=== PATIENT | male | born 1945 | race Caucasian/White ===

== ENCOUNTER 2017-07-18 18:59 | Emergency (ER) | payer OTHER, BC ==
[~2017-07-18] VITALS: Ht 175.3 cm; Wt 94.6 kg
[~2017-07-18 18:59] MED LIST: ALPR1TAB3; ALT10; AMB10; AMLO2.5T; ASPEC81; BUPR-79; BUPRTAB51; CLOP1TAB15; EZET10TA63; FLM4; FRS/40; LEXAPRO; METO100T44; METO50TA7; NTRGSL/4; PANT40TA; SEROQUEL; [UNRECOGNIZED DRUG - OTHER]
[2017-07-18 19:22] VITALS: O2SAT 96
[2017-07-18] MEDS ORDERED: METHYLPREDNISOLONE 125 MG VIAL IV STA (19:22)
[2017-07-18] MEDS ORDERED: ONDANSETRON INJ 2 MG/ML 2 ML VIAL IV STA (19:22)
[2017-07-18] MEDS ORDERED: DiphenhydrAMINE HCL 50 MG/ML VIAL IV STA (19:22)
[2017-07-18 19:25] VITALS: TEMP 36.6; Ht 175.3 cm; Wt 94.6 kg
[2017-07-18] MEDS ORDERED: OPTIRAY 320 IV PRN (19:45)
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
[2017-07-18] MEDS ORDERED: CLOP1TAB15 PO (19:58)
[2017-07-18] MEDS ORDERED: BUPR200T2 PO (19:58)
[2017-07-18] MEDS ORDERED: CRS/10 PO (19:58)
[2017-07-18] MEDS ORDERED: CARV3.122 PO (19:58)
[2017-07-18] MEDS ORDERED: CLON1TAB3 PO (19:58)
[2017-07-18] MEDS ORDERED: RISP1TAB68 PO (19:58)
[2017-07-18] MEDS ORDERED: DOCU-94 PO (19:58)
[2017-07-18] MEDS ORDERED: DIVA500T5 PO (19:58)
[2017-07-18] MEDS ORDERED: LEVO25TA5 PO (19:58)
[2017-07-18] MEDS ORDERED: ASPI81TA28 PO (19:58)
[2017-07-18] MEDS ORDERED: ALT/25 PO (19:58)
[2017-07-18 20:07] LABS: BASO % 0.3 %; BASO ABS # 0.03 K/uL (0-0.2); EOS % 2.8 %; EOS ABS # 0.27 K/uL (0-0.5); HEMOGLOBIN 14.6 g/dL (14.0-18.0); IG# 0.05 K/uL (0.00-0.02); LYMPH % 19.4 %; LYMPH ABS # 1.87 K/uL (1.2-3.4); MEAN CELL VOLUME 87.5 fL (80-100); MEAN CORPUSCULAR HGB CONC 33.2 g/dl (32-36); MEAN PLATELET VOLUME 10.4 fL (7.4-10.4); MONO % 7.3 %; NEUT % 69.7 %; NEUT ABS # 6.71 K/uL (1.4-6.5); PLATELET COUNT 160 K/uL (130-400); RED CELL DISTRIBUTION WIDTH CV 13.5 % (11.5-14.5); RED CELL DISTRIBUTION WIDTH SD 43.2 fL (36.4-46.3); WHITE BLOOD COUNT 9.63 K/uL (4.8-10.8)
[2017-07-18 20:17] LABS: INR 1.1 (0.9-1.1); PTT PATIENT 23.8 SECONDS (21.0-31.0)
[2017-07-18 20:26] LABS: ALBUMIN 3.7 gm/dl (3.4-5.0); CALCIUM 8.8 mg/dl (8.5-10.1); CREATININE 1.3 mg/dl (0.60-1.40); POTASSIUM 4.4 mmol/L (3.5-5.1)
[2017-07-18 20:29] LABS: TOTAL PROTEIN 7.1 gm/dl (6.4-8.2)
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
[2017-07-18] MEDS ORDERED: HYDROCODONE/ACETAMOPHEN 5/325MG TAB PO STA ×2 (21:50→22:01)
[2017-07-18] MEDS ORDERED: ACETAMINOPHEN 325 MG TAB ONE (21:53)
[2017-07-18] MEDS ORDERED: ACETAMINOPHEN 325 MG TAB PO STA (22:01)
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
[2017-07-18 22:43] VITALS: BP 146/114; PULSE 61; O2SAT 94
== END 2017-07-18 22:44 | disposition home or self-care (01) ==
LOC: EDBD 18:59 → C.EDA 19:00
DX: R07.89 Other chest pain (principal); S20.212A Contusion of left front wall of thorax, initial encounter; V48.5XXA Car driver injured in noncollision transport accident in traffic accident, initial encounter; Y92.488 Other paved roadways as the place of occurrence of the external cause; F31.9 Bipolar disorder, unspecified; E03.9 Hypothyroidism, unspecified; I25.10 Atherosclerotic heart disease of native coronary artery without angina pectoris; Z95.1 Presence of aortocoronary bypass graft; Z79.82 Long term (current) use of aspirin; Z79.02 Long term (current) use of antithrombotics/antiplatelets; Z79.899 Other long term (current) drug therapy

== ENCOUNTER 2020-07-10 05:05 | Observation (INO) ==
[2020-07-10] MEDS ORDERED: oxyCODONE HCL IR 5 MG TAB (IMMEDIATE RELEASE) PO STA (05:15)
--- NOTE | 2020-07-10 05:17 | Emergency Department Note ---
Impression & Plan Left-sided chest pain, Left rib fracture ED Provider Note Name: ANTONIETTA Duff CASE Age: 75 Sex: M Arrives Via: Ambulance Informant: Patient ED Provider: Billy Hinojosa MD Chief Complaint: Fall Impression: Left-Sided Chest Pain Left Rib Fracture Medical Decision Makin yr old male with history Bipolar, CAD, Hypothyroid, BPD with CABG 20+ yrs ago and multiple MIs/stents since then arrives for left rib pain sp fall 3 days ago. Admits headache and head injury thus ct head/neck obtained and unremarkable. CT chest obtained at this time as well which reveals what appears to be small non displaced rib fracture, though [facility] reports no acute findings. Patient improving pain with Oxy IR. While in ED awaiting CT results patient reported sudden onset left chest pressure radiating to left jaw. States identical pain to previous MIs. Denies nausea, palpitations, lightheaded, shob. States different pain than left rib pain which is improving post Oxy IR. EKG obtained and unremarkable. CT noted unremarkable. Labs obtained. With cardiac hisory and stating similar to previous ME will need to come in for cardiac rule out. Prior Medical Record and Triage/Nursing Notes reviewed by Me Additional history obtained from chart Differentials:Cardiac ischemia, aortic dissection, pulmonary embolism, pneumothorax, pneumonia, pericarditis, myocarditis, esophageal rupture, GERD, cholecystitis, pancreatitis, musculoskeletal, as well as other pathologies. Vital Signs: reviewed and remarkable for HTN Interventions: oxy IR, ASA 324mg PO, slntg Labs:Reviewed and remarkable for no significant abnormalities Imaging:[facility] Radiologist interpretation reviewed by me: CT head/neck wo con: no acute findings. CT Chest wo con: per stat rad negative EKG:Per My Interpretation: Indication Chest Pain: NSR 77 bpm, qtc 468. No Ectopy. No Ischemia. There is a RBBB with left axis deviation similar to previous. Compared to EKG 07/18/17, no significant changes. Cardiac/Tele Monitoring: Cardiac Monitoring: An Order was placed for continuous cardiac monitoring. The monitor shows a rate of 75 with a normal sinus rhythm. Consults:Maricel ACEVES accepts to eval for Dr Evans Plan: Disposition:Hospitalization. Condition: Good History of Present Illness:75 yr old male arrives for evaluation of left rib pain. Patient tripped taking out garbage on Friday and fell on his left side hitting left head and left ribs on the ground. No LOC, syncope nor other injuries besides scrapping his knuckles. He notes he has had headache since a long with worsening left rib pain. Worse with deep breath and movement. Denies difficulty breathing, cough, fevers, vision changes, weakness, abdominal pain, urinary symptoms, blood in stool/urine, nor other symptoms. Denies falling regularly. Is on ASA and Plavix for cardiac stents. Denies etoh use nor other inciting event. ROS: See above HPI for pertinent positives & negatives. A total of 10 systems reviewed and were otherwise negative. Past Medical History:Bipolar, CAD, Hypothyroid, BPD Past Surgical History:CABG, multiple cardiac stents Family History:non contributory Social History:lives alone, previous smoker Home Medications:See Below Allergies:CT Dye Vitals:Blood Pressure: 179/70, Pulse 75, RR 18, T 36.3C, O2 96% on RA Physical Exam: GENERAL: Patient is uncomfortable appearing and in mild distress. EYES: No scleral icterus, unremarkable pupils. ENT: Mucous membranes moist, no nasal congestion. NECK: No masses appreciated, nomeningismus, trachea is midline. RESPIRATORY: No dyspnea. Clear to auscultation and equal bilaterally. No wheeze, no rhonchi. CARDIOVASCULAR: Regular rate and rhythm.No murmurs, rubs, gallops appreciated. CHEST: Bruising of the mid lateral ribs with TTP no crepitus GASTROINTESTINAL: Abdomen soft, non-tender, no peritonitis.Bowel sounds positive.No masses appreciated. BACK: No midline tenderness, no CVA tenderness EXTREMITIES: Normal motion all extremities, no cyanosis, no edema. NEUROLOGIC: Alert and oriented, no acute motor or sensory deficits, no focal weakness, cranial nerves grossly intact. SKIN: No rash, no jaundice, no diaphoresis. PSYCH: Appropriate GCS: 15 ED Course: Times/Reassessment: Stable, did develop chest pain during stay. Billy Hinojosa MD Past Med/Surg History Medical History Bipolar disorder BPD (bronchopulmonary dysplasia) CAD (coronary artery disease) Coronary artery bypass graft 1992: [place] to LAD, saphenous vein graft to 1st diagonal, saphenous vein graft to om 1, saphenous vein graft to the right coronary artery Diabetes mellitus type 2 in obese Hypertension Hypothyroid Surgical History Hx of inguinal herniorrhaphy Status post aorto-coronary artery bypass graft Family History Other Family history non-contributory Social History Smoking Status: Never smoker Hx Alcohol Use: No Hx Substance Use: No Preferred Language: Citizen Of [place] Communication Ability: Effective Dictionary Editor Required: No Beliefs That Will Affect Care: None Current Living Situation: Alone Current Living Situation Comment: 1 pet dog Feels Safe at Home: Yes Safety Concerns: Feels Safe At This Time Assistive Devices: Glasses Allergies Allergies Allergy/AdvReac Type Severity Reaction Status Date / Time Iodinated Contrast Media Allergy Rash Verified 07/10/20 06:16 Home Meds Home Medications Medication Instructions Recorded Confirmed aspirin [Aspirin Low Dose] 81 mg PO DAILY 07/10/20 07/10/20 bupropion HCl 200 mg PO BID 07/10/20 07/10/20 carvedilol 6.25 mg PO BID 07/10/20 07/10/20 clonazepam 1 mg PO HS 07/10/20 07/10/20 clopidogrel [Plavix] 75 mg PO DAILY 07/10/20 07/10/20 divalproex 750 mg PO 07/10/20 07/10/20 insulin glargine [Lantus U-100 5 unit SUBCUT 07/10/20 07/10/20 Insulin] levothyroxine 25 mcg PO QAM 07/10/20 07/10/20 metformin 500 mg PO BID 07/10/20 07/10/20 olanzapine 5 mg PO 07/10/20 07/10/20 ramipril 2.5 mg PO BID 07/10/20 07/10/20 risperidone [Risperdal] 1 mg PO HS 07/10/20 07/10/20 rosuvastatin 10 mg PO 07/10/20 07/10/20 Results & Data (ED) Vital Signs Vital Signs - 24 hr 07/10/20 05:11 07/10/20 06:10 07/10/20 06:15 Temperature 36.3 C L Temperature Source Oral Pulse Rate 75 72 Pulse Rate [Apical] 64 Pulse Rate from SpO2 Sensor 72 Respiratory Rate 18 22 20 Respiratory Effort / Characteristics Respiratory Depth Blood Pressure 179/70 H 145/79 H Blood Pressure [Right Arm] 158/85 H Blood Pressure Mean 106 101 Blood Pressure Mean [Right Arm] 109 Blood Pressure Position [Right Arm] Pulse Oximetry 96 97 96 Oxygen Delivery Method Room Air Room Air Room Air Sepsis Recent Fever Within 48 Hours No Sepsis New/Unexplained Change in Mental Status N/A Sepsis Action Taken by Nursing No Action Required 07/10/20 06:20 07/10/20 06:25 07/10/20 06:30 Temperature Temperature Source Pulse Rate 67 61 61 Pulse Rate [Apical] Pulse Rate from SpO2 Sensor 67 61 60 Respiratory Rate 18 19 21 Respiratory Effort / Characteristics Respiratory Depth Blood Pressure 153/70 H 138/66 137/61 Blood Pressure [Right Arm] Blood Pressure Mean 97 90 86 Blood Pressure Mean [Right Arm] Blood Pressure Position [Right Arm] Pulse Oximetry 94 95 94 Oxygen Delivery Method Room Air Room Air Room Air Sepsis Recent Fever Within 48 Hours Sepsis New/Unexplained Change in Mental Status Sepsis Action Taken by Nursing 07/10/20 08:14 Temperature Temperature Source Pulse Rate Pulse Rate [Apical] 62 Pulse Rate from SpO2 Sensor Respiratory Rate 18 Respiratory Effort / Characteristics Non-Labored Spontaneous Respiratory Depth Normal Blood Pressure Blood Pressure [Right Arm] 174/73 H Blood Pressure Mean Blood Pressure Mean [Right Arm] 106 Blood Pressure Position [Right Arm] Lying Pulse Oximetry 95 Oxygen Delivery Method Room Air Sepsis Recent Fever Within 48 Hours Sepsis New/Unexplained Change in Mental Status Sepsis Action Taken by Nursing Laboratory Data Result diagrams: 07/10/20 06:15 07/10/20 06:15 Lab Results 07/10/20 07/10/20 07/10/20 Range/Units 06:15 06:15 06:20 WBC 9.53 (4.8-10.8) K/uL RBC 4.72 (4.7-6.1) M/uL Hgb 14.3 (14.0-18.0) g/dL Hct 41.4 L (42-52) % MCV 87.7 (80-100) fL MCH 30.3 (25-34) pg MCHC 34.5 (32-36) g/dL RDW Std Deviation 44.0 (36.4-46.3) fL RDW Coeff of De 13.6 (11.5-14.5) % Plt Count 182 (130-400) K/uL MPV 10.3 (7.4-10.4) fL Immature Gran % (Auto) 0.6 % Neut % (Auto) 56.9 % Lymph % (Auto) 25.2 % [place] % (Auto) 12.6 % Eos % (Auto) 4.4 % Baso % (Auto) 0.3 % Neut # (Auto) 5.42 (1.4-6.5) K/uL Lymph # (Auto) 2.40 (1.2-3.4) K/uL [place] # (Auto) 1.20 H (0.11-0.59) K/uL Eos # (Auto) 0.42 (0-0.5) K/uL Baso # (Auto) 0.03 (0-0.2) K/uL Immature Gran # (Auto) 0.06 H (0.00-0.02) K/uL Sodium 133 L (136-145) mmol/L Potassium 4.9 (3.5-5.1) mmol/L Chloride 103 (98-107) mmol/L Carbon Dioxide 25 (21-32) mmol/L Anion Gap 5.0 (3-11) BUN 13 (7-18) mg/dl Creatinine 1.44 H (0.6-1.4) mg/dl Est Cr Clr Drug Dosing 51.5 ml/min Est GFR ( Amer) 55.4 Est GFR (Non-Af Amer) 47.8 BUN/Creatinine Ratio 8.9 L (10-20) Glucose 128 H (70-99) mg/dl Calcium 8.7 (8.5-10.1) mg/dl Magnesium 2.0 (1.8-2.4) mg/dl Total Bilirubin 0.6 (0.2-1) mg/dl Direct Bilirubin 0.1 (0-0.2) mg/dl AST 16 (15-37) U/L ALT 37 (12-78) U/L Alkaline Phosphatase 63 (45-117) U/L Troponin I < 0.015 (0-0.045) ng/ml Total Protein 6.9 (6.4-8.2) gm/dl Albumin 3.5 (3.4-5.0) gm/dl Lipase 84 (73-393) U/L COVID-19 Eval Order Covid19 IDNow atMFLC SARS-CoV-2, RNA, NAAT (NEGATIVE) 07/10/20 Range/Units 06:20 WBC (4.8-10.8) K/uL RBC (4.7-6.1) M/uL Hgb (14.0-18.0) g/dL Hct (42-52) % MCV (80-100) fL MCH (25-34) pg MCHC (32-36) g/dL RDW Std Deviation (36.4-46.3) fL RDW Coeff of De (11.5-14.5) % Plt Count (130-400) K/uL MPV (7.4-10.4) fL Immature Gran % (Auto) % Neut % (Auto) % Lymph % (Auto) % [place] % (Auto) % Eos % (Auto) % Baso % (Auto) % Neut # (Auto) (1.4-6.5) K/uL Lymph # (Auto) (1.2-3.4) K/uL [place] # (Auto) (0.11-0.59) K/uL Eos # (Auto) (0-0.5) K/uL Baso # (Auto) (0-0.2) K/uL Immature Gran # (Auto) (0.00-0.02) K/uL Sodium (136-145) mmol/L Potassium (3.5-5.1) mmol/L Chloride (98-107) mmol/L Carbon Dioxide (21-32) mmol/L Anion Gap (3-11) BUN (7-18) mg/dl Creatinine (0.6-1.4) mg/dl Est Cr Clr Drug Dosing ml/min Est GFR ( Amer) Est GFR (Non-Af Amer) BUN/Creatinine Ratio (10-20) Glucose (70-99) mg/dl Calcium (8.5-10.1) mg/dl Magnesium (1.8-2.4) mg/dl Total Bilirubin (0.2-1) mg/dl Direct Bilirubin (0-0.2) mg/dl AST (15-37) U/L ALT (12-78) U/L Alkaline Phosphatase (45-117) U/L Troponin I (0-0.045) ng/ml Total Protein (6.4-8.2) gm/dl Albumin (3.4-5.0) gm/dl Lipase (73-393) U/L COVID-19 Eval Order SARS-CoV-2, RNA, NAAT NEGATIVE (NEGATIVE) Administered Medications Acetaminophen (Acetaminophen 325 Mg Tab) 650 mg PO Q4H PRN PRN Reason: Pain or Fever Stop: 08/09/20 09:41 Last Admin: 07/10/20 23:56 Dose: 650 mg Documented by: [id number] Admin: 07/10/20 17:02 Dose: 650 mg Documented by: [id number] Admin: 07/10/20 13:41 Dose: 650 mg Documented by: [id number] Aspirin (Aspirin 81 Mg Ectab) 81 mg PO DAILY [facility] Stop: 08/09/20 09:41 Last Admin: 07/10/20 10:51 Dose: Not Given Documented by: [id number] Bupropion HCl (Bupropion Sr 100 Mg Tabcr) 200 mg PO [id number] [facility] Stop: 08/09/20 09:41 Last Admin: 07/10/20 17:04 Dose: 200 mg Documented by: [id number] Admin: 07/10/20 10:50 Dose: 200 mg Documented by: [id number] Carvedilol (Carvedilol 6.25 Mg Tab) 6.25 mg PO BID [facility] Stop: 08/09/20 09:41 Last Admin: 07/10/20 20:05 Dose: 6.25 mg Documented by: [id number] Admin: 07/10/20 10:50 Dose: 6.25 mg Documented by: [id number] Clonazepam (Clonazepam 1 Mg Tab) 1 mg PO HS [facility] Stop: 08/09/20 20:59 Last Admin: 07/10/20 20:05 Dose: 1 mg Documented by: [id number] Clopidogrel Bisulfate (Clopidogrel Bisulfate 75 Mg Tab) 75 mg PO DAILY [facility] Stop: 08/09/20 09:41 Last Admin: 07/10/20 10:50 Dose: 75 mg Documented by: [id number] Divalproex Sodium (Divalproex Delay Release 250 Mg Tabec) 750 mg PO [facility] Stop: 08/09/20 20:59 Last Admin: 07/10/20 20:06 Dose: 750 mg Documented by: [id number] Enalapril Maleate (Enalapril Maleate 10 Mg Tab) 10 mg PO BID [facility] Stop: 08/09/20 09:41 Last Admin: 07/10/20 20:06 Dose: 10 mg Documented by: [id number] Admin: 07/10/20 11:03 Dose: 10 mg Documented by: [id number] Heparin Sodium (Porcine) (Heparin Sod 5,000 Unit/0.5 Ml Vial) 5,000 units SQ Q8 [facility] Stop: 08/09/20 13:59 Last Admin: 07/10/20 20:07 Dose: 5,000 units Documented by: [id number] Admin: 07/10/20 13:42 Dose: 5,000 units Documented by: [id number] Insulin Aspart (Insulin Aspart 100 Units/Ml 3 Ml Pen) 0 units SC ACHS [facility] Stop: 08/09/20 11:29 Last Admin: 07/10/20 20:12 Dose: Not Given Documented by: [id number] Cosigned by: [id number] Admin: 07/10/20 17:11 Dose: Not Given Documented by: [id number] Cosigned by: [id number] Admin: 07/10/20 12:41 Dose: 1 units Documented by: [id number] Cosigned by: [id number] Insulin Glargine (Insulin Glargine Solostar 100 Units/Ml 3 Ml Pen) 5 units SC HS [facility] Stop: 08/09/20 20:59 Last Admin: 07/10/20 20:12 Dose: 5 units Documented by: [id number] Cosigned by: [id number] Levothyroxine Sodium (Levothyroxine Sodium 25 Mcg Tablet) 25 mcg PO DAILYBB [facility] Stop: 08/09/20 09:41 Last Admin: 07/10/20 11:03 Dose: 25 mcg Documented by: [id number] Olanzapine (Olanzapine 5 Mg Tablet) 5 mg PO HS [facility] Stop: 08/09/20 20:59 Last Admin: 07/10/20 20:06 Dose: 5 mg Documented by: [id number] Risperidone (Risperidone 1 Mg Tablet) 1 mg PO HS [facility] Stop: 08/09/20 20:59 Last Admin: 07/10/20 20:06 Dose: 1 mg Documented by: [id number] Rosuvastatin Calcium (Rosuvastatin Calcium 10 Mg Tab) 10 mg PO HS [facility] Stop: 08/09/20 20:59 Last Admin: 07/10/20 20:05 Dose: 10 mg Documented by: [id number] Discontinued Medications Aspirin (Aspirin 81 Mg Chew) 324 mg PO NOW STA Stop: 07/10/20 06:00 Last Admin: 07/10/20 06:11 Dose: 324 mg Documented by: [id number] Lidocaine (Lidocaine 5% 1 Patch) 1 patch TD NOW STA Stop: 07/10/20 06:55 Last Admin: 07/10/20 06:58 Dose: 1 patch Documented by: [id number] Metformin HCl (Metformin Hcl 500 Mg Tab) 500 mg PO BIDM [facility] Stop: 08/09/20 09:41 Last Admin: 07/10/20 17:11 Dose: Not Given Documented by: [id number] Admin: 07/10/20 11:03 Dose: 500 mg Documented by: [id number] Miscellaneous (Remove Lidoderm Patch) 1 ea N/A DAILY@2100 [facility] Stop: 07/10/20 21:01 Last Admin: 07/10/20 20:06 Dose: 1 ea Documented by: [id number] Nitroglycerin (Nitroglycerin Sl 0.4 Mg/Tab Tab) 0.4 mg SL NOW STA Stop: 07/10/20 06:00 Last Admin: 07/10/20 06:11 Dose: 0.4 mg Documented by: [id number] Oxycodone HCl (Oxycodone Hcl Ir 5 Mg Tab (Immediate Release)) 5 mg PO NOW STA Stop: 07/10/20 05:16 Last Admin: 07/10/20 05:17 Dose: 5 mg Documented by: [id number] Discharge Plan Visit Data Chief Complaint: Rib Injury/Pain Stated Complaint: LEFT SIDED PAIN POST FALL ED Provider: Billy Hinojosa Discharge Problem: Left-sided chest pain, Left rib fracture Patient Disposition: Admitted As Inpatient Discharge Instructions Interventions: ED Discharge Assessment Last Done: 07/10/20 09:30 Discharge Problem: Left rib fracture Qualifiers: Encounter type: initial encounter Rib fracture type: single rib Fracture type: closed Qualified Code(s): S22.32XA - Fracture of one rib, left side, initial en counter for closed fracture
[2020-07-10] MEDS ORDERED: NITROGLYCERIN SL 0.4 MG/TAB TAB SL STA (05:59)
[2020-07-10] MEDS ORDERED: ASPIRIN 81 MG CHEW PO STA (05:59)
[2020-07-10 06:22] LABS: Basophils # (auto) 0.03 K/uL (0-0.2); Basophils % (auto) 0.3 %; Eosinophils # (auto) 0.42 K/uL (0-0.5); Eosinophils % (auto) 4.4 %; Hematocrit (blood only) 41.4 % (42-52); Hemoglobin 14.3 g/dL (14.0-18.0); Immature Granulocytes # (auto) 0.06 K/uL (0.00-0.02); Immature Granulocytes % (auto) 0.6 %; Lymphocytes % (auto) 25.2 %; Mean Corpuscular Hemoglobin 30.3 pg (25-34); Mean Corpuscular Hgb Conc 34.5 g/dL (32-36); Mean Corpuscular Volume 87.7 fL (80-100); Mean Platelet Volume 10.3 fL (7.4-10.4); Monocytes % (auto) 12.6 %; Neutrophils # (auto) 5.42 K/uL (1.4-6.5); Neutrophils % (auto) 56.9 %; Platelet Count 182 K/uL (130-400); RDW Coefficient of Variation 13.6 % (11.5-14.5); Red Blood Count 4.72 M/uL (4.7-6.1); White Blood Count 9.53 K/uL (4.8-10.8)
[2020-07-10 06:39] LABS: Alanine Aminotransferase 37 U/L (12-78); Albumin Level 3.5 gm/dl (3.4-5.0); Aspartate Aminotransferase 16 U/L (15-37); BUN Creatinine Ratio 8.9 (10-20); Blood Urea Nitrogen 13 mg/dl (7-18); Calcium 8.7 mg/dl (8.5-10.1); Carbon Dioxide 25 mmol/L (21-32); Chloride 103 mmol/L (98-107); Creatinine Clr Calc Pharmacy 51.5 ml/min; Est GFR (African American) 55.4; Est GFR (Non-African American) 47.8; Glucose 128 mg/dl (70-99); Lipase 84 U/L (73-393); Potassium 4.9 mmol/L (3.5-5.1); Sodium 133 mmol/L (136-145)
[2020-07-10 06:44] LABS: Alkaline Phosphatase 63 U/L (45-117); Bilirubin Direct 0.1 mg/dl (0-0.2); Bilirubin,Total 0.6 mg/dl (0.2-1); Total Protein 6.9 gm/dl (6.4-8.2); Troponin I < 0.015 ng/ml (0-0.045)
--- NOTE | 2020-07-10 06:51 | CT Scan Report ---
CT head/brain wo con CLINICAL HISTORY: Head pain status post trauma COMPARISON STUDY: July 2017 TECHNIQUE: Axial CT of the brain is performed from the vertex to the skull base. IV contrast was not administered for this examination. A dose lowering technique was utilized adhering to the principles of ALARA. CT DOSE: 2115.73 mGy.cm FINDINGS: No intra or extra-axial mass lesions are visualized. There is no CT evidence of acute cortical infarc tion. There is no evidence of midline shift. There is no acute hemorrhage. No calvarial fractures ar e visualized. There are patchy minor matter hypodensities likely on a small vessel basis. There is a right temporal lacunar infarct versus dilated perivascular space. This remains unchanged. There is no evidence of pathologic ventricular dilatation. There is no evidence of acute sinusitis IMPRESSION: No acute intracranial findings ACT 112: Negative or not required by law. Electronically signed by: Jhony Duarte M.D. 07/10/2020 6:50 AM
--- NOTE | 2020-07-10 06:52 | CT Scan Report ---
CT OF THE CERVICAL SPINE CLINICAL HISTORY: Neck pain status post trauma COMPARISON STUDY: July 2017 CT DOSE: TECHNIQUE: CT scan of the cervical spine was performed from the skull base to the thoracic inlet. Laine ges are reviewed in the axial, sagittal, and coronal planes. IV contrast was not administered for thi s examination. A dose lowering technique was utilized adhering to the principles of ALARA. FINDINGS: The prevertebral soft tissues are normal. No fractures or subluxations are visualized. There are multilevel degenerative changes IMPRESSION: No evidence of acute fracture or traumatic subluxation. ACT 112: Negative or not required by law. Electronically signed by: Jhony Duarte M.D. 07/10/2020 6:51 AM
[2020-07-10] MEDS ORDERED: LIDOCAINE 5% 1 PATCH TD STA (06:54)
--- NOTE | 2020-07-10 08:01 | CT Scan Report ---
CT chest diagnostic wo con CLINICAL HISTORY: 75 years-old Male with left chest pain s/p fall. Acute left-sided chest pain statu s post fall TECHNIQUE: Multiaxial CT images of the chest were performed without contrast. A dose lowering techni que was utilized adhering to the principles of ALARA. COMPARISON: Chest CT 07/18/2017 FINDINGS: Heterogeneous thyroid. Left subclavian pacer. Mild cardiomegaly with extensive lower [place] artery calcifications. Prior median sternotomy with CABG. No pericardial effusion or thoracic aor tic aneurysm. There is no adenopathy. Calcified hilar lymph nodes are noted in addition to calcified pulmonary granulomata. No pneumothorax or pleural effusion. Emphysema with subpleural bibasilar promi nent reticulation compatible with fibrosis. Mild bibasilar traction bronchiectasis. 4 mm noncalcified pulmonary nodule of the right lung apex, image 51 series 8 is stable to slightly decreased in size f rom comparison. No suspicious pulmonary nodules are identified. 4 mm subpleural noncalcified solid no dule of the basal left lower lobe on image 281 series 8 is also stable. Central airways are patent. Tiny hiatal hernia. Nonspecific bilateral perinephric stranding. Mild gynecomastia. Degenerative elizalde ges of the shoulders and spine. No acute fracture identified. IMPRESSION: 1. No acute posttraumatic abnormality of the chest, notably there is no acute fracture or pneumothora x. 2. Emphysema with bibasilar predominant pulmonary fibrotic changes and mild traction bronchiectasis. 3. Prior granulomatous disease. 4. Prior median sternotomy with CABG. 5. Additional findings as above. ACT 112: Negative or not required by law. Electronically signed by: Jaime Montemayor M.D. 07/10/2020 8:00 AM
--- NOTE | 2020-07-10 08:56 | History & Physical Report ---
Date of Service July 10, 2020 Assessment & Plan (1) Status post fall: Impression: This is a 75-year-old male that had a fall off of his porch taking out garbage 3 days ago. He has had increasing left rib pain since that time. CT scan of the chest was completed and there is no evidence of acute injury and no evidence of fracture to any ribs. Patient does appear to have some traction bronchiectasis. Otherwise, CT chest is clear. Mechanical fall with loss of balance. No loss of consciousness, syncope, near syncope. No skeletal injury We will treat with Lidoderm patch and follow expectantly No ecchymosis to the thorax, flank, or back No abdominal pain with deep palpation. (2) CAD (coronary artery disease): History of CABG 20 years ago Patient reports 17 stents since that time Patient with chest pain this morning which resolved with nitroglycerin sublingually in the ED EKG is negative for ST changes Troponin is negative Repeat troponin at noon time EKG with chest pain Continue beta-fantasma, antiplatelet therapy including aspirin and clopidogrel, and ramipril. Continue with rosuvastatin Monitor on telemetry (3) Hypertension: Patient has not had any of his morning meds Continue carvedilol and ramipril Monitor on telemetry (4) Diabetes mellitus type 2 in obese: Check a hemoglobin A1c with next set of labs Continue with Lantus 5 units subcutaneously daily Continue Metformin 500 mg p.o. twice daily Will initiate NovoLog sliding scale insulin while inpatient Heart healthy, diabetes mellitus type 2 carb count diet (5) Hypothyroid: Continue levothyroxine at 25 mcg daily (6) Bipolar disorder: Continue bupropion 200 mg p.o. twice daily Continue olanzapine Continue risperidone (7) DVT prophylaxis: Heparin 5000 units subcutaneously every 8 hours Ambulate as tolerated Continue on monitor on the floor Please refer to Dr. Russell Evans's addendum for further recommendations and corrections. Admission and Anticipated Discharge Date Admission Date: 07/10/2020 Anticipated date of discharge: 07/11/20 History of Present Illness Primary Care Provider: Juan Diego Castillo Attending: Dr. Russell Evans This is a 75-year-old male with a past medical history of CAD, CABG 20 years ago, 17 stents in the past 20 years, hypothyroidism, bipolar disorder, bronchopulmonary dysplasia, recent fall. The patient presents this morning to the emergency department with chest pain on the left side secondary to rib injury. He states that on Friday of last week he fell down 3 steps on the [place]. He fell on his left side. He has some contusions on his left hand but no bruising to the head, hip, thorax. Initially he had some left hip pain but was able to ambulate. Over the last 2 to 3 days t he pain to his left ribs have worsened especially with deep breathing. The patient states that he lost his balance when he fell. He was on his porch taking out garbage when he fell. He denies loss of consciousness, chest pain, shortness of breath, dizziness, syncope, presyncope at the time of his fall. He has no headache or visual disturbance. Pain is better controlled with Lidoderm patch on the left side. He was being prepared for discharge from the emergency department when he achieved crushing chest pain that radiated into his jaw reminiscent of prior incidents requiring stent or CABG. He had no shortness of breath or hypoxia or tachycardia with this episode this morning. He received sublingual nitroglycerin. Pain is completely resolved. Patient currently has no acute symptoms other than the rib pain on the left side. Patient denies any recent illness. He has had no positive contact with Covid patients. He denies any history of Covid illness. Covid testing this morning was negative. The patient lives in his current home for the past 6 years. He lives alone. He has a pet dog. He has no other pets. Allergies Allergy/AdvReac Type Severity Reaction Status Date / Time Iodinated Contrast Media Allergy Rash Verified 07/10/20 06:16 Home Medications Medication Instructions Recorded Confirmed Type aspirin [Aspirin Low Dose] 81 mg PO DAILY 07/10/20 07/10/20 History bupropion HCl 200 mg PO BID 07/10/20 07/10/20 History carvedilol 6.25 mg PO BID 07/10/20 07/10/20 History clonazepam 1 mg PO HS 07/10/20 07/10/20 History clopidogrel [Plavix] 75 mg PO DAILY 07/10/20 07/10/20 History divalproex 750 mg PO HS 07/10/20 07/10/20 History insulin glargine [Lantus U-100 5 unit SUBCUT HS 07/10/20 07/10/20 History Insulin] levothyroxine 25 mcg PO QAM 07/10/20 07/10/20 History metformin 500 mg PO BID 07/10/20 07/10/20 History olanzapine 5 mg PO HS 07/10/20 07/10/20 History ramipril 2.5 mg PO BID 07/10/20 07/10/20 History risperidone [Risperdal] 1 mg PO HS 07/10/20 07/10/20 History rosuvastatin 10 mg PO HS 07/10/20 07/10/20 History Past Med/Surg History Medical History Bipolar disorder BPD (bronchopulmonary dysplasia) CAD (coronary artery disease) Diabetes mellitus type 2 in obese Hypertension Hypothyroid Surgical History Hx of inguinal herniorrhaphy Status post aorto-coronary artery bypass graft Family History Other Family history non-contributory Social History Smoking Status: Never smoker Hx Alcohol Use: No Hx Substance Use: No Preferred Language: Sinhala Communication Ability: Effective Onsite Health Coach Required: No Beliefs That Will Affect Care: None Current Living Situation: Alone Current Living Situation Comment: 1 pet dog Feels Safe at Home: Yes Safety Concerns: Feels Safe At This Time Assistive Devices: Cane Review of Systems Review of Systems: All systems reviewed & are unremarkable except as noted in HPI & below Physical Exam Physical Exam: GENERAL : No acute distress EYES: No icterus, gaze conjugate. Pupils equal round and reactive to light NOSE: No evidence of epistaxis. No evidence of septal breech. Mask in place MOUTH: No lesions or candidiasis. Mucosa moist. Mask in place. Full gaffney and mustache NECK: Supple. No carotid bruits LUNGS: CTA B/L, no wheezes, rales or rhonchi HEART: Regular, rate controlled ABDOMEN: Soft, NT, ND, BS Present. Protuberant. Tympanic to percussion EXTREMITIES: No LE edema, pedal pulses intact and equal bilaterally. Bilateral lower extremity venous stasis NEURO: A&OX3. Results & Data Results & Data ([facility]) Vital Signs (Past 12 Hours) Vital Signs Temp Pulse Pulse Resp BP BP Pulse Ox 07/10/20 08:14 62 18 174/73 H 95 07/10/20 06:30 61 21 137/61 94 07/10/20 06:25 61 19 138/66 95 07/10/20 06:20 67 18 153/70 H 94 07/10/20 06:15 72 20 145/79 H 96 07/10/20 06:10 64 22 158/85 H 97 07/10/20 05:11 36.3 C L 75 18 179/70 H 96 Laboratory Results 07/10/20 06:15 07/10/20 06:15 07/10/20 06:15 Troponin I < 0.015 Laboratory Tests 07/10/20 06:20 SARS-CoV-2, RNA, NAAT NEGATIVE Diagnostic Findings CT chest diagnostic wo con CLINICAL HISTORY: 75 years-old Male with left chest pain s/p fall. Acute left- sided chest pain status post fall TECHNIQUE: Multiaxial CT images of the chest were performed without contrast. A dose lowering technique was utilized adhering to the principles of ALARA. COMPARISON: Chest CT 07/18/2017 FINDINGS: Heterogeneous thyroid. Left subclavian pacer. Mild cardiomegaly with extensive [place] coronary artery calcifications. Prior median sternotomy with CABG. No pericardial effusion or thoracic aortic aneurysm. There is no adenopathy. Calcified hilar lymph nodes are noted in addition to calcified pulmonary granulomata. No pneumothorax or pleural effusion. Emphysema with subpleural bibasilar prominent reticulation compatible with fibrosis. Mild bibasilar traction bronchiectasis. 4 mm noncalcified pulmonary nodule of the right lung apex, image 51 series 8 is stable to slightly decreased in size from comparison. No suspicious pulmonary nodules are identified. 4 mm subpleural noncalcified solid nodule of the basal left lower lobe on image 281 series 8 is also stable. Central airways are patent. Tiny hiatal hernia. Nonspecific bilateral perinephric stranding. Mild gynecomastia. Degenerative changes of the shoulders and spine. No acute fracture identified. IMPRESSION: 1. No acute posttraumatic abnormality of the chest, notably there is no acute fracture or pneumothorax. 2. Emphysema with bibasilar predominant pulmonary fibrotic changes and mild traction bronchiectasis. 3. Prior granulomatous disease. 4. Prior median sternotomy with CABG. 5. Additional findings as above. ACT 112: Negative or not required by law. Electronically signed by: Jaime Montemayor M.D. 07/10/2020 8:00 AM Code Status & VTE Plan Code Status Full resuscitation. Level I VTE Prophylaxis Plan VTE Prophylaxis will be ordered: Yes Supervising Physician Co-Signing Physician Notes I supervised Dexter Connelly PA-C on this admission. I interviewed and examined the patient independently of him. The plan is as written in his note except for any following changes/exceptions: 75yo M w/ hx of significant CAD. No recent cardiac testing (years, per patient). Episode of crushing chest pressure this morning while in the ED for MSK-related pain. Two troponins negative. Given high risk, discussed with cardiology who will see him. Likely plan for stress test tomorrow. PG Care Time/CCT Total # of Minutes Spent Total Time Spent with Patient: Total time spent is greater than 50% in coordination of care (as documented) at patient's floor/unit and/or counseling patient: 65 minutes Coding Level of Care Code 35275 OBS Care - Level 3 Diagnoses Status post fall Z91.81 CAD (coronary artery disease) I25.718 Associated angina: with stable angina Coronary Disease-Associated Artery/Lesion type: bypass graft, autologous vein Hypertension I10 Hypertension type: essential hypertension Diabetes mellitus type 2 in obese E11.69; E66.9 Hypothyroid E03.9 Hypothyroidism type: acquired Bipolar disorder F31.70 Active/Remission status: in remission of unspecified degree DVT prophylaxis Z29.9 (1) CAD (coronary artery disease) Associated angina: with stable angina Coronary Disease-Associated Artery/Lesion type: bypass graft, autologous vein Qualified Code(s): I25.718 - Atherosclerosis of autologous vein coronary artery bypass graft(s) with other forms of angina pectoris (2) Bipolar disorder Active/Remission status: in remission of unspecified degree Qualified Code(s): F31.70 - Bipolar disorder, currently in remission, most recent episode unspecified (3) Hypothyroid Hypothyroidism type: acquired Qualified Code(s): E03.9 - Hypothyroidism, unspecified (4) Hypertension Hypertension type: essential hypertension Qualified Code(s): I10 - Essential (primary) hypertension
[2020-07-10] MEDS ORDERED: NITROGLYCERIN SL 0.4 MG/TAB TAB SL PRN (09:42)
[2020-07-10] MEDS ORDERED: POLYETHYLENE (MIRALAX) 17 GM PACK PO PRN (09:42)
[2020-07-10] MEDS ORDERED: MAGNESIUM HYDROXIDE SUSP 30 ML UDC PO PRN (09:42)
[2020-07-10] MEDS ORDERED: GLUCOSE 40% GEL 15 GM TUBE PO PRN (09:42)
[2020-07-10] MEDS ORDERED: DEXTROSE 50% 50 ML SYRINGE IV PRN (09:42)
[2020-07-10] MEDS ORDERED: GLUCOSE 10 TABS/TUBE PO PRN (09:42)
[2020-07-10] MEDS ORDERED: ALUMINUM/MAGNESIUM SUSP 30 ML UDC PO PRN (09:42)
[2020-07-10] MEDS ORDERED: CARBOHYDRATES FOR HYPOGLYCEMIA PO PRN (09:42)
[2020-07-10] MEDS ORDERED: GLUCAGON FOR INJ 1 MG VIAL SQ PRN (09:42)
[2020-07-10] MEDS: carvediloL 6.25 MG TAB PO SCH ×2 (10:50→20:05)
[2020-07-10] MEDS: buPROPion SR 100 MG TABCR PO SCH ×2 (10:50→17:04)
[2020-07-10] MEDS: CLOPIDOGREL BISULFATE 75 MG TAB PO SCH (10:50)
[2020-07-10] MEDS: ASPIRIN 81 MG ECTAB PO SCH (10:51)
[2020-07-10] MEDS: ENALAPRIL MALEATE 10 MG TAB PO SCH ×2 (11:03→20:06)
[2020-07-10] MEDS: LEVOTHYROXINE SODIUM 25 MCG TABLET PO SCH (11:03)
[2020-07-10] MEDS: metFORMIN HCL 500 MG TAB PO SCH ×2 (11:03→17:11)
--- NOTE | 2020-07-10 11:29 | Electrocardiogram Report ---
Test Reason : Blood Pressure : / mmHG Vent. Rate : 070 BPM Atrial Rate : 070 BPM P-R Int : 192 ms QRS Dur : 142 ms QT Int : 434 ms P-R-T Axes : 075 -44 085 degrees QTc Int : 468 ms Normal sinus rhythm Left axis deviation Right bundle branch block possible Inferior infarct (cited on or before 11-DEC-2005) Abnormal ECG When compared with ECG of 18-JUL-2017 19:12, Premature atrial complexes are no longer Present Confirmed by Dagoberto Siddiqui ([id number]) on 07/10/2020 11:28:33 AM Referred By: REFERRED SELF Confirmed By:Thong Siddiqui
[2020-07-10 12:12] LABS: Estimated Average Glucose 137 mg/dl; Hemoglobin A1C 6.4 % (4.5-5.6)
[2020-07-10 12:31] LABS: Creatine Kinase 165 U/L (39-308); Creatine Kinase MB 4.8 ng/ml (0.5-3.6); Troponin I < 0.015 ng/ml (0-0.045)
[2020-07-10] MEDS: INSULIN ASPART 100 UNITS/ML 3 ML PEN SC SCH ×3 (12:41→20:12)
[2020-07-10] MEDS: ACETAMINOPHEN 325 MG TAB PO PRN ×3 (13:41→23:56)
[2020-07-10] MEDS: HEPARIN SOD 5,000 UNIT/0.5 ML VIAL SQ SCH ×2 (13:42→20:07)
--- NOTE | 2020-07-10 17:50 | Cardiology Consultation ---
Date of Consultation July 10, 2020 Assessment & Plan (1) Chest pain: the patient presented for symptoms of chest pain, however the symptoms were fairly pleuritic in nature and localized to an area upon which she fell a few days ago. He still has some mild tenderness at that site but there was no evidence of fracture or worse trauma. His other symptom of chest discomfort appear to involve a "burning sensation in the precordium and jaw which she feels is consistent with angina. Despite the episode lasting nearly 30 minutes by report to was no objective evidence of ischemia on serum study. The EKG did not demonstrate any evidence of ischemia. He has an extensive history of demi scularization including surgical, percutaneous and even direct epicardial with laser revascularization reported in his record. we have some records of his prior interventions. He states that his last intervention was approximately 2 years ago and I do not have those records. He feels that all of his bypass grafts are currently nonfunctional. Given his history of severe coronary disease and concerning symptoms would seem reasonable to perform an evaluation. I think perfusion imaging would be reasonable in the absence of objective evidence of ischemia. (2) CAD (coronary artery disease): extensive and recurrent. He appears to have a history of inferior infarct.Unclear if his current symptoms are related to an acute coronary syndrome. I think this is unlikely. We will perform a perfusion study as noted above. He should continue aggressive secondary prevention with his current medical regimen that consists of aspirin, Plavix and rosuvastatin. (3) Cardiac defibrillator in place: This initially implanted with a pacemaker after an episode of syncope. Later underwent implantation of a defibrillator. He has had a lead revision for recall bleed. He states that his current generator has an estimated 4 months of longevity. Does report having had therapy in the past. No recent therapies. History of Present Illness Reason for Consultation: Chest pain Requesting Physician: Nathan Attending Physician: Russell Evans MD History of Present Illness the patient is a 75-year-old gentleman with an long history of coronary disease having initially undergone coronary bypass grafting in 1992. He has had multiple subsequent angiograms and percutaneous interventions since that time. He is currently followed at [facility]. He presented to our emergency room for symptoms of left-sided chest discomfort. This discomfort began after he sustained a mechanical fall approximately 3 days ago. The symptoms became worse and he decided to seek an evaluation. He also had some reports of headaches and perhaps a minor head injury. The fall appear to be mechanical although the patient does not recall all of the details surrounding the event. He does not believe he lost consciousness. He was not aware of any palpitations. While being evaluated in the emergency room the patient reported an episode of "burning" in the precordial area with radiation into the throat and jaw. He felt that this symptom was similar to those he has experienced in the past with myocardial infarctions and coronary events. He was given nitroglycerin in the emergency room with resolution of his symptoms. His symptoms resolved fairly gradually he believes the episode lasted approximately 30 minutes. It did not appear to be associated with shortness of breath or palpitation. In general he is a very sedentary individual. He is able to perform routine housework and errands such as shopping and brief walking. He does not exercise regularly. He denies symptoms associated with activity. Allergies Allergy/AdvReac Type Severity Reaction Status Date / Time Iodinated Contrast Media Allergy Rash Verified 07/10/20 06:16 Home Medications Medication Instructions Recorded Confirmed Type aspirin [Aspirin Low Dose] 81 mg PO DAILY 07/10/20 07/10/20 History bupropion HCl 200 mg PO BID 07/10/20 07/10/20 History carvedilol 6.25 mg PO BID 07/10/20 07/10/20 History clonazepam 1 mg PO HS 07/10/20 07/10/20 History clopidogrel [Plavix] 75 mg PO DAILY 07/10/20 07/10/20 History divalproex 750 mg PO HS 07/10/20 07/10/20 History insulin glargine [Lantus U-100 5 unit SUBCUT HS 07/10/20 07/10/20 History Insulin] levothyroxine 25 mcg PO QAM 07/10/20 07/10/20 History metformin 500 mg PO BID 07/10/20 07/10/20 History olanzapine 5 mg PO HS 07/10/20 07/10/20 History ramipril 2.5 mg PO BID 07/10/20 07/10/20 History risperidone [Risperdal] 1 mg PO HS 07/10/20 07/10/20 History rosuvastatin 10 mg PO HS 07/10/20 07/10/20 History Patient History Medical History Bipolar disorder BPD (bronchopulmonary dysplasia) CAD (coronary artery disease) Coronary artery bypass graft 1993: [place] to LAD, saphenous vein graft to 1st diagonal, saphenous vein graft to om 1, saphenous vein graft to the right coronary artery Diabetes mellitus type 2 in obese Hypertension Hypothyroid Surgical History Hx of inguinal herniorrhaphy Status post aorto-coronary artery bypass graft Family History Other Family history non-contributory Social History Smoking Status: Never smoker Hx Alcohol Use: No Hx Substance Use: No Preferred Language: Armenian Communication Ability: Effective Occupational Therapy Aides Teacher Required: No Beliefs That Will Affect Care: None Current Living Situation: Alone Current Living Situation Comment: 1 pet dog Feels Safe at Home: Yes Safety Concerns: Feels Safe At This Time Assistive Devices: Glasses Review of Systems Review of Systems: per HPI. No recent constitutional symptoms such as fevers or chills. No lower extremity edema. Physical Exam Physical Exam: The patient is alert and oriented. Mood and affect appeared normal. He answered all questions appropriately. HEENT: Pupils are equal and reactive to light and accommodation. Extraocular movements are intact. The sclerae are anicteric. Neuro: Cranial nerves intact ( Wearing a mask) Neck: Patient's neck is supple. He has palpable carotid pulses bilaterally without bruits on auscultation. There is no evidence of jugular venous distention. The thyroid is not enlarged. Lungs: Clear to auscultation bilaterally. He has good air movement without use of accessory muscles. No rales wheezes or rhonchi. Cardiac: Heart demonstrates a regular rate and rhythm. Normal S1 and S2. No murmurs on examination. chest: Well-healed device implant site in left upper pectoral area Pulses: The patient has palpable radial pulses bilaterally that are equal in intensity Extremities: There was no evidence of hypoperfusion. There is no cyanosis or clubbing. There is no edema. Skin: I did not appreciate any rashes on examination today. Results & Data ([facility]) Vital Signs (Past 12 Hours) Vital Signs Temp Pulse Pulse Resp BP BP Pulse Ox 07/10/20 16:00 64 07/10/20 15:14 36.4 C L 63 18 152/78 H 96 07/10/20 12:03 36.5 C 61 18 154/72 H 97 07/10/20 09:43 36.6 C 65 16 185/68 H 92 07/10/20 08:14 62 18 174/73 H 95 07/10/20 06:30 61 21 137/61 94 07/10/20 06:25 61 19 138/66 95 07/10/20 06:20 67 18 153/70 H 94 07/10/20 06:15 72 20 145/79 H 96 07/10/20 06:10 64 22 158/85 H 97 Laboratory Results Abnormal Lab Results 07/10/20 07/10/20 07/10/20 06:15 06:15 06:20 WBC 9.53 RBC 4.72 Hgb 14.3 Hct 41.4 L MCV 87.7 MCH 30.3 MCHC 34.5 RDW Std Deviation 44.0 RDW Coeff of De 13.6 Plt Count 182 MPV 10.3 Immature Gran % (Auto) 0.6 Neut % (Auto) 56.9 Lymph % (Auto) 25.2 [place] % (Auto) 12.6 Eos % (Auto) 4.4 Baso % (Auto) 0.3 Neut # (Auto) 5.42 Lymph # (Auto) 2.40 [place]ds # (Auto) 1.20 H Eos # (Auto) 0.42 Baso # (Auto) 0.03 Immature Gran # (Auto) 0.06 H Sodium 133 L Potassium 4.9 Chloride 103 Carbon Dioxide 25 Anion Gap 5.0 BUN 13 Creatinine 1.44 H Est Cr Clr Drug Dosing 51.5 Est GFR ( Amer) 55.4 Est GFR (Non-Af Amer) 47.8 BUN/Creatinine Ratio 8.9 L Glucose 128 H POC Glucose Estimat Average Glucose Hemoglobin A1c Calcium 8.7 Magnesium 2.0 Total Bilirubin 0.6 Direct Bilirubin 0.1 AST 16 ALT 37 Alkaline Phosphatase 63 Total Creatine Kinase CK-MB (CK-2) CK/CKMB % Calc Troponin I < 0.015 Total Protein 6.9 Albumin 3.5 Lipase 84 COVID-19 [facility] SARS-CoV-2, RNA, NAAT 07/10/20 07/10/20 07/10/20 06:20 09:47 11:26 WBC RBC Hgb Hct MCV MCH MCHC RDW Std Deviation RDW Coeff of De Plt Count MPV Immature Gran % (Auto) Neut % (Auto) Lymph % (Auto) [place] % (Auto) Eos % (Auto) Baso % (Auto) Neut # (Auto) Lymph # (Auto) [place] # (Auto) Eos # (Auto) Baso # (Auto) Immature Gran # (Auto) Sodium Potassium Chloride Carbon Dioxide Anion Gap BUN Creatinine Est Cr Clr Drug Dosing Est GFR ( Amer) Est GFR (Non-Af Amer) BUN/Creatinine Ratio Glucose POC Glucose 125 H 178 H Estimat Average Glucose Hemoglobin A1c Calcium Magnesium Total Bilirubin Direct Bilirubin AST ALT Alkaline Phosphatase Total Creatine Kinase CK-MB (CK-2) CK/CKMB % Calc Troponin I Total Protein Albumin Lipase COVID-19 Eval Order SARS-CoV-2, RNA, NAAT NEGATIVE 07/10/20 07/10/20 07/10/20 11:51 11:51 16:04 WBC RBC Hgb Hct MCV MCH MCHC RDW Std Deviation RDW Coeff of De Plt Count MPV Immature Gran % (Auto) Neut % (Auto) Lymph % (Auto) [place]munds % (Auto) Eos % (Auto) Baso % (Auto) Neut # (Auto) Lymph # (Auto) [place] # (Auto) Eos # (Auto) Baso # (Auto) Immature Gran # (Auto) Sodium Potassium Chloride Carbon Dioxide Anion Gap BUN Creatinine Est Cr Clr Drug Dosing Est GFR ( Amer) Est GFR (Non-Af Amer) BUN/Creatinine Ratio Glucose POC Glucose 82 Estimat Average Glucose 137 Hemoglobin A1c 6.4 H Calcium Magnesium Total Bilirubin Direct Bilirubin AST ALT Alkaline Phosphatase Total Creatine Kinase 165 CK-MB (CK-2) 4.8 H CK/CKMB % Calc 2.9 Troponin I < 0.015 Total Protein Albumin Lipase COVID-19 Eval Order SARS-CoV-2, RNA, NAAT Diagnostic Findings chest CT performed in the emergency room did not reveal any rib fractures. he did appear to have emphysema and granulomatous disease. 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 PG Care Time/CCT Total # of Minutes Spent Total Time Spent with Patient: Total time spent is greater than 50% in coordination of care (as documented) at patient's floor/unit and/or counseling patient: Coding Level of Care Code 16016 Inpt Consult Level 4 Diagnoses Chest pain R07.9 CAD (coronary artery disease) I25.718 Coronary Disease-Associated Artery/Lesion type: bypass graft, autologous vein Associated angina: with stable angina Cardiac defibrillator in place Z95.810 (1) CAD (coronary artery disease) Coronary Disease-Associated Artery/Lesion type: bypass graft, autologous vein Associated angina: with stable angina Qualified Code(s): I25.718 - Atherosclerosis of autologous vein coronary artery bypass graft(s) with other forms of angina pectoris
[2020-07-10] MEDS ORDERED: clonazePAM 1 MG TAB PO SCH (21:00)
[2020-07-10] MEDS ORDERED: DIVALPROEX DELAY RELEASE 250 MG TABEC PO SCH (21:00)
[2020-07-10] MEDS ORDERED: risperiDONE 1 MG TABLET PO SCH (21:00)
[2020-07-10] MEDS ORDERED: OLANZapine 5 MG TABLET PO SCH (21:00)
[2020-07-10] MEDS ORDERED: INSULIN GLARGINE SOLOSTAR 100 UNITS/ML 3 ML PEN SC SCH (21:00)
[2020-07-10] MEDS ORDERED: ROSUVASTATIN CALCIUM 10 MG TAB PO SCH (21:00)
[2020-07-11 06:11] LABS: Basophils # (auto) 0.03 K/uL (0-0.2); Basophils % (auto) 0.4 %; Eosinophils # (auto) 0.42 K/uL (0-0.5); Eosinophils % (auto) 5.7 %; Hematocrit (blood only) 39.7 % (42-52); Hemoglobin 13.3 g/dL (14.0-18.0); Immature Granulocytes # (auto) 0.04 K/uL (0.00-0.02); Immature Granulocytes % (auto) 0.5 %; Lymphocytes # (auto) 2.69 K/uL (1.2-3.4); Lymphocytes % (auto) 36.7 %; Mean Corpuscular Hemoglobin 29.3 pg (25-34); Mean Corpuscular Hgb Conc 33.5 g/dL (32-36); Mean Corpuscular Volume 87.4 fL (80-100); Monocytes # (auto) 0.91 K/uL (0.11-0.59); Monocytes % (auto) 12.4 %; Neutrophils # (auto) 3.23 K/uL (1.4-6.5); Neutrophils % (auto) 44.3 %; Platelet Count 173 K/uL (130-400); RDW Coefficient of Variation 13.8 % (11.5-14.5); Red Blood Count 4.54 M/uL (4.7-6.1); White Blood Count 7.32 K/uL (4.8-10.8)
[2020-07-11 06:37] LABS: BUN Creatinine Ratio 10.4 (10-20); Calcium 8.7 mg/dl (8.5-10.1); Creatinine Clr Calc Pharmacy 54.3 ml/min; Est GFR (African American) 58.9; Est GFR (Non-African American) 50.8; Potassium 4.5 mmol/L (3.5-5.1)
[2020-07-11] MEDS: LEVOTHYROXINE SODIUM 25 MCG TABLET PO SCH (06:49)
[2020-07-11] MEDS: HEPARIN SOD 5,000 UNIT/0.5 ML VIAL SQ SCH ×2 (06:49→15:16)
[2020-07-11] MEDS ORDERED: REGADENOSON 0.4 MG/5 ML SYR IV ONE (07:49)
[2020-07-11] MEDS: INSULIN ASPART 100 UNITS/ML 3 ML PEN SC SCH ×3 (08:00→16:51)
--- NOTE | 2020-07-11 09:46 | Cardiology Progress Note ---
Date of Service July 11, 2020 Assessment & Plan (1) Chest pain: No recurrent symptoms burning. This with the symptoms that concern him for angina. He continues to have some element of discomfort at the site of his fall in the left chest. Biomarkers did not elevate at all. We will wait for the results of his perfusion study to determine if any additional evaluation is warranted. (2) CAD (coronary artery disease): extensive and recurrent. 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 Unclear if his current symptoms are related to an acute coronary syndrome. I think this is unlikely. We will perform a perfusion study as noted above. He should continue aggressive secondary prevention with his current medical regimen that consists of aspirin, Plavix and rosuvastatin. (3) Cardiac defibrillator in place: Admission and Anticipated Discharge Date Admission Date: July 10, 2020 Subjective This morning the patient claimed he feeling well. He had a restless night. This was primarily due to being in the hospital and having some left-sided chest discomfort. No recurrent symptoms of indigestion or burning symptoms in the precordium or throat. Review of Systems Review of Systems: Per HPI Physical Exam Physical Exam: The patient is alert and oriented. Mood and affect appeared normal. He answered all questions appropriately. HEENT: Pupils are equal and reactive to light and accommodation. Extraocular movements are intact. The sclerae are anicteric. Neuro: Cranial nerves intact ( Wearing a mask) Lungs: Clear to auscultation bilaterally. He has good air movement without use of accessory muscles. No rales wheezes or rhonchi. Cardiac: Heart demonstrates a regular rate and rhythm. Normal S1 and S2. No murmurs on examination. chest: Well-healed device implant site in left upper pectoral area Pulses: The patient has palpable radial pulses bilaterally that are equal in intensity Extremities: There was no evidence of hypoperfusion. There is no cyanosis or clubbing. There is no edema. Skin: I did not appreciate any rashes on examination today. Results & Data ([facility]) Vital Signs (Past 12 Hours) Vital Signs Temp Pulse Pulse Resp BP Pulse Ox 07/11/20 03:51 36.2 C L 60 14 132/70 92 07/11/20 00:00 62 07/10/20 23:54 36.6 C 61 16 133/73 93 Laboratory Results Abnormal Lab Results 07/10/20 07/10/20 07/10/20 09:47 11:26 11:51 WBC RBC Hgb Hct MCV MCH MCHC RDW Std Deviation RDW Coeff of De Plt Count MPV Immature Gran % (Auto) Neut % (Auto) Lymph % (Auto) [place] % (Auto) Eos % (Auto) Baso % (Auto) Neut # (Auto) Lymph # (Auto) [place] # (Auto) Eos # (Auto) Baso # (Auto) Immature Gran # (Auto) Sodium Potassium Chloride Carbon Dioxide Anion Gap BUN Creatinine Est Cr Clr Drug Dosing Est GFR ( Amer) Est GFR (Non-Af Amer) BUN/Creatinine Ratio Glucose POC Glucose 125 H 178 H Estimat Average Glucose 137 Hemoglobin A1c 6.4 H Calcium Total Creatine Kinase CK-MB (CK-2) CK/CKMB % Calc Troponin I 07/10/20 07/10/20 07/10/20 11:51 16:04 20:00 WBC RBC Hgb Hct MCV MCH MCHC RDW Std Deviation RDW Coeff of De Plt Count MPV Immature Gran % (Auto) Neut % (Auto) Lymph % (Auto) [place] % (Auto) Eos % (Auto) Baso % (Auto) Neut # (Auto) Lymph # (Auto) [place] # (Auto) Eos # (Auto) Baso # (Auto) Immature Gran # (Auto) Sodium Potassium Chloride Carbon Dioxide Anion Gap BUN Creatinine Est Cr Clr Drug Dosing Est GFR ( Amer) Est GFR (Non-Af Amer) BUN/Creatinine Ratio Glucose POC Glucose 82 113 H Estimat Average Glucose Hemoglobin A1c Calcium Total Creatine Kinase 165 CK-MB (CK-2) 4.8 H CK/CKMB % Calc 2.9 Troponin I < 0.015 07/11/20 07/11/20 05:38 05:38 WBC 7.32 RBC 4.54 L Hgb 13.3 L Hct 39.7 L MCV 87.4 MCH 29.3 MCHC 33.5 RDW Std Deviation 44.0 RDW Coeff of De 13.8 Plt Count 173 MPV 11.0 H Immature Gran % (Auto) 0.5 Neut % (Auto) 44.3 Lymph % (Auto) 36.7 [place] % (Auto) 12.4 Eos % (Auto) 5.7 Baso % (Auto) 0.4 Neut # (Auto) 3.23 Lymph # (Auto) 2.69 [place] # (Auto) 0.91 H Eos # (Auto) 0.42 Baso # (Auto) 0.03 Immature Gran # (Auto) 0.04 H Sodium 133 L Potassium 4.5 Chloride 102 Carbon Dioxide 25 Anion Gap 6.0 BUN 14 Creatinine 1.37 Est Cr Clr Drug Dosing 54.3 Est GFR ( Amer) 58.9 Est GFR (Non-Af Amer) 50.8 BUN/Creatinine Ratio 10.4 Glucose 102 H POC Glucose Estimat Average Glucose Hemoglobin A1c Calcium 8.7 Total Creatine Kinase CK-MB (CK-2) CK/CKMB % Calc Troponin I PG Care Time/CCT Total # of Minutes Spent Total Time Spent with Patient: Total time spent is greater than 50% in coordination of care (as documented) at patient's floor/unit and/or counseling patient: Coding Level of Care Code 75565 Subseq Obs Care Lvl 2 Diagnoses Chest pain R07.9 CAD (coronary artery disease) I25.718 Coronary Disease-Associated Artery/Lesion type: bypass graft, autologous vein Associated angina: with stable angina Cardiac defibrillator in place Z95.810 (1) CAD (coronary artery disease) Coronary Disease-Associated Artery/Lesion type: bypass graft, autologous vein Associated angina: with stable angina Qualified Code(s): I25.718 - Atherosclerosis of autologous vein coronary artery bypass graft(s) with other forms of angina pectoris
[2020-07-11] MEDS: carvediloL 6.25 MG TAB PO SCH (10:22)
[2020-07-11] MEDS: ENALAPRIL MALEATE 10 MG TAB PO SCH (10:22)
[2020-07-11] MEDS: buPROPion SR 100 MG TABCR PO SCH ×2 (10:22→16:43)
[2020-07-11] MEDS: ASPIRIN 81 MG ECTAB PO SCH (10:22)
[2020-07-11] MEDS: ACETAMINOPHEN 325 MG TAB PO PRN (10:30)
--- NOTE | 2020-07-11 11:25 | Electrocardiogram Report ---
Test Reason : Blood Pressure : / mmHG Vent. Rate : 062 BPM Atrial Rate : 062 BPM P-R Int : 236 ms QRS Dur : 144 ms QT Int : 456 ms P-R-T Axes : 024 -37 088 degrees QTc Int : 462 ms Atrial-paced rhythm with prolonged AV conduction Left axis deviation Right bundle branch block Inferior infarct (cited on or before 11-DEC-2005) Abnormal ECG When compared with ECG of 10-JUL-2020 05:57, Electronic atrial pacemaker has replaced Sinus rhythm Confirmed by Dagoberto Siddiqui ([id number]) on 07/11/2020 11:25:20 AM Referred By: REFERRED SELF Confirmed By:Thong Siddiqui
[2020-07-11] MEDS: CLOPIDOGREL BISULFATE 75 MG TAB PO SCH (11:53)
--- NOTE | 2020-07-11 16:55 | Myocardial Perfusion Study ---
Date of Service July 11, 2020 Myocardial Perfusion Study k Myocardial Perfusion Study Report [place] Act 112: Negative One day nuclear medicine technetium 99m Cardiolite myocardial perfusion scan Clinical history: This stress test is being performed because of a chest pain syndrome and known coronary artery disease Comparison: None Technique: For the stress portion of the study, 32.8 mCi of technetium 99m Cardiolite IV was injected at 9:23 a.m. on July 11, 2020. Thirty minutes following the injection, imaging of the heart was performed in multiple projections. For the rest portion of the study, 10.4 mCi of technetium 99m Cardiolite was injected IV at 7:35 a.m. on July 11, 2020. One hour following the injection, imaging of the heart was performed in the same projections. Stress portion: The patient was given 0.4 mg of intravenous Lexiscan while being monitored continuously. The patient did not experience chest discomfort. Baseline EKG notes normal sinus rhythm atrial pacing with a complete right bundle branch block. There were no significant ST segment changes seen during the protocol. There were no dysrhythmias. Findings: The short axis, vertical long axis, and horizontal long axis images were reviewed in detail. There was a fixed defect involving the proximal inferior wall at both stress and rest suggesting a prior myocardial infarction. There is no evidence of stress induced myocardial ischemia. The left ventricle d emonstrates mildly reduced systolic function with an inferior wall motion abnormality. The left ventricular ejection fraction is 46 %. Conclusions: 1. 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 2. No stress-induced myocardial ischemia. 3. No exercise-induced chest pain. 4. No EKG changes. 5. Mildly reduced left ventricular systolic function with an inferior wall [place] on abnormality. Left ventricular ejection fraction is 46 %.
--- NOTE | 2020-07-11 16:56 | Myocardial Perfusion Study ---
Date of Service July 11, 2020 Myocardial Perfusion Study Blk Myocardial Perfusion Study Report PA Act 112: Negative One day nuclear medicine technetium 99m Cardiolite myocardial perfusion scan Clinical history: This stress test is being performed because of a chest pain syndrome and known coronary artery disease Comparison: None Technique: For the stress portion of the study, 32.8 mCi of technetium 99m Cardiolite IV was injected at 9:23 a.m. on July 11, 2020. Thirty minutes following the injection, imaging of the heart was performed in multiple projections. For the rest portion of the study, 10.4 mCi of technetium 99m Cardiolite was injected IV at 7:35 a.m. on July 11, 2020. One hour following the injection, imaging of the heart was performed in the same projections. Stress portion: The patient was given 0.4 mg of intravenous Lexiscan while being monitored continuously. The patient did not experience chest discomfort. Baseline EKG notes normal sinus rhythm atrial pacing with a complete right bundle branch block. There were no significant ST segment changes seen during the protocol. There were no dysrhythmias. Findings: The short axis, vertical long axis, and horizontal long axis images were reviewed in detail. There was a fixed defect involving the proximal inferior wall at both stress and rest suggesting a prior myocardial infarction. There is no evidence of stress induced myocardial ischemia. The left ventricle de monstrates mildly reduced systolic function with an inferior wall motion abnormality. The left ventricular ejection fraction is 46 %. Conclusions: 1. 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 2. No stress-induced myocardial ischemia. 3. No exercise-induced chest pain. 4. No EKG changes. 5. Mildly reduced left ventricular systolic function with an inferior wall motion abnormality. Left ventricular ejection fraction is 46 %. [facility] Myocardial perfusion code Procedure Code Procedure 1: Myocardial Perfusion Codes: 85012 Cardiovascular Stress Test, multiple Procedure 2: Myocardial Perfusion Codes: 65865 Cardiovascular Stress Test, supervision only Procedure 3: Myocardial Perfusion Codes: 44500 Cardiovascular Stress Test, interpretation and report
--- NOTE | 2020-07-11 16:59 | Discharge Summary ---
Date of Service July 11, 2020 Admission HPI Per Admitting Provider Attending: Dr. Russell vEans This is a 75-year-old male with a past medical history of CAD, CABG 20 years ago, 17 stents in the past 20 years, hypothyroidism, bipolar disorder, bronchopulmonary dysplasia, recent fall. The patient presents this morning to the emergency department with chest pain on the left side secondary to rib injury. He states that on Friday of last week he [place] 3 [place]. He fell on his left side. He has some contusions on his left hand but no bruising to the head, hip, thorax. Initially he had some left hip pain but was able to ambulate. Over the last 2 to 3 days the pain to his left ribs have worsened especially with deep breathing. The patient states that he lost his balance when he fell. He was on his porch taking out garbage when he fell. He denies loss of consciousness, chest pain, shortness of breath, dizziness, syncope, presyncope at the time of his fall. He has no headache or visual disturbance. Pain is better controlled with Lidoderm patch on the left side. He was being prepared for discharge from the emergency department when he achieved crushing chest pain that radiated into his jaw reminiscent of prior incidents requiring stent or CABG. He had no shortness of breath or hypoxia or tachycardia with this episode this morning. He received sublingual nitroglycerin. Pain is completely resolved. Patient currently has no acute symptoms other than the rib pain on the left side. Patient denies any recent illness. He has had no positive contact with Covid patients. He denies any history of Covid illness. Covid testing this morning was negative. The patient lives in his current home for the past 6 years. He lives alone. He has a pet dog. He has no other pets. Principal Diagnosis Non-cardiac chest pain Discharge Exam Constitutional WD/WN, vitals as above Eyes EOM intact bilaterally; no conjunctival abnormality ENMT external ear and nose normal, oropharynx normal Neck trachea midline, no thyromegaly normal visual inspection Respiratory normal respiratory effort, lungs clear to auscultation no respiratory distress Cardiovascular RRR, no murmur, no edema Gastrointestinal (Abdomen) Inspection/Auscultation: abdomen normal to inspection; abdomen not distended Musculoskeletal no cyanosis or clubbing, extremities motor strength 5/5 Skin no rashes, warm and dry Neurologic moves all extremities and awake Psychiatric Orientation: alert, oriented to person and cooperative Discharge Data Allergies Allergy/AdvReac Type Severity Reaction Status Date / Time Iodinated Contrast Media Allergy Rash Verified 07/10/20 06:16 Consultations 07/10/20 07:35 ED Decision to Admit Stat 07/10/20 09:42 Consult Case Management - Discharge Planning Routine 07/10/20 13:23 Consult Cardiology Routine Ordered Studies 07/10/20 05:14 CT cervical spine wo con Urgent CT chest diagnostic wo con Urgent CT head/brain wo con Urgent Hospital Course (1) Chest pain: Episode of chest pain in the ED. Given his cardiac history, the patient preferred a stress test. - Perfusion study was negative, and patient was discharged to follow up with his regular box attacher in [place]. Total Time Total Time Spent Total Time Spent (In Minutes): 35 Discharge Plan Discharge Items Patient Disposition: Home - Self-Care Reason For Visit: CHEST PAIN Discharge Diagnosis: Chest pain Activity: Resume your previous activity Non-emergency contact: Primary Care Provider Call non-emergency contact if: your symptoms worsen Follow-up/Referrals: Juan Diego Castillo [Primary Care Provider] - Diet: Carb Consistent or DM2 and Heart Healthy Addtl Attending Provider Instructions: You were admitted with chest pain. Given your significant heart history, we felt it was best to get a stress test. The stress test looked good, and we are discharging you today. Please follow up with your box attacher at [place] to make sure you are doing well and to talk about any further chest pain. Pending Studies at Discharge: No Stand-Alone Forms: [facility], Smoking Cessation Medications and DC Order Prescriptions: Continued metformin 500 mg tablet 500 mg PO BID RF: 0 carvedilol 6.25 mg tablet 6.25 mg PO BID RF: 0 divalproex 250 mg tablet,delayed release (DR/EC) 750 mg PO HS RF: 0 olanzapine 5 mg tablet 5 mg PO HS RF: 0 clonazepam 1 mg tablet 1 mg PO HS RF: 0 aspirin [Aspirin Low Dose] 81 mg Tablet,Delayed Release (Dr/Ec) 81 mg PO DAILY RF: 0 ramipril 2.5 mg capsule 2.5 mg PO BID RF: 0 bupropion HCl 200 mg tablet sustained-release 12 hr 200 mg PO BID RF: 0 rosuvastatin 10 mg tablet 10 mg PO HS RF: 0 clopidogrel [Plavix] 75 mg Tablet 75 mg PO DAILY RF: 0 levothyroxine 25 mcg tablet 25 mcg PO QAM RF: 0 risperidone [Risperdal] 1 mg Tablet 1 mg PO HS RF: 0 Lantus U-100 Insulin 100 unit/mL Solution 5 unit SUBCUT HS RF: 0 Discharge Orders: Discharge Order (Routine); Ordered 07/11/20 Ordered By: Russell Wheatley/Other Patient Handouts: Managing Type 2 Diabetes, Managing Diabetes: The A1C Test Admission Data Admit Date/Time: 07/10/20 08:34 Attending Provider: Russell Evans Admit Provider: Russell Evans Primary Care Provider: Juan Diego Castillo Other Providers: Russell Evans ; Diogenes Siddiqui Other Interventions: Discharge Summary Assessment (RN) Last Done: 07/11/20 15:57 Coding Level of Care Code 01395 OBS Care - Discharge Diagnoses Chest pain R07.9
== END 2020-07-11 18:27 | disposition home or self-care (01) ==
LOC: 2S 05:05 → ED 05:05 → 2S 09:30

== ENCOUNTER 2021-03-08 00:51 | Inpatient (IN) ==
[2021-03-08 02:36] LABS: Basophils # (auto) 0.02 K/uL (0-0.2); Basophils % (auto) 0.2 %; Eosinophils # (auto) 0.41 K/uL (0-0.5); Eosinophils % (auto) 3.7 %; Hematocrit (blood only) 42.7 % (42-52); Hemoglobin 14.4 g/dL (14.0-18.0); Immature Granulocytes # (auto) 0.08 K/uL (0.00-0.02); Immature Granulocytes % (auto) 0.7 %; Lymphocytes # (auto) 1.89 K/uL (1.2-3.4); Lymphocytes % (auto) 17.3 %; Mean Corpuscular Hemoglobin 29.3 pg (25-34); Mean Corpuscular Hgb Conc 33.7 g/dL (32-36); Monocytes # (auto) 1.28 K/uL (0.11-0.59); Monocytes % (auto) 11.7 %; Neutrophils # (auto) 7.27 K/uL (1.4-6.5); Neutrophils % (auto) 66.4 %; Platelet Count 192 K/uL (130-400); RDW Coefficient of Variation 14.2 % (11.5-14.5); RDW Standard Deviation 44.6 fL (36.4-46.3); Red Blood Count 4.91 M/uL (4.7-6.1); White Blood Count 10.95 K/uL (4.8-10.8)
[2021-03-08 02:47] LABS: Alanine Aminotransferase 29 U/L (12-78); Albumin Level 3.8 gm/dl (3.4-5.0); Aspartate Aminotransferase 22 U/L (15-37); BUN Creatinine Ratio 7.6 (10-20); Blood Urea Nitrogen 11 mg/dl (7-18); Calcium 9.4 mg/dl (8.5-10.1); Carbon Dioxide 25 mmol/L (21-32); Chloride 99 mmol/L (98-107); Creatinine Clr Calc Pharmacy 53.2 ml/min; Est GFR (Non-African American) 47.4 ml/min; Glucose 93 mg/dl (70-99); Potassium 4.8 mmol/L (3.5-5.1); Sodium 131 mmol/L (136-145)
[2021-03-08 02:51] LABS: Alkaline Phosphatase 89 U/L (45-117); Bilirubin,Total 0.7 mg/dl (0.2-1); Globulin 3.9 gm/dl (2.5-4.0); Total Protein 7.7 gm/dl (6.4-8.2); Troponin I < 0.015 ng/ml (0-0.045)
[2021-03-08 03:26] LABS: Appearance Urine Clear (Clear); Bacteria Urine Automated Negative (Negative); Bilirubin Urine Negative (Negative); Blood Urine Negative (Negative); Color Urine Yellow; Glucose Urine UA Negative (Negative); Ketones Urine Trace (Negative); Leukocyte Esterase Urine Negative (Negative); Nitrite Urine Negative (Negative); Protein Urine Trace (Negative); RBC Urine Automated 0-4 /hpf (0-4); Urobilinogen Urine Negative (Negative)
--- NOTE | 2021-03-08 06:14 | History & Physical Report ---
Date of Service March 08, 2021 Assessment & Plan (1) Status post fall: Plan: Multiple falls. Had mild head trauma. No LOC -Neuro checks -Orthostatic VS -PT/OT (2) CAD (coronary artery disease): Plan: No CP -Continue ASA, Plaix, Carvedilol (3) Hypertension: Plan: BP well controlled -Continue Carvedilol -Hold Lasix as patient appears dry (4) Hypothyroid: Plan: Chronic -Continue Synthroid (5) Bipolar disorder: Plan: Chronic -Continue Bupropion -Continue Divalproex (6) Diabetes mellitus type 2 in obese: Plan: Well controllede - A1C=6.4 in June 2020 -Continue Lantus 5u qHS -ISS Plan: F/E/N - NSS at 125mL/hr x 2, mild hyponatremia, CC diet as tolerated Ppx - No chemoppx - continue ASA and Plavix Code - Full Dispo - Admit to medical History of Present Illness Chief Complaint: Falls Primary Care Provider: NO PCP Alejandro Case is a 75yo male with history of CAD, Bipolar disorder, DM, HTN and Hypothyroidism presenting from home with frequent falls. States he has fallen at home over 4 times in the last two weeks. He tends to fall backwards. No LOC. Is not tripping on things. He denies chest pain, palpitations, SOB, dizziness, confusion preceding or following the falls. Fell this afternoon while in the living room and was unable to get up. Used his Life Alert - EMS responded and brought him to [facility]. No additional complaints Allergies Allergy/AdvReac Type Severity Reaction Status Date / Time Iodinated Contrast Media Allergy Rash Verified 01/08/21 23:21 Home Medications Medication Instructions Recorded Confirmed Type aspirin 81 mg tablet,delayed 81 mg PO DAILY 07/10/20 03/08/21 History release (Aspirin Low Dose) bupropion HCl 200 mg tablet,12 hr 200 mg PO BID 07/10/20 03/08/21 History sustained-release clonazepam 1 mg tablet 1 mg PO HS 07/10/20 03/08/21 History clopidogrel 75 mg tablet (Plavix) 75 mg PO DAILY 07/10/20 03/08/21 History divalproex 250 mg tablet,delayed 750 mg PO HS 07/10/20 03/08/21 History release insulin glargine 100 unit/mL 5 unit SUBCUT HS 07/10/20 03/08/21 History subcutaneous solution (Lantus U-100 Insulin) levothyroxine 25 mcg tablet 25 mcg PO QAM 07/10/20 03/08/21 History metformin 500 mg tablet 500 mg PO BID 07/10/20 03/08/21 History olanzapine 5 mg tablet 5 mg PO HS 07/10/20 01/08/21 History ramipril 2.5 mg capsule 2.5 mg PO BID 07/10/20 01/08/21 History rosuvastatin 10 mg tablet 10 mg PO HS 07/10/20 01/08/21 History carvedilol 3.125 mg tablet (Coreg) 3.125 mg PO BID 01/08/21 03/08/21 History furosemide 40 mg tablet 40 mg PO DAILY 01/08/21 03/08/21 History mirtazapine 15 mg tablet 7.5 mg PO HS 01/08/21 03/08/21 History nitroglycerin 0.4 mg sublingual 0.4 mg SUBLINGUAL UD PRN 01/08/21 01/08/21 History tablet (Nitrostat) tamsulosin 0.4 mg capsule (Flomax) 0.4 mg PO DAILY 01/08/21 01/08/21 History Past Med/Surg History Medical History Bipolar disorder BPD (bronchopulmonary dysplasia) CAD (coronary artery disease) Coronary artery bypass graft 1992: [place] to LAD, saphenous vein graft to 1st diagonal, saphenous vein graft to om 1, saphenous vein graft to the right coronary artery Diabetes mellitus type 2 in obese Hypertension Hypothyroid Surgical History Hx of inguinal herniorrhaphy Status post aorto-coronary artery bypass graft Family History Other Family history non-contributory Social History Smoking Status: Former smoker Tobacco Type: Cigarettes Hx Alcohol Use: No Hx Substance Use: No Preferred Language: [place] Communication Ability: Effective Director Of Health Education Required: No Beliefs That Will Affect Care: None Current Living Situation: Alone Current Living Situation Comment: 1 pet dog Feels Safe at Home: Hesitant to Answer Assistive Devices: Glasses Review of Systems Review of Systems: All systems reviewed & are unremarkable except as noted in HPI & below Physical Exam Physical Exam: General: patient resting comfortably, NAD, non-toxic in appearance, AA&O x 4 Skin: warm, dry, intact, redness on RLE with several scabbed lesions HEENT: NC/AT, PERRL, EOMI, anicteric sclera, conjunctiva without injection, external ear normal to inspection and nontender, nares patent, dry mucus membranes, dentition intact, no oropharyngeal lesions, neck supple, trachea midline, no LAD, no thyromegaly, no JVD Heart: +S1/S2, regular, no m/r/g Lungs: equal air entry bilaterally, no rales/rhonchi/wheezes Abd: +BS, soft, NT/ND, no masses/organomegaly/ascites Ext: warm, 2+ pulses in UE/LE bilaterally, no clubbing/cyanosis or edema Neuro: nonfocal, patient AA&O x 4, speech intact, no facial droop, moving all extremities on command with equal strength 5/5 Results & Data Results & Data ([facility]) Vital Signs (Past 12 Hours) Vital Signs Temp Pulse Resp BP Pulse Ox 03/08/21 05:30 61 16 130/55 L 91 03/08/21 05:00 65 17 157/65 H 94 03/08/21 04:30 61 18 158/65 H 92 03/08/21 04:00 64 16 152/70 H 94 03/08/21 03:30 65 20 169/76 H 96 03/08/21 03:00 65 20 155/71 H 95 03/08/21 02:42 70 19 167/78 H 03/08/21 02:38 62 22 93 03/08/21 02:30 63 17 154/70 H 95 03/08/21 02:00 61 18 136/64 93 03/08/21 01:31 69 16 165/92 H 95 03/08/21 01:03 37.6 C H 68 20 191/92 H 96 03/08/21 00:56 67 20 191/92 H 96 Laboratory Results Laboratory Results WBC 10.95 K/uL (4.8-10.8) H 03/08/21 01:15 RBC 4.91 M/uL (4.7-6.1) 03/08/21 01:15 Hgb 14.4 g/dL (14.0-18.0) 03/08/21 01:15 Hct 42.7 % (42-52) 03/08/21 01:15 MCV 87.0 fL (80-100) 03/08/21 01:15 MCH 29.3 pg (25-34) 03/08/21 01:15 MCHC 33.7 g/dL (32-36) 03/08/21 01:15 RDW Std Deviation 44.6 fL (36.4-46.3) 03/08/21 01:15 RDW Coeff of De 14.2 % (11.5-14.5) 03/08/21 01:15 Plt Count 192 K/uL (130-400) 03/08/21 01:15 MPV 10.0 fL (7.4-10.4) 03/08/21 01:15 Immature Gran % (Auto) 0.7 % 03/08/21 01:15 Neut % (Auto) 66.4 % 03/08/21 01:15 Lymph % (Auto) 17.3 % 03/08/21 01:15 [place] % (Auto) 11.7 % 03/08/21 01:15 Eos % (Auto) 3.7 % 03/08/21 01:15 Baso % (Auto) 0.2 % 03/08/21 01:15 Neut # (Auto) 7.27 K/uL (1.4-6.5) H 03/08/21 01:15 Lymph # (Auto) 1.89 K/uL (1.2-3.4) 03/08/21 01:15 [place] # (Auto) 1.28 K/uL (0.11-0.59) H 03/08/21 01:15 Eos # (Auto) 0.41 K/uL (0-0.5) 03/08/21 01:15 Baso # (Auto) 0.02 K/uL (0-0.2) 03/08/21 01:15 Immature Gran # (Auto) 0.08 K/uL (0.00-0.02) H 03/08/21 01:15 Sodium 131 mmol/L (136-145) L 03/08/21 01:15 Potassium 4.8 mmol/L (3.5-5.1) 03/08/21 01:15 Chloride 99 mmol/L (98-107) 03/08/21 01:15 Carbon Dioxide 25 mmol/L (21-32) 03/08/21 01:15 Anion Gap 7.0 (3-11) 03/08/21 01:15 BUN 11 mg/dl (7-18) 03/08/21 01:15 Creatinine 1.45 mg/dl (0.6-1.4) H 03/08/21 01:15 Est Cr Clr Drug Dosing 53.2 ml/min 03/08/21 01:15 Est GFR ( Amer) 55.0 ml/min 03/08/21 01:15 Est GFR (Non-Af Amer) 47.4 ml/min 03/08/21 01:15 BUN/Creatinine Ratio 7.6 (10-20) L 03/08/21 01:15 Glucose 93 mg/dl (70-99) 03/08/21 01:15 Calcium 9.4 mg/dl (8.5-10.1) 03/08/21 01:15 Magnesium 2.0 mg/dl (1.8-2.4) 03/08/21 01:15 Total Bilirubin 0.7 mg/dl (0.2-1) 03/08/21 01:15 AST 22 U/L (15-37) 03/08/21 01:15 ALT 29 U/L (12-78) 03/08/21 01:15 Alkaline Phosphatase 89 U/L (45-117) 03/08/21 01:15 Troponin I < 0.015 ng/ml (0-0.045) 03/08/21 01:15 Total Protein 7.7 gm/dl (6.4-8.2) 03/08/21 01:15 Albumin 3.8 gm/dl (3.4-5.0) 03/08/21 01:15 Globulin 3.9 gm/dl (2.5-4.0) 03/08/21 01:15 Albumin/Globulin Ratio 1.0 (0.9-2) 03/08/21 01:15 Urine Color Yellow 03/08/21 Unknown Urine Appearance Clear (Clear) 03/08/21 Unknown Urine pH 6.0 (4.5-7.5) 03/08/21 Unknown Ur Specific [place] 1.010 (1.000-1.030) 03/08/21 Unknown Urine Protein Trace (Negative) H 03/08/21 Unknown Urine Glucose (UA) Negative (Negative) 03/08/21 Unknown Urine Ketones Trace (Negative) H 03/08/21 Unknown Urine Blood Negative (Negative) 03/08/21 Unknown Urine Nitrite Negative (Negative) 03/08/21 Unknown Urine Bilirubin Negative (Negative) 03/08/21 Unknown Urine Urobilinogen Negative (Negative) 03/08/21 Unknown Ur Leukocyte Esterase Negative (Negative) 03/08/21 Unknown Urine WBC (Auto) 1-5 /hpf (0-5) 03/08/21 Unknown Urine RBC (Auto) 0-4 /hpf (0-4) 03/08/21 Unknown U Hyaline Cast (Auto) 1-5 /lpf (0-5) 03/08/21 Unknown U Epithel Cells (Auto) 10-20 /lpf (0-5) H 03/08/21 Unknown Urine Bacteria (Auto) Negative (Negative) 03/08/21 Unknown COVID-19 Eval Order Covid19 at [facility] 03/08/21 02:39 SARS-CoV-2 (PCR) NEGATIVE (Negative) 03/08/21 02:39 PG Care Time/CCT Total # of Minutes Spent Total Time Spent with Patient: Total time spent is greater than 50% in coordination of care (as documented) at patient's floor/unit and/or counseling patient: Coding Level of Care Code INT OBSERVATION CARE 50M LVL 2 Diagnoses CAD (coronary artery disease) I25.718 Coronary Disease-Associated Artery/Lesion type: bypass graft, autologous vein Associated angina: with stable angina Hypertension I10 Hypertension type: essential hypertension Hypothyroid E03.9 Hypothyroidism type: acquired Bipolar disorder F31.70 Active/Remission status: in remission of unspecified degree Status post fall Z91.81 Diabetes mellitus type 2 in obese E11.69; E66.9 (1) CAD (coronary artery disease) Coronary Disease-Associated Artery/Lesion type: bypass graft, autologous vein Associated angina: with stable angina Qualified Code(s): I25.718 - Atherosclerosis of autologous vein coronary artery bypass graft(s) with other forms of angina pectoris (2) Hypertension Hypertension type: essential hypertension Qualified Code(s): I10 - Essential (primary) hypertension (3) Hypothyroid Hypothyroidism type: acquired Qualified Code(s): E03.9 - Hypothyroidism, unspecified (4) Bipolar disorder Active/Remission status: in remission of unspecified degree Qualified Code(s): F31.70 - Bipolar disorder, currently in remission, most recent episode unspecified
--- NOTE | 2021-03-08 08:40 | CT Scan Report ---
CT head/brain wo con Clinical Indication: MN ^FAll, headstrike. Technique: Contiguous axial CT images of the head were acquired from the base of the skull to the neo briana without intravenous contrast administration. Images were viewed in brain, subdural and bone windo ws. Automated dose lowering techniques and/or adjustment according to patient size were utilized for this exam. Comparison: Comparison is made to CT head 01/08/2021 Findings: Areas of decreased attenuation are present in the periventricular and subcortical white matter bilate rally consistent with small vessel ischemic disease. Generalized cerebral atrophy with commensurate e nlargement of the ventricles, sulci, and cisterns is also present. There is no acute intracranial hem orrhage or evidence of acute territorial infarction. No shift of the midline structures, mass effect, or extra-axial abnormalities are shown. Atherosclerotic calcifications are present in the intracran ial segments of the internal carotid arteries. Imaged portions of the paranasal sinuses and mastoid air cells are clear. The orbits appear normal. There are no acute fractures of the calvaria or scalp swelling. Impression: No acute intracranial hemorrhage, evidence of acute territorial infarction, or other acute intracrani al disease process. ACT 112: Negative or not required by law. Electronically signed by: Chilo Anderson M.D. 03/08/2021 8:39 AM
[2021-03-08] MEDS ORDERED: NITROGLYCERIN SL 0.4 MG/TAB TAB SL PRN (10:03)
--- NOTE | 2021-03-08 10:35 | XRay Report ---
XR chest 1V portable CLINICAL HISTORY: weakness COMPARISON STUDY: Chest CT July 10, 2020. Chest radiograph January 08, 2021. FINDINGS: A left subclavian pacer/AICD, median sternotomy wires and mediastinal surgical clips are no ingrid. Cardiomegaly is unchanged. There is no evidence for pulmonary edema. Small calcified pulmonary n odules are unchanged. This is benign. There is no pneumothorax or pleural effusion. The appearance of the chest is unchanged. IMPRESSION: No acute cardiopulmonary findings. No change in appearance of the chest. ACT 112: Negative or not required by law. Electronically signed by: Ryan Mcgrath M.D. 03/08/2021 10:34 AM
--- NOTE | 2021-03-08 10:45 | Communication Note ---
Date of Service: March 08, 2021 Attending: Dr. Castro Called to the ED as patient was experiencing chest pain. Troponin < 0.015 Hemodynamically stable with a BP of 149/50 Heart rate unchanged 62 BPM to 64 BPM Patient given 0.4 of SL nitro with complete resolution of pain Repeat EKG unchanged Lexascan in 07/2020 with no evidence of ischemia Patient follows with log scaler in [place] Plan: Tylenol for general body aches from fall Repeat Troponin Ok to transfer to medical telemetry. Going to room 280
[2021-03-08] MEDS ORDERED: GLUCAGON FOR INJ 1 MG VIAL SQ PRN (11:19)
[2021-03-08] MEDS ORDERED: SODIUM CHLORIDE 0.9% 1000ML 1,000 ML IV SCH (11:19)
[2021-03-08] MEDS ORDERED: DEXTROSE 50% 50 ML SYRINGE IV PRN (11:19)
[2021-03-08] MEDS ORDERED: CARBOHYDRATES FOR HYPOGLYCEMIA PO PRN (11:19)
[2021-03-08] MEDS ORDERED: GLUCOSE 10 TABS/TUBE PO PRN (11:19)
[2021-03-08] MEDS ORDERED: GLUCOSE 40% GEL 15 GM TUBE PO PRN (11:19)
--- NOTE | 2021-03-08 13:00 | Electrocardiogram Report ---
Test Reason : Blood Pressure : / mmHG Vent. 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
[2021-03-08] MEDS: buPROPion SR 100 MG TABCR PO SCH ×2 (13:21→20:52)
[2021-03-08] MEDS: ASPIRIN 81 MG ECTAB PO SCH (13:21)
[2021-03-08] MEDS: carvediloL 3.125 MG TAB PO SCH ×2 (13:22→20:52)
[2021-03-08] MEDS: CLOPIDOGREL BISULFATE 75 MG TAB PO SCH (13:22)
[2021-03-08] MEDS: LEVOTHYROXINE SODIUM 25 MCG TABLET PO SCH (13:22)
[2021-03-08] MEDS: INSULIN ASPART 100 UNITS/ML 3 ML PEN SC SCH ×3 (13:23→20:53)
--- NOTE | 2021-03-08 17:57 | Electrocardiogram Report ---
Test Reason : Blood Pressure : / mmHG Vent. 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
[2021-03-08] MEDS: clonazePAM 1 MG TAB PO SCH (20:52)
[2021-03-08] MEDS: MIRTAZAPINE TAB 15 MG TAB PO SCH (20:52)
[2021-03-08] MEDS: DIVALPROEX DELAY RELEASE 250 MG TABEC PO SCH (20:52)
[2021-03-08] MEDS: INSULIN GLARGINE SOLOSTAR 100 UNITS/ML 3 ML PEN SC SCH (20:53)
--- NOTE | 2021-03-08 23:23 | Emergency Department Note ---
History of Present Illness General Chief complaint: Fall Stated complaint: FALL Time Seen by Provider: 03/08/21 02:03 Source: patient and RN notes reviewed Mode of arrival: ambulatory Limitations: no limitations History of Present Illness Provider complaint: Fall This patient is a 75-year-old male who presents emergency department after a ground-level fall after he was unable to get himself up. Lives at home by h imself and since he has been experiencing falls recently bought a life alert button. Today the patient fell, despite using his cane, and was unable to get himself up off of the floor. He denies loss of consciousness or significant pain at this time. He states he simply needed help up off of the ground. He denies any chest pain, shortness of breath, abdominal pain, vomiting or diarrhea. Home Medications Medication Instructions Recorded Confirmed Type aspirin 81 mg tablet,delayed 81 mg PO DAILY 07/10/20 03/08/21 History release (Aspirin Low Dose) bupropion HCl 200 mg tablet,12 hr 200 mg PO BID 07/10/20 03/08/21 History sustained-release clonazepam 1 mg tablet 1 mg PO HS 07/10/20 03/08/21 History clopidogrel 75 mg tablet (Plavix) 75 mg PO DAILY 07/10/20 03/08/21 History divalproex 250 mg tablet,delayed 750 mg PO HS 07/10/20 03/08/21 History release insulin glargine 100 unit/mL 5 unit SUBCUT HS 07/10/20 03/08/21 History subcutaneous solution (Lantus U-100 Insulin) levothyroxine 25 mcg tablet 25 mcg PO QAM 07/10/20 03/08/21 History metformin 500 mg tablet 500 mg PO BID 07/10/20 03/08/21 History olanzapine 5 mg tablet 5 mg PO HS 07/10/20 01/08/21 History ramipril 2.5 mg capsule 2.5 mg PO BID 07/10/20 01/08/21 History rosuvastatin 10 mg tablet 10 mg PO HS 07/10/20 01/08/21 History furosemide 40 mg tablet 40 mg PO DAILY PRN 01/08/21 03/08/21 History mirtazapine 15 mg tablet 7.5 mg PO HS 01/08/21 03/08/21 History nitroglycerin 0.4 mg sublingual 0.4 mg SUBLINGUAL UD PRN 01/08/21 01/08/21 History tablet (Nitrostat) tamsulosin 0.4 mg capsule (Flomax) 0.4 mg PO DAILY 01/08/21 01/08/21 History carvedilol 6.25 mg tablet 6.25 mg PO BID 03/09/21 03/09/21 History Allergies Allergy/AdvReac Type Severity Reaction Status Date / Time Iodinated Contrast Media Allergy Rash Verified 03/08/21 06:45 Past Med/Surg History Medical History Bipolar disorder BPD (bronchopulmonary dysplasia) CAD (coronary artery disease) Coronary artery bypass graft 1992: [place] to LAD, saphenous vein graft to 1st diagonal, saphenous vein graft to om 1, saphenous vein graft to the right coronary artery Diabetes mellitus type 2 in obese Hypertension Hypothyroid Surgical History Hx of inguinal herniorrhaphy Status post aorto-coronary artery bypass graft Family History Other Family history non-contributory Social History Smoking Status: Former smoker Tobacco Type: Cigarettes Second Hand Exposure: No; Do You Dip or Chew Tobacco: No; Tobacco Cessation Education Requested by Patient: No Hx Alcohol Use: No Hx Substance Use: No Preferred Language: Lao Communication Ability: Effective Personal Injury Specialist Required: No Beliefs That Will Affect Care: None Current Living Situation: Alone Current Living Situation Comment: 1 pet dog Other Information That Helps Us Care for You: No Feels Safe at Home: Yes Safety Concerns: Feels Safe At This Time Assistive Devices: Walker Review of Systems See HPI for pertinent positives & negatives. and A total of 10 systems reviewed and were otherwise negative Physical Exam Vital Signs Vital Signs - 24 hr 03/08/21 00:56 03/08/21 01:03 03/08/21 01:31 Temperature 37.6 C H Temperature Source Oral Pulse Rate - Lying Pulse Rate - Sitting Pulse Rate - Standing Pulse Rate 67 68 69 Pulse Rate [Carotid] Pulse Rate from SpO2 Sensor Pulse Rhythm Regular Pulse Rhythm [Carotid] Respiratory Rate 20 20 16 Respiratory Effort / Characteristics Non-Labored Respiratory Depth Normal Blood Pressure - Lying Blood Pressure - Sitting Blood Pressure- Standing Blood Pressure 191/92 H 191/92 H 165/92 H Blood Pressure [Left Arm] Blood Pressure Mean 125 125 116 Blood Pressure Mean [Left Arm] Blood Pressure Position Sitting Blood Pressure Position [Left Arm] Pulse Oximetry 96 96 95 Oxygen Delivery Method Room Air Sepsis Recent Fever Within 48 Hours No Sepsis New/Unexplained Change in Mental Status No Sepsis Action Taken by Nursing No Action Required 03/08/21 02:00 03/08/21 02:30 03/08/21 02:38 Temperature Temperature Source Pulse Rate - Lying Pulse Rate - Sitting Pulse Rate - Standing Pulse Rate 61 63 62 Pulse Rate [Carotid] Pulse Rate from SpO2 Sensor Pulse Rhythm Regular Pulse Rhythm [Carotid] Respiratory Rate 18 17 22 Respiratory Effort / Characteristics Respiratory Depth Blood Pressure - Lying Blood Pressure - Sitting Blood Pressure- Standing Blood Pressure 136/64 154/70 H Blood Pressure [Left Arm] Blood Pressure Mean 88 98 Blood Pressure Mean [Left Arm] Blood Pressure Position Blood Pressure Position [Left Arm] Pulse Oximetry 93 95 93 Oxygen Delivery Method Room Air Sepsis Recent Fever Within 48 Hours Sepsis New/Unexplained Change in Mental Status Sepsis Action Taken by Nursing 03/08/21 02:42 03/08/21 02:52 03/08/21 03:00 Temperature Temperature Source Pulse Rate - Lying 66 Pulse Rate - Sitting 72 Pulse Rate - Standing 75 Pulse Rate 70 65 Pulse Rate [Carotid] Pulse Rate from SpO2 Sensor Pulse Rhythm Pulse Rhythm [Carotid] Respiratory Rate 19 20 Respiratory Effort / Characteristics Respiratory Depth Blood Pressure - Lying 167/78 H Blood Pressure - Sitting 159/91 H Blood Pressure- Standing 183/72 H Blood Pressure 167/78 H 155/71 H Blood Pressure [Left Arm] Blood Pressure Mean 107 99 Blood Pressure Mean [Left Arm] Blood Pressure Position Blood Pressure Position [Left Arm] Pulse Oximetry 95 Oxygen Delivery Method Sepsis Recent Fever Within 48 Hours Sepsis New/Unexplained Change in Mental Status Sepsis Action Taken by Nursing 03/08/21 03:30 03/08/21 04:00 03/08/21 04:30 Temperature Temperature Source Pulse Rate - Lying Pulse Rate - Sitting Pulse Rate - Standing Pulse Rate 65 64 61 Pulse Rate [Carotid] Pulse Rate from SpO2 Sensor Pulse Rhythm Pulse Rhythm [Carotid] Respiratory Rate 20 16 18 Respiratory Effort / Characteristics Respiratory Depth Blood Pressure - Lying Blood Pressure - Sitting Blood Pressure- Standing Blood Pressure 169/76 H 152/70 H 158/65 H Blood Pressure [Left Arm] Blood Pressure Mean 107 97 96 Blood Pressure Mean [Left Arm] Blood Pressure Position Blood Pressure Position [Left Arm] Pulse Oximetry 96 94 92 Oxygen Delivery Method Sepsis Recent Fever Within 48 Hours Sepsis New/Unexplained Change in Mental Status Sepsis Action Taken by Nursing 03/08/21 05:00 03/08/21 05:30 03/08/21 06:15 Temperature Temperature Source Pulse Rate - Lying Pulse Rate - Sitting Pulse Rate - Standing Pulse Rate 65 61 Pulse Rate [Carotid] 66 Pulse Rate from SpO2 Sensor Pulse Rhythm Pulse Rhythm [Carotid] Regular Respiratory Rate 17 16 19 Respiratory Effort / Characteristics Non-Labored Respiratory Depth Normal Blood Pressure - Lying Blood Pressure - Sitting Blood Pressure- Standing Blood Pressure 157/65 H 130/55 L Blood Pressure [Left Arm] 182/62 H Blood Pressure Mean 95 80 Blood Pressure Mean [Left Arm] 102 Blood Pressure Position Blood Pressure Position [Left Arm] Lying Pulse Oximetry 94 91 96 Oxygen Delivery Method Room Air Room Air Sepsis Recent Fever Within 48 Hours Sepsis New/Unexplained Change in Mental Status Sepsis Action Taken by Nursing 03/08/21 07:00 03/08/21 07:30 03/08/21 08:00 Temperature Temperature Source Pulse Rate - Lying Pulse Rate - Sitting Pulse Rate - Standing Pulse Rate 64 62 62 Pulse Rate [Carotid] Pulse Rate from SpO2 Sensor 64 63 62 Pulse Rhythm Pulse Rhythm [Carotid] Respiratory Rate 18 14 19 Respiratory Effort / Characteristics Respiratory Depth Blood Pressure - Lying Blood Pressure - Sitting Blood Pressure- Standing Blood Pressure 160/62 H 175/69 H 164/74 H Blood Pressure [Left Arm] Blood Pressure Mean 94 104 104 Blood Pressure Mean [Left Arm] Blood Pressure Position Blood Pressure Position [Left Arm] Pulse Oximetry 92 95 95 Oxygen Delivery Method Sepsis Recent Fever Within 48 Hours Sepsis New/Unexplained Change in Mental Status Sepsis Action Taken by Nursing 03/08/21 09:00 03/08/21 09:30 03/08/21 10:00 Temperature Temperature Source Pulse Rate - Lying Pulse Rate - Sitting Pulse Rate - Standing Pulse Rate 62 64 66 Pulse Rate [Carotid] Pulse Rate from SpO2 Sensor Pulse Rhythm Pulse Rhythm [Carotid] Respiratory Rate 20 17 16 Respiratory Effort / Characteristics Respiratory Depth Blood Pressure - Lying Blood Pressure - Sitting Blood Pressure- Standing Blood Pressure 140/72 149/59 H 154/70 H Blood Pressure [Left Arm] Blood Pressure Mean 94 89 98 Blood Pressure Mean [Left Arm] Blood Pressure Position Blood Pressure Position [Left Arm] Pulse Oximetry 95 98 98 Oxygen Delivery Method Sepsis Recent Fever Within 48 Hours Sepsis New/Unexplained Change in Mental Status Sepsis Action Taken by Nursing 03/08/21 10:30 Temperature Temperature Source Pulse Rate - Lying Pulse Rate - Sitting Pulse Rate - Standing Pulse Rate 70 Pulse Rate [Carotid] Pulse Rate from SpO2 Sensor Pulse Rhythm Pulse Rhythm [Carotid] Respiratory Rate 20 Respiratory Effort / Characteristics Respiratory Depth Blood Pressure - Lying Blood Pressure - Sitting Blood Pressure- Standing Blood Pressure 138/58 L Blood Pressure [Left Arm] Blood Pressure Mean 84 Blood Pressure Mean [Left Arm] Blood Pressure Position Blood Pressure Position [Left Arm] Pulse Oximetry 97 Oxygen Delivery Method Sepsis Recent Fever Within 48 Hours Sepsis New/Unexplained Change in Mental Status Sepsis Action Taken by Nursing Vital signs reviewed. General: Chronically ill-appearing 75-year-old male, in no significant distress. HEENT: No scleral icterus, PERRLA, neck supple. Atraumatic. Cardiovascular: Regular rate and rhythm, no extra sounds. Pulmonary: Clear to auscultation bilaterally, normal work of breathing. Abdomen: Soft, nontender, nondistended, positive bowel sounds. Musculoskeletal: Atraumatic, no peripheral edema. Neurologic: Patient awake alert and oriented x 3 Skin: Warm, dry, no rash Course Administered Medications Acetaminophen (Acetaminophen 325 Mg Tab) 650 mg PO Q4H PRN PRN Reason: pain/fever Stop: 04/07/21 10:38 Last Admin: 03/11/21 23:45 Dose: 650 mg Documented by: [id number] Admin: 03/10/21 08:48 Dose: 650 mg Documented by: [id number] Aspirin (Aspirin 81 Mg Ectab) 81 mg PO DAILY LINDA Stop: 04/07/21 11:18 Last Admin: 03/16/21 08:51 Dose: 81 mg Documented by: [id number] Admin: 03/15/21 09:08 Dose: 81 mg Documented by: [id number] Admin: 03/14/21 08:45 Dose: 81 mg Documented by: [id number] Admin: 03/13/21 09:00 Dose: 81 mg Documented by: [id number] Admin: 03/12/21 08:45 Dose: 81 mg Documented by: [id number] Admin: 03/11/21 09:04 Dose: 81 mg Documented by: [id number] Admin: 03/10/21 09:38 Dose: 81 mg Documented by: [id number] Admin: 03/09/21 08:29 Dose: 81 mg Documented by: [id number] Admin: 03/08/21 13:21 Dose: 81 mg Documented by: [id number] Bupropion HCl (Bupropion Sr 100 Mg Tabcr) 200 mg PO BID LINDA Stop: 04/07/21 11:18 Last Admin: 03/16/21 08:51 Dose: 200 mg Documented by: [id number] Admin: 03/15/21 21:30 Dose: 200 mg Documented by: [id number] Admin: 03/15/21 09:07 Dose: 200 mg Documented by: [id number] Admin: 03/14/21 20:22 Dose: 200 mg Documented by: [id number] Admin: 03/14/21 08:44 Dose: 200 mg Documented by: [id number] Admin: 03/13/21 20:16 Dose: 200 mg Documented by: [id number] Admin: 03/13/21 09:00 Dose: 200 mg Documented by: [id number] Admin: 03/12/21 20:23 Dose: 200 mg Documented by: [id number] Admin: 03/12/21 08:45 Dose: 200 mg Documented by: [id number] Admin: 03/11/21 21:24 Dose: 200 mg Documented by: [id number] Admin: 03/11/21 09:03 Dose: 200 mg Documented by: [id number] Admin: 03/10/21 20:33 Dose: 200 mg Documented by: [id number] Admin: 03/10/21 09:38 Dose: 200 mg Documented by: [id number] Admin: 03/09/21 20:53 Dose: 200 mg Documented by: [id number] Admin: 03/09/21 08:29 Dose: 200 mg Documented by: [id number] Admin: 03/08/21 20:52 Dose: 200 mg Documented by: [id number] Admin: 03/08/21 13:21 Dose: 200 mg Documented by: [id number] Carvedilol (Carvedilol 6.25 Mg Tab) 6.25 mg PO BID LINDA Stop: 04/08/21 20:59 Last Admin: 03/16/21 08:51 Dose: 6.25 mg Documented by: [id number] Admin: 03/15/21 21:30 Dose: 6.25 mg Documented by: [id number] Admin: 03/15/21 09:08 Dose: 6.25 mg Documented by: [id number] Admin: 03/14/21 20:22 Dose: 6.25 mg Documented by: [id number] Admin: 03/14/21 08:44 Dose: 6.25 mg Documented by: [id number] Admin: 03/13/21 20:16 Dose: 6.25 mg Documented by: [id number] Admin: 03/13/21 09:01 Dose: 6.25 mg Documented by: [id number] Admin: 03/12/21 20:23 Dose: 6.25 mg Documented by: [id number] Admin: 03/12/21 08:46 Dose: 6.25 mg Documented by: [id number] Admin: 03/11/21 21:19 Dose: 6.25 mg Documented by: [id number] Admin: 03/11/21 09:04 Dose: 6.25 mg Documented by: [id number] Admin: 03/10/21 20:32 Dose: 6.25 mg Documented by: [id number] Admin: 03/10/21 09:39 Dose: 6.25 mg Documented by: [id number] Admin: 03/09/21 20:54 Dose: 6.25 mg Documented by: [id number] Clonazepam (Clonazepam 0.5 Mg Tab) 0.5 mg PO HS LINDA Stop: 04/12/21 20:59 Last Admin: 03/15/21 21:38 Dose: 0.5 mg Documented by: [id number] Admin: 03/14/21 20:19 Dose: 0.5 mg Documented by: [id number] Admin: 03/13/21 20:19 Dose: 0.5 mg Documented by: [id number] Clopidogrel Bisulfate (Clopidogrel Bisulfate 75 Mg Tab) 75 mg PO DAILY LINDA Stop: 04/07/21 11:18 Last Admin: 03/16/21 08:51 Dose: 75 mg Documented by: [id number] Admin: 03/15/21 09:07 Dose: 75 mg Documented by: [id number] Admin: 03/14/21 08:44 Dose: 75 mg Documented by: [id number] Admin: 03/13/21 09:01 Dose: 75 mg Documented by: [id number] Admin: 03/12/21 08:46 Dose: 75 mg Documented by: [id number] Admin: 03/11/21 09:04 Dose: 75 mg Documented by: [id number] Admin: 03/10/21 09:39 Dose: 75 mg Documented by: [id number] Admin: 03/09/21 08:30 Dose: 75 mg Documented by: [id number] Admin: 03/08/21 13:22 Dose: 75 mg Documented by: [id number] Cyanocobalamin (Cyanocobalamin (Vitamin B-12) 100 Mcg Tablet) 100 mcg PO QAM [facility], [facility]1983 Stop: 04/12/21 12:59 Last Admin: 03/16/21 08:51 Dose: 100 mcg Documented by: [id number] Admin: 03/15/21 09:08 Dose: 100 mcg Documented by: [id number] Admin: 03/14/21 08:44 Dose: 100 mcg Documented by: [id number] Admin: 03/13/21 13:28 Dose: 100 mcg Documented by: [id number] Divalproex Sodium (Divalproex Delay Release 250 Mg Tabec) 750 mg PO HS [facility], 1928–1983 Stop: 04/07/21 20:59 Last Admin: 03/15/21 21:29 Dose: 750 mg Documented by: [id number] Admin: 03/14/21 20:21 Dose: 750 mg Documented by: [id number] Admin: 03/13/21 20:16 Dose: 750 mg Documented by: [id number] Admin: 03/12/21 20:22 Dose: 750 mg Documented by: [id number] Admin: 03/11/21 21:19 Dose: 750 mg Documented by: [id number] Admin: 03/10/21 20:32 Dose: 750 mg Documented by: [id number] Admin: 03/09/21 20:53 Dose: 750 mg Documented by: [id number] Admin: 03/08/21 20:52 Dose: 750 mg Documented by: [id number] Enalapril Maleate (Enalapril Maleate 10 Mg Tab) 10 mg PO BID LINDA Stop: 04/08/21 20:59 Last Admin: 03/16/21 08:51 Dose: 10 mg Documented by: [id number] Admin: 03/15/21 21:31 Dose: 10 mg Documented by: [id number] Admin: 03/15/21 09:08 Dose: 10 mg Documented by: [id number] Admin: 03/14/21 20:21 Dose: 10 mg Documented by: [id number] Admin: 03/14/21 08:44 Dose: 10 mg Documented by: [id number] Admin: 03/13/21 20:15 Dose: 10 mg Documented by: [id number] Admin: 03/13/21 09:01 Dose: 10 mg Documented by: [id number] Admin: 03/12/21 20:22 Dose: 10 mg Documented by: [id number] Admin: 03/12/21 08:47 Dose: 10 mg Documented by: [id number] Admin: 03/11/21 21:19 Dose: 10 mg Documented by: [id number] Admin: 03/11/21 09:03 Dose: 10 mg Documented by: [id number] Admin: 03/10/21 20:32 Dose: 10 mg Documented by: [id number] Admin: 03/10/21 09:39 Dose: 10 mg Documented by: [id number] Admin: 03/09/21 20:53 Dose: 10 mg Documented by: [id number] Levothyroxine Sodium (Levothyroxine Sodium 25 Mcg Tablet) 25 mcg PO DAILYBB LINDA Stop: 04/07/21 11:39 Last Admin: 03/16/21 06:41 Dose: 25 mcg Documented by: [id number] Admin: 03/15/21 05:57 Dose: 25 mcg Documented by: [id number] Admin: 03/14/21 05:53 Dose: 25 mcg Documented by: [id number] Admin: 03/13/21 05:39 Dose: 25 mcg Documented by: [id number] Admin: 03/12/21 06:28 Dose: 25 mcg Documented by: [id number] Admin: 03/11/21 05:29 Dose: 25 mcg Documented by: [id number] Admin: 03/10/21 05:40 Dose: 25 mcg Documented by: [id number] Admin: 03/09/21 06:27 Dose: 25 mcg Documented by: [id number] Admin: 03/08/21 13:22 Dose: 25 mcg Documented by: [id number] Metformin HCl (Metformin Hcl 500 Mg Tab) 500 mg PO BIDM LINDA Stop: 04/15/21 07:59 Last Admin: 03/16/21 18:11 Dose: 500 mg Documented by: [id number] Admin: 03/16/21 08:51 Dose: 500 mg Documented by: [id number] Mirtazapine (Mirtazapine Tab 15 Mg Tab) 7.5 mg PO HS LINDA Stop: 04/07/21 20:59 Last Admin: 03/15/21 21:30 Dose: 7.5 mg Documented by: [id number] Admin: 03/14/21 20:20 Dose: 7.5 mg Documented by: [id number] Admin: 03/13/21 20:14 Dose: 7.5 mg Documented by: [id number] Admin: 03/12/21 20:22 Dose: 7.5 mg Documented by: [id number] Admin: 03/11/21 21:18 Dose: 7.5 mg Documented by: [id number] Admin: 03/10/21 20:31 Dose: 7.5 mg Documented by: [id number] Admin: 03/09/21 20:53 Dose: 7.5 mg Documented by: [id number] Admin: 03/08/21 20:52 Dose: 7.5 mg Documented by: [id number] Miscellaneous (Carbohydrates For Hypoglycemia ) 15 - 30 gm PO UD PRN PRN Reason: Hypoglycemia Protocol Stop: 04/07/21 11:18 Last Admin: 03/15/21 17:15 Dose: 15 gm Documented by: [id number] Nitroglycerin (Nitroglycerin Sl 0.4 Mg/Tab Tab) 0.4 mg SL UD PRN PRN Reason: Chest Pain Stop: 04/07/21 10:02 Last Admin: 03/08/21 10:20 Dose: 0.4 mg Documented by: [id number] Olanzapine (Olanzapine 5 Mg Tablet) 5 mg PO HS LINDA Stop: 04/08/21 20:59 Last Admin: 03/15/21 21:29 Dose: 5 mg Documented by: [id number] Admin: 03/14/21 20:22 Dose: 5 mg Documented by: [id number] Admin: 03/13/21 20:15 Dose: 5 mg Documented by: [id number] Admin: 03/12/21 20:22 Dose: 5 mg Documented by: [id number] Admin: 03/11/21 21:18 Dose: 5 mg Documented by: [id number] Admin: 03/10/21 20:31 Dose: 5 mg Documented by: [id number] Admin: 03/09/21 20:53 Dose: 5 mg Documented by: [id number] Rosuvastatin Calcium (Rosuvastatin Calcium 10 Mg Tab) 10 mg PO HS LINDA Stop: 04/08/21 20:59 Last Admin: 03/15/21 21:29 Dose: 10 mg Documented by: [id number] Admin: 03/14/21 20:20 Dose: 10 mg Documented by: [id number] Admin: 03/13/21 20:16 Dose: 10 mg Documented by: [id number] Admin: 03/12/21 20:21 Dose: 10 mg Documented by: [id number] Admin: 03/11/21 21:18 Dose: 10 mg Documented by: [id number] Admin: 03/10/21 20:31 Dose: 10 mg Documented by: [id number] Admin: 03/09/21 20:53 Dose: 10 mg Documented by: [id number] Discontinued Medications Carbamide Peroxide (Carbamide Peroxide 6.5% 15 Ml Btl) 5 drops OTL BID LINDA Stop: 03/14/21 11:59 Last Admin: 03/14/21 08:46 Dose: 5 drops Documented by: [id number] Admin: 03/13/21 20:16 Dose: 5 drops Documented by: [id number] Admin: 03/13/21 09:01 Dose: 5 drops Documented by: [id number] Admin: 03/12/21 20:23 Dose: 5 drops Documented by: [id number] Admin: 03/12/21 08:46 Dose: 5 drops Documented by: [id number] Admin: 03/11/21 21:22 Dose: 5 drops Documented by: [id number] Admin: 03/11/21 09:04 Dose: 5 drops Documented by: [id number] Admin: 03/10/21 20:33 Dose: 5 drops Documented by: [id number] Admin: 03/10/21 14:35 Dose: 5 drops Documented by: [id number] Carvedilol (Carvedilol 3.125 Mg Tab) 3.125 mg PO BID LINDA Stop: 04/07/21 11:18 Last Admin: 03/09/21 08:30 Dose: 3.125 mg Documented by: [id number] Admin: 03/08/21 20:52 Dose: 3.125 mg Documented by: [id number] Admin: 03/08/21 13:22 Dose: 3.125 mg Documented by: [id number] Clonazepam (Clonazepam 1 Mg Tab) 1 mg PO HS LINDA Stop: 04/07/21 20:59 Last Admin: 03/12/21 20:23 Dose: 1 mg Documented by: [id number] Admin: 03/11/21 21:22 Dose: 1 mg Documented by: [id number] Admin: 03/10/21 20:31 Dose: 1 mg Documented by: [id number] Admin: 03/09/21 20:53 Dose: 1 mg Documented by: [id number] Admin: 03/08/21 20:52 Dose: 1 mg Documented by: [id number] Hydralazine HCl (Hydralazine Hcl 20 Mg/Ml Vial) 5 mg IV NOW ONE Stop: 03/09/21 22:45 Last Admin: 03/09/21 23:03 Dose: 5 mg Documented by: [id number] Sodium Chloride (Nss 1000ml) 1,000 mls @ 125 mls/hr IV .Q8H [facility], 1928–1983 Stop: 03/08/21 19:18 Last Infusion: 03/08/21 21:22 Dose: 0 mls/hr Documented by: [id number] Admin: 03/08/21 11:59 Dose: 125 mls/hr Documented by: [id number] Insulin Aspart (Insulin Aspart 100 Units/Ml 3 Ml Pen) 0 units SC ACHS [facility], 1928–1983 Stop: 04/07/21 11:29 Last Admin: 03/15/21 18:14 Dose: Not Given Documented by: [id number] Admin: 03/15/21 13:06 Dose: 2 units Documented by: [id number] Cosigned by: [id number] Admin: 03/15/21 09:11 Dose: 3 units Documented by: [id number] Cosigned by: [id number] Admin: 03/14/21 20:53 Dose: Not Given Documented by: [id number] Cosigned by: [id number] Admin: 03/14/21 18:13 Dose: Not Given Documented by: [id number] Admin: 03/14/21 12:56 Dose: 1 units Documented by: [id number] Cosigned by: [id number] Admin: 03/14/21 08:44 Dose: 2 units Documented by: [id number] Cosigned by: [id number] Admin: 03/13/21 20:39 Dose: Not Given Documented by: [id number] Admin: 03/13/21 17:47 Dose: 1 units Documented by: [id number] Cosigned by: [id number] Admin: 03/13/21 12:43 Dose: 2 units Documented by: [id number] Cosigned by: [id number] Admin: 03/13/21 09:05 Dose: 4 units Documented by: [id number] Cosigned by: [id number] Admin: 03/12/21 20:44 Dose: 1 units Documented by: [id number] Cosigned by: [id number] Admin: 03/12/21 17:42 Dose: 2 units Documented by: [id number] Cosigned by: [id number] Admin: 03/12/21 12:51 Dose: 3 units Documented by: [id number] Cosigned by: [id number] Admin: 03/12/21 08:50 Dose: 3 units Documented by: [id number] Cosigned by: [id number] Admin: 03/11/21 21:26 Dose: 1 units Documented by: [id number] Cosigned by: [id number] Admin: 03/11/21 18:06 Dose: 2 units Documented by: [id number] Cosigned by: [id number] Admin: 03/11/21 13:03 Dose: 4 units Documented by: [id number] Cosigned by: [id number] Admin: 03/11/21 09:08 Dose: 4 units Documented by: [id number] Cosigned by: [id number] Admin: 03/10/21 21:02 Dose: Not Given Documented by: [id number] Admin: 03/10/21 18:14 Dose: 2 units Documented by: [id number] Cosigned by: [id number] Admin: 03/10/21 13:43 Dose: 2 units Documented by: [id number] Cosigned by: [id number] Admin: 03/10/21 09:43 Dose: 2 units Documented by: [id number] Cosigned by: [id number] Admin: 03/09/21 20:54 Dose: Not Given Documented by: [id number] Cosigned by: [id number] Admin: 03/09/21 17:18 Dose: Not Given Documented by: [id number] Admin: 03/09/21 12:29 Dose: 1 units Documented by: [id number] Cosigned by: [id number] Admin: 03/09/21 08:30 Dose: 1 units Documented by: [id number] Cosigned by: [id number] Admin: 03/08/21 20:53 Dose: Not Given Documented by: [id number] Cosigned by: [id number] Admin: 03/08/21 17:01 Dose: Not Given Documented by: [id number] Admin: 03/08/21 13:23 Dose: 1 units Documented by: [id number] Cosigned by: [id number] Insulin Glargine (Insulin Glargine Solostar 100 Units/Ml 3 Ml Pen) 5 units SC HS LINDA Stop: 04/07/21 20:59 Last Admin: 03/14/21 20:54 Dose: 5 units Documented by: [id number] Cosigned by: [id number] Admin: 03/13/21 20:47 Dose: 5 units Documented by: [id number] Cosigned by: [id number] Admin: 03/12/21 20:44 Dose: 5 units Documented by: [id number] Cosigned by: [id number] Admin: 03/11/21 21:24 Dose: 5 units Documented by: [id number] Cosigned by: [id number] Admin: 03/10/21 21:01 Dose: 5 units Documented by: [id number] Cosigned by: [id number] Admin: 03/09/21 20:53 Dose: 5 units Documented by: [id number] Cosigned by: [id number] Admin: 03/08/21 20:53 Dose: 5 units Documented by: [id number] Cosigned by: [id number] Medical Decision Making Differential Diagnosis Infection, dehydration, metabolic abnormality, hypo/hyperglycemia, electrolyte disturbance, anemia, hypoxia, cardiac sources, intracerebral event, toxicologic, neurologic, as well as other pathologies. Medical Records Attestation: I reviewed the patient's medical records. Home Medications Current Medication List: was personally reviewed by me Laboratory Data Attestation: I reviewed the patient's lab results. Result diagrams: 03/10/21 05:19 03/10/21 05:19 Lab Results 03/08/21 03/08/21 03/08/21 Range/Units 01:15 01:15 02:39 WBC 10.95 H (4.8-10.8) K/uL RBC 4.91 (4.7-6.1) M/uL Hgb 14.4 (14.0-18.0) g/dL Hct 42.7 (42-52) % MCV 87.0 (80-100) fL MCH 29.3 (25-34) pg MCHC 33.7 (32-36) g/dL RDW Std Deviation 44.6 (36.4-46.3) fL RDW Coeff of De 14.2 (11.5-14.5) % Plt Count 192 (130-400) K/uL MPV 10.0 (7.4-10.4) fL Immature Gran % (Auto) 0.7 % Neut % (Auto) 66.4 % Lymph % (Auto) 17.3 % Taliaferro % (Auto) 11.7 % Eos % (Auto) 3.7 % Baso % (Auto) 0.2 % Neut # (Auto) 7.27 H (1.4-6.5) K/uL Lymph # (Auto) 1.89 (1.2-3.4) K/uL Tal[place]ferro # (Auto) 1.28 H (0.11-0.59) K/uL Eos # (Auto) 0.41 (0-0.5) K/uL Baso # (Auto) 0.02 (0-0.2) K/uL Immature Gran # (Auto) 0.08 H (0.00-0.02) K/uL Sodium 131 L (136-145) mmol/L Potassium 4.8 (3.5-5.1) mmol/L Chloride 99 (98-107) mmol/L Carbon Dioxide 25 (21-32) mmol/L Anion Gap 7.0 (3-11) BUN 11 (7-18) mg/dl Creatinine 1.45 H (0.6-1.4) mg/dl Est Cr Clr Drug Dosing 53.2 ml/min Est GFR ( Amer) 55.0 ml/min Est GFR (Non-Af Amer) 47.4 ml/min BUN/Creatinine Ratio 7.6 L (10-20) Glucose 93 (70-99) mg/dl POC Glucose (70-99) mg/dl Calcium 9.4 (8.5-10.1) mg/dl Magnesium 2.0 (1.8-2.4) mg/dl Total Bilirubin 0.7 (0.2-1) mg/dl AST 22 (15-37) U/L ALT 29 (12-78) U/L Alkaline Phosphatase 89 (45-117) U/L Troponin I < 0.015 (0-0.045) ng/ml Total Protein 7.7 (6.4-8.2) gm/dl Albumin 3.8 (3.4-5.0) gm/dl Globulin 3.9 (2.5-4.0) gm/dl Albumin/Globulin Ratio 1.0 (0.9-2) TSH (0.300-4.500) uIu/ml Urine Color Urine Appearance (Clear) Urine pH (4.5-7.5) Ur Specific [place] (1.000-1.030) Urine Protein (Negative) Urine Glucose (UA) (Negative) Urine Ketones (Negative) Urine Blood (Negative) Urine Nitrite (Negative) Urine Bilirubin (Negative) Urine Urobilinogen (Negative) Ur Leukocyte Esterase (Negative) Urine WBC (Auto) (0-5) /hpf Urine RBC (Auto) (0-4) /hpf U Hyaline Cast (Auto) (0-5) /lpf U Epithel Cells (Auto) (0-5) /lpf Urine Bacteria (Auto) (Negative) COVID-19 Eval Order Covid19 at [facility] SARS-CoV-2 (PCR) (Negative) 03/08/21 03/08/21 03/08/21 Range/Units 02:39 11:03 11:40 WBC (4.8-10.8) K/uL RBC (4.7-6.1) M/uL Hgb (14.0-18.0) g/dL Hct (42-52) % MCV (80-100) fL MCH (25-34) pg MCHC (32-36) g/dL RDW Std Deviation (36.4-46.3) fL RDW Coeff of De (11.5-14.5) % Plt Count (130-400) K/uL MPV (7.4-10.4) fL Immature Gran % (Auto) % Neut % (Auto) % Lymph % (Auto) % [place] % (Auto) % Eos % (Auto) % Baso % (Auto) % Neut # (Auto) (1.4-6.5) K/uL Lymph # (Auto) (1.2-3.4) K/uL [place] # (Auto) (0.11-0.59) K/uL Eos # (Auto) (0-0.5) K/uL Baso # (Auto) (0-0.2) K/uL Immature Gran # (Auto) (0.00-0.02) K/uL Sodium (136-145) mmol/L Potassium (3.5-5.1) mmol/L Chloride (98-107) mmol/L Carbon Dioxide (21-32) mmol/L Anion Gap (3-11) BUN (7-18) mg/dl Creatinine (0.6-1.4) mg/dl Est Cr Clr Drug Dosing ml/min Est GFR ( Amer) ml/min Est GFR (Non-Af Amer) ml/min BUN/Creatinine Ratio (10-20) Glucose (70-99) mg/dl POC Glucose 98 (70-99) mg/dl Calcium (8.5-10.1) mg/dl Magnesium (1.8-2.4) mg/dl Total Bilirubin (0.2-1) mg/dl AST (15-37) U/L ALT (12-78) U/L Alkaline Phosphatase (45-117) U/L Troponin I < 0.015 (0-0.045) ng/ml Total Protein (6.4-8.2) gm/dl Albumin (3.4-5.0) gm/dl Globulin (2.5-4.0) gm/dl Albumin/Globulin Ratio (0.9-2) TSH (0.300-4.500) uIu/ml Urine Color Urine Appearance (Clear) Urine pH (4.5-7.5) Ur Specific [place] (1.000-1.030) Urine Protein (Negative) Urine Glucose (UA) (Negative) Urine Ketones (Negative) Urine Blood (Negative) Urine Nitrite (Negative) Urine Bilirubin (Negative) Urine Urobilinogen (Negative) Ur Leukocyte Esterase (Negative) Urine WBC (Auto) (0-5) /hpf Urine RBC (Auto) (0-4) /hpf U Hyaline Cast (Auto) (0-5) /lpf U Epithel Cells (Auto) (0-5) /lpf Urine Bacteria (Auto) (Negative) COVID-19 Eval Order SARS-CoV-2 (PCR) NEGATIVE (Negative) 03/08/21 03/08/21 03/08/21 Range/Units 16:52 20:06 Unknown WBC (4.8-10.8) K/uL RBC (4.7-6.1) M/uL Hgb (14.0-18.0) g/dL Hct (42-52) % MCV (80-100) fL MCH (25-34) pg MCHC (32-36) g/dL RDW Std Deviation (36.4-46.3) fL RDW Coeff of De (11.5-14.5) % Plt Count (130-400) K/uL MPV (7.4-10.4) fL Immature Gran % (Auto) % Neut % (Auto) % Lymph % (Auto) % [place] % (Auto) % Eos % (Auto) % Baso % (Auto) % Neut # (Auto) (1.4-6.5) K/uL Lymph # (Auto) (1.2-3.4) K/uL [place] # (Auto) (0.11-0.59) K/uL Eos # (Auto) (0-0.5) K/uL Baso # (Auto) (0-0.2) K/uL Immature Gran # (Auto) (0.00-0.02) K/uL Sodium (136-145) mmol/L Potassium (3.5-5.1) mmol/L Chloride (98-107) mmol/L Carbon Dioxide (21-32) mmol/L Anion Gap (3-11) BUN (7-18) mg/dl Creatinine (0.6-1.4) mg/dl Est Cr Clr Drug Dosing ml/min Est GFR ( Amer) ml/min Est GFR (Non-Af Amer) ml/min BUN/Creatinine Ratio (10-20) Glucose (70-99) mg/dl POC Glucose 88 84 (70-99) mg/dl Calcium (8.5-10.1) mg/dl Magnesium (1.8-2.4) mg/dl Total Bilirubin (0.2-1) mg/dl AST (15-37) U/L ALT (12-78) U/L Alkaline Phosphatase (45-117) U/L Troponin I (0-0.045) ng/ml Total Protein (6.4-8.2) gm/dl Albumin (3.4-5.0) gm/dl Globulin (2.5-4.0) gm/dl Albumin/Globulin Ratio (0.9-2) TSH (0.300-4.500) uIu/ml Urine Color Yellow Urine Appearance Clear (Clear) Urine pH 6.0 (4.5-7.5) Ur Specific [place] 1.010 (1.000-1.030) Urine Protein Trace H (Negative) Urine Glucose (UA) Negative (Negative) Urine Ketones Trace H (Negative) Urine Blood Negative (Negative) Urine Nitrite Negative (Negative) Urine Bilirubin Negative (Negative) Urine Urobilinogen Negative (Negative) Ur Leukocyte Esterase Negative (Negative) Urine WBC (Auto) 1-5 (0-5) /hpf Urine RBC (Auto) 0-4 (0-4) /hpf U Hyaline Cast (Auto) 1-5 (0-5) /lpf U Epithel Cells (Auto) 10-20 H (0-5) /lpf Urine Bacteria (Auto) Negative (Negative) COVID-19 Eval Order SARS-CoV-2 (PCR) (Negative) 03/09/21 03/09/21 03/09/21 Range/Units 07:43 11:35 16:30 WBC (4.8-10.8) K/uL RBC (4.7-6.1) M/uL Hgb (14.0-18.0) g/dL Hct (42-52) % MCV (80-100) fL MCH (25-34) pg MCHC (32-36) g/dL RDW Std Deviation (36.4-46.3) fL RDW Coeff of De (11.5-14.5) % Plt Count (130-400) K/uL MPV (7.4-10.4) fL Immature Gran % (Auto) % Neut % (Auto) % Lymph % (Auto) % [place] % (Auto) % Eos % (Auto) % Baso % (Auto) % Neut # (Auto) (1.4-6.5) K/uL Lymph # (Auto) (1.2-3.4) K/uL [place] # (Auto) (0.11-0.59) K/uL Eos # (Auto) (0-0.5) K/uL Baso # (Auto) (0-0.2) K/uL Immature Gran # (Auto) (0.00-0.02) K/uL Sodium (136-145) mmol/L Potassium (3.5-5.1) mmol/L Chloride (98-107) mmol/L Carbon Dioxide (21-32) mmol/L Anion Gap (3-11) BUN (7-18) mg/dl Creatinine (0.6-1.4) mg/dl Est Cr Clr Drug Dosing ml/min Est GFR ( Amer) ml/min Est GFR (Non-Af Amer) ml/min BUN/Creatinine Ratio (10-20) Glucose (70-99) mg/dl POC Glucose 91 164 H 105 H (70-99) mg/dl Calcium (8.5-10.1) mg/dl Magnesium (1.8-2.4) mg/dl Total Bilirubin (0.2-1) mg/dl AST (15-37) U/L ALT (12-78) U/L Alkaline Phosphatase (45-117) U/L Troponin I (0-0.045) ng/ml Total Protein (6.4-8.2) gm/dl Albumin (3.4-5.0) gm/dl Globulin (2.5-4.0) gm/dl Albumin/Globulin Ratio (0.9-2) TSH (0.300-4.500) uIu/ml Urine Color Urine Appearance (Clear) Urine pH (4.5-7.5) Ur Specific [place] (1.000-1.030) Urine Protein (Negative) Urine Glucose (UA) (Negative) Urine Ketones (Negative) Urine Blood (Negative) Urine Nitrite (Negative) Urine Bilirubin (Negative) Urine Urobilinogen (Negative) Ur Leukocyte Esterase (Negative) Urine WBC (Auto) (0-5) /hpf Urine RBC (Auto) (0-4) /hpf U Hyaline Cast (Auto) (0-5) /lpf U Epithel Cells (Auto) (0-5) /lpf Urine Bacteria (Auto) (Negative) COVID-19 Eval Order SARS-CoV-2 (PCR) (Negative) 03/09/21 03/10/21 03/10/21 Range/Units 20:51 05:19 05:19 WBC 8.17 (4.8-10.8) K/uL RBC 4.81 (4.7-6.1) M/uL Hgb 14.0 (14.0-18.0) g/dL Hct 42.5 (42-52) % MCV 88.4 (80-100) fL MCH 29.1 (25-34) pg MCHC 32.9 (32-36) g/dL RDW Std Deviation 45.9 (36.4-46.3) fL RDW Coeff of De 14.3 (11.5-14.5) % Plt Count 176 (130-400) K/uL MPV 9.7 (7.4-10.4) fL Immature Gran % (Auto) 0.5 % Neut % (Auto) 55.3 % Lymph % (Auto) 26.9 % [place] % (Auto) 11.6 % Eos % (Auto) 5.3 % Baso % (Auto) 0.4 % Neut # (Auto) 4.52 (1.4-6.5) K/uL Lymph # (Auto) 2.20 (1.2-3.4) K/uL [place] # (Auto) 0.95 H (0.11-0.59) K/uL Eos # (Auto) 0.43 (0-0.5) K/uL Baso # (Auto) 0.03 (0-0.2) K/uL Immature Gran # (Auto) 0.04 H (0.00-0.02) K/uL Sodium 135 L (136-145) mmol/L Potassium 4.2 (3.5-5.1) mmol/L Chloride 103 (98-107) mmol/L Carbon Dioxide 24 (21-32) mmol/L Anion Gap 8.0 (3-11) BUN 15 (7-18) mg/dl Creatinine 1.17 (0.6-1.4) mg/dl Est Cr Clr Drug Dosing 65.9 ml/min Est GFR ( Amer) 71.3 ml/min Est GFR (Non-Af Amer) 61.5 ml/min BUN/Creatinine Ratio 12.8 (10-20) Glucose 101 H (70-99) mg/dl POC Glucose 114 H (70-99) mg/dl Calcium 9.2 (8.5-10.1) mg/dl Magnesium (1.8-2.4) mg/dl Total Bilirubin (0.2-1) mg/dl AST (15-37) U/L ALT (12-78) U/L Alkaline Phosphatase (45-117) U/L Troponin I (0-0.045) ng/ml Total Protein (6.4-8.2) gm/dl Albumin (3.4-5.0) gm/dl Globulin (2.5-4.0) gm/dl Albumin/Globulin Ratio (0.9-2) TSH 3.540 (0.300-4.500) uIu/ml Urine Color Urine Appearance (Clear) Urine pH (4.5-7.5) Ur Specific [place] (1.000-1.030) Urine Protein (Negative) Urine Glucose (UA) (Negative) Urine Ketones (Negative) Urine Blood (Negative) Urine Nitrite (Negative) Urine Bilirubin (Negative) Urine Urobilinogen (Negative) Ur Leukocyte Esterase (Negative) Urine WBC (Auto) (0-5) /hpf Urine RBC (Auto) (0-4) /hpf U Hyaline Cast (Auto) (0-5) /lpf U Epithel Cells (Auto) (0-5) /lpf Urine Bacteria (Auto) (Negative) COVID-19 Eval Order SARS-CoV-2 (PCR) (Negative) 03/10/21 Range/Units 08:01 WBC (4.8-10.8) K/uL RBC (4.7-6.1) M/uL Hgb (14.0-18.0) g/dL Hct (42-52) % MCV (80-100) fL MCH (25-34) pg MCHC (32-36) g/dL RDW Std Deviation (36.4-46.3) fL RDW Coeff of De (11.5-14.5) % Plt Count (130-400) K/uL MPV (7.4-10.4) fL Immature Gran % (Auto) % Neut % (Auto) % Lymph % (Auto) % [place] % (Auto) % Eos % (Auto) % Baso % (Auto) % Neut # (Auto) (1.4-6.5) K/uL Lymph # (Auto) (1.2-3.4) K/uL [place] # (Auto) (0.11-0.59) K/uL Eos # (Auto) (0-0.5) K/uL Baso # (Auto) (0-0.2) K/uL Immature Gran # (Auto) (0.00-0.02) K/uL Sodium (136-145) mmol/L Potassium (3.5-5.1) mmol/L Chloride (98-107) mmol/L Carbon Dioxide (21-32) mmol/L Anion Gap (3-11) BUN (7-18) mg/dl Creatinine (0.6-1.4) mg/dl Est Cr Clr Drug Dosing ml/min Est GFR ( Amer) ml/min Est GFR (Non-Af Amer) ml/min BUN/Creatinine Ratio (10-20) Glucose (70-99) mg/dl POC Glucose 102 H (70-99) mg/dl Calcium (8.5-10.1) mg/dl Magnesium (1.8-2.4) mg/dl Total Bilirubin (0.2-1) mg/dl AST (15-37) U/L ALT (12-78) U/L Alkaline Phosphatase (45-117) U/L Troponin I (0-0.045) ng/ml Total Protein (6.4-8.2) gm/dl Albumin (3.4-5.0) gm/dl Globulin (2.5-4.0) gm/dl Albumin/Globulin Ratio (0.9-2) TSH (0.300-4.500) uIu/ml Urine Color Urine Appearance (Clear) Urine pH (4.5-7.5) Ur Specific [place] (1.000-1.030) Urine Protein (Negative) Urine Glucose (UA) (Negative) Urine Ketones (Negative) Urine Blood (Negative) Urine Nitrite (Negative) Urine Bilirubin (Negative) Urine Urobilinogen (Negative) Ur Leukocyte Esterase (Negative) Urine WBC (Auto) (0-5) /hpf Urine RBC (Auto) (0-4) /hpf U Hyaline Cast (Auto) (0-5) /lpf U Epithel Cells (Auto) (0-5) /lpf Urine Bacteria (Auto) (Negative) COVID-19 Eval Order SARS-CoV-2 (PCR) (Negative) Imaging Data Radiologist's Impression: Head CT 03/08/21 01:14 CT head/brain wo con Clinical Indication: MN ^FAll, headstrike. Technique: Contiguous axial CT images of the head were acquired from the base of the skull to the vertex without intravenous contrast administration. Images were viewed in brain, subdural and bone windows. Automated dose lowering techniques and/or adjustment according to patient size were utilized for this exam. Comparison: Comparison is made to CT head 01/08/2021 Findings: Areas of decreased attenuation are present in the periventricular and subcortical white matter bilaterally consistent with small vessel ischemic disease. Generalized cerebral atrophy with commensurate enlargement of the ventricles, sulci, and cisterns is also present. There is no acute intracranial hemorrhage or evidence of acute territorial infarction. No shift of the midline structures, mass effect, or extra-axial abnormalities are shown. Atherosclerotic calcifications are present in the intracranial segments of the internal carotid arteries. Imaged portions of the paranasal sinuses and mastoid air cells are clear. The orbits appear normal. There are no acute fractures of the calvaria or scalp swelling. Impression: No acute intracranial hemorrhage, evidence of acute territorial infarction, or other acute intracranial disease process. ACT 112: Negative or not required by law. Electronically signed by: Chilo Anderson M.D. 03/08/2021 8:39 AM Chest X-Ray 03/08/21 02:21 XR chest 1V portable CLINICAL HISTORY: weakness COMPARISON STUDY: Chest CT July 10, 2020. Chest radiograph January 08, 2021. FINDINGS: A left subclavian pacer/AICD, median sternotomy wires and mediastinal surgical clips are noted. Cardiomegaly is unchanged. There is no evidence for pulmonary edema. Small calcified pulmonary nodules are unchanged. This is benign. There is no pneumothorax or pleural effusion. The appearance of the chest is unchanged. IMPRESSION: No acute cardiopulmonary findings. No change in appearance of the chest. ACT 112: Negative or not required by law. Electronically signed by: Ryan Mcgrath M.D. 03/08/2021 10:34 AM ECG Data Attestation: I personally reviewed and interpreted this ECG as follows: Indication: + weakness Rate (beats per minute): 68 Rhythm: + normal sinus ECG Intervals/blocks: + Right Bundle branch block ECG [place]: + Left axis deviation ECG ST segments: + repolarization abnormalities (Anterior lateral) ECG Findings: + Q waves (Inferior); no PACs or no PVCs Blood Pressure Blood Pressure Findings: Elevated blood pressure Blood Pressure Disposition: further management by hospitalist CONSTANCE Pantoja This patient was evaluated and appeared to be in no significant distress. IV access was obtained and laboratory work was drawn. An order for cardiac monitoring was placed and the patient is noted to be in a normal sinus rhythm at 68 bpm. EKG reveals no evidence of acute ischemic change or patient is noted to have a right bundle branch block. Patient's laboratory work reveals a mild hyponatremia at 131 with a creatinine of 1.45. UA is negative for infection. Covid swab was negative. CT imaging of the head was performed and is negative for acute intracranial abnormality. Given that the patient is living at home alone, deconditioned and falling frequently, now unable to get up off he will require evaluation by PT/OT and likely rehabilitation stay. Case management was consulted and stated patient will require hospitalization for these consultations. Patient was made aware of the plan and agreed. Impression & Plan Falls frequently, CHI (closed head injury), Gait instability Discharge Plan Visit Data Chief Complaint: Fall Stated Complaint: FALL ED Provider: Clau Christopher Discharge Problem: Falls frequently, CHI (closed head injury), Gait instability Patient Disposition: Admitted As Inpatient Discharge Instructions Interventions: ED Discharge Assessment Last Done: 03/08/21 10:55 Discharge Problem: CHI (closed head injury) Qualifiers: Encounter type: initial encounter Qualified Code(s): S09.90XA - Unspecified injury of head, initial encounter
[2021-03-09] MEDS: LEVOTHYROXINE SODIUM 25 MCG TABLET PO SCH (06:27)
[2021-03-09] MEDS: ASPIRIN 81 MG ECTAB PO SCH (08:29)
[2021-03-09] MEDS: buPROPion SR 100 MG TABCR PO SCH ×2 (08:29→20:53)
[2021-03-09] MEDS: carvediloL 3.125 MG TAB PO SCH (08:30)
[2021-03-09] MEDS: INSULIN ASPART 100 UNITS/ML 3 ML PEN SC SCH ×4 (08:30→20:54)
[2021-03-09] MEDS: CLOPIDOGREL BISULFATE 75 MG TAB PO SCH (08:30)
--- NOTE | 2021-03-09 18:46 | Hospitalist Progress Note ---
Date of Service March 09, 2021 Assessment & Plan (1) Status post fall: Plan: Presents with multiple falls. Had mild head trauma. No LOC Only has some mild upper back pain but no other injuries He reports that he is deconditioned and tripped, but did not pass out. He denies history of neuropathy Orthostatic vital signs are negative Hemoglobin is normal, WBC only minimally elevated likely due to stress response, with mild acute kidney injury with creatinine 1.4 on admission which is now improved with IV fluids He does have hyponatremia upon arrival at 131-perhaps he was mildly dehydrated Also on multiple [employer] depressants including NSAID pain, mirtazapine, and clonazepam which could be can tribute into the falls in the elderly-consider decreasing doses or minimizing these medications-defer to outpatient psychiatry No acute ischemia-troponin negative x2 -PT/OT consultations requested, recommending SNF placement and patient is agreeable (2) Hyponatremia: Plan: As above, repeat BMP in the morning Received IV fluids Hold home Lasix for now (3) CAD (coronary artery disease): Plan: Had some of his typical angina on the morning of 03/08-resolved nitroglycerin Has an extensive cardiac history with numerous stents placed, first LA age 41 -Continue ASA, Plavix -Increase carvedilol to 6.25 mg p.o. twice daily which is his actual home dose Restart home rosuvastatin which was left off the list Restart home Avapro which was left off the list new (4) STEPHAN (acute kidney injury): Plan: As above, creatinine 1.4 on arrival Received IV fluids Follow BMP in the morning Holding home Lasix (5) Hypertension: Plan: BP significantly elevated today, secondary to not receiving his usual home antihypertensives -Increase carvedilol to 6.25 mg p.o. twice daily -Start ramipril 2.5 mg p.o. twice daily -Hold Lasix as above (6) Hypothyroid: Plan: TSH elevated 8.2 in 12/2020 -Continue Synthroid -Repeat TSH in the morning and consider increasing dose of levothyroxine if remains significantly elevated as this may be contributing to his multiple falls and weakness (7) Bipolar disorder: Plan: Chronic -Continue Bupropion, clonazepam, mirtazapine, and restart home olanzapine -Continue Divalproex -Consider decreasing doses of medications as above as may be contributing to multiple falls (8) Diabetes mellitus type 2 in obese: Plan: Well controlled - A1C=6.4 in June 2020 -Continue Lantus 5u qHS -ISS (9) Cardiac defibrillator in place: Plan: Noted Plan: DVT Ppx - No chemoppx - continue ASA and Plavix Code - Full Dispo -continued stay on medical, awaiting rehab placement-referrals made today but there is no bed availability for him until likely Friday next week Attempted to call his son, Jama, at [phone] and left a message Admission and Anticipated Discharge Date Admission Date: March 08, 2021 Subjective Patient feeling well today. He reports a little bit of pain in his upper back from where he fell, but no headache and no other injuries. No chest pain today, no shortness of breath. He is eating and drinking, moving his bowels, urinating. He has no complaints. He is awaiting rehab placement for history of numerous falls and generalized weakness. I did review the patient's home medications with him-he is not exactly sure about all the medications he takes but when I say the names, he does recall them. He was missing multiple medications on his home medication reconciliation. Review of Systems Review of Systems: All systems reviewed & are unremarkable except as noted in HPI & below Physical Exam Constitutional: WD/WN, vitals as above Neck: trachea midline, no thyromegaly Respiratory: normal respiratory effort, lungs clear to auscultation Cardiovascular: RRR, no murmur, no edema Chest (Breasts): Chest: normal inspection of chest Gastrointestinal (Abdomen): normal bowel sounds, soft, nontender, no hepatosplenomegaly Musculoskeletal: Extremities: extremities normal to inspection; no cyanosis and no clubbing Skin: no rashes, warm and dry Neurologic: moves all extremities and awake; no focal motor deficits Psychiatric: A+Ox3, euthymic affect Lymphatic: no lymphedema Results & Data Results & Data ([facility]) Vital Signs (Past 12 Hours) Vital Signs Temp Pulse Resp BP Pulse Ox 03/09/21 15:44 36.3 C L 60 18 188/68 H 97 03/09/21 07:58 36.4 C L 62 18 110/61 93 Laboratory Results 03/09/21 03/09/21 03/09/21 Range/Units 20:51 16:30 11:35 POC Glucose 114 H 105 H 164 H (70-99) mg/dl 03/09/21 Range/Units 07:43 POC Glucose 91 (70-99) mg/dl PG Care Time/CCT Total # of Minutes Spent Total Time Spent with Patient: Total time spent is greater than 50% in coordination of care (as documented) at patient's floor/unit and/or counseling patient: Coding Level of Care Code 26700 Subseq Hosp Care Lvl 2 Diagnoses Status post fall Z91.81 CAD (coronary artery disease) I25.718 Associated angina: with stable angina Coronary Disease-Associated Artery/Lesion type: bypass graft, autologous vein Hypertension I10 Hypertension type: essential hypertension Hypothyroid E03.9 Hypothyroidism type: acquired Bipolar disorder F31.70 Active/Remission status: in remission of unspecified degree Diabetes mellitus type 2 in obese E11.69; E66.9 STEPHAN (acute kidney injury) N17.9 Hyponatremia E87.[address] Z95.810 (1) CAD (coronary artery disease) Associated angina: with stable angina Coronary Disease-Associated Artery/Lesion type: bypass graft, autologous vein Qualified Code(s): I25.718 - Atherosclerosis of autologous vein coronary artery bypass graft(s) with other forms of angina pectoris (2) Bipolar disorder Active/Remission status: in remission of unspecified degree Qualified Code(s): F31.70 - Bipolar disorder, currently in remission, most recent episode unspecified (3) Hypothyroid Hypothyroidism type: acquired Qualified Code(s): E03.9 - Hypothyroidism, unspecified (4) Hypertension Hypertension type: essential hypertension Qualified Code(s): I10 - Essential (primary) hypertension
[2021-03-09] MEDS: MIRTAZAPINE TAB 15 MG TAB PO SCH (20:53)
[2021-03-09] MEDS: INSULIN GLARGINE SOLOSTAR 100 UNITS/ML 3 ML PEN SC SCH (20:53)
[2021-03-09] MEDS: DIVALPROEX DELAY RELEASE 250 MG TABEC PO SCH (20:53)
[2021-03-09] MEDS: ROSUVASTATIN CALCIUM 10 MG TAB PO SCH (20:53)
[2021-03-09] MEDS: clonazePAM 1 MG TAB PO SCH (20:53)
[2021-03-09] MEDS: ENALAPRIL MALEATE 10 MG TAB PO SCH (20:53)
[2021-03-09] MEDS: OLANZapine 5 MG TABLET PO SCH (20:53)
[2021-03-09] MEDS: carvediloL 6.25 MG TAB PO SCH (20:54)
[2021-03-09] MEDS ORDERED: hydrALAZINE HCL 20 MG/ML VIAL IV ONE (22:44)
[2021-03-10] MEDS: LEVOTHYROXINE SODIUM 25 MCG TABLET PO SCH (05:40)
[2021-03-10 06:32] LABS: Basophils # (auto) 0.03 K/uL (0-0.2); Basophils % (auto) 0.4 %; Eosinophils # (auto) 0.43 K/uL (0-0.5); Eosinophils % (auto) 5.3 %; Hematocrit (blood only) 42.5 % (42-52); Immature Granulocytes # (auto) 0.04 K/uL (0.00-0.02); Immature Granulocytes % (auto) 0.5 %; Lymphocytes % (auto) 26.9 %; Mean Corpuscular Hemoglobin 29.1 pg (25-34); Mean Corpuscular Hgb Conc 32.9 g/dL (32-36); Mean Corpuscular Volume 88.4 fL (80-100); Mean Platelet Volume 9.7 fL (7.4-10.4); Monocytes # (auto) 0.95 K/uL (0.11-0.59); Monocytes % (auto) 11.6 %; Neutrophils # (auto) 4.52 K/uL (1.4-6.5); Neutrophils % (auto) 55.3 %; Platelet Count 176 K/uL (130-400); RDW Coefficient of Variation 14.3 % (11.5-14.5); RDW Standard Deviation 45.9 fL (36.4-46.3); Red Blood Count 4.81 M/uL (4.7-6.1); White Blood Count 8.17 K/uL (4.8-10.8)
[2021-03-10 07:01] LABS: BUN Creatinine Ratio 12.8 (10-20); Calcium 9.2 mg/dl (8.5-10.1); Creatinine Clr Calc Pharmacy 65.9 ml/min; Est GFR (African American) 71.3 ml/min; Est GFR (Non-African American) 61.5 ml/min; Potassium 4.2 mmol/L (3.5-5.1)
[2021-03-10 07:12] LABS: Thyroid Stimulating Hormone 3.54 uIu/ml (0.300-4.500)
[2021-03-10] MEDS: ACETAMINOPHEN 325 MG TAB PO PRN (08:48)
[2021-03-10] MEDS ORDERED: FUROSEMIDE 40 MG TAB PO SCH (09:00)
[2021-03-10] MEDS: buPROPion SR 100 MG TABCR PO SCH ×2 (09:38→20:33)
[2021-03-10] MEDS: ASPIRIN 81 MG ECTAB PO SCH (09:38)
[2021-03-10] MEDS: CLOPIDOGREL BISULFATE 75 MG TAB PO SCH (09:39)
[2021-03-10] MEDS: ENALAPRIL MALEATE 10 MG TAB PO SCH ×2 (09:39→20:32)
[2021-03-10] MEDS: carvediloL 6.25 MG TAB PO SCH ×2 (09:39→20:32)
[2021-03-10] MEDS: INSULIN ASPART 100 UNITS/ML 3 ML PEN SC SCH ×4 (09:43→21:02)
--- NOTE | 2021-03-10 11:53 | Hospitalist Progress Note ---
Date of Service March 10, 2021 Assessment & Plan (1) Status post fall: Plan: Presents with multiple falls. Had mild head trauma. No LOC Only has some mild upper back pain but no other injuries He reports that he is deconditioned and tripped, but did not pass out. He denies history of neuropathy. No associated vertigo or lightheadedness with falls Orthostatic vital signs are negative on arrival and he was hypertensive Hemoglobin is normal, WBC only minimally elevated likely due to stress response, with mild acute kidney injury with creatinine 1.4 on admission which is now improved with IV fluids He does have hyponatremia upon arrival at 131-perhaps he was mildly dehydrated Also on multiple [employer] VARN[employer] depressants including NSAID pain, mirtazapine, and clonazepam which could be can tribute into the falls in the elderly-consider decreasing doses or minimizing these medications-defer to outpatient psychiatry Left ear with cerumen impaction but do not suspect labyrinthitis or vertigo No acute ischemia-troponin negative x2 -PT/OT consultations requested, recommending SNF placement and patient is agreeable (2) Hyponatremia: Plan: As above, now improved 135 after IV fluids Continue Lasix as needed lower extremity edema-none needed now (3) CAD (coronary artery disease): Plan: Had some of his typical angina on the morning of 03/08-resolved nitroglycerin Has an extensive cardiac history with numerous stents placed, first [facility] age 41 -Continue ASA, Plavix, carvedilol, statin, CRESENCIO inhibitor (4) STEPHAN (acute kidney injury): Plan: As above, creatinine 1.4 on arrival and now improved to normal after receiving IV fluid hydration Okay to give home Lasix as needed (5) Hypertension: Plan: BP significantly elevated in the first 2 days of admission, secondary to not receiving his usual home antihypertensives as the home medicine Acacian reconciliation was not completed correctly Blood pressures are now improved but remain somewhat elevated -Continue carvedilol 6.25 mg p.o. twice daily -Continue enalapril 10 mg mg p.o. twice daily which is the formulary equivalent for his ramipril -Consider increasing doses if blood pressures remain elevated (6) Hypothyroid: Plan: TSH elevated 8.2 in 12/2020, now normal on repeat check here at 3.5 -Continue Synthroid (7) Bipolar disorder: Plan: Chronic -Continue Bupropion, clonazepam, mirtazapine, and restart home olanzapine -Continue Divalproex -Consider decreasing doses of medications as above as may be contributing to multiple falls (8) Diabetes mellitus type 2 in obese: Plan: Well controlled - A1C=6.4 in June 2020 -Continue Lantus 5u qHS -ISS (9) Cardiac defibrillator in place: Plan: Noted (10) Impacted cerumen of left ear: Plan: Causing hearing loss Start Debrox eardrops 5 drops twice daily to the left ear Will attempt to disimpact with curette tomorrow Plan: DVT Ppx - No chemoppx - continue ASA and Plavix Code - Full Dispo -continued stay on medical, awaiting rehab placement-referrals made but there is no bed availability for him until likely Friday next week We will again attempt to call his son, Jama, at [phone] Admission and Anticipated Discharge Date Admission Date: March 10, 2021 Subjective Patient denies chest pain or shortness of breath, no abdominal pain or nausea. He is eating and drinking. He does report that a couple of weeks ago he noticed some blood coming out of his left ear. He has chronic tinnitus which is unchanged. Since 2 weeks ago he has not been able to hear from his left ear. He was digging around in his left ear this morning and also noticed a little bit of blood on his finger. He denies any dizziness now or any of the times that he had falls. Review of Systems Review of Systems: All systems reviewed & are unremarkable except as noted in HPI & below Physical Exam Constitutional: WD/WN, vitals as above Eyes: + anicteric sclerae ENMT: Ears: + hearing impairment, + EAC abnormality (Left EAC with severe cerumen impaction, right EAC clear) and + unable to visualize TM (On the left); no external ear abnormality and no TM abnormality (On right) Neck: trachea midline, no thyromegaly Respiratory: normal respiratory effort, lungs clear to auscultation Cardiovascular: RRR, no murmur, no edema Chest (Breasts): Chest: normal inspection of chest Gastrointestinal (Abdomen): normal bowel sounds, soft, nontender, no hepatosplenomegaly Musculoskeletal: Extremities: extremities normal to inspection; no cyanosis and no clubbing Skin: no rashes, warm and dry Neurologic: moves all extremities and awake; no focal motor deficits Psychiatric: A+Ox3, euthymic affect Lymphatic: no lymphedema Results & Data Results & Data ([facility]) Vital Signs (Past 12 Hours) Vital Signs Temp Pulse Resp BP Pulse Ox 03/10/21 06:34 36.3 C L 63 18 162/68 H 94 Laboratory Results 03/10/21 03/10/21 03/10/21 Range/Units 11:54 08:01 05:19 WBC (4.8-10.8) K/uL RBC (4.7-6.1) M/uL Hgb (14.0-18.0) g/dL Hct (42-52) % MCV (80-100) fL MCH (25-34) pg MCHC (32-36) g/dL RDW Std Deviation (36.4-46.3) fL RDW Coeff of De (11.5-14.5) % Plt Count (130-400) K/uL MPV (7.4-10.4) fL Immature Gran % (Auto) % Neut % (Auto) % Lymph % (Auto) % Kimble % (Auto) % Eos % (Auto) % Baso % (Auto) % Neut # (Auto) (1.4-6.5) K/uL Lymph # (Auto) (1.2-3.4) K/uL Kimble # (Auto) (0.11-0.59) K/uL Eos # (Auto) (0-0.5) K/uL Baso # (Auto) (0-0.2) K/uL Immature Gran # (Auto) (0.00-0.02) K/uL Sodium 135 L (136-145) mmol/L Potassium 4.2 (3.5-5.1) mmol/L Chloride 103 (98-107) mmol/L Carbon Dioxide 24 (21-32) mmol/L Anion Gap 8.0 (3-11) BUN 15 (7-18) mg/dl Creatinine 1.17 (0.6-1.4) mg/dl Est Cr Clr Drug Dosing 65.9 ml/min Est GFR ( Amer) 71.3 ml/min Est GFR (Non-Af Amer) 61.5 ml/min BUN/Creatinine Ratio 12.8 (10-20) Glucose 101 H (70-99) mg/dl POC Glucose Pending 102 H (70-99) mg/dl Calcium 9.2 (8.5-10.1) mg/dl TSH 3.540 (0.300-4.500) uIu/ml 03/10/21 03/09/21 03/09/21 Range/Units 05:19 20:51 16:30 WBC 8.17 (4.8-10.8) K/uL RBC 4.81 (4.7-6.1) M/uL Hgb 14.0 (14.0-18.0) g/dL Hct 42.5 (42-52) % MCV 88.4 (80-100) fL MCH 29.1 (25-34) pg MCHC 32.9 (32-36) g/dL RDW Std Deviation 45.9 (36.4-46.3) fL RDW Coeff of De 14.3 (11.5-14.5) % Plt Count 176 (130-400) K/uL MPV 9.7 (7.4-10.4) fL Immature Gran % (Auto) 0.5 % Neut % (Auto) 55.3 % Lymph % (Auto) 26.9 % Kimble % (Auto) 11.6 % Eos % (Auto) 5.3 % Baso % (Auto) 0.4 % Neut # (Auto) 4.52 (1.4-6.5) K/uL Lymph # (Auto) 2.20 (1.2-3.4) K/uL Kimble # (Auto) 0.95 H (0.11-0.59) K/uL Eos # (Auto) 0.43 (0-0.5) K/uL Baso # (Auto) 0.03 (0-0.2) K/uL Immature Gran # (Auto) 0.04 H (0.00-0.02) K/uL Sodium (136-145) mmol/L Potassium (3.5-5.1) mmol/L Chloride (98-107) mmol/L Carbon Dioxide (21-32) mmol/L Anion Gap (3-11) BUN (7-18) mg/dl Creatinine (0.6-1.4) mg/dl Est Cr Clr Drug Dosing ml/min Est GFR ( Amer) ml/min Est GFR (Non-Af Amer) ml/min BUN/Creatinine Ratio (10-20) Glucose (70-99) mg/dl POC Glucose 114 H 105 H (70-99) mg/dl Calcium (8.5-10.1) mg/dl TSH (0.300-4.500) uIu/ml PG Care Time/CCT Total # of Minutes Spent Total Time Spent with Patient: Total time spent is greater than 50% in coordination of care (as documented) at patient's floor/unit and/or counseling patient: Coding Level of Care Code 56360 Subseq Hosp Care Lvl 2 Diagnoses Status post fall Z91.81 Hyponatremia E87.1 CAD (coronary artery disease) I25.718 Associated angina: with stable angina Coronary Disease-Associated Artery/Lesion type: bypass graft, autologous vein STEPHAN (acute kidney injury) N17.9 Hypertension I10 Hypertension type: essential hypertension Hypothyroid E03.9 Hypothyroidism type: acquired Bipolar disorder F31.70 Active/Remission status: in remission of unspecified degree Diabetes mellitus type 2 in obese E11.69; E66.[address] Z95.810 Impacted cerumen of left ear H61.22 (1) CAD (coronary artery disease) Associated angina: with stable angina Coronary Disease-Associated Artery/Lesion type: bypass graft, autologous vein Qualified Code(s): I25.718 - Atherosclerosis of autologous vein coronary artery bypass graft(s) with other forms of angina pectoris (2) Bipolar disorder Active/Remission status: in remission of unspecified degree Qualified Code(s): F31.70 - Bipolar disorder, currently in remission, most recent episode unspecified (3) Hypothyroid Hypothyroidism type: acquired Qualified Code(s): E03.9 - Hypothyroidism, unspecified (4) Hypertension Hypertension type: essential hypertension Qualified Code(s): I10 - Essential (primary) hypertension
[2021-03-10] MEDS: CARBAMIDE PEROXIDE 6.5% 15 ML BTL OTL SCH ×2 (14:35→20:33)
[2021-03-10] MEDS: ROSUVASTATIN CALCIUM 10 MG TAB PO SCH (20:31)
[2021-03-10] MEDS: clonazePAM 1 MG TAB PO SCH (20:31)
[2021-03-10] MEDS: MIRTAZAPINE TAB 15 MG TAB PO SCH (20:31)
[2021-03-10] MEDS: OLANZapine 5 MG TABLET PO SCH (20:31)
[2021-03-10] MEDS: DIVALPROEX DELAY RELEASE 250 MG TABEC PO SCH (20:32)
[2021-03-10] MEDS: INSULIN GLARGINE SOLOSTAR 100 UNITS/ML 3 ML PEN SC SCH (21:01)
[2021-03-11] MEDS: LEVOTHYROXINE SODIUM 25 MCG TABLET PO SCH (05:29)
[2021-03-11] MEDS: ENALAPRIL MALEATE 10 MG TAB PO SCH ×2 (09:03→21:19)
[2021-03-11] MEDS: buPROPion SR 100 MG TABCR PO SCH ×2 (09:03→21:24)
[2021-03-11] MEDS: carvediloL 6.25 MG TAB PO SCH ×2 (09:04→21:19)
[2021-03-11] MEDS: CLOPIDOGREL BISULFATE 75 MG TAB PO SCH (09:04)
[2021-03-11] MEDS: ASPIRIN 81 MG ECTAB PO SCH (09:04)
[2021-03-11] MEDS: CARBAMIDE PEROXIDE 6.5% 15 ML BTL OTL SCH ×2 (09:04→21:22)
[2021-03-11] MEDS: INSULIN ASPART 100 UNITS/ML 3 ML PEN SC SCH ×4 (09:08→21:26)
--- NOTE | 2021-03-11 20:21 | Hospitalist Progress Note ---
Date of Service March 11, 2021 Assessment & Plan (1) Status post fall: Plan: Presents with multiple falls. Had mild head trauma. No LOC Only has some mild upper back pain but no other injuries He reports that he is deconditioned and tripped, but did not pass out. He denies history of neuropathy. No associated vertigo or lightheadedness with falls Orthostatic vital signs are negative on arrival and he was hypertensive Hemoglobin is normal, WBC only minimally elevated likely due to stress response, with mild acute kidney injury with creatinine 1.4 on admission which is now improved with IV fluids He does have hyponatremia upon arrival at 131-perhaps he was mildly dehydrated Also on multiple [employer] depressants including NSAID pain, mirtazapine, and clonazepam which could be can tribute into the falls in the elderly-consider decreasing doses or minimizing these medications-defer to outpatient psychiatry Left ear with cerumen impaction but do not suspect labyrinthitis or vertigo No acute ischemia-troponin negative x2 -PT/OT consultations requested, recommending SNF placement and patient is agreeable (2) Hyponatremia: Plan: As above, now improved 135 after IV fluids Continue Lasix as needed lower extremity edema-none needed now (3) CAD (coronary artery disease): Plan: Had some of his typical angina on the morning of 03/08-resolved nitroglycerin Has an extensive cardiac history with numerous stents placed, first [place] age 41 -Continue ASA, Plavix, carvedilol, statin, CRESENCIO inhibitor (4) STEPHAN (acute kidney injury): Plan: As above, creatinine 1.4 on arrival and now improved to normal after receiving IV fluid hydration Okay to give home Lasix as needed (5) Hypertension: Plan: BP significantly elevated in the first 2 days of admission, secondary to not receiving his usual home antihypertensives as the home medicine reconciliation was not completed correctly Blood pressures are now much improved after restarting home BP meds -Continue carvedilol 6.25 mg p.o. twice daily -Continue enalapril 10 mg mg p.o. twice daily which is the formulary equivalent for his ramipril -Consider increasing doses if blood pressures remain elevated (6) Hypothyroid: Plan: TSH elevated 8.2 in 12/2020, now normal on repeat check here at 3.5 -Continue Synthroid (7) Bipolar disorder: Plan: Chronic -Continue Bupropion, clonazepam, mirtazapine, and restart home olanzapine -Continue Divalproex -Consider decreasing doses of medications as above as may be contributing to multiple falls (8) Diabetes mellitus type 2 in obese: Plan: Well controlled - A1C=6.4 in June 2020 -Continue Lantus 5u qHS -ISS (9) Cardiac defibrillator in place: Plan: Noted (10) Impacted cerumen of left ear: Plan: Causing hearing loss Start Debrox eardrops 5 drops twice daily to the left ear performed cerumen removal with curette on 03/12 with some relief some cerumen remains-continue Debrox and can try further curette removal Friday if needed Plan: DVT Ppx - No chemoppx - continue ASA and Plavix Code - Full Dispo -continued stay on medical, awaiting rehab placement-referrals made but there is no bed availability for him until likely Friday next week Updated his son, Jama, at [phone] on 03/10 Admission and Anticipated Discharge Date Admission Date: March 10, 2021 Subjective Pt feels very well. No CP or SOB, no nausea. Still with hearing loss in left ear that improved after I performed cerumen removal. Feels unsteady on feet and required assistance getting to the bathroom Review of Systems Review of Systems: All systems reviewed & are unremarkable except as noted in HPI & below Physical Exam Constitutional: WD/WN, vitals as above Eyes: + anicteric sclerae ENMT: Ears: + hearing impairment, + EAC abnormality (Left EAC with severe cerumen impaction, right EAC clear) and + unable to visualize TM (On the left); no external ear abnormality and no TM abnormality (On right) After cerumen removal with curette, was able to partially visualize left TM. Somewhat erythematous, no bleeding seen Neck: trachea midline, no thyromegaly Respiratory: normal respiratory effort, lungs clear to auscultation Cardiovascular: RRR, no murmur, no edema Chest (Breasts): Chest: normal inspection of chest Gastrointestinal (Abdomen): normal bowel sounds, soft, nontender, no hepatosplenomegaly Musculoskeletal: Extremities: extremities normal to inspection; no cyanosis and no clubbing Skin: no rashes, warm and dry Neurologic: moves all extremities and awake; no focal motor deficits Psychiatric: A+Ox3, euthymic affect Lymphatic: no lymphedema Results & Data Results & Data ([facility]) Vital Signs (Past 12 Hours) Vital Signs Temp Pulse Resp BP Pulse Ox 03/11/21 15:17 36.4 C L 62 16 151/75 H 92 PG Care Time/CCT Total # of Minutes Spent Total Time Spent with Patient: Total time spent is greater than 50% in coordination of care (as documented) at patient's floor/unit and/or counseling patient: Coding Level of Care Code 63993 Subseq Hosp Care Lvl 2 Diagnoses Status post fall Z91.81 Hyponatremia E87.1 CAD (coronary artery disease) I25.718 Associated angina: with stable angina Coronary Disease-Associated Artery/Lesion type: bypass graft, autologous vein STEPHAN (acute kidney injury) N17.9 Hypertension I10 Hypertension type: essential hypertension Hypothyroid E03.9 Hypothyroidism type: acquired Bipolar disorder F31.70 Active/Remission status: in remission of unspecified degree Diabetes mellitus type 2 in obese E11.69; E66.[address] Z95.810 Impacted cerumen of left ear H61.22 (1) CAD (coronary artery disease) Associated angina: with stable angina Coronary Disease-Associated Artery/Lesion type: bypass graft, autologous vein Qualified Code(s): I25.718 - Atherosclerosis of autologous vein coronary artery bypass graft(s) with other forms of angina pectoris (2) Bipolar disorder Active/Remission status: in remission of unspecified degree Qualified Code(s): F31.70 - Bipolar disorder, currently in remission, most recent episode unspecified (3) Hypothyroid Hypothyroidism type: acquired Qualified Code(s): E03.9 - Hypothyroidism, unspecified (4) Hypertension Hypertension type: essential hypertension Qualified Code(s): I10 - Essential (primary) hypertension
[2021-03-11] MEDS: ROSUVASTATIN CALCIUM 10 MG TAB PO SCH (21:18)
[2021-03-11] MEDS: MIRTAZAPINE TAB 15 MG TAB PO SCH (21:18)
[2021-03-11] MEDS: OLANZapine 5 MG TABLET PO SCH (21:18)
[2021-03-11] MEDS: DIVALPROEX DELAY RELEASE 250 MG TABEC PO SCH (21:19)
[2021-03-11] MEDS: clonazePAM 1 MG TAB PO SCH (21:22)
[2021-03-11] MEDS: INSULIN GLARGINE SOLOSTAR 100 UNITS/ML 3 ML PEN SC SCH (21:24)
[2021-03-11] MEDS: ACETAMINOPHEN 325 MG TAB PO PRN (23:45)
[2021-03-12] MEDS: LEVOTHYROXINE SODIUM 25 MCG TABLET PO SCH (06:28)
[2021-03-12] MEDS: ASPIRIN 81 MG ECTAB PO SCH (08:45)
[2021-03-12] MEDS: buPROPion SR 100 MG TABCR PO SCH ×2 (08:45→20:23)
[2021-03-12] MEDS: carvediloL 6.25 MG TAB PO SCH ×2 (08:46→20:23)
[2021-03-12] MEDS: CARBAMIDE PEROXIDE 6.5% 15 ML BTL OTL SCH ×2 (08:46→20:23)
[2021-03-12] MEDS: CLOPIDOGREL BISULFATE 75 MG TAB PO SCH (08:46)
[2021-03-12] MEDS: ENALAPRIL MALEATE 10 MG TAB PO SCH ×2 (08:47→20:22)
[2021-03-12] MEDS: INSULIN ASPART 100 UNITS/ML 3 ML PEN SC SCH ×4 (08:50→20:44)
--- NOTE | 2021-03-12 14:33 | Hospitalist Progress Note ---
Date of Service March 12, 2021 Assessment & Plan (1) Status post fall: Plan: Presents with multiple falls. Had mild head trauma. No LOC Only has some mild upper back pain but no other injuries He reports that he is deconditioned and tripped, but did not pass out. He denies history of neuropathy and limited exam not suggestive of such. No associated vertigo or lightheadedness with falls Orthostatic vital signs are negative on arrival and he was hypertensive Hemoglobin is normal, WBC only minimally elevated likely due to stress response, with mild acute kidney injury with creatinine 1.4 on admission which is now improved with IV fluids. 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 A1C 6.4%. Lantus continued during this hosptialization-- no hypoglycemia Left ear with cerumen impaction but do not suspect labyrinthitis or vertigo No acute ischemia-troponin negative x2 Head Ct negative TSH WNL at 3.5 B12 added -PT/OT consultations requested, recommending SNF placement and patient is agreeable (2) Hyponatremia: Plan: As above, now improved 135 after IV fluids Continue Lasix as needed lower extremity edema-none needed now (3) CAD (coronary artery disease): Plan: Had some of his typical angina on the morning of 03/08-resolved nitroglycerin Has an extensive cardiac history with numerous stents placed, first [place] age 41 -Continue ASA, Plavix, carvedilol, statin, CRESENCIO inhibitor - troponin negative x2 (4) STEHPAN (acute kidney injury): Plan: As above, creatinine 1.4 on arrival and now improved to normal after receiving IV fluid hydration Okay to give home Lasix as needed (5) Hypertension: Plan: BP significantly elevated in the first 2 days of admission, secondary to not receiving his usual home antihypertensives as the home medicine reconciliation was not completed correctly Blood pressures are now much improved after restarting home BP meds -Continue carvedilol 6.25 mg p.o. twice daily -Continue enalapril 10 mg mg p.o. twice daily which is the formulary equivalent for his ramipril -Consider increasing doses if blood pressures remain elevated (6) Hypothyroid: Plan: TSH elevated 8.2 in 12/2020, now normal on repeat check here at 3.5 -Continue Synthroid (7) Bipolar disorder: Plan: Chronic -Continue Bupropion, clonazepam, mirtazapine, and restart home olanzapine -Continue Divalproex -Consider decreasing doses of medications as perhaps polypharmacy as may be contributing to multiple falls (8) Diabetes mellitus type 2 in obese: Plan: Well controlled - A1C=6.4 in June 2020 -Continue Lantus 5u qHS -ISS (9) Cardiac defibrillator in place: Plan: Noted (10) Impacted cerumen of left ear: Plan: Causing hearing loss Start Debrox eardrops 5 drops twice daily to the left ear performed cerumen removal with curette on 03/12 with some relief some cerumen remains-continue Debrox and can try further curette removal Friday if needed Plan: DVT Ppx - No chemoppx - continue ASA and Plavix Code - Full Dispo -continued stay on medical, awaiting rehab placement-referrals made/case mgmt on board attempted to call his son, Jama, at [phone]-- no answer Admission and Anticipated Discharge Date Admission Date: March 10, 2021 Subjective Patient seen on daily rounds today. hospitalized 03/08 with ambulatory dysfunction/frequent falls. Reports has been declining with falls for months but increased falls over the past 2 weeks. Lives alone. Does not use an ambulatory device ALCOCER upon admission--> no obvious cause for fall. Did have mild dehydration upf ront (Na++ 131 and cr. 1.41 initially and now normal with gentle IV hydration). PT/OT on board- recommending placement. Case mgmt on board. Review of Systems Review of Systems: All systems reviewed and are unremarkable except as noted in HPI and below Denies fevers, chills, headache, nasal congestion, sore throat, cough, chest pain, shortness of breath, palpitations, orthopnea, PND, abdominal pain, nausea, vomiting, diarrhea, constipation, dysuria, hematuria, frequency, back pain, joint pain or swelling, easy bruising or blooding, skin lesions or rashes. Physical Exam Physical Exam: General: Resting comfortably in his bedside chair. NAD. HEENT: Head is AT/NC buccal mucosa is moist and pink Neck: No JVD. Negative hepatojugular reflex Cardiac: RRR without M/G/R Lungs: CTA without W/R/R Abdomen: Normoactive X4. Soft and nontender in all quadrants. Extremities: No peripheral clubbing cyanosis or edema. Sensation to sharp/dull intact to the bilateral extremities. Proprioception intact. Neuro: A&O X4 cranial nerves II through XII are grossly intact no focal neuro deficits Skin: No obvious skin lesions or rashes Psych: Appropriate affect pleasant and cooperative Results & Data Results & Data ([facility]) Vital Signs (Past 12 Hours) Vital Signs Temp Pulse Resp BP Pulse Ox 03/12/21 07:17 36.3 C L 63 18 111/67 94 Laboratory Results 03/10/21 05:19 03/10/21 05:19 PG Care Time/CCT Total # of Minutes Spent Total Time Spent with Patient: Total time spent is greater than 50% in coordination of care (as documented) at patient's floor/unit and/or counseling patient: Coding [place] [address] Subseq Hosp Care Lvl 1 Patient Type Established History Problem Focused Exam Problem Focused Medical Decision Making Straight Forward Diagnoses Status post fall Z91.81 Hyponatremia E87.1 CAD (coronary artery disease) I25.718 Coronary Disease-Associated Artery/Lesion type: bypass graft, autologous vein Associated angina: with stable angina STEPHAN (acute kidney injury) N17.9 Hypertension I10 Hypertension type: essential hypertension Hypothyroid E03.9 Hypothyroidism type: acquired Bipolar disorder F31.70 Active/Remission status: in remission of unspecified degree Diabetes mellitus type 2 in obese E11.69; E66.[address] Z95.810 Impacted cerumen of left ear H61.22 (1) CAD (coronary artery disease) Coronary Disease-Associated Artery/Lesion type: bypass graft, autologous vein Associated angina: with stable angina Qualified Code(s): I25.718 - Atherosclerosis of autologous vein coronary artery bypass graft(s) with other forms of angina pectoris (2) Hypertension Hypertension type: essential hypertension Qualified Code(s): I10 - Essential (primary) hypertension (3) Hypothyroid Hypothyroidism type: acquired Qualified Code(s): E03.9 - Hypothyroidism, unspecified (4) Bipolar disorder Active/Remission status: in remission of unspecified degree Qualified Code(s): F31.70 - Bipolar disorder, currently in remission, most recent episode unspecified
[2021-03-12] MEDS: ROSUVASTATIN CALCIUM 10 MG TAB PO SCH (20:21)
[2021-03-12] MEDS: MIRTAZAPINE TAB 15 MG TAB PO SCH (20:22)
[2021-03-12] MEDS: OLANZapine 5 MG TABLET PO SCH (20:22)
[2021-03-12] MEDS: DIVALPROEX DELAY RELEASE 250 MG TABEC PO SCH (20:22)
[2021-03-12] MEDS: clonazePAM 1 MG TAB PO SCH (20:23)
[2021-03-12] MEDS: INSULIN GLARGINE SOLOSTAR 100 UNITS/ML 3 ML PEN SC SCH (20:44)
[2021-03-13] MEDS: LEVOTHYROXINE SODIUM 25 MCG TABLET PO SCH (05:39)
[2021-03-13] MEDS: ASPIRIN 81 MG ECTAB PO SCH (09:00)
[2021-03-13] MEDS: buPROPion SR 100 MG TABCR PO SCH ×2 (09:00→20:16)
[2021-03-13] MEDS: ENALAPRIL MALEATE 10 MG TAB PO SCH ×2 (09:01→20:15)
[2021-03-13] MEDS: CARBAMIDE PEROXIDE 6.5% 15 ML BTL OTL SCH ×2 (09:01→20:16)
[2021-03-13] MEDS: CLOPIDOGREL BISULFATE 75 MG TAB PO SCH (09:01)
[2021-03-13] MEDS: carvediloL 6.25 MG TAB PO SCH ×2 (09:01→20:16)
[2021-03-13] MEDS: INSULIN ASPART 100 UNITS/ML 3 ML PEN SC SCH ×4 (09:05→20:39)
[2021-03-13] MEDS: CYANOCOBALAMIN (VITAMIN B-12) 100 MCG TABLET PO SCH (13:28)
--- NOTE | 2021-03-13 15:07 | Hospitalist Progress Note ---
Date of Service March 13, 2021 Assessment & Plan (1) Status post fall: Plan: Presents with multiple falls. Had mild head trauma. No LOC had only some mild upper back pain but no other injuries-- no pain at present He reports that he is deconditioned and tripped, but did not pass out. He denies history of neuropathy and limited exam not suggestive of such. No associated vertigo or lightheadedness with falls. No CP, firing of ICD, LOC, palpitations Orthostatic vital signs negative on arrival and he was not hypotensive (was actually hypertensive) Hemoglobin is normal, WBC only minimally elevated likely due to stress response, with mild acute kidney injury with creatinine 1.4 on admission which is now improved with IV fluids. 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 A1C 6.4%. Lantus cont inued during this hospitalization-- no hypoglycemia exam is NOT consistent with neuropathy. fine motor/proprioception and sensation intact. Left ear with cerumen impaction but do not suspect labyrinthitis or vertigo No acute ischemia-troponin negative x2 Head Ct negative TSH WNL at 3.5 B12 added and low level of normal-- likely not contributing to his falls. Will start oral supplementation overall, no obvious metabolic source of falls. Likely generalized deconditioning/decline with very mild superimposed dehydration and perhaps polypharmacy -PT/OT consultations requested, recommending SNF placement and patient is agreeable was finally able to touch base with the son who reports that all of the falls do see to happen in the evening (after when he would have taken his Klonopin and zyprexa). In addition, upon further questioning patient does have a very small dog and multiple providers in the home. Perhaps these are posing fall risks. Plan is for inpatient rehab once a bed becomes available but lengthy discussion with patient's son regarding what can be done at home to decrease fall risks (patient should use a cane/ambulatory device, should take the Klonopin/Zyprexa directly before bed to limit ambulation and even consider de-escalation of these medicationsto be discussed with psychiatry, may need to get rid of his dog unfortunately as this can pose a fall risk, pull up any throw rugs and arrange furniture so that it is not in the direct line of traffic) -Although patient did not pass out, denies chest pain and denies his defibrillator going off, the son is requesting that we have this interrogated as he cannot recall the last time this was done. I will happily oblige. Patient was on a lunchroom monitor upfront and no obvious arrhythmia seen during this dilip e. (2) Hyponatremia: Plan: As above, now improved 135 after IV fluids Lasix on med rec to be given as needed for lower extremity edema-none needed now. may not need this and may be causing more harm than good. 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 twice daily -Continue enalapril 10 mg mg p.o. twice daily which is the formulary equivalent for his ramipril -BP currently stable/controlled (6) Hypothyroid: Plan: TSH elevated 8.2 in 12/2020, now normal on repeat check here at 3.5 -Continue Synthroid (7) Bipolar disorder: Plan: Chronic -Continue Bupropion, clonazepam, mirtazapine, and restart home olanzapine -Continue Divalproex -Consider decreasing doses of medications as perhaps polypharmacy as may be contributing to multiple falls (8) Diabetes mellitus type 2 in obese: Plan: Well controlled - A1C=6.4 in June 2020 -Continue Lantus 5u qHS -ISS (9) Cardiac defibrillator in place: Plan: Noted Plan: Patient currently medically and hemodynamically stable for discharge. Awaiting placement. Case management on board. Need to find a bed and obtain authorization Was able to touch base with sonJama. Had a very lengthy discussion with him and answered all questions/concerns. Admission and Anticipated Discharge Date Admission Date: March 10, 2021 Subjective Patient seen on daily rounds today. Vocalizes no c/c Denies fevers, chills, chest pain, shortness of breath, abdominal pain, nausea, vomiting, GI/ symptomatology. Moving his bowel and bladder without difficulty. Still awaiting bed availability/placement B12 level drawn yesterday for completion sake given his ambulatory dysfunction with frequent falls. Was low level of normal at 411. Likely not contributing to his falls. Review of Systems Review of Systems: All systems reviewed and are unremarkable except as noted in HPI and below Denies fevers, chills, headache, nasal congestion, sore throat, cough, chest pain, shortness of breath, palpitations, orthopnea, PND, abdominal pain, nausea, vomiting, diarrhea, constipation, dysuria, hematuria, frequency, back pain, joint pain or swelling, easy bruising or blooding, skin lesions or rashes. Physical Exam Physical Exam: General: Resting comfortably in hospital bed. NAD. HEENT: Head is AT/NC buccal mucosa is moist and pink Neck: No JVD. Negative hepatojugular reflex Cardiac: RRR without M/G/R Lungs: CTA without W/R/R Abdomen: Normoactive X4. Soft and nontender in all quadrants. Extremities: No peripheral clubbing cyanosis or edema. Neuro: A&O X4 cranial nerves II through XII are grossly intact no focal neuro deficits Skin: No obvious skin lesions or rashes Psych: Appropriate affect pleasant and cooperative Results & Data Results & Data ([facility]) Vital Signs (Past 12 Hours) Vital Signs Temp Pulse Resp BP Pulse Ox 03/13/21 14:41 36.7 C 60 16 126/73 93 03/13/21 08:07 36.8 C 63 17 115/61 93 Laboratory Results 03/10/21 05:19 03/10/21 05:19 PG Care Time/CCT Total # of Minutes Spent Total Time Spent with Patient: Total time spent is greater than 50% in coordination of care (as documented) at patient's floor/unit and/or counseling patient: [place] [address] Subseq Hosp Care Lvl 2 Patient Type Established History Expanded Problem Focused Exam Expanded Problem Focused Medical Decision Making Low Complexity Diagnoses Status post fall Z91.81 Hyponatremia E87.1 CAD (coronary artery disease) I25.718 Associated angina: with stable angina Coronary Disease-Associated Artery/Lesion type: bypass graft, autologous vein STEPHAN (acute kidney injury) N17.9 Hypertension I10 Hypertension type: essential hypertension Hypothyroid E03.9 Hypothyroidism type: acquired Bipolar disorder F31.70 Active/Remission status: in remission of unspecified degree Diabetes mellitus type 2 in obese E11.69; E66.[address] Z95.810 (1) CAD (coronary artery disease) Associated angina: with stable angina Coronary Disease-Associated Artery/Lesion type: bypass graft, autologous vein Qualified Code(s): I25.718 - Atherosclerosis of autologous vein coronary artery bypass graft(s) with other forms of angina pectoris (2) Bipolar disorder Active/Remission status: in remission of unspecified degree Qualified Code(s): F31.70 - Bipolar disorder, currently in remission, most recent episode unspecified (3) Hypothyroid Hypothyroidism type: acquired Qualified Code(s): E03.9 - Hypothyroidism, unspecified (4) Hypertension Hypertension type: essential hypertension Qualified Code(s): I10 - Essential (primary) hypertension
[2021-03-13] MEDS: MIRTAZAPINE TAB 15 MG TAB PO SCH (20:14)
[2021-03-13] MEDS: OLANZapine 5 MG TABLET PO SCH (20:15)
[2021-03-13] MEDS: ROSUVASTATIN CALCIUM 10 MG TAB PO SCH (20:16)
[2021-03-13] MEDS: DIVALPROEX DELAY RELEASE 250 MG TABEC PO SCH (20:16)
[2021-03-13] MEDS: clonazePAM 0.5 MG TAB PO SCH (20:19)
[2021-03-13] MEDS: INSULIN GLARGINE SOLOSTAR 100 UNITS/ML 3 ML PEN SC SCH (20:47)
[2021-03-14] MEDS: LEVOTHYROXINE SODIUM 25 MCG TABLET PO SCH (05:53)
[2021-03-14] MEDS: CLOPIDOGREL BISULFATE 75 MG TAB PO SCH (08:44)
[2021-03-14] MEDS: carvediloL 6.25 MG TAB PO SCH ×2 (08:44→20:22)
[2021-03-14] MEDS: ENALAPRIL MALEATE 10 MG TAB PO SCH ×2 (08:44→20:21)
[2021-03-14] MEDS: CYANOCOBALAMIN (VITAMIN B-12) 100 MCG TABLET PO SCH (08:44)
[2021-03-14] MEDS: INSULIN ASPART 100 UNITS/ML 3 ML PEN SC SCH ×4 (08:44→20:53)
[2021-03-14] MEDS: buPROPion SR 100 MG TABCR PO SCH ×2 (08:44→20:22)
[2021-03-14] MEDS: ASPIRIN 81 MG ECTAB PO SCH (08:45)
[2021-03-14] MEDS: CARBAMIDE PEROXIDE 6.5% 15 ML BTL OTL SCH (08:46)
--- NOTE | 2021-03-14 17:48 | Hospitalist Progress Note ---
Date of Service March 14, 2021 Assessment & Plan (1) Status post fall: Plan: Presents with multiple falls. Had mild head trauma. No LOC had only some mild upper back pain but no other injuries-- no pain at present He reports that he is deconditioned and tripped, but did not pass out. He denies history of neuropathy and limited exam not suggestive of such. No associated vertigo or lightheadedness with falls. No CP, firing of ICD, LOC, palpitations Orthostatic vital signs negative on arrival and he was not hypotensive (was actually hypertensive) Hemoglobin is normal, WBC only minimally elevated likely due to stress response, with mild acute kidney injury with creatinine 1.4 on admission which is now improved with IV fluids. 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 A1C 6.4%. Lantus continued during this hospitalization-- no hypoglycemia exam is NOT consistent with neuropathy. fine motor/proprioception and sensation intact. Left ear with cerumen impaction but do not suspect labyrinthitis or vertigo No acute ischemia-troponin negative x2 Head Ct negative TSH WNL at 3.5 B12 added and low level of normal-- likely not contributing to his falls. Will start oral supplementation overall, no obvious metabolic source of falls. Likely generalized deconditioning/decline with very mild superimposed dehydration and perhaps polypharmacy -PT/OT consultations requested, recommending SNF placement and patient is agreeable was finally able to touch base with the son who reports that all of the falls do see to happen in the evening (after when he would have taken his Klonopin and zyprexa). In addition, upon further questioning patient does have a very small dog and multiple providers in the home. Perhaps these are posing fall risks. Plan is for inpatient rehab once a bed becomes available but lengthy discussion with patient's son regarding what can be done at home to decrease fall risks (patient should use a cane/ambulatory device, should take the Klonopin/Zyprexa directly before bed to limit ambulation and even consider de-escalation of these medicationsto be discussed with psychiatry, may need to get rid of his dog unfortunately as this can pose a fall risk, pull up any throw rugs and arrange furniture so that it is not in the direct line of traffic) -Although patient did not pass out, denies chest pain and denies his defibrillator going off. Defibrillator/PPM interrogated. Results not yet available to review but tach did verify that his education and training coordinator has been "offline" X months (2) Hyponatremia: Plan: As above, now improved 135 after IV fluids Lasix on med rec to be given as needed for lower extremity edema-none needed now. may not need this and may be causing more harm than good. (3) CAD (coronary artery disease): Plan: Had some of his typical angina on the morning of 03/08-resolved nitroglycerin Has an extensive cardiac history with numerous stents placed, first PR age 41 -Continue ASA, Plavix, carvedilol, statin, CRESENCIO inhibitor - troponin negative x2 (4) STEPHAN (acute kidney injury): Plan: As above, creatinine 1.4 on arrival and now improved to normal after receiving IV fluid hydration (5) Hypertension: Plan: BP significantly elevated in the first 2 days of admission, secondary to not receiving his usual home antihypertensives as the home medicine reconciliation was not completed correctly Blood pressures are now much improved after restarting home BP meds -Continue carvedilol 6.25 mg p.o. twice daily -Continue enalapril 10 mg mg p.o. twice daily which is the formulary equivalent for his ramipril -BP currently stable/controlled (6) Hypothyroid: Plan: TSH elevated 8.2 in 12/2020, now normal on repeat check here at 3.5 -Continue Synthroid (7) Bipolar disorder: Plan: Chronic -Continue Bupropion, clonazepam, mirtazapine, and restart home olanzapine -Continue Divalproex -Consider decreasing doses of medications as perhaps polypharmacy as may be contributing to multiple falls (8) Diabetes mellitus type 2 in obese: Plan: Well controlled - A1C=6.4 in June 2020 -Continue Lantus 5u qHS -ISS (9) Cardiac defibrillator in place: Plan: Noted Plan: Patient currently medically and hemodynamically stable for discharge. Awaiting placement. Case management on board. Need to find a bed and obtain authorization Admission and Anticipated Discharge Date Admission Date: March 10, 2021 Subjective Patient seen on daily rounds today. Vocalizes no complaints or concerns. Off and on the phone throughout our entire exam. Awaiting placement still. Review of Systems Review of Systems: All systems reviewed and are unremarkable except as noted in HPI and below Denies fevers, chills, headache, nasal congestion, sore throat, cough, chest pain, shortness of breath, palpitations, orthopnea, PND, abdominal pain, nausea, vomiting, diarrhea, constipation, dysuria, hematuria, frequency, back pain, joint pain or swelling, easy bruising or blooding, skin lesions or rashes. ICD/PPM interrogated this morning at the request of the son. Results not yet available; however, tech was able to determine that patient's home education and training coordinator has been "offline" for months. Physical Exam Physical Exam: General: Resting comfortably in his hospital bed. NAD. HEENT: Head is AT/NC buccal mucosa is moist and pink Neck: No JVD. Negative hepatojugular reflex Cardiac: RRR without M/G/R Lungs: CTA without W/R/R Abdomen: Normoactive X4. Soft and nontender in all quadrants. Extremities: No peripheral clubbing cyanosis or edema Neuro: A&O X4 cranial nerves II through XII are grossly intact no focal neuro deficits Skin: No obvious skin lesions or rashes Psych: Appropriate affect pleasant and cooperative Results & Data Results & Data ([facility]) Vital Signs (Past 12 Hours) Vital Signs Temp Pulse Resp BP BP Pulse Ox 03/14/21 15:14 36.6 C 61 16 125/76 93 03/14/21 07:48 36.4 C L 60 16 130/71 92 Laboratory Results No lab data PG Care Time/CCT Total # of Minutes Spent Total Time Spent with Patient: Total time spent is greater than 50% in coordination of care (as documented) at patient's floor/unit and/or counseling patient: Coding [place] [address] Subseq Hosp Care Lvl 1 Patient Type Established History Problem Focused Exam Problem Focused Medical Decision Making Straight Forward Diagnoses Status post fall Z91.81 Hyponatremia E87.1 CAD (coronary artery disease) I25.718 Coronary Disease-Associated Artery/Lesion type: bypass graft, autologous vein Associated angina: with stable angina STEPHAN (acute kidney injury) N17.9 Hypertension I10 Hypertension type: essential hypertension Hypothyroid E03.9 Hypothyroidism type: acquired Bipolar disorder F31.70 Active/Remission status: in remission of unspecified degree Diabetes mellitus type 2 in obese E11.69; E66.[address] Z95.810 (1) CAD (coronary artery disease) Coronary Disease-Associated Artery/Lesion type: bypass graft, autologous vein Associated angina: with stable angina Qualified Code(s): I25.718 - Atherosclerosis of autologous vein coronary artery bypass graft(s) with other forms of angina pectoris (2) Hypertension Hypertension type: essential hypertension Qualified Code(s): I10 - Essential (primary) hypertension (3) Hypothyroid Hypothyroidism type: acquired Qualified Code(s): E03.9 - Hypothyroidism, unspecified (4) Bipolar disorder Active/Remission status: in remission of unspecified degree Qualified Code(s): F31.70 - Bipolar disorder, currently in remission, most recent episode unspecified
[2021-03-14] MEDS: clonazePAM 0.5 MG TAB PO SCH (20:19)
[2021-03-14] MEDS: MIRTAZAPINE TAB 15 MG TAB PO SCH (20:20)
[2021-03-14] MEDS: ROSUVASTATIN CALCIUM 10 MG TAB PO SCH (20:20)
[2021-03-14] MEDS: DIVALPROEX DELAY RELEASE 250 MG TABEC PO SCH (20:21)
[2021-03-14] MEDS: OLANZapine 5 MG TABLET PO SCH (20:22)
[2021-03-14] MEDS: INSULIN GLARGINE SOLOSTAR 100 UNITS/ML 3 ML PEN SC SCH (20:54)
[2021-03-15] MEDS: LEVOTHYROXINE SODIUM 25 MCG TABLET PO SCH (05:57)
[2021-03-15] MEDS: buPROPion SR 100 MG TABCR PO SCH ×2 (09:07→21:30)
[2021-03-15] MEDS: CLOPIDOGREL BISULFATE 75 MG TAB PO SCH (09:07)
[2021-03-15] MEDS: ASPIRIN 81 MG ECTAB PO SCH (09:08)
[2021-03-15] MEDS: ENALAPRIL MALEATE 10 MG TAB PO SCH ×2 (09:08→21:31)
[2021-03-15] MEDS: carvediloL 6.25 MG TAB PO SCH ×2 (09:08→21:30)
[2021-03-15] MEDS: CYANOCOBALAMIN (VITAMIN B-12) 100 MCG TABLET PO SCH (09:08)
[2021-03-15] MEDS: INSULIN ASPART 100 UNITS/ML 3 ML PEN SC SCH ×3 (09:11→18:14)
--- NOTE | 2021-03-15 14:49 | Hospitalist Progress Note ---
Date of Service March 15, 2021 Assessment & Plan (1) Status post fall: Plan: Presents with multiple falls. Had mild head trauma. No LOC had only some mild upper back pain but no other injuries-- no pain at present He reports that he is deconditioned and tripped, but did not pass out. He denies history of neuropathy and limited exam not suggestive of such. No associated vertigo or lightheadedness with falls. No CP, firing of ICD, LOC, palpitations Orthostatic vital signs negative on arrival and he was not hypotensive (was actually hypertensive) Hemoglobin is normal, WBC only minimally elevated likely due to stress response, with mild acute kidney injury with creatinine 1.4 on admission which is now improved with IV fluids. 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 A1C 6.4%. Lantus continued during this hospitalization-- no hypoglycemia exam is NOT consistent with neuropathy. fine motor/proprioception and sensation intact. Left ear with cerumen impaction but do not suspect labyrinthitis or vertigo No acute ischemia-troponin negative x2 Head Ct negative TSH WNL at 3.5 B12 added and low level of normal-- likely not contributing to his falls. Will start oral supplementation overall, no obvious metabolic source of falls. Likely generalized deconditioning/decline with very mild superimposed dehydration and perhaps polypharmacy -PT/OT consultations requested, recommending SNF placement and patient is agreeable was finally able to touch base with the son who reports that all of the falls do see to happen in the evening (after when he would have taken his Klonopin and zyprexa). In addition, upon further questioning patient does have a very small dog and multiple providers in the home. Perhaps these are posing fall risks. Plan is for inpatient rehab once a bed becomes available but lengthy discussion with patient's son regarding what can be done at home to decrease fall risks (patient should use a cane/ambulatory device, should take the Klonopin/Zyprexa directly before bed to limit ambulation and even consider de-escalation of these medicationsto be discussed with psychiatry, may need to get rid of his dog unfortunately as this can pose a fall risk, pull up any throw rugs and arrange furniture so that it is not in the direct line of traffic) -Although patient did not pass out, denies chest pain and denies his defibrillator going off. Defibrillator/PPM interrogated. Results not yet available to review but tach did verify that his state auditor has been "offline" X months and "all looked well per nurse/per tech". (2) Hyponatremia: Plan: As above, now improved 135 after IV fluids Lasix on med rec to be given as needed for lower extremity edema-none needed now. may not need this and may be causing more harm than good. (3) CAD (coronary artery disease): Plan: Had some of his typical angina on the morning of 03/08-resolved nitroglycerin Has an extensive cardiac history with numerous stents placed, first [place] age 41 -Continue ASA, Plavix, carvedilol, statin, CRESENCIO inhibitor - troponin negative x2 (4) STEPHAN (acute kidney injury): Plan: As above, creatinine 1.4 on arrival and now improved to normal after receiving IV fluid hydration (5) Hypertension: Plan: BP significantly elevated in the first 2 days of admission, secondary to not receiving his usual home antihypertensives as the home medicine reconciliation was not completed correctly Blood pressures are now much improved after restarting home BP meds -Continue carvedilol 6.25 mg p.o. twice daily -Continue enalapril 10 mg mg p.o. twice daily which is the formulary equivalent for his ramipril -BP currently stable/controlled (6) Hypothyroid: Plan: TSH elevated 8.2 in 12/2020, now normal on repeat check here at 3.5 -Continue Synthroid (7) Bipolar disorder: Plan: Chronic -Continue Bupropion, clonazepam, mirtazapine, and restart home olanzapine -Continue Divalproex -Consider decreasing doses of medications as perhaps polypharmacy as may be contributing to multiple falls (8) Diabetes mellitus type 2 in obese: Plan: Well controlled - A1C=6.4 in June 2020 -Continue Lantus 5u qHS -ISS (9) Cardiac defibrillator in place: Plan: Noted Plan: Patient currently medically and hemodynamically stable for discharge. Awaiting placement. Case management on board. Need to find a bed (which is extremely difficult and CM working diligently-- lack of beds at the time) and obtain authorization plan D/w Dr. Evans Admission and Anticipated Discharge Date Admission Date: March 10, 2021 Subjective Patient seen on daily rounds today. Vocalizes no complaints or concerns. Denies fevers, chills, chest pain, shortness of breath, abdominal pain, nausea, vomiting, GI/ symptomatology. Remains in house awaiting placement. Review of Systems Review of Systems: All systems reviewed and are unremarkable except as noted in HPI and below Denies fevers, chills, headache, nasal congestion, sore throat, cough, chest pain, shortness of breath, palpitations, orthopnea, PND, abdominal pain, nausea, vomiting, diarrhea, constipation, dysuria, hematuria, frequency, back pain, joint pain or swelling, easy bruising or blooding, skin lesions or rashes. Physical Exam Physical Exam: General: Resting comfortably in his hospital bed. NAD. HEENT: Head is AT/NC buccal mucosa is moist and pink Neck: No JVD. Negative hepatojugular reflex Cardiac: RRR without M/G/R Lungs: CTA without W/R/R Abdomen: Normoactive X4. Soft and nontender in all quadrants. Extremities: No peripheral clubbing cyanosis or edema Neuro: A&O X4 cranial nerves II through XII are grossly intact no focal neuro deficits Skin: No obvious skin lesions or rashes Psych: Appropriate affect pleasant and cooperative Results & Data Results & Data ([facility]) Vital Signs (Past 12 Hours) Vital Signs Temp Pulse Resp BP BP Pulse Ox 03/15/21 07:09 36.7 C 63 16 116/37 L 100/60 95 Laboratory Results No lab data PG Care Time/CCT Total # of Minutes Spent Total Time Spent with Patient: Total time spent is greater than 50% in coordination of care (as documented) at patient's floor/unit and/or counseling patient: C[place] [address] Subseq Hosp Care Lvl 1 Patient Type Established History Problem Focused Exam Problem Focused Medical Decision Making Straight Forward Diagnoses Status post fall Z91.81 Hyponatremia E87.1 CAD (coronary artery disease) I25.718 Coronary Disease-Associated Artery/Lesion type: bypass graft, autologous vein Associated angina: with stable angina STEPHAN (acute kidney injury) N17.9 Hypertension I10 Hypertension type: essential hypertension Hypothyroid E03.9 Hypothyroidism type: acquired Bipolar disorder F31.70 Active/Remission status: in remission of unspecified degree Diabetes mellitus type 2 in obese E11.69; E66.[address] Z95.810 (1) CAD (coronary artery disease) Coronary Disease-Associated Artery/Lesion type: bypass graft, autologous vein Associated angina: with stable angina Qualified Code(s): I25.718 - Atherosclerosis of autologous vein coronary artery bypass graft(s) with other forms of angina pectoris (2) Hypertension Hypertension type: essential hypertension Qualified Code(s): I10 - Essential (primary) hypertension (3) Hypothyroid Hypothyroidism type: acquired Qualified Code(s): E03.9 - Hypothyroidism, unspecified (4) Bipolar disorder Active/Remission status: in remission of unspecified degree Qualified Code(s): F31.70 - Bipolar disorder, currently in remission, most recent episode unspecified
[2021-03-15] MEDS: DIVALPROEX DELAY RELEASE 250 MG TABEC PO SCH (21:29)
[2021-03-15] MEDS: ROSUVASTATIN CALCIUM 10 MG TAB PO SCH (21:29)
[2021-03-15] MEDS: OLANZapine 5 MG TABLET PO SCH (21:29)
[2021-03-15] MEDS: MIRTAZAPINE TAB 15 MG TAB PO SCH (21:30)
[2021-03-15] MEDS: clonazePAM 0.5 MG TAB PO SCH (21:38)
[2021-03-16] MEDS: LEVOTHYROXINE SODIUM 25 MCG TABLET PO SCH (06:41)
[2021-03-16] MEDS: carvediloL 6.25 MG TAB PO SCH (08:51)
[2021-03-16] MEDS: ENALAPRIL MALEATE 10 MG TAB PO SCH ×2 (08:51→22:34)
[2021-03-16] MEDS: metFORMIN HCL 500 MG TAB PO SCH ×2 (08:51→18:11)
[2021-03-16] MEDS: buPROPion SR 100 MG TABCR PO SCH ×2 (08:51→22:32)
[2021-03-16] MEDS: CLOPIDOGREL BISULFATE 75 MG TAB PO SCH (08:51)
[2021-03-16] MEDS: CYANOCOBALAMIN (VITAMIN B-12) 100 MCG TABLET PO SCH (08:51)
[2021-03-16] MEDS: ASPIRIN 81 MG ECTAB PO SCH (08:51)
--- NOTE | 2021-03-16 14:42 | Hospitalist Progress Note ---
Date of Service March 16, 2021 Assessment & Plan (1) Status post fall: Plan: Presented with multiple falls. Had mild head trauma. No LOC had only some mild upper back pain but no other injuries-- no pain at present He reports that he is deconditioned and tripped, but did not pass out. He denies history of neuropathy and limited exam not suggestive of such. No associated vertigo or lightheadedness with falls. No CP, firing of ICD, LOC, palpitations Orthostatic vital signs negative on arrival and he was not hypotensive (was actually hypertensive) Hemoglobin is normal, WBC only minimally elevated likely due to stress response, with mild acute kidney injury with creatinine 1.4 on admission which is now improved with IV fluids. 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 A1C 6.4%. Lantus continued during this hospitalization-- no hypoglycemia exam is NOT consistent with neuropathy. fine motor/proprioception and sensation intact. Left ear with cerumen impaction but do not suspect labyrinthitis or vertigo No acute ischemia-troponin negative x2 Head Ct negative TSH WNL at 3.5 B12 added and low level of normal-- likely not contributing to his falls. Will start oral supplementation overall, no obvious metabolic source of falls. Likely generalized deconditioning/decline with very mild superimposed dehydration and perhaps polypharmacy -PT/OT consultations requested, recommending SNF placement and patient is agreeable was finally able to touch base with the son who reports that all of the falls do see to happen in the evening (after when he would have taken his Klonopin and zyprexa). In addition, upon further questioning patient does have a very small dog and multiple providers in the home. Perhaps these are posing fall risks. Plan is for inpatient rehab once a bed becomes available but lengthy discussion with patient's son regarding what can be done at home to decrease fall risks (patient should use a cane/ambulatory device, should take the Klonopin/Zyprexa directly before bed to limit ambulation and even consider de-escalation of these medicationsto be discussed with psychiatry, may need to get rid of his dog unfortunately as this can pose a fall risk, pull up any throw rugs and arrange furniture so that it is not in the direct line of traffic) -Although patient did not pass out, denies chest pain and denies his defibrillator going off. Defibrillator/PPM interrogated. 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 --Patient has been ready for discharge for over a week now. No available beds at any local nursing facilities. Case management on board. I did ask therapy if patient was stable for discharge to home with home PT/OT. Step training was attempted but patient unsteady. He does have steps at home. We will continue inpatient PT/OT while awaiting a bed for placement for short-term rehab. (2) Hyponatremia: Plan: As above, now improved 135 after IV fluids Lasix on med rec to be given as needed for lower extremity edema-none needed now. may not need this and may be causing more harm than good. (3) CAD (coronary artery disease): Plan: Had some of his typical angina on the morning of 03/08-resolved nitroglycerin Has an extensive cardiac history with numerous stents placed, first [place] age 41 -Continue ASA, Plavix, carvedilol, statin, CRESENCIO inhibitor - troponin negative x2 (4) STEPHAN (acute kidney injury): Plan: As above, creatinine 1.4 on arrival and now improved to normal after receiving IV fluid hydration (5) Hypertension: Plan: BP significantly elevated in the first 2 days of admission, secondary to not receiving his usual home antihypertensives as the home medicine reconciliation was not completed correctly Blood pressures are now much improved after restarting home BP meds -Continue carvedilol 6.25 mg p.o. twice daily -Continue enalapril 10 mg mg p.o. twice daily which is the formulary equivalent for his ramipril -BP currently stable/controlled (6) Hypothyroid: Plan: TSH elevated 8.2 in 12/2020, now normal on repeat check here at 3.5 -Continue Synthroid (7) Bipolar disorder: Plan: Chronic -Continue Bupropion, clonazepam, mirtazapine, and restart home olanzapine -Continue Divalproex -Consider decreasing doses of medications as perhaps polypharmacy as may be contributing to multiple falls (8) Diabetes mellitus type 2 in obese: Plan: -Patient was receiving basal insulin and sliding scale and his Metformin was held -Had some mild hypoglycemia that was corrected with snacking. -Insulin subsequently stopped and he was placed back on his Metformin (9) Cardiac defibrillator in place: Plan: Noted Plan: Patient currently medically and hemodynamically stable for discharge. Awaiting placement. Case management on board. Need to find a bed (which is extremely difficult and CM working diligently-- lack of beds at the time) and obtain authorization Denied at [facility] Referrals out to [place], [place], and [place] plan D/w Dr. Evans Admission and Anticipated Discharge Date Admission Date: March 10, 2021 Subjective Patient seen on daily rounds today. Getting frustrated that he is "just waiting in this hospital awaiting placement". Making slow but steady improvement with PT/OT. Therapy attempted steps today as patient does have steps at his home. He became unsteady and therapy actually had to catch him preventing a ground- level fall. Otherwise, he denies fevers, chills, chest pain, shortness of breath, abdominal pain, nausea or vomiting. Had been on sliding scale coverage. Ended up with a low blood sugar last night of 67 that he was slightly symptomatic for. Was snacked and his blood sugars subsequently came up to 80. Has been on sliding scale coverage which was stopped and he was placed back on his Metformin. Review of Systems Review of Systems: All systems reviewed and are unremarkable except as noted in HPI and below Denies fevers, chills, headache, nasal congestion, sore throat, cough, chest pa in, shortness of breath, palpitations, orthopnea, PND, abdominal pain, nausea, vomiting, diarrhea, constipation, dysuria, hematuria, frequency, back pain, joint pain or swelling, easy bruising or blooding, skin lesions or rashes. Physical Exam Physical Exam: General: Resting comfortably in his hospital bed. NAD. HEENT: Head is AT/NC buccal mucosa is moist and pink Neck: No JVD. Negative hepatojugular reflex Cardiac: RRR without M/G/R Lungs: CTA without W/R/R Abdomen: Normoactive X4. Soft and nontender in all quadrants. Extremities: No peripheral clubbing cyanosis or edema Neuro: A&O X4 cranial nerves II through XII are grossly intact no focal neuro deficits Skin: No obvious skin lesions or rashes Psych: Appropriate affect pleasant and cooperative Results & Data Results & Data ([facility]) Vital Signs (Past 12 Hours) Vital Signs Temp Pulse Resp BP Pulse Ox 03/16/21 07:15 36.5 C 61 18 133/81 97 Laboratory Results no lab data today PG Care Time/CCT Total # of Minutes Spent Total Time Spent with Patient: Total time spent is greater than 50% in coordination of care (as documented) at patient's floor/unit and/or counseling patient: Coding [place] [address] Subseq Hosp Care Lvl 2 Patient Type Established History Expanded Problem Focused Exam Expanded Problem Focused Medical Decision Making Moderate Complexity Diagnoses Status post fall Z91.81 Hyponatremia E87.1 CAD (coronary artery disease) I25.718 Associated angina: with stable angina Coronary Disease-Associated Artery/Lesion type: bypass graft, autologous vein STEPHAN (acute kidney injury) N17.9 Hypertension I10 Hypertension type: essential hypertension Hypothyroid E03.9 Hypothyroidism type: acquired Bipolar disorder F31.70 Active/Remission status: in remission of unspecified degree Diabetes mellitus type 2 in obese E11.69; E66.[address] Z95.810 (1) CAD (coronary artery disease) Associated angina: with stable angina Coronary Disease-Associated Artery/Lesion type: bypass graft, autologous vein Qualified Code(s): I25.718 - Atherosclerosis of autologous vein coronary artery bypass graft(s) with other forms of angina pectoris (2) Bipolar disorder Active/Remission status: in remission of unspecified degree Qualified Code(s): F31.70 - Bipolar disorder, currently in remission, most recent episode unspecified (3) Hypothyroid Hypothyroidism type: acquired Qualified Code(s): E03.9 - Hypothyroidism, unspecified (4) Hypertension Hypertension type: essential hypertension Qualified Code(s): I10 - Essential (primary) hypertension
[2021-03-16] MEDS: DIVALPROEX DELAY RELEASE 250 MG TABEC PO SCH (22:31)
[2021-03-16] MEDS: ROSUVASTATIN CALCIUM 10 MG TAB PO SCH (22:32)
[2021-03-16] MEDS: MIRTAZAPINE TAB 15 MG TAB PO SCH (22:33)
[2021-03-16] MEDS: OLANZapine 5 MG TABLET PO SCH (22:33)
[2021-03-17] MEDS: carvediloL 6.25 MG TAB PO SCH ×3 (00:08→20:48)
[2021-03-17] MEDS: clonazePAM 0.5 MG TAB PO SCH ×2 (00:09→20:52)
[2021-03-17] MEDS: LEVOTHYROXINE SODIUM 25 MCG TABLET PO SCH (05:39)
[2021-03-17 09:12] LABS: Hematocrit (blood only) 42.9 % (42-52); Hemoglobin 14.5 g/dL (14.0-18.0); Mean Corpuscular Hemoglobin 29.4 pg (25-34); Mean Corpuscular Hgb Conc 33.8 g/dL (32-36); Mean Corpuscular Volume 86.8 fL (80-100); Mean Platelet Volume 9.8 fL (7.4-10.4); Platelet Count 191 K/uL (130-400); RDW Coefficient of Variation 14.1 % (11.5-14.5); RDW Standard Deviation 44.4 fL (36.4-46.3); Red Blood Count 4.94 M/uL (4.7-6.1); White Blood Count 7.41 K/uL (4.8-10.8)
[2021-03-17] MEDS: metFORMIN HCL 500 MG TAB PO SCH ×2 (09:21→17:10)
[2021-03-17] MEDS: buPROPion SR 100 MG TABCR PO SCH ×2 (09:21→20:47)
[2021-03-17] MEDS: ASPIRIN 81 MG ECTAB PO SCH (09:21)
[2021-03-17] MEDS: CLOPIDOGREL BISULFATE 75 MG TAB PO SCH (09:22)
[2021-03-17] MEDS: CYANOCOBALAMIN (VITAMIN B-12) 100 MCG TABLET PO SCH (09:22)
[2021-03-17] MEDS: ENALAPRIL MALEATE 10 MG TAB PO SCH ×2 (09:22→20:45)
[2021-03-17 09:37] LABS: BUN Creatinine Ratio 17.7 (10-20); Creatinine Clr Calc Pharmacy 48.4 ml/min; Est GFR (African American) 59.4 ml/min; Est GFR (Non-African American) 51.3 ml/min; Potassium 5.1 mmol/L (3.5-5.1)
--- NOTE | 2021-03-17 16:48 | Hospitalist Progress Note ---
Date of Service March 17, 2021 Assessment & Plan (1) Status post fall: Plan: Presented with multiple falls. Had mild head trauma. No LOC had only some mild upper back pain but no other injuries-- no pain at present He reports that he is deconditioned and tripped, but did not pass out. He denies history of neuropathy and limited exam not suggestive of such. No a ssociated vertigo or lightheadedness with falls. No CP, firing of ICD, LOC, palpitations Orthostatic vital signs negative on arrival and he was not hypotensive (was actually hypertensive) Hemoglobin is normal, WBC only minimally elevated likely due to stress response, with mild acute kidney injury with creatinine 1.4 on admission which is now improved with IV fluids. 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 A1C 6.4%. Lantus contin ued during this hospitalization-- no hypoglycemia exam is NOT consistent with neuropathy. fine motor/proprioception and sensation intact. Left ear with cerumen impaction but do not suspect labyrinthitis or vertigo No acute ischemia-troponin negative x2 Head Ct negative TSH WNL at 3.5 B12 added and low level of normal-- likely not contributing to his falls. Will start oral supplementation overall, no obvious metabolic source of falls. Likely generalized deconditioning/decline with very mild superimposed dehydration and perhaps polypharmacy -PT/OT consultations requested, recommending SNF placement and patient is agreeable was finally able to touch base with the son who reports that all of the falls do see to happen in the evening (after when he would have taken his Klonopin and z yprexa). In addition, upon further questioning patient does have a very small dog and multiple providers in the home. Perhaps these are posing fall risks. Plan is for inpatient rehab once a bed becomes available but lengthy discussion with patient's son regarding what can be done at home to decrease fall risks (patient should use a cane/ambulatory device, should take the Klonopin/Zyprexa directly before bed to limit ambulation and even consider de-escalation of these medicationsto be discussed with psychiatry, may need to get rid of his dog unfortunately as this can pose a fall risk, pull up any throw rugs and arrange furniture so that it is not in the direct line of traffic) -Although patient did not pass out, denies chest pain and denies his defibrillator going off. Defibrillator/PPM interrogated. Results not yet available to review but tach did verify that his sleep lab technician has been "offline" X months and "all looked well per nurse/per tech". --Patient has been ready for discharge for over a week now. No available beds at any local nursing facilities. Denied at [facility] case management on board. I did ask therapy if patient was stable for discharge to home with home PT/OT. Step training was attempted but patient unsteady. He does have steps at home. We will continue inpatient PT/OT while awaiting a bed for placement for short-term rehab. Quite possible that patient will continue to improve with therapy and be able to be discharged home prior to a bed being obtained. We will continue to follow. (2) Hyponatremia: Plan: -Appears chronic with review of old records. Was 129 when initially presented. Lasix has been stopped (which he took "as needed edema") -I suspect the chronic hyponatremia is due to his psychiatric medications on board (specifically his Wellbutrin). -This is chronic and does not appear to be symptomatic (3) CAD (coronary artery disease): Plan: Had some of his typical angina on the morning of 03/08-resolved nitroglycerin Has an extensive cardiac history with numerous stents placed, first [place] age 41 -Continue ASA, Plavix, carvedilol, statin, CRESENCIO inhibitor - troponin negative x2 (4) STEPHAN (acute kidney injury): Plan: As above, creatinine 1.4 on arrival and now improved to normal after receiving IV fluid hydration (5) Hypertension: Plan: BP significantly elevated in the first 2 days of admission, secondary to not receiving his usual home antihypertensives as the home medicine reconciliation was not completed correctly Blood pressures are now much improved after restarting home BP meds -Continue carvedilol 6.25 mg p.o. twice daily -Continue enalapril 10 mg mg p.o. twice daily which is the formulary equivalent for his ramipril -BP currently stable/controlled (6) Hypothyroid: Plan: TSH elevated 8.2 in 12/2020, now normal on repeat check here at 3.5 -Continue Synthroid (7) Bipolar disorder: Plan: Chronic--> follows psych -Continue Bupropion, clonazepam, mirtazapine, and restart home olanzapine -Continue Divalproex -Consider decreasing doses of medications as perhaps polypharmacy as may be contributing to multiple falls (8) Diabetes mellitus type 2 in obese: Plan: -Patient was receiving basal insulin and sliding scale and his Metformin was held -Had some mild hypoglycemia that was corrected with snacking. -Insulin subsequently stopped and he was placed back on his Metformin -no further episodes of hypoglycemia (9) Cardiac defibrillator in place: Plan: Noted. -Interrogation done and "normal per tech". As outlined above, tach did say that his sleep lab technician is offline. I did discuss this with son who was going to check this over the weekend when he came home to visit Plan: Patient currently medically and hemodynamically stable for discharge. Awaiting placement. Case management on board. Need to find a bed (which is extremely difficult and CM working diligently-- lack of beds at the time) and obtain authorization Denied at [facility] Referrals out to [place], [place], and [place] plan D/w Dr. Evans Admission and Anticipated Discharge Date Admission Date: March 10, 2021 Subjective Patient seen on daily rounds today. Continues to get extremely frustrated that he is "just waiting here waiting to go to rehab" but understands that there are no available beds at this time. He continues to slowly improve with therapy but is not meeting therapy goals for discharge to home. Ambulating well on flat surfaces but not able to perform step training independently. Was very unsteady. Follow-up lab data done today. Mild hyponatremia noted at 131 but baseline. Likely related to his medications. Lasix continues to be on hold but he does take several psych meds. Review of Systems Review of Systems: All systems reviewed and are unremarkable except as noted in HPI and below Denies fevers, chills, headache, nasal congestion, sore throat, cough, chest pain, shortness of breath, palpitations, orthopnea, PND, abdominal pain, nausea, vomiting, diarrhea, constipation, dysuria, hematuria, frequency, back pain, joint pain or swelling, easy bruising or bleeding, skin lesions or rashes. Physical Exam Physical Exam: General: Resting comfortably in his bedside chair. NAD. HEENT: Head is AT/NC buccal mucosa is moist and pink Neck: No JVD. Negative hepatojugular reflex Cardiac: RRR without M/G/R Lungs: CTA without W/R/R Abdomen: Normoactive X4. Soft and nontender in all quadrants. Extremities: No peripheral clubbing cyanosis or edema Neuro: A&O X4 cranial nerves II through XII are grossly intact no focal neuro deficits Skin: No obvious skin lesions or rashes Psych: Appropriate affect pleasant and cooperative Results & Data Results & Data ([facility]) Vital Signs (Past 12 Hours) Vital Signs Temp Pulse Resp BP Pulse Ox 03/17/21 15:25 36.5 C 60 18 121/64 95 03/17/21 07:17 36.9 C 65 16 120/71 97 Laboratory Results 03/17/21 08:46 03/17/21 08:46 PG Care Time/CCT Total # of Minutes Spent Total Time Spent with Patient: Total time spent is greater than 50% in coordination of care (as documented) at patient's floor/unit and/or counseling patient: [place] [address] Subseq Hosp Care Lvl 2 Patient Type Established History Expanded Problem Focused Exam Expanded Problem Focused Medical Decision Making Low Complexity Diagnoses Status post fall Z91.81 Hyponatremia E87.1 CAD (coronary artery disease) I25.718 Coronary Disease-Associated Artery/Lesion type: bypass graft, autologous vein Associated angina: with stable angina STEPHAN (acute kidney injury) N17.9 Hypertension I10 Hypertension type: essential hypertension Hypothyroid E03.9 Hypothyroidism type: acquired Bipolar disorder F31.70 Active/Remission status: in remission of unspecified degree Diabetes mellitus type 2 in obese E11.69; E66.[address] Z95.810 (1) CAD (coronary artery disease) Coronary Disease-Associated Artery/Lesion type: bypass graft, autologous vein Associated angina: with stable angina Qualified Code(s): I25.718 - Atherosclerosis of autologous vein coronary artery bypass graft(s) with other forms of angina pectoris (2) Hypertension Hypertension type: essential hypertension Qualified Code(s): I10 - Essential (primary) hypertension (3) Hypothyroid Hypothyroidism type: acquired Qualified Code(s): E03.9 - Hypothyroidism, unspecified (4) Bipolar disorder Active/Remission status: in remission of unspecified degree Qualified Code(s): F31.70 - Bipolar disorder, currently in remission, most recent episode unspecified
[2021-03-17] MEDS: DIVALPROEX DELAY RELEASE 250 MG TABEC PO SCH (20:44)
[2021-03-17] MEDS: OLANZapine 5 MG TABLET PO SCH (20:45)
[2021-03-17] MEDS: ROSUVASTATIN CALCIUM 10 MG TAB PO SCH (20:45)
[2021-03-17] MEDS: MIRTAZAPINE TAB 15 MG TAB PO SCH (20:46)
[2021-03-18] MEDS: LEVOTHYROXINE SODIUM 25 MCG TABLET PO SCH (05:31)
[2021-03-18] MEDS: ASPIRIN 81 MG ECTAB PO SCH (09:12)
[2021-03-18] MEDS: metFORMIN HCL 500 MG TAB PO SCH ×2 (09:12→16:41)
[2021-03-18] MEDS: buPROPion SR 100 MG TABCR PO SCH ×2 (09:13→20:30)
[2021-03-18] MEDS: carvediloL 6.25 MG TAB PO SCH ×2 (09:13→20:29)
[2021-03-18] MEDS: CLOPIDOGREL BISULFATE 75 MG TAB PO SCH (09:13)
[2021-03-18] MEDS: ENALAPRIL MALEATE 10 MG TAB PO SCH ×2 (09:14→20:28)
[2021-03-18] MEDS: CYANOCOBALAMIN (VITAMIN B-12) 100 MCG TABLET PO SCH (09:14)
--- NOTE | 2021-03-18 16:54 | Hospitalist Progress Note ---
Date of Service March 18, 2021 Assessment & Plan (1) Status post fall: Plan: Presented with multiple falls. Had mild head trauma. No LOC had only some mild upper back pain but no other injuries-- no pain at present He reports that he is deconditioned and tripped, but did not pass out. He denies history of neuropathy and limited exam not suggestive of such. No associated vertigo or lightheadedness with falls. No CP, firing of ICD, LOC, palpitations Orthostatic vital signs negative on arrival and he was not hypotensive (was actually hypertensive) Hemoglobin is normal, WBC only minimally elevated likely due to stress response, with mild acute kidney injury with creatinine 1.4 on admission which is now improved with IV fluids. 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 A1C 6.4%. Lantus continued during this hospitalization-- no hypoglycemia exam is NOT consistent with neuropathy. fine motor/proprioception and sensation intact. Left ear with cerumen impaction but do not suspect labyrinthitis or vertigo No acute ischemia-troponin negative x2 Head Ct negative TSH WNL at 3.5 B12 added and low level of normal-- likely not contributing to his falls. Will start oral supplementation overall, no obvious metabolic source of falls. Likely generalized deconditioning/decline with very mild superimposed dehydration and perhaps polypharmacy -PT/OT consultations requested, recommending SNF placement and patient is agreeable was finally able to touch base with the son who reports that all of the falls do see to happen in the evening (after when he would have taken his Klonopin and zyprexa). In addition, upon further questioning patient does have a very small dog and multiple providers in the home. Perhaps these are posing fall risks. Plan is for inpatient rehab once a bed becomes available but lengthy discussion with patient's son regarding what can be done at home to decrease fall risks (patient should use a cane/ambulatory device, should take the Klonopin/Zyprexa directly before bed to limit ambulation and even consider de-escalation of these medicationsto be discussed with psychiatry, may need to get rid of his dog unfortunately as this can pose a fall risk, pull up any throw rugs and arrange furniture so that it is not in the direct line of traffic) -Although patient did not pass out, denies chest pain and denies his defibrillator going off. Defibrillator/PPM interrogated. 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 --Patient has been ready for discharge for over a week now. No available beds at any local nursing facilities. Denied at case management on board. I did ask therapy if patient was stable for discharge to home with home PT/OT. Step training was attempted but patient unsteady. He does have steps at home. We will continue inpatient PT/OT while awaiting a bed for placement for short-term rehab. his son (Jama) was updated: [phone] (2) Hyponatremia: Plan: -Appears chronic with review of old records. Was 129 when initially presented. Lasix has been stopped (which he took "as needed edema") -I suspect the chronic hyponatremia is due to his psychiatric medications on board (specifically his Wellbutrin). -This is chronic and does not appear to be symptomatic (3) CAD (coronary artery disease): Plan: Had some of his typical angina on the morning of 03/08-resolved nitroglycerin Has an extensive cardiac history with numerous stents placed, first [place] age 41 -Continue ASA, Plavix, carvedilol, statin, CRESENCIO inhibitor - troponin negative x2 (4) STEPHAN (acute kidney injury): Plan: As above, creatinine 1.4 on arrival and now improved to normal after receiving IV fluid hydration (5) Hypertension: Plan: BP significantly elevated in the first 2 days of admission, secondary to not receiving his usual home antihypertensives as the home medicine reconciliation was not completed correctly Blood pressures are now much improved after restarting home BP meds -Continue carvedilol 6.25 mg p.o. twice daily -Continue enalapril 10 mg mg p.o. twice daily which is the formulary equivalent for his ramipril -BP currently stable/controlled (6) Hypothyroid: Plan: TSH elevated 8.2 in 12/2020, now normal on repeat check here at 3.5 -Continue Synthroid (7) Bipolar disorder: Plan: Chronic--> follows psych -Continue Bupropion, clonazepam, mirtazapine, and restart home olanzapine -Continue Divalproex -Consider decreasing doses of medications as perhaps polypharmacy as may be contributing to multiple falls (8) Diabetes mellitus type 2 in obese: Plan: -Patient was receiving basal insulin and sliding scale and his Metformin was held -Had some mild hypoglycemia on evening of 03/16 that was corrected with s nacking. -Insulin subsequently stopped and he was placed back on his Metformin -no further episodes of hypoglycemia (9) Cardiac defibrillator in place: Plan: Noted. -Interrogation done and "normal per tech". As outlined above, tach did say that his drywall sprayer is offline. I did discuss this with son who was going to check this over the weekend when he came home to visit Plan: Patient currently medically and hemodynamically stable for discharge. Awaiting placement. Case management on board. Need to find a bed (which is extremely difficult and CM working diligently-- lack of beds at the time) and obtain authorization Denied at Referrals out to [place], [place], and [place] [facility] D/w Dr. Evans Admission and Anticipated Discharge Date Admission Date: March 10, 2021 Subjective Patient seen on daily rounds today. Remains frustrated that still unable to find a nursing facility for placement. From a therapy standpoint, no real change. Able to ambulate with a wheeled walker independently (with visualization from staff) but unsteady with steps. Does have steps at home. Review of Systems Review of Systems: All systems reviewed and are unremarkable except as noted in HPI and below Denies fevers, chills, headache, nasal congestion, sore throat, cough, chest pain, shortness of breath, palpitations, orthopnea, PND, abdominal pain, nausea, vomiting, diarrhea, constipation, dysuria, hematuria, frequency, back pain, joint pain or swelling, easy bruising or bleeding, skin lesions or rashes. Physical Exam Physical Exam: General: Resting comfortably in his bedside chair. NAD. HEENT: Head is AT/NC buccal mucosa is moist and pink Neck: No JVD. Negative hepatojugular reflex Cardiac: RRR without M/G/R Lungs: CTA without W/R/R Abdomen: Normoactive X4. Soft and nontender in all quadrants. Extremities: No peripheral clubbing cyanosis or edema Neuro: A&O X4 cranial nerves II through XII are grossly intact no focal neuro deficits Skin: No obvious skin lesions or rashes Psych: Appropriate affect pleasant and cooperative Results & Data Results & Data ([facility]) Vital Signs (Past 12 Hours) Vital Signs Temp Pulse Resp BP BP Pulse Ox 03/18/21 15:10 36.8 C 58 L 17 112/66 98 03/18/21 07:20 36.5 C 60 17 118/66 91 PG Care Time/CCT Total # of Minutes Spent Total Time Spent with Patient: Total time spent is greater than 50% in coordination of care (as documented) at patient's floor/unit and/or counseling patient: Coding [place] [address] Subseq Hosp Care Lvl 1 Patient Type Established History Problem Focused Exam Problem Focused Medical Decision Making Straight Forward Diagnoses Status post fall Z91.81 Hyponatremia E87.1 CAD (coronary artery disease) I25.718 Coronary Disease-Associated Artery/Lesion type: bypass graft, autologous vein Associated angina: with stable angina STEPHAN (acute kidney injury) N17.9 Hypertension I10 Hypertension type: essential hypertension Hypothyroid E03.9 Hypothyroidism type: acquired Bipolar disorder F31.70 Active/Remission status: in remission of unspecified degree Diabetes mellitus type 2 in obese E11.69; E66.[address] Z95.810 (1) CAD (coronary artery disease) Coronary Disease-Associated Artery/Lesion type: bypass graft, autologous vein Associated angina: with stable angina Qualified Code(s): I25.718 - Atherosclerosis of autologous vein coronary artery bypass graft(s) with other forms of angina pectoris (2) Hypertension Hypertension type: essential hypertension Qualified Code(s): I10 - Essential (primary) hypertension (3) Hypothyroid Hypothyroidism type: acquired Qualified Code(s): E03.9 - Hypothyroidism, unspecified (4) Bipolar disorder Active/Remission status: in remission of unspecified degree Qualified Code(s): F31.70 - Bipolar disorder, currently in remission, most recent episode unspecified
[2021-03-18] MEDS: clonazePAM 0.5 MG TAB PO SCH (20:26)
[2021-03-18] MEDS: OLANZapine 5 MG TABLET PO SCH (20:27)
[2021-03-18] MEDS: ROSUVASTATIN CALCIUM 10 MG TAB PO SCH (20:27)
[2021-03-18] MEDS: DIVALPROEX DELAY RELEASE 250 MG TABEC PO SCH (20:29)
[2021-03-18] MEDS: MIRTAZAPINE TAB 15 MG TAB PO SCH (20:30)
[2021-03-19] MEDS: LEVOTHYROXINE SODIUM 25 MCG TABLET PO SCH (05:57)
[2021-03-19] MEDS: ASPIRIN 81 MG ECTAB PO SCH (08:52)
[2021-03-19] MEDS: CYANOCOBALAMIN (VITAMIN B-12) 100 MCG TABLET PO SCH (08:52)
[2021-03-19] MEDS: carvediloL 6.25 MG TAB PO SCH ×2 (08:52→20:46)
[2021-03-19] MEDS: CLOPIDOGREL BISULFATE 75 MG TAB PO SCH (08:52)
[2021-03-19] MEDS: ENALAPRIL MALEATE 10 MG TAB PO SCH (08:52)
[2021-03-19] MEDS: buPROPion SR 100 MG TABCR PO SCH ×2 (08:53→20:42)
[2021-03-19] MEDS: metFORMIN HCL 500 MG TAB PO SCH ×2 (08:53→18:35)
--- NOTE | 2021-03-19 09:54 | Hospitalist Progress Note ---
Date of Service March 19, 2021 Assessment & Plan (1) Status post fall: Plan: Presented with multiple falls. Had mild head trauma. No LOC had only some mild upper back pain but no other injuries-- no pain at present He reports that he is deconditioned and tripped, but did not pass out. He denies history of neuropathy and limited exam not suggestive of such. No associated vertigo or lightheadedness with falls. No CP, firing of ICD, LOC, palpitations Orthostatic vital signs negative on arrival and he was not hypotensive (was actually hypertensive) Hemoglobin is normal, WBC only minimally elevated likely due to stress response, with mild acute kidney injury with creatinine 1.4 on admission which is now improved with IV fluids. Lasix (which he takes prn) has been held He did have hyponatremia upon arrival at 131-perhaps he was mildly dehydrated Also on multiple [employer]AN[employer]ER depressants including mirtazapine, and clonazepam and zypreza which could be can tribute into the falls in the elderly-consider decreasing doses or minimizing these medications-defer to outpatient psychiatry patient takes metformin and lantus for glycemic control. A1C 6.4%. Lantus continued during this hospitalization-- no hypoglycemia exam is NOT consistent with neuropathy. fine motor/proprioception and sensation intact. Left ear with cerumen impaction but do not suspect labyrinthitis or vertigo No acute ischemia-troponin negative x2 Head Ct negative TSH WNL at 3.5 B12 added and low level of normal -- ? contributing to falls in either case started and would continue B12 supplementation overall, no obvious metabolic source of falls. Likely generalized deconditioning/decline with very mild superimposed dehydration and perhaps polypharmacy Na low 127 this AM despite increased appetite and prior IVF. Does not appear overloaded on exam and BNP wnl. Will check serum/urine osm, random urine sodium. ?SIADH type picture Will also check AM cortisol PT/OT consultations requested, recommending SNF placement and patient is agreeable Prior provider was finally able to touch base with the son who reports that all of the falls do see to happen in the evening (after when he would have taken his Klonopin and zyprexa). In addition, upon further questioning patient does have a very small dog and multiple providers in the home. Perhaps these are posing fall risks. Plan is for inpatient rehab once a bed becomes available but lengthy discussion with patient's son regarding what can be done at home to decrease fall risks (patient should use a cane/ambulatory device, should take the Klonopin/Zyprexa directly before bed to limit ambulation and even consider de-escalation of these medicationsto be discussed with psychiatry, may need to get rid of his dog unfortunately as this can pose a fall risk, pull up any throw rugs and arrange furniture so that it is not in the direct line of traffic) -Although patient did not pass out, denies chest pain and denies his defibrillator going off. Defibrillator/PPM interrogated. 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 --Patient has been ready for discharge for over a week now. No available beds at any local nursing facilities. Denied at [facility] case management on board. I did ask therapy if patient was stable for discharge to home with home PT/OT. Step training was attempted but patient unsteady. He does have steps at home. We will continue inpatient PT/OT while awaiting a bed for placement for short-term rehab. his son (Jama) was updated: [phone] (2) Hyponatremia: Plan: -Appears chronic with review of old records. Was 129 when initially presented. Lasix has been stopped (which he took "as needed edema") -I suspect the chronic hyponatremia is due to his psychiatric medications on board (specifically his Wellbutrin). -This is chronic and does not appear to be symptomatic Low again 127 with improvement of appetite. Gentle IVF for 1L today Lasix was previously stoppped but discussed maybe 20mg dose and decreasing his vasotec equivalent to 5mg BID and will continue to monitor BPs BMP in AM (3) CAD (coronary artery disease): Plan: Had some of his typical angina on the morning of 03/08-resolved nitroglycerin Has an extensive cardiac history with numerous stents placed, first [place] age 41 -Continue ASA, Plavix, carvedilol, statin, CRESENCIO inhibitor - troponin negative x2 (4) STEPHAN (acute kidney injury): Plan: As above, creatinine 1.4 on arrival and now improved to normal after receiving IV fluid hydration Cr again 1.47 however appears baseline ~1.3 IVF as above Also with hyperkalemia K 5.8 and given dose Kayexalate x1 BMP in AM (5) Hypertension: Plan: BP significantly elevated in the first 2 days of admission, secondary to not receiving his usual home antihypertensives as the home medicine reconciliation was not completed correctly Blood pressures are now much improved after restarting home BP meds -Continue carvedilol 6.25 mg p.o. twice daily -Continue enalapril 10 mg mg p.o. twice daily which is the formulary equivalent for his ramipril (decreased to 5mg BID and would adjust ramipril accordingly if effect) Bp controlled (6) Hypothyroid: Plan: TSH elevated 8.2 in 12/2020, now normal on repeat check here at 3.5 -Continue Synthroid (7) Bipolar disorder: Plan: Chronic--> follows psych -Continue Bupropion, clonazepam, mirtazapine, and restart home olanzapine -Continue Divalproex -Consider decreasing doses of medications as perhaps polypharmacy as may be contributing to multiple falls (8) Diabetes mellitus type 2 in obese: Plan: -Patient was receiving basal insulin and sliding scale and his Metformin was held -Had some mild hypoglycemia on evening of 03/16 that was corrected with snacking. -Insulin subsequently stopped and he was placed back on his Metformin -no further episodes of hypoglycemia (9) Cardiac defibrillator in place: Plan: Noted. -Interrogation done and "normal per tech". 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 I did discuss this with son who was going to check this over the weekend when he came home to visit Plan: Patient currently medically and hemodynamically stable for discharge. Awaiting placement. Case management on board. Need to find a bed (which is extremely difficult and CM working diligently-- lack of beds at the time) and obtain autho rization Denied at [facility] Referrals out to [facility], [facility], and [facility] Admission and Anticipated Discharge Date Admission Date: March 10, 2021 Supervising Physician Co-Signing Physician Notes Attending Attestation - Chart reviewed in detail, care plan d/w NORBERTO Santiago. I agree w/ the griffin components of her documentation. Jean Shen MD Subjective Patient evaluated this afternoon. Up in chair eating lunch. No complaints. Eating/drinking no issue. Voiding and moving bowels without a problem. Continues to be frustrated with rehab/bed availability but rightfully so. Referrals pending but likely wouldn't be until later in the week. No fever, chills, chest pain, shortness of breath, abdominal pain, nausea or vomiting at this time. Questions/concerns addressed. Review of Systems Review of Systems: All systems reviewed & are unremarkable except as noted in HPI & below Physical Exam Physical Exam: General: Resting comfortably in his bedside chair. NAD. HEENT: Head is AT/NC buccal mucosa is moist and pink Neck: No JVD. Negative hepatojugular reflex chest: Pacer to L chest Cardiac: RRR without M/G/R, no edema, pulses palpable bilaterally Lungs: CTA without W/R/R Abdomen: Normoactive X4. Soft and nontender in all quadrants. Extremities: No peripheral clubbing cyanosis or edema Neuro: A&O X4 cranial nerves II through XII are grossly intact no focal neuro deficits Skin: No obvious skin lesions or rashes Psych: Appropriate affect pleasant and cooperative Results & Data Results & [facility] Vital Signs (Past 12 Hours) Vital Signs Temp Pulse Resp BP Pulse Ox 03/19/21 08:00 36.4 C L 61 18 127/72 92 03/18/21 22:45 36.3 C L 61 18 137/72 92 Laboratory Results 03/19/21 03/19/21 03/19/21 Range/Units 12:53 10:02 10:02 Sodium 127 L (136-145) mmol/L Potassium 5.8 H (3.5-5.1) mmol/L Chloride 97 L (98-107) mmol/L Carbon Dioxide 22 (21-32) mmol/L Anion Gap 9.0 (3-11) BUN 25 H (7-18) mg/dl Creatinine 1.47 H (0.6-1.4) mg/dl Est Cr Clr Drug Dosing 44.8 ml/min Est GFR ( Amer) 54.1 ml/min Est GFR (Non-Af Amer) 46.7 ml/min BUN/Creatinine Ratio 17.1 (10-20) Glucose 143 H (70-99) mg/dl Osmolality 278 L (280-300) mOsm/kg Calcium 9.6 (8.5-10.1) mg/dl NT-Pro-B Natriuret Pep 128 (0-900) pg/ml PG Care Time/CCT Total # of Minutes Spent Total Time Spent with Patient: Total time spent is greater than 50% in coordination of care (as documented) at patient's floor/unit and/or counseling patient: Coding Level of Care Code 71992 Subseq Hosp Care Lvl 2 Diagnoses Status post fall Z91.81 Hyponatremia E87.1 CAD (coronary artery disease) I25.718 Associated angina: with stable angina Coronary Disease-Associated Artery/Lesion type: bypass graft, autologous vein STEPHAN (acute kidney injury) N17.9 Hypertension I10 Hypertension type: essential hypertension Hypothyroid E03.9 Hypothyroidism type: acquired Bipolar disorder F31.70 Active/Remission status: in remission of unspecified degree Diabetes mellitus type 2 in obese E11.69; E66.[address] Z95.810 (1) CAD (coronary artery disease) Associated angina: with stable angina Coronary Disease-Associated Artery/Lesion type: bypass graft, autologous vein Qualified Code(s): I25.718 - Atherosclerosis of autologous vein coronary artery bypass graft(s) with other forms of angina pectoris (2) Bipolar disorder Active/Remission status: in remission of unspecified degree Qualified Code(s): F31.70 - Bipolar disorder, currently in remission, most recent episode unspecified (3) Hypothyroid Hypothyroidism type: acquired Qualified Code(s): E03.9 - Hypothyroidism, unspecified (4) Hypertension Hypertension type: essential hypertension Qualified Code(s): I10 - Essential (primary) hypertension
[2021-03-19 10:46] LABS: BUN Creatinine Ratio 17.1 (10-20); Calcium 9.6 mg/dl (8.5-10.1); Creatinine Clr Calc Pharmacy 44.8 ml/min; Est GFR (African American) 54.1 ml/min; Est GFR (Non-African American) 46.7 ml/min; Potassium 5.8 mmol/L (3.5-5.1)
[2021-03-19] MEDS ORDERED: SODIUM POLYSTYRENE SULFONATE 15G/60ML SUSP PO STA (11:47)
[2021-03-19] MEDS: SODIUM CHLORIDE 0.9% 1000ML 1,000 ML IV SCH (12:14)
[2021-03-19] MEDS: ENALAPRIL MALEATE 5 MG TAB PO SCH (20:42)
[2021-03-19] MEDS: ROSUVASTATIN CALCIUM 10 MG TAB PO SCH (20:42)
[2021-03-19] MEDS: OLANZapine 5 MG TABLET PO SCH (20:45)
[2021-03-19] MEDS: DIVALPROEX DELAY RELEASE 250 MG TABEC PO SCH (20:46)
[2021-03-19] MEDS: MIRTAZAPINE TAB 15 MG TAB PO SCH (20:46)
[2021-03-19] MEDS: clonazePAM 0.5 MG TAB PO SCH (20:52)
[2021-03-20] MEDS: SODIUM CHLORIDE 0.9% 1000ML 1,000 ML IV SCH (01:53)
[2021-03-20] MEDS: LEVOTHYROXINE SODIUM 25 MCG TABLET PO SCH (06:37)
[2021-03-20 08:02] LABS: BUN Creatinine Ratio 18.7 (10-20); Calcium 8.8 mg/dl (8.5-10.1); Creatinine Clr Calc Pharmacy 52.6 ml/min; Est GFR (African American) 65.8 ml/min; Est GFR (Non-African American) 56.8 ml/min; Potassium 5.2 mmol/L (3.5-5.1)
--- NOTE | 2021-03-20 08:21 | Hospitalist Progress Note ---
Date of Service March 20, 2021 Assessment & Plan (1) Status post fall: Plan: Presented with multiple falls. Had mild head trauma. No LOC had only some mild upper back pain but no other injuries-- no pain at present He reports that he is deconditioned and tripped, but did not pass out. He denies history of neuropathy and limited exam not suggestive of such. No associated vertigo or lightheadedness with falls. No CP, firing of ICD, LOC, palpitations Orthostatic vital signs negative on arrival and he was not hypotensive (was actually hypertensive) Hemoglobin is normal, WBC only minimally elevated likely due to stress response, with mild acute kidney injury with creatinine 1.4 on admission which is now improved with IV fluids. Lasix (which he takes prn) has been held He did have hyponatremia upon arrival at 131-perhaps he was mildly dehydrated Also on multiple [employer]IST depressants including mirtazapine, and clonazepam and zypreza which could be can tribute into the falls in the elderly-consider decreasing doses or minimizing these medications-defer to outpatient psychiatry patient takes metformin and lantus for glycemic control. A1C 6.4%. Lantus continued during this hospitalization-- no hypoglycemia exam is NOT consistent with neuropathy. fine motor/proprioception and sensation intact. Left ear with cerumen impaction but do not suspect labyrinthitis or vertigo --> further cerumen impaction and utilize debroke and will attempt removal tomorrow No acute ischemia-troponin negative x2 Head Ct negative TSH WNL at 3.5 B12 added and low level of normal -> possible contributing to fall/cognition. overall, no obvious metabolic source of falls. Likely generalized deconditioning/decline with very mild superimposed dehydration and perhaps polypharmacy (decreased klonazepam to 0.5mg HS and could consider taper to d/c) Na 134 after 1L IVF and improved appetite Serum/urine osm were low. Na wnl. AM cortisol normal PT/OT consultations requested, recommending SNF placement and patient is agreeable Prior provider was finally able to touch base with the son who reports that all of the falls do see to happen in the evening (after when he would have taken his Klonopin and zyprexa). In addition, upon further questioning patient does have a very small dog and multiple providers in the home. Perhaps these are posing fall risks. Plan is for inpatient rehab once a bed becomes available but lengthy discussion with patient's son regarding what can be done at home to decrease fall risks (patient should use a cane/ambulatory device, should take the Klonopin/Zyprexa directly before bed to limit ambulation and even consider de-escalation of these medicationsto be discussed with psychiatry, may need to get rid of his dog unfortunately as this can pose a fall risk, pull up any throw rugs and arrange furniture so that it is not in the direct line of traffic) -Although patient did not pass out, denies chest pain and denies his defibrillator going off. Defibrillator/PPM interrogated. Results not yet available to review but tach did verify that his electrical intern has been "offline" X months and "all looked well per nurse/per tech". --Patient has been ready for discharge for over a week now. No available beds at any local nursing facilities. Denied at [facility] case management on board. I did ask therapy if patient was stable for discharge to home with home PT/OT. Step training was attempted but patient unsteady. He does have steps at home. We will continue inpatient PT/OT while awaiting a bed for placement for short-term rehab. his son (Jama) was updated: [phone] --> was able to do 10 steps today and possible d/c with home therapy. 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 Will need continued discussion in AM (2) Hyponatremia: Plan: -Appears chronic with review of old records. Was 129 when initially presented. Lasix has been stopped (which he took "as needed edema") -I suspect the chronic hyponatremia is due to his psychiatric medications on board (specifically his Wellbutrin). -This is chronic and does not appear to be symptomatic Low again 127 with improvement of appetite --> given 1L IVF 03/19-03/20 with Na 134 today Lasix was previously stopped but discussed maybe 20mg dose and decreasing his vasotec equivalent to 5mg BID and will continue to monitor BPs --> continued to hold lasix and decreased vasotec 5mg BID BMP in AM (3) CAD (coronary artery disease): Plan: Had some of his typical angina on the morning of 03/08-resolved nitroglycerin Has an extensive cardiac history with numerous stents placed, first [place] age 41 -Continue ASA, Plavix, carvedilol, statin, CRESENCIO inhibitor - troponin negative x2 (4) STEPHAN (acute kidney injury): Plan: As above, creatinine 1.4 on arrival and now improved to normal after receiving IV fluid hydration Cr again 1.47 03/19 however appears baseline ~1.3 IVF as above with Cr 1.25 today Decreased vasotec as above, no lasix as above Also additional dose kayexalate for K 5.2 from 5.8 yesterday. --> AM cortisol wnl Appetite improved BMP in AM (5) Hypertension: Plan: BP significantly elevated in the first 2 days of admission, secondary to not receiving his usual home antihypertensives as the home medicine reconciliation w as not completed correctly Blood pressures are now much improved after restarting home BP meds -Continue carvedilol 6.25 mg p.o. twice daily -Continue enalapril 10 mg mg p.o. twice daily which is the formulary equivalent for his ramipril (decreased to 5mg BID and would adjust ramipril accordingly if effective) --> BP currently well controlled at 125/77 Continue to monitor (6) Hypothyroid: Plan: TSH elevated 8.2 in 12/2020, now normal on repeat check here at 3.5 -Continue Synthroid (7) Bipolar disorder: Plan: Chronic--> follows psych -Continue Bupropion, clonazepam, mirtazapine, and restart home olanzapine -Continue Divalproex -Consider decreasing doses of medications as perhaps polypharmacy as may be contributing to multiple falls --> Also with adjustments in when he should be taking these to limit falls and take prior to bedtime when he is sleeping --> klonazepam decreased to 0.5mg HS and would continue decreased dose (8) Diabetes mellitus type 2 in obese: Plan: -Patient was receiving basal insulin and sliding scale and his Metformin was held -Had some mild hypoglycemia on evening of 03/16 that was corrected with snacking. -Insulin subsequently stopped and he was placed back on his Metformin -no further episodes of hypoglycemia (9) Cardiac defibrillator in place: Plan: Noted. Interrogation done and "normal per tech". As outlined above, tach did say that his electrical intern is offline--> new modem in place and now back online Plan: Patient currently medically and hemodynamically stable for discharge. Awaiting placement. Case management on board. Need to find a bed (which is extremely difficult and CM working diligently-- lack of beds at the time) and obtain authorization --> has been doing better with therapy and possible candidate for home with home therapy Denied at [facility] Referrals out to [facility], [facility], and [facility] Admission and Anticipated Discharge Date Admission Date: March 10, 2021 Supervising Physician Co-Signing Physician Notes Attending Attestation - Chart reviewed in detail, care plan d/w NORBERTO Santiago. I agree w/ the griffin components of her documentation. Progressing with therapy but unsteady per documentation. Hyponatremia stable. Dispo - uncertain; no beds at local facilities, and denied for admission to [facility]. Jean Shen MD Subjective Patient evaluated this morning. Doing well. Getting stronger every day and able to do 10 steps today. 3 steps to get into his home. Increased steadiness. Awaiting rehab placement currently. Discussed low valproic acid in past couple months and will repeat. If continues to be low rec stopping this medication and maintaining on other psych medications to prevent adverse effects. Ok to update brother this afternoon. Difficulty with R ear clogged and hearing. Had drops and cleaned out the other day by PA but stated not much help. Exam with large amount of cerumen and will order some debrox for today and attempt removal tomorrow to see if improvement. No fever, chills, chest pain, shortness o fbreath, abd pain, n/v/d. May actually be able to go home with home health as he is progressing so well. Review of Systems Review of Systems: All systems reviewed & are unremarkable except as noted in HPI & below Physical Exam Physical Exam: General: Resting comfortably in his bedside chair. NAD. HEENT: Head is AT/NC buccal mucosa is moist and pink Neck: No JVD. Negative hepatojugular reflex chest: Pacer to L chest Cardiac: RRR without M/G/R, no edema, pulses palpable bilaterally Lungs: CTA without W/R/R Abdomen: Normoactive X4. Soft and nontender in all quadrants. Extremities: No peripheral clubbing cyanosis or edema Neuro: A&O X4 cranial nerves II through XII are grossly intact no focal neuro deficits Skin: No obvious skin lesions or rashes Psych: Appropriate affect pleasant and cooperative Results & Data Results & Data ([facility]) Vital Signs (Past 12 Hours) Vital Signs Temp Pulse Resp BP Pulse Ox 03/20/21 08:16 36.4 C L 59 L 18 131/70 97 03/19/21 22:40 36.5 C 60 18 134/73 96 Laboratory Results 03/20/21 03/20/21 03/20/21 Range/Units Unknown Unknown 07:01 Sodium (136-145) mmol/L Potassium (3.5-5.1) mmol/L Chloride (98-107) mmol/L Carbon Dioxide (21-32) mmol/L Anion Gap (3-11) BUN (7-18) mg/dl Creatinine (0.6-1.4) mg/dl Est Cr Clr Drug Dosing ml/min Est GFR ( Amer) ml/min Est GFR (Non-Af Amer) ml/min BUN/Creatinine Ratio (10-20) Glucose (70-99) mg/dl POC Glucose (70-99) mg/dl Osmolality (280-300) mOsm/kg Calcium (8.5-10.1) mg/dl NT-Pro-B Natriuret Pep (0-900) pg/ml Cortisol AM Sample Pending Urine Osmolality 221 L (500-800) mOsm/kg Ur Random Sodium 43 mmol/L 03/20/21 03/19/21 03/19/21 Range/Units 07:01 20:33 12:53 Sodium 134 L D (136-145) mmol/L Potassium 5.2 H (3.5-5.1) mmol/L Chloride 104 (98-107) mmol/L Carbon Dioxide 24 (21-32) mmol/L Anion Gap 7.0 (3-11) BUN 23 H (7-18) mg/dl Creatinine 1.25 (0.6-1.4) mg/dl Est Cr Clr Drug Dosing 52.6 ml/min Est GFR ( Amer) 65.8 ml/min Est GFR (Non-Af Amer) 56.8 ml/min BUN/Creatinine Ratio 18.7 (10-20) Glucose 95 (70-99) mg/dl POC Glucose 117 H (70-99) mg/dl Osmolality 278 L (280-300) mOsm/kg Calcium 8.8 (8.5-10.1) mg/dl NT-Pro-B Natriuret Pep (0-900) pg/ml Cortisol AM Sample Urine Osmolality (500-800) mOsm/kg Ur Random Sodium mmol/L 03/19/21 03/19/21 Range/Units 10:02 10:02 Sodium 127 L (136-145) mmol/L Potassium 5.8 H (3.5-5.1) mmol/L Chloride 97 L (98-107) mmol/L Carbon Dioxide 22 (21-32) mmol/L Anion Gap 9.0 (3-11) BUN 25 H (7-18) mg/dl Creatinine 1.47 H (0.6-1.4) mg/dl Est Cr Clr Drug Dosing 44.8 ml/min Est GFR ( Amer) 54.1 ml/min Est GFR (Non-Af Amer) 46.7 ml/min BUN/Creatinine Ratio 17.1 (10-20) Glucose 143 H (70-99) mg/dl POC Glucose (70-99) mg/dl Osmolality (280-300) mOsm/kg Calcium 9.6 (8.5-10.1) mg/dl NT-Pro-B Natriuret Pep 128 (0-900) pg/ml Cortisol AM Sample Urine Osmolality (500-800) mOsm/kg Ur Random Sodium mmol/L PG Care Time/CCT Total # of Minutes Spent Total Time Spent with Patient: Total time spent is greater than 50% in coordination of care (as documented) at patient's floor/unit and/or counseling patient: Coding Level of Care Code 41147 Subseq Hosp Care Lvl 2 Diagnoses Status post fall Z91.81 Hyponatremia E87.1 CAD (coronary artery disease) I25.718 Associated angina: with stable angina Coronary Disease-Associated Artery/Lesion type: bypass graft, autologous vein STEPHAN (acute kidney injury) N17.9 Hypertension I10 Hypertension type: essential hypertension Hypothyroid E03.9 Hypothyroidism type: acquired Bipolar disorder F31.70 Active/Remission status: in remission of unspecified degree Diabetes mellitus type 2 in obese E11.69; E66.[address] Z95.810 (1) CAD (coronary artery disease) Associated angina: with stable angina Coronary Disease-Associated Artery/Lesion type: bypass graft, autologous vein Qualified Code(s): I25.718 - Atherosclerosis of autologous vein coronary artery bypass graft(s) with other forms of angina pectoris (2) Bipolar disorder Active/Remission status: in remission of unspecified degree Qualified Code(s): F31.70 - Bipolar disorder, currently in remission, most recent episode unspecified (3) Hypothyroid Hypothyroidism type: acquired Qualified Code(s): E03.9 - Hypothyroidism, unspecified (4) Hypertension Hypertension type: essential hypertension Qualified Code(s): I10 - Essential (primary) hypertension
[2021-03-20] MEDS ORDERED: SODIUM POLYSTYRENE SULFONATE 15G/60ML SUSP PO STA (08:22)
[2021-03-20] MEDS: buPROPion SR 100 MG TABCR PO SCH ×2 (08:48→21:40)
[2021-03-20] MEDS: metFORMIN HCL 500 MG TAB PO SCH ×2 (08:48→16:54)
[2021-03-20] MEDS: ENALAPRIL MALEATE 5 MG TAB PO SCH ×2 (08:49→21:40)
[2021-03-20] MEDS: CLOPIDOGREL BISULFATE 75 MG TAB PO SCH (08:49)
[2021-03-20] MEDS: ASPIRIN 81 MG ECTAB PO SCH (08:49)
[2021-03-20] MEDS: CYANOCOBALAMIN (VITAMIN B-12) 100 MCG TABLET PO SCH (08:49)
[2021-03-20] MEDS: carvediloL 6.25 MG TAB PO SCH ×2 (08:51→21:39)
[2021-03-20] MEDS: CARBAMIDE PEROXIDE 6.5% 15 ML BTL OT SCH ×2 (13:58→21:35)
[2021-03-20] MEDS: clonazePAM 0.5 MG TAB PO SCH (21:35)
[2021-03-20] MEDS: DIVALPROEX DELAY RELEASE 250 MG TABEC PO SCH (21:36)
[2021-03-20] MEDS: ROSUVASTATIN CALCIUM 10 MG TAB PO SCH (21:36)
[2021-03-20] MEDS: OLANZapine 5 MG TABLET PO SCH (21:37)
[2021-03-20] MEDS: MIRTAZAPINE TAB 15 MG TAB PO SCH (21:37)
[2021-03-21] MEDS: LEVOTHYROXINE SODIUM 25 MCG TABLET PO SCH (05:58)
[2021-03-21 07:50] LABS: BUN Creatinine Ratio 14.5 (10-20); Calcium 8.9 mg/dl (8.5-10.1); Creatinine Clr Calc Pharmacy 53.9 ml/min; Est GFR (African American) 67.7 ml/min; Est GFR (Non-African American) 58.5 ml/min; Potassium 4.9 mmol/L (3.5-5.1)
[2021-03-21] MEDS: metFORMIN HCL 500 MG TAB PO SCH ×2 (08:27→17:35)
[2021-03-21] MEDS: buPROPion SR 100 MG TABCR PO SCH (08:27)
[2021-03-21] MEDS: ASPIRIN 81 MG ECTAB PO SCH (08:27)
[2021-03-21] MEDS: ENALAPRIL MALEATE 5 MG TAB PO SCH (08:28)
[2021-03-21] MEDS: CLOPIDOGREL BISULFATE 75 MG TAB PO SCH (08:28)
[2021-03-21] MEDS: carvediloL 6.25 MG TAB PO SCH (08:28)
[2021-03-21] MEDS: CYANOCOBALAMIN (VITAMIN B-12) 100 MCG TABLET PO SCH (08:29)
[2021-03-21] MEDS: CARBAMIDE PEROXIDE 6.5% 15 ML BTL OT SCH (08:29)
[2021-03-21] MEDS ORDERED: CYANOCOBALAMIN 500 MCG TABLET (VITAMIN B-12) PO SCH (09:00)
--- NOTE | 2021-03-21 09:21 | Hospitalist Progress Note ---
Date of Service March 21, 2021 Assessment & Plan Admission and Anticipated Discharge Date Admission Date: March 10, 2021 Results & Data Results & Data ([facility]) Vital Signs (Past 12 Hours) Vital Signs Temp Pulse Pulse Resp BP BP Pulse Ox 03/21/21 08:01 36.4 C L 60 17 117/74 98 03/20/21 23:25 36.4 C L 63 16 167/70 H 93 03/20/21 21:46 60 145/60 H Laboratory Results 03/21/21 03/20/21 03/20/21 Range/Units 06:47 11:56 10:52 Sodium 133 L (136-145) mmol/L Potassium 4.9 (3.5-5.1) mmol/L Chloride 101 (98-107) mmol/L Carbon Dioxide 25 (21-32) mmol/L Anion Gap 7.0 (3-11) BUN 18 (7-18) mg/dl Creatinine 1.22 (0.6-1.4) mg/dl Est Cr Clr Drug Dosing 53.9 ml/min Est GFR ( Amer) 67.7 ml/min Est GFR (Non-Af Amer) 58.5 ml/min BUN/Creatinine Ratio 14.5 (10-20) Glucose 93 (70-99) mg/dl POC Glucose 87 (70-99) mg/dl Calcium 8.9 (8.5-10.1) mg/dl Cortisol AM Sample (4.3-22.4) mcg/dl Valproic Acid 65 (50-100) mcg/ml 03/20/21 Range/Units 07:01 Sodium (136-145) mmol/L Potassium (3.5-5.1) mmol/L Chloride (98-107) mmol/L Carbon Dioxide (21-32) mmol/L Anion Gap (3-11) BUN (7-18) mg/dl Creatinine (0.6-1.4) mg/dl Est Cr Clr Drug Dosing ml/min Est GFR ( Amer) ml/min Est GFR (Non-Af Amer) ml/min BUN/Creatinine Ratio (10-20) Glucose (70-99) mg/dl POC Glucose (70-99) mg/dl Calcium (8.5-10.1) mg/dl Cortisol AM Sample 13.88 (4.3-22.4) mcg/dl Valproic Acid (50-100) mcg/ml PG Care Time/CCT Total # of Minutes Spent Total Time Spent with Patient: Total time spent is greater than 50% in coordination of care (as documented) at patient's floor/unit and/or counseling patient: Coding
--- NOTE | 2021-03-21 11:29 | Discharge Summary ---
Date of Service March 21, 2021 Admission HPI Per Admitting Provider Alejandro Arredondo is a 75yo male with history of CAD, Bipolar disorder, DM, HTN and Hypothyroidism presenting from home with frequent falls. States he has fallen at home over 4 times in the last two weeks. He tends to fall backwards. No LOC. Is not tripping on things. He denies chest pain, palpitations, SOB, dizziness, confusion preceding or following the falls. Fell this afternoon while in the living room and was unable to get up. Used his Life Alert - EMS responded and brought him to [facility]. No additional complaints Admission Exam Per Admitting Provider General: patient resting comfortably, NAD, non-toxic in appearance, AA&O x 4 Skin: warm, dry, intact, redness on RLE with several scabbed lesions HEENT: NC/AT, PERRL, EOMI, anicteric sclera, conjunctiva without injection, external ear normal to inspection and nontender, nares patent, dry mucus membranes, dentition intact, no oropharyngeal lesions, neck supple, trachea midline, no LAD, no thyromegaly, no JVD Heart: +S1/S2, regular, no m/r/g Lungs: equal air entry bilaterally, no rales/rhonchi/wheezes Abd: +BS, soft, NT/ND, no masses/organomegaly/ascites Ext: warm, 2+ pulses in UE/LE bilaterally, no clubbing/cyanosis or edema Neuro: nonfocal, patient AA&O x 4, speech intact, no facial droop, moving all extremities on command with equal strength 5/5 Principal Diagnosis Falls, B12 deficiency, Hyponatremia, Cerumen Impaction Discharge Exam General: Resting comfortably in his bedside chair. NAD. HEENT: Head is atraumatic, normocephalic, mmm --> L ear with significant cerumen impaction. previously used brox and earwax removal--> successful removal with earloop and irrigation. TM intact without purulent material noted Neck: No JVD. Negative hepatojugular reflex chest: Pacer to L chest Cardiac: RRR without M/G/R, no edema, pulses palpable bilaterally Lungs: CTA without W/R/R Abdomen: Normoactive X4. Soft and nontender in all quadrants. Extremities: No peripheral clubbing cyanosis or edema Neuro: A&O X4 cranial nerves II through XII are grossly intact no focal neuro deficits Skin: No obvious skin lesions or rashes Psych: Appropriate affect pleasant and cooperative Discharge Data Allergies Allergy/AdvReac Type Severity Reaction Status Date / Time Iodinated Contrast Media Allergy Rash Verified 03/08/21 06:[address] 03/08/21 01:14 CT head/brain wo con Clinical Indication: MN ^FAll, headstrike. Technique: Contiguous axial CT images of the head were acquired from the base of the skull to the vertex without intravenous contrast administration. Images were viewed in brain, subdural and bone windows. Automated dose lowering techniques and/or adjustment according to patient size were utilized for this exam. Comparison: Comparison is made to CT head 01/08/2021 Findings: Areas of decreased attenuation are present in the periventricular and subcortical white matter bilaterally consistent with small vessel ischemic disease. Generalized cerebral atrophy with commensurate enlargement of the ventricles, sulci, and cisterns is also present. There is no acute intracranial hemorrhage or evidence of acute territorial infarction. No shift of the midline structures, mass effect, or extra-axial abnormalities are shown. Atherosclerotic calcifications are present in the intracranial segments of the internal carotid arteries. Imaged portions of the paranasal sinuses and mastoid air cells are clear. The orbits appear normal. There are no acute fractures of the calvaria or scalp swelling. Impression: No acute intracranial hemorrhage, evidence of acute territorial infarction, or other acute intracranial disease process. ACT 112: Negative or not required by law. Electronically signed by: Chilo Anderson M.D. 03/08/2021 8:39 AM Chest X-Ray 03/08/21 02:21 XR chest 1V portable CLINICAL HISTORY: weakness COMPARISON STUDY: Chest CT July 10, 2020. Chest radiograph January 08, 2021. FINDINGS: A left subclavian pacer/AICD, median sternotomy wires and mediastinal surgical clips are noted. Cardiomegaly is unchanged. There is no evidence for pulmonary edema. Small calcified pulmonary nodules are unchanged. This is benign. There is no pneumothorax or pleural effusion. The appearance of the chest is unchanged. IMPRESSION: No acute cardiopulmonary findings. No change in appearance of the chest. ACT 112: Negative or not required by law. Electronically signed by: Ryan Mcgrath M.D. 03/08/2021 10:34 AM Hospital Course (1) Status post fall: Presented with multiple falls. Had mild head trauma. No LOC had only some mild upper back pain but no other injuries-- no pain at present He reports that he is deconditioned and tripped, but did not pass out. He denies history of neuropathy and limited exam not suggestive of such. No associated vertigo or lightheadedness with falls. No CP, firing of ICD, LOC, palpitations Orthostatic vital signs negative on arrival and he was not hypotensive (was actually hypertensive) Hemoglobin is normal, WBC only minimally elevated likely due to stress response, with mild acute kidney injury with creatinine 1.4 on admission which is now improved with IV fluids. Lasix (which he takes prn) has been held He did have hyponatremia upon arrival at 131-perhaps he was mildly dehydrated Also on multiple PIERCER depressants including mirtazapine, and clonazepam and zypreza which could be can tribute into the falls in the elderly-consider decreasing doses or minimizing these medications-defer to outpatient psychiatry (see below for recs of when to take) patient takes metformin and lantus for glycemic control. A1C 6.4%. Lantus continued during this hospitalization-- no hypoglycemia exam NOT consistent with neuropathy. fine motor/proprioception and sensation intact. Left ear with cerumen impaction but do not suspect labyrinthitis or vertigo --> further cerumen impaction and utilize debrox and successful removal with improvement of hearing with earhook/irrigation and rec continue to use debrox and can have PCP continue irrigation prn if recurrance No acute ischemia-troponin negative x2 Head Ct negative TSH WNL at 3.5 B12 added and low level of normal -> possible contributing to fall/cognition and started and continued on supplementation at discharge overall, no other obvious metabolic source of falls --> Likely generalized deconditioning/decline with very mild superimposed dehydration and perhaps polypharmacy --> decreased klonazepam to 0.5mg HS and could consider taper to d/c after following up with PCP if this medication no longer needed Na low normal but stable. Could be from reset stat given prior diuretic use (since discontinued lasix during admission and not continued at discharge). Serum/urine osm were low. Na wnl. AM cortisol normal PT/OT consultations requested, recommending SNF placement and patient is agreeable --> had made enough improvements and able to do 10 steps (3 steps at home) and arrangements made for home health therapy at discharge Prior provider was finally able to touch base with the son who reports that all of the falls do see to happen in the evening (after when he would have taken his Klonopin and zyprexa). In addition, upon further questioning patient does have a very small dog which could be causing issues at home. Discussion with patient's son regarding what can be done at home to decrease fall risks (patient should use a cane/ambulatory device, should take the Klonopin/Zyprexa directly before bed to limit ambulation and even consider de- escalation of these medicationsto be discussed with psychiatry, may need to get rid of his dog unfortunately as this can pose a fall risk, pull up any throw rugs and arrange furniture so that it is not in the direct line of traffic) -Although patient did not pass out, denies chest pain and denies his defibrillator going off. Defibrillator/PPM interrogated. Results not yet available to review but tach did verify that his nuclear physics teacher has been "offline" X months and "all looked well per nurse/per tech". --> Reset router at home as he had gotten a new modem. Reconnected and online. No issues noted his son (Jama) was updated: [phone] but does have concerns about safety and they are attempting to get him into intermediate placement but having issues with patient not wanting to leave his house --> patient aox4 and doing well with therapy and arranged for home with services as he did 10 steps prior to discharge with therapy and reviewed with PT aide for recs d/c home services If continued issues/repeat falls in future would encourage terminal operator placement but patient doing well and stable for d/c (2) Hyponatremia: -Appears chronic with review of old records. Was 129 when initially presented. Lasix has been stopped (which he took "as needed edema") -suspect the chronic hyponatremia is due to his psychiatric medications on board (specifically his Wellbutrin). -chronic and does not appear to be symptomatic TSH wnl Lasix discontinued. Osm low, Serum low, perhaps from diuretic use which has since been discontinued Also decreased CRESENCIO and switched to vasotec 5mg BID (half prior dose) and BPs remained stable Remained 132-133 and stable (3) CAD (coronary artery disease): Had some of his typical angina on the morning of 03/08-resolved n jeannie Has an extensive cardiac history with numerous stents placed, first LA age 41 -Continued ASA, Plavix, carvedilol, statin, . CRESENCIO inhibitor decreased as above - troponin negative x2 (4) STEPHAN (acute kidney injury): As above, creatinine 1.4 on arrival and now improved to normal after receiving IV fluid hydration. Then with hyperkalemia (resolved with hayexelate and ?if reset osm from prior lasix use) Suspect given meals on wheels/dietary choices at home possible dehydration worsened by lasix use Lasix discontinued during admission as well as reduction in CRESENCIO-I to half dose and changed to vascotec at d/c and BPs remained well controlled with these adjustments Cr remained stable 1.2 on repeat (5) Hypertension: BP significantly elevated in the first 2 days of admission, secondary to not receiving his usual home antihypertensives as the home medicine reconciliation was not completed correctly Blood pressures are now much improved after restarting home BP meds -Continued carvedilol 6.25 mg p.o. twice daily -Continue enalapril 10 mg mg p.o. twice daily which is the formulary equivalent for his ramipril --> decreased to 5mg BID and was switched to enalapril 5mg BID at discharge as above BP well controlled. Gait steady Outpt F/u with PCP for continued monitoring (6) Hypothyroid: TSH elevated 8.2 in 12/2020, now normal on repeat check here at 3.5 Continued Synthroid 25mcg daily (7) Bipolar disorder: Chronic--> follows psych -Continued Bupropion, clonazepam, mirtazapine, olanzapine --> recommendations to take antipsychotic agents at night to prevent daytime hypotension/dizziness/re duce risk of falls -Continued Divalproex (depakote level therapeutic on repeat as had previously been subtherapeutic upon review of chart) --> klonazepam decreased to 0.5mg HS and continued decreased dose at discharge (8) Diabetes mellitus type 2 in obese: -Patient was receiving basal insulin and sliding scale and his Metformin was held -Had some mild hypoglycemia on evening of 03/16 that was corrected with snacking. -Insulin subsequently stopped and he was placed back on his Metformin with no further episodes of hypoglycemia reported (9) Cardiac defibrillator in place: Noted. Interrogation done and "normal per tech". As outlined above, tach did say that his nuclear physics teacher is offline--> new modem in place and now back online I certify that this patient is under my care and that I, or a physicians billing assistant working with me, had a face to-face encounter that meets the home health [id number] encounter requirements with this patient. The encounter with the patient was in whole, or in part, for the following medical condition, which is the primary reason for home health care (list medical condition): Falls/weakness/debility I certify that, based on my findings, the following services are medically necessary home health services: My clinical findings support the need for the above services because: OT Assess ADL Status and Restore Function w ADLs PT Assessment for Endurance / Balance / Strength PT Eval for Safety and Mobility PT Eval for Safety, Gait Training, Assistive Devices PT Gait and Balance Training, Strengthening and Safety Safety Skilled Nsg Assessment Further, I certify that my clinical findings support that this patient is homebound (i.e. absences from home require considerable and taxing effort and are for medical reasons or nondenominational services or infrequently or of short duration when for other reasons) because: Supportive Aid - Walker Certification for Home Health Services: Based on the above findings, I certify that this patient is confined to the home and needs intermittent snf care, physical therapy and/or speech therapy or continues to need occupational therapy. The patient is under my care, and I have initiated the establishment of the plan of care. This patient will be followed by a physician who will periodically review the plan of care. Discharge home with home therapy/services as he did have improvement with PT and demonstrate ability to perform steps to get in/out of house. Highly recommended he continue use with walker for stability to prevent fall/injury until improved in strength. Total Time Total Time Spent Total Time Spent (In Minutes): 70 Discharge Plan Discharge Items Patient Disposition: Home - Home Health Services Reason For Visit: FALL Discharge Diagnosis: Fall, Hyponatremia, B12 deficiency Goals: You have been hospitalized for an acute medical problem. During your stay at [facility], we have made an effort to correct the problem that brought you to the hospital while keeping you as comfortable as possible. Medications were used to bring your condition under control and your discharge instructions will include directions for any medications you should take after leaving the hospital. Please make sure you see your Primary Care Provider as part of your follow up plan. Activity: As commented below Activity Comment: advance as tolerated WITH WALKER AND THERAPY Non-emergency contact: Primary Care Provider Call non-emergency contact if: you have any medication questions Follow-up/Referrals: Marisol Love PA-C [Outside Practitioners] - 04/02/21 1:45 pm Diet: Carb Consistent or DM2 and Heart Healthy Addtl Attending Provider Instructions: You have been hospitalized for frequent falls. Imaging did not show any fractures. Your thyroid was normal. Sodium was low and has improved but stable. Infectious work-up has been negative. Urine and chest imaging were without evidence for infection. This balance issue could be from low B12 and you have been started on supplementation daily which will also help with balance and memory. You should continue to use a WALKER when ambulating/walking for stability to help prevent further falls/issues. It is important to TAKE YOUR TIME with STEPS AND AMBULATION to prevent balance issues/falls. Your klonazepam has been decreased to 0.5mg by mouth at night but could consider weaning yourself off of this after discussion with primary care in follow up. Regarding psychiatric medications, you should be taking your Klonazepam and Zyprexa (olanzepine) BEFORE BEDTIME to prevent symptoms during the day. It was also thought that diuretics and blood pressure medications were too high and you have had your furosemide (lasix) discontinued and your ramipril was changed to enalapril during inpatient stay and decreased to 5mg by mouth twice daily to prevent low blood pressures that could be contributing. A prescription for the new enalapril has been sent at discharge. You have been evaluated by therapy and while initially they recommended rehab, you were able to make progress and meet step requirements in order to be discharged home with home health/therapy at discharge. You should also continue the debrox drops to your left ear twice daily to help drain excess ear wax. Please follow up with your PCP in the next 1-2 weeks to monitor your progress. Please return to the ER with any repeat falls, lightheadedness, dizziness, fever, chills, chest pain, shortness of breath or for any other symptoms that are concerning for you. It has been a pleasure being a part of the medical team providing for you while you have been in the hospital. Take care! Pending Studies at Discharge: No Stand-Alone Forms: My [facility], Smoking Cessation Medications and DC Order Prescriptions: New enalapril maleate 5 mg Tablet 5 mg PO BID Qty: 60 RF: 0 clonazepam 0.5 mg Tablet 0.5 mg PO HS Qty: 30 RF: 0 cyanocobalamin (vitamin B-12) 500 mcg Tablet 1,000 mcg PO QAM Qty: 30 RF: 0 Continued metformin 500 mg tablet 500 mg PO BID RF: 0 divalproex 250 mg tablet,delayed release (DR/EC) 750 mg PO HS RF: 0 olanzapine 5 mg tablet 5 mg PO HS RF: 0 aspirin [Aspirin Low Dose] 81 mg Tablet,Delayed Release (Dr/Ec) 81 mg PO DAILY RF: 0 bupropion HCl 200 mg tablet sustained-release 12 hr 200 mg PO BID RF: 0 rosuvastatin 10 mg tablet 10 mg PO HS RF: 0 clopidogrel [Plavix] 75 mg Tablet 75 mg PO DAILY RF: 0 levothyroxine 25 mcg tablet 25 mcg PO QAM RF: 0 Lantus U-100 Insulin 100 unit/mL Solution 5 unit SUBCUT HS RF: 0 carvedilol 6.25 mg tablet 6.25 mg PO BID RF: 0 tamsulosin [Flomax] 0.4 mg capsule 0.4 mg PO DAILY RF: 0 nitroglycerin [Nitrostat] 0.4 mg tablet, sublingual 0.4 mg sublingual UD PRN (Reason: Chest Pain) RF: 0 mirtazapine 15 mg tablet 7.5 mg PO HS RF: 0 Discontinued clonazepam 1 mg tablet 1 mg PO HS RF: 0 ramipril 2.5 mg capsule 2.5 mg PO BID RF: 0 furosemide 40 mg tablet 40 mg PO DAILY PRN (Reason: leg swelling) RF: 0 Discharge Orders: Discharge Order (Routine); Ordered 03/21/21 Ordered By: Shirley Santiago Admission Data Admit Date/Time: 03/10/21 08:22 Attending Provider: Jean Shen Admit Provider: Yris Kee Primary Care Provider: Dominic Conteh Other Providers: [facility] ; [facility] Other Interventions: Discharge Summary Assessment (RN) Last Done: 03/21/21 14:44 Coding Level of Care Code D/C DAY MANAGEMENT >30 MINS Diagnoses Status post fall Z91.81 Hyponatremia E87.1 CAD (coronary artery disease) I25.718 Associated angina: with stable angina Coronary Disease-Associated Artery/Lesion type: bypass graft, autologous vein STEPHAN (acute kidney injury) N17.9 Hypertension I10 Hypertension type: essential hypertension Hypothyroid E03.9 Hypothyroidism type: acquired Bipolar disorder F31.70 Active/Remission status: in remission of unspecified degree Diabetes mellitus type 2 in obese E11.69; E66.[address] Z95.810
== END 2021-03-21 18:13 | disposition home health service (06) | DRG 683 ==
LOC: ED 00:51 → 2N 00:51 → SUATTDRO 11:16 → 2N 03-09 17:31 → 3E 03-09 22:28 → SUATTDRO 03-10 08:22

== ENCOUNTER 2024-04-05 17:56 | Inpatient (IN) ==
[2024-04-05 18:47] LABS: Basophils # (auto) 0.07 K/uL (0.00-0.20); Basophils % (auto) 0.8 %; Eosinophils # (auto) 0.39 K/uL (0.00-0.50); Eosinophils % (auto) 4.3 %; Hematocrit (blood only) 43.4 % (42.0-52.0); Hemoglobin 14.8 g/dl (14.0-18.0); Immature Granulocytes # (auto) 0.06 K/uL (0.01-0.20); Immature Granulocytes % (auto) 0.7 %; Lymphocytes # (auto) 1.84 K/uL (1.20-3.40); Lymphocytes % (auto) 20.3 %; Mean Corpuscular Hemoglobin 28.8 pg (25.0-34.0); Mean Corpuscular Hgb Conc 34.1 g/dL (32.0-36.0); Mean Corpuscular Volume 84.4 fL (80.0-100.0); Mean Platelet Volume 10.1 fL (9.4-12.4); Monocytes # (auto) 0.81 K/uL (0.11-0.59); Neutrophils # (auto) 5.88 K/uL (1.40-6.50); Neutrophils % (auto) 64.9 %; Platelet Count 252 K/uL (130-400); RDW Coefficient of Variation 13.1 % (11.5-14.5); RDW Standard Deviation 40.2 fL (36.4-46.3); Red Blood Count 5.14 M/uL (4.70-6.10); White Blood Count 9.05 K/ul (4.8-10.8)
[2024-04-05 19:09] LABS: Alanine Aminotransferase 20 U/L (7-52); Albumin Globulin Ratio 1.3 (0.9-2); Albumin Level 4.3 gm/dl (3.4-5.0); Alkaline Phosphatase 98 U/L (34-104); Anion Gap 11 (3-11); Aspartate Aminotransferase 20 U/L (13-39); Bilirubin,Total 0.7 mg/dl (0.2-1.0); Blood Urea Nitrogen 20 mg/dl (6-23); Calcium 9.1 mg/dl (8.6-10.3); Carbon Dioxide 25 mmol/L (21-32); Chloride 93 mmol/L (98-107); Globulin 3.2 gm/dl (2.5-4.0); Glucose 640 mg/dl (70-99(Fasting)); Potassium 4.3 mmol/L (3.5-5.1); Sodium 129 mmol/L (136-145); Total Protein 7.5 gm/dl (6.0-8.3)
--- NOTE | 2024-04-05 19:26 | Emergency Department Note ---
Impression & Plan Chest pain, Hyperglycemia, Elevated troponin, Pseudohyponatremia, Acute foot pain ED Provider Note NAME: ANTONIETTA Duff CASE AGE: 79 SEX: M : 1945 ARRIVES VIA: Ambulance INFORMANT: Patient, ED PROVIDER(S): Gasper Joe MD CHIEF COMPLAINT: Foot pain MEDICAL DECISION MAKING: Patient presents due to concern for foot pain. He did have some associated chest pain with a known history of CAD. EKG and troponin were obtained and given the patient's hypertension the patient was ordered Nitropaste. Upon reassessment the patient did have improvement in his chest pain. Patient with a blood sugar in the 600s. Blood work shows a normal white count mild anemia with normal hemoglobin. Platelet count is unremarkable. The patient's kidney function is unremarkable. Initial troponin 21.9.The patient was ordered IV fluids as well as 10 of IV insulin. I did speak the on-call hospitalist service and the patient was admitted by Dr. Castano. Discussion w/ other healthcare providers: Dr. Castano inpatient medicine service Prior /Outside records reviewed: None Differential diagnosis: Fracture, sprain, strain, neuropathy, arterial insufficiency among others were considered Diagnostics, as interpreted by me: ECG: Sinus with PVCs noted, rate of 71 wide QRS right bundle branch block pattern, occasional paced beats. Cardiac monitoring: An order was placed for continuous cardiac monitoring. The monitor shows a rate of 72 with regular rhythm. Patient was placed on pulse oximetry Medical decision rules: None Imaging studies: None HPI: Patient presents due to concern for ongoing foot pain that has been ongoing for the last 2 to 3 weeks. Patient denies any claudication. Patient denies any chest pain or shortness of breath. Patient denies any trauma. Patient states that he has seen his PCP in the past and thought that may have he have some poor circulation issues. The patient denies any change with ambulation. Patient does have diabetes. Patient does not know whether or not he has neuropathy. Pain is occasionally burning and tingly. Patient denies any head or neck pain. No cough or fevers. PAST MEDICAL HISTORY: See Below PAST SURGICAL HISTORY: See Below SOCIAL HISTORY: See Below HOME MEDICATIONS: See Below ALLERGIES: See Below VITALS: See Below PHYSICAL EXAMINATION: GENERAL: NAD, non-toxic. EYE EXAM: Normal conjunctiva. PERRL, no anisocoria and EOM's grossly intact w/o pain. OROPHARYNX: Moist mucus membranes, grossly normal dentition. NECK: Trachea midline, no stridor. Supple, no nuchal rigidity, no adenopathy, non-tender. No signs of meningismus. FROM of the neck with good chin to chest and neck extension. LUNGS: Clear to auscultation. Normal chest wall mechanics. HEART: NSR, no MRG. ABDOMEN: Abdomen soft, non-tender, no masses, no rebound or guarding. BACK: No CVA TTP. SKIN: No rashes and no bruising. UPPER EXTREMITIES: Upper extremities are grossly normal. LOWER EXTREMITIES: Good pedal pulse in the left lower extremity, bilateral lower extremities somewhat cooler to the touch but no obvious temperature difference. No obvious deformity no significant erythema or calor. NEURO EXAM: A&O x3, cranial nerves II-XII grossly intact, normal speech, moves all 4 extremities. Past Med/Surg History Problem List (Updated 04/07/24 @ 11:59 by Gasper Joe MD) Acute foot pain (Acute) Pseudohyponatremia (Acute) Elevated troponin (Acute) Elevated troponin Ventricular tachycardia Ischemic cardiomyopathy Syncope and collapse S/P coronary artery stent placement S/P CABG (coronary artery bypass graft) Left leg pain Hyperglycemia (Acute) Gait instability (Acute) CHI (closed head injury) (Acute) Impacted cerumen of left ear Hyponatremia STEPHAN (acute kidney injury) Left-sided chest pain (Acute) Left rib fracture (Acute) Chest pain (Acute) Cardiac defibrillator in place [employer] Diabetes mellitus type 2 in obese DVT prophylaxis Status post fall Hypertension CAD (coronary artery disease) (Chronic) Coronary artery bypass graft 1992: [place] to LAD, saphenous vein graft to 1st diagonal, saphenous vein graft to om 1, saphenous vein graft to the right coronary artery BPD (bronchopulmonary dysplasia) (Chronic) Hypothyroid (Chronic) Bipolar disorder (Chronic) Medical History Falls frequently Surgical History Hx of inguinal herniorrhaphy Status post aorto-coronary artery bypass graft Family History Other Family history non-contributory Social History Smoking Status: Never smoker Tobacco Type: Cigarettes Second Hand Exposure: No; Do You Dip or Chew Tobacco: No; Hx Alcohol Use: No Hx Substance Use: No Preferred Language: Greenlandic Communication Ability: Effective Reconciling Clerk Required: No Beliefs That Will Affect Care: None Current Living Situation: Alone Current Living Situation Comment: 1 pet dog Feels Safe at Home: Yes Safety Concerns: Feels Safe At This Time Assistive Devices: Walker Allergies Allergies Allergy/AdvReac Type Severity Reaction Status Date / Time Iodinated Contrast Media Allergy Rash Verified 03/08/21 06:45 Home Meds Home Medications Medication Instructions Recorded Confirmed aspirin 81 mg tablet,delayed 81 mg PO DAILY 07/10/20 04/05/24 release (Dexter Low Dose Aspirin) bupropion HCl 200 mg tablet,12 hr 200 mg PO BID 07/10/20 04/05/24 sustained-release clopidogrel 75 mg tablet (Plavix) 75 mg PO DAILY 07/10/20 04/05/24 divalproex 250 mg tablet,delayed 250 mg PO TID 07/10/20 04/05/24 release metformin 500 mg tablet 500 mg PO BID 07/10/20 04/05/24 rosuvastatin 10 mg tablet 10 mg PO HS 07/10/20 04/05/24 nitroglycerin 0.4 mg sublingual 0.4 mg sublingual UD PRN Chest Pain 01/08/21 04/05/24 tablet (Nitrostat) apixaban 5 mg tablet (Eliquis) 5 mg PO BID 04/05/24 04/05/24 carvedilol 25 mg tablet 25 mg PO BID 04/05/24 04/05/24 furosemide 40 mg tablet 40 mg PO DAILY PRN SWELLING 04/05/24 04/05/24 multivitamin 1 tab PO DAILY 04/05/24 04/05/24 Previous Rx's Medication Instructions Recorded cyanocobalamin (vitamin B-12) 500 1,000 mcg (2 x 500 mcg) PO QAM #30 03/21/21 mcg tablet tabs blood sugar diagnostic (OneTouch #100 ea 04/06/24 Verio test strips) blood-glucose meter #1 ea 04/06/24 lancets 33 gauge #100 ea 04/06/24 Results & Data (ED) Vital Signs Vital Signs - 24 hr 04/05/24 18:03 Temperature 36.2 C L Temperature Source Temporal Artery Scan Pulse Rate 63 Respiratory Rate 19 Blood Pressure 156/72 H Blood Pressure Mean 100 Pulse Oximetry 96 Oxygen Delivery Method Room Air Sepsis Recent Fever Within 48 Hours No Sepsis New/Unexplained Change in Mental Status N/A Sepsis Action Taken by Nursing No Action Required Home Medications Current Medication List: was personally reviewed by me Laboratory Data Attestation: I reviewed the patient's lab results. 04/07/24 05:36 04/07/24 05:36 Lab Results 04/05/24 Range/Units 18:20 WBC 9.05 (4.8-10.8) K/ul RBC 5.14 (4.70-6.10) M/uL Hgb 14.8 (14.0-18.0) g/dl Hct 43.4 (42.0-52.0) % MCV 84.4 (80.0-100.0) fL MCH 28.8 (25.0-34.0) pg MCHC 34.1 (32.0-36.0) g/dL RDW Std Deviation 40.2 (36.4-46.3) fL RDW Coeff of De 13.1 (11.5-14.5) % Plt Count 252 (130-400) K/uL MPV 10.1 (9.4-12.4) fL Immature Gran % (Auto) 0.7 % Neut % (Auto) 64.9 % Lymph % (Auto) 20.3 % Kidder % (Auto) 9.0 % Eos % (Auto) 4.3 % Baso % (Auto) 0.8 % Neut # (Auto) 5.88 (1.40-6.50) K/uL Lymph # (Auto) 1.84 (1.20-3.40) K/uL Kidder # (Auto) 0.81 H (0.11-0.59) K/uL Eos # (Auto) 0.39 (0.00-0.50) K/uL Baso # (Auto) 0.07 (0.00-0.20) K/uL Immature Gran # (Auto) 0.06 (0.01-0.20) K/uL Sodium 129 L (136-145) mmol/L Potassium 4.3 (3.5-5.1) mmol/L Chloride 93 L (98-107) mmol/L Carbon Dioxide 25 (21-32) mmol/L Anion Gap 11 (3-11) BUN 20 (6-23) mg/dl Creatinine 1.43 H (0.6-1.4) mg/dl Est Cr Clr Drug Dosing Not Reportable eGFR 50.47 BUN/Creatinine Ratio 14.0 (10-20) Glucose 640 H* (70-99(Fasting)) mg/dl Calcium 9.1 (8.6-10.3) mg/dl Total Bilirubin 0.7 (0.2-1.0) mg/dl AST 20 (13-39) U/L ALT 20 (7-52) U/L Alkaline Phosphatase 98 (34-104) U/L Troponin I High Sens 21.9 H (0-20) pg/ml Total Protein 7.5 (6.0-8.3) gm/dl Albumin 4.3 (3.4-5.0) gm/dl Globulin 3.2 (2.5-4.0) gm/dl Albumin/Globulin Ratio 1.3 (0.9-2) Administered Medications Acetaminophen (Acetaminophen 325 Mg Tab) 650 mg PO Q4H PRN PRN Reason: Pain or Fever Stop: 05/05/24 22:41 Last Admin: 04/07/24 06:38 Dose: 650 mg Documented By: Admin: 04/07/24 00:14 Dose: 650 mg Documented By: Admin: 04/06/24 14:06 Dose: 650 mg Documented By: FERNANDA Apixaban (Apixaban 5 Mg Tablet) 5 mg PO BID [facility] Stop: 05/05/24 22:41 Last Admin: 04/07/24 09:02 Dose: 5 mg Documented By: Admin: 04/06/24 21:00 Dose: 5 mg Documented By: Admin: 04/06/24 07:47 Dose: 5 mg Documented By: Admin: 04/06/24 00:00 Dose: 5 mg Documented By: BILLIE Aspirin (Aspirin 81 Mg Ectab) 81 mg PO DAILY [facility] Stop: 05/06/24 08:59 Last Admin: 04/07/24 09:02 Dose: 81 mg Documented By: Admin: 04/06/24 07:50 Dose: 81 mg Documented By: FRANCHESCA Bupropion HCl (Bupropion Sr 100 Mg Tabcr) 200 mg PO BID LINDA Stop: 05/05/24 22:41 Last Admin: 04/07/24 09:01 Dose: 200 mg Documented By: Admin: 04/06/24 21:00 Dose: 200 mg Documented By: Admin: 04/06/24 07:48 Dose: 200 mg Documented By: Admin: 04/06/24 00:00 Dose: 200 mg Documented By: BILLIE Carvedilol (Carvedilol 25 Mg Tab) 25 mg PO BID LINDA Stop: 05/06/24 08:59 Last Admin: 04/07/24 09:02 Dose: 25 mg Documented By: Admin: 04/06/24 21:01 Dose: 25 mg Documented By: Admin: 04/06/24 07:50 Dose: 25 mg Documented By: FRANCHESCA Clopidogrel Bisulfate (Clopidogrel Bisulfate 75 Mg Tab) 75 mg PO DAILY LINDA Stop: 05/06/24 08:59 Last Admin: 04/07/24 09:02 Dose: 75 mg Documented By: Admin: 04/06/24 07:49 Dose: 75 mg Documented By: FRANCHESCA Divalproex Sodium (Divalproex Delay Release 250 Mg Tabec) 750 mg PO HS LINDA Stop: 05/05/24 22:41 Last Admin: 04/06/24 21:02 Dose: 750 mg Documented By: Admin: 04/06/24 00:32 Dose: 750 mg Documented By: BILLIE Insulin Aspart (Insulin Aspart Per Unit Charge) 0 units SC ACHS LINDA Stop: 05/06/24 00:00 Last Admin: 04/07/24 09:10 Dose: 12 units Documented By: FERNANDA Co-signed By: MARY Admin: 04/06/24 21:09 Dose: 2 units Documented By: MEEUN Co-signed By: TASNEEM Admin: 04/06/24 17:49 Dose: 6 units Documented By: FERNANDA Co-signed By: Admin: 04/06/24 12:02 Dose: 11 units Documented By: FERNANDA Co-signed By: JOSEFINA Admin: 04/06/24 08:57 Dose: Not Given Documented By: Admin: 04/06/24 00:01 Dose: 6 units Documented By: BILLIE Co-signed By: TAL Insulin Glargine (Lantus Per Unit Charge) 30 units SC DAILY LINDA Stop: 05/07/24 08:59 Last Admin: 04/07/24 09:09 Dose: 30 units Documented By: FERNANDA Co-signed By: MARY Isosorbide Mononitrate (Isosorbide Kidder Extended Rel 30 Mg Tabcr) 30 mg PO QAM LINDA Stop: 05/07/24 08:59 Last Admin: 04/07/24 09:04 Dose: 30 mg Documented By: FERNANDA Morphine Sulfate (Morphine Sulfate 2 Mg/Ml Carp) 1 mg IV Q3H PRN PRN Reason: Pain (5, 6, 7) Stop: 04/20/24 00:27 Last Admin: 04/06/24 23:09 Dose: 1 mg Documented By: MEENU Nitroglycerin (Nitroglycerin Sl 0.4 Mg/Tab Tab) 0.4 mg SL Q5M PRN PRN Reason: Chest Pain Stop: 05/05/24 22:41 Last Admin: 04/07/24 05:13 Dose: 0.4 mg Documented By: Admin: 04/06/24 10:50 Dose: 0.4 mg Documented By: FERNANDA Rosuvastatin Calcium (Rosuvastatin Calcium 10 Mg Tab) 10 mg PO HS [facility] Stop: 05/06/24 20:59 Last Admin: 04/06/24 21:03 Dose: 10 mg Documented By: MEENU Discontinued Medications Carvedilol (Carvedilol 6.25 Mg Tab) 6.25 mg PO BID LINDA Stop: 05/05/24 22:41 Last Admin: 04/06/24 00:00 Dose: 6.25 mg Documented By: BILLIE Enalapril Maleate (Enalapril Maleate 5 Mg Tab) 5 mg PO BID LINDA Stop: 05/05/24 22:41 Last Admin: 04/06/24 00:32 Dose: 5 mg Documented By: BILLIE Sodium Chloride (Nss) 500 mls @ 999 mls/hr IV .Q31M ONE Stop: 04/05/24 20:09 Last Infusion: 04/05/24 21:12 Dose: Infused Documented By: Admin: 04/05/24 20:19 Dose: 999 mls/hr Documented By: SANTINO Acetaminophen (Ofirmev) 1,000 mg in 100 mls @ 400 mls/hr IV NOW STA Stop: 04/05/24 19:54 Last Infusion: 04/05/24 21:12 Dose: Infused Documented By: Admin: 04/05/24 20:19 Dose: 400 mls/hr Documented By: SANTINO Sodium Chloride (Nss) 1,000 mls @ 125 mls/hr IV .Q8H [facility] Stop: 04/06/24 09:29 Last Infusion: 04/06/24 11:09 Dose: Infused Documented By: Admin: 04/06/24 02:21 Dose: 125 mls/hr Documented By: BILLIE Insulin Aspart (Insulin Aspart Per Unit Charge) 0 units SC 0400 [facility] Stop: 04/06/24 04:01 Last Admin: 04/06/24 03:56 Dose: 1 units Documented By: BILLIE Co-signed By: FRANK Insulin Glargine (Lantus Per Unit Charge) 20 units SQ NOW ONE Stop: 04/05/24 23:16 Last Admin: 04/06/24 00:00 Dose: 20 units Documented By: BILLIE Co-signed By: TAL Insulin Glargine (Lantus Per Unit Charge) 20 units SC DAILY [facility] Stop: 05/06/24 08:59 Last Admin: 04/06/24 09:34 Dose: 20 units Documented By: FERNANDA Co-signed By: LETICIA Insulin Glargine (Lantus Per Unit Charge) 0 units SC HS [facility]; Protocol Stop: 05/06/24 20:59 Last Admin: 04/06/24 21:10 Dose: 15 units Documented By: MEENU Co-signed By: TASNEEM Insulin Human Regular (Novolin-R Insulin Per Unit Charge) 10 units IV NOW STA Stop: 04/05/24 19:40 Last Admin: 04/05/24 20:15 Dose: 10 units Documented By: SANTINO Co-signed By: NING Nitroglycerin (Nitroglycerin 2% Ointment 30gm Tube) 1 inch EXT NOW ONE Stop: 04/05/24 19:55 Last Admin: 04/05/24 20:17 Dose: 1 inch Documented By: SANTINO Nitroglycerin (Nitroglycerin 2% Ointment 30gm Tube) 1 inch EXT ONE ONE Stop: 04/06/24 02:25 Last Admin: 04/06/24 02:42 Dose: Not Given Documented By: BILLIE Nitroglycerin (Nitroglycerin 2% Ointment 30gm Tube) Confirm Administered Dose 18 inch EXT .STK-MED ONE Stop: 04/06/24 02:34 Last Admin: 04/06/24 02:34 Dose: 1 inch Documented By: BILLIE Olanzapine (Olanzapine 5 Mg Tablet) 5 mg PO HS LINDA Stop: 05/05/24 22:41 Last Admin: 04/06/24 00:00 Dose: 5 mg Documented By: BILLIE Oxycodone HCl (Oxycodone Hcl Ir 5 Mg Tab (Immediate Release)) 5 mg PO NOW STA Stop: 04/07/24 00:05 Last Admin: 04/07/24 00:14 Dose: 5 mg Documented By: MEENU Discharge Plan Visit Data Chief Complaint: Toe Injury/Pain Stated Complaint: Left foot/leg pain ED Provider: Gasper Joe Discharge Problem: Chest pain, Hyperglycemia, Elevated troponin, Pseudohyponatremia, Acute foot pain Patient Disposition: Admitted As Inpatient Discharge Instructions Interventions: ED Discharge Assessment Last Done: 04/05/24 22:43 Discharge Problem: Chest pain Qualifiers: Chest pain type: unspecified Qualified Code(s): R07.9 - Chest pain, unspecified Acute foot pain Qualifiers: Laterality: left Qualified Code(s): M79.672 - Pain in left foot
[2024-04-05] MEDS: NovoLIN-R INSULIN PER UNIT CHARGE IV STA (20:15)
[2024-04-05] MEDS: NITROGLYCERIN 2% OINTMENT 30GM TUBE EXT ONE (20:17)
[2024-04-05] MEDS: ACETAMINOPHEN 1,000 MG/100 ML VIAL IV STA (20:19)
[2024-04-05] MEDS: SODIUM CHLORIDE 0.9% 500 ML IV ONE (20:19)
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
[2024-04-05 20:48] LABS: Troponin I High Sensitivity 21.9 pg/ml (0-20)
[2024-04-05 22:06] LABS: Appearance Urine Clear (Clear); Bilirubin Urine Negative (Negative); Blood Urine Negative (Negative); Color Urine Yellow; Glucose Urine UA 3+ (Negative); Ketones Urine 1+ (Negative); Leukocyte Esterase Urine Negative (Negative); Nitrite Urine Negative (Negative); Protein Urine Negative (Negative); Specific Gravity Urine 1.033 (1.000-1.030); Urobilinogen Urine Negative (Negative)
[2024-04-05] MEDS ORDERED: PHARMACY GLYCEMIC MGMT CONSULT PRN (22:42)
[2024-04-05] MEDS ORDERED: CARBOHYDRATES FOR HYPOGLYCEMIA PO PRN (22:42)
[2024-04-05] MEDS ORDERED: ONDANSETRON INJ 2 MG/ML 2 ML VIAL IV PRN (22:42)
[2024-04-05] MEDS ORDERED: GLUCAGON FOR INJ 1 MG VIAL SQ PRN (22:42)
[2024-04-05] MEDS ORDERED: ALUMINUM/MAGNESIUM SUSP 30 ML UDC PO PRN (22:42)
[2024-04-05] MEDS ORDERED: POLYETHYLENE (MIRALAX) 17 GM PACK PO PRN (22:42)
[2024-04-05] MEDS ORDERED: GLUCOSE 40% GEL 15 GM TUBE PO PRN (22:42)
[2024-04-05] MEDS ORDERED: GLUCOSE 10 TAB/TUBE PO PRN (22:42)
[2024-04-05] MEDS ORDERED: DEXTROSE 50% 50 ML SYRINGE IV PRN (22:42)
[2024-04-06] MEDS: APIXABAN 5 MG TABLET PO SCH
[2024-04-06] MEDS: carvediloL 6.25 MG TAB PO SCH
[2024-04-06] MEDS: buPROPion SR 100 MG TABCR PO SCH
[2024-04-06] MEDS: LANTUS PER UNIT CHARGE SQ ONE
[2024-04-06] MEDS: OLANZapine 5 MG TABLET PO SCH
[2024-04-06] MEDS: INSULIN ASPART PER UNIT CHARGE SC SCH ×2 (00:01→03:56)
[2024-04-06] MEDS ORDERED: MoRPHine SULFATE 2 MG/ML CARP IV PRN (00:28)
[2024-04-06] MEDS: ENALAPRIL MALEATE 5 MG TAB PO SCH (00:32)
[2024-04-06] MEDS: DIVALPROEX DELAY RELEASE 250 MG TABEC PO SCH (00:32)
--- NOTE | 2024-04-06 01:20 | CT Scan Report ---
Exam(s): CT HEAD Without Contrast EXAM: CT Head Without Intravenous Contrast CLINICAL HISTORY: Reason for exam: recent fall, hit had. TECHNIQUE: Axial computed tomography images of the head/brain without intravenous contrast. CTDI is 36.55 mGy and DLP is 547.75 mGy-cm. Automated exposure control was utilized for the study. A dose lowering technique was utilized adhering to the principles of ALARA. COMPARISON: Prior head CT from March 08, 2021. FINDINGS: Brain: Unremarkable. No hemorrhage. No significant white matter disease. No edema. Ventricles: Unremarkable. No ventriculomegaly. Bones/joints: Unremarkable. No acute fracture. Soft tissues: Unremarkable. Sinuses: Unremarkable as visualized. No acute sinusitis. Mastoid air cells: Unremarkable as visualized. No mastoid effusion. IMPRESSION: No evidence of acute intracranial pathology. Electronically signed by: Leah Martines MD 04/06/24 01:19 AM
[2024-04-06] MEDS: SODIUM CHLORIDE 0.9% 1,000 ML IV SCH (02:21)
[2024-04-06] MEDS: NITROGLYCERIN 2% OINTMENT 30GM TUBE EXT ONE ×2 (02:34→02:42)
[2024-04-06] MEDS ORDERED: LEVOTHYROXINE SODIUM 25 MCG TABLET PO SCH (06:30)
--- NOTE | 2024-04-06 06:47 | XRay Report ---
XR tibia fibula LT 2V CLINICAL HISTORY: Left leg pain. COMPARISON: None FINDINGS: There are no fractures within the left tibia or fibula. No osseous lesions are identified. Patellar and tibial tubercle spurring is present. Surgical clips within the medial left leg are pres ent. Talar dome is intact. IMPRESSION: No fractures within the left tibia or fibula. ACT 112: Negative or not required by law. Electronically signed by: Ryan Mcgrath M.D. 04/06/2024 6:45 AM
[2024-04-06 07:10] LABS: Basophils # (auto) 0.08 K/uL (0.00-0.20); Basophils % (auto) 0.9 %; Eosinophils # (auto) 0.71 K/uL (0.00-0.50); Eosinophils % (auto) 7.6 %; Hematocrit (blood only) 36.2 % (42.0-52.0); Hemoglobin 12.6 g/dl (14.0-18.0); Immature Granulocytes # (auto) 0.06 K/uL (0.01-0.20); Immature Granulocytes % (auto) 0.6 %; Lymphocytes # (auto) 3.32 K/uL (1.20-3.40); Lymphocytes % (auto) 35.5 %; Mean Corpuscular Hemoglobin 28.6 pg (25.0-34.0); Mean Corpuscular Hgb Conc 34.8 g/dL (32.0-36.0); Mean Corpuscular Volume 82.3 fL (80.0-100.0); Mean Platelet Volume 9.8 fL (9.4-12.4); Monocytes # (auto) 1.06 K/uL (0.11-0.59); Monocytes % (auto) 11.3 %; Neutrophils # (auto) 4.12 K/uL (1.40-6.50); Neutrophils % (auto) 44.1 %; Platelet Count 201 K/uL (130-400); RDW Coefficient of Variation 13.1 % (11.5-14.5); White Blood Count 9.35 K/ul (4.8-10.8)
[2024-04-06 07:29] LABS: BUN Creatinine Ratio 12.5 (10-20); Calcium 8.4 mg/dl (8.6-10.3); Creatinine Clr Calc Pharmacy 60.2 ml/min; Potassium 3.5 mmol/L (3.5-5.1)
--- NOTE | 2024-04-06 07:40 | Hospitalist Progress Note ---
"Date of Service April 06, 2024 Assessment & Plan (1) Diabetes mellitus type 2 in obese: Plan: Uncontrolled on presentation Hyperglycemia | Type 2 Diabetes Mellitus, -BSG initially in ED was 640,, did not meet criteria for DKA -Home diabetes medication is limited to Metformin 500mg BID, has been taking as prescribed. Held -Basal bolus insulin -Consult for glycemic management. pending A1C 10 senior health educator did visit Hyponatremia on presentation was dilutional from hyperglycemia (2) Chest pain: Plan: Chest Pain | Coronary Artery Disease | S/P ICD placement -Received nitro paste in ED due to chest pain, symptoms resolved with nitro, no further paste -EKG obtained, no acute ST changes per my interpretation -Troponin slightly elevated at 21.9 -> 24.9->27 -Follows with cardiology in [place] -Continue Plavix, aspirin, Eliquis, Carvedilol, statin (3) Gait instability: Plan: Endorses hitting his head during fall last week, patient taking Eliquis -Will order CT head considering his intermittent headaches since this fall -PT/OT evaluations ordered. Suspect that patient may need rehab stay -Case management consulted Leg pain on presentation, x rays are negative for fracture Exam currently does not show evidence of cellulitis/infection, no elevated WBC Plan Hypothyroidism -Previously prescribed levothyroxine -Will check TSH with morning labs Bipolar disorder -Continue Bupropion -Continue Divalproex VTE Prophylaxis: Home Eliquis Code Status: Full Code Admission and Anticipated Discharge Date Admission Date: April 05, 2024 Subjective pt cannot recall events of his fall has some minor erythema on left lower leg, leg that has vein harvest for CABG, this maybe slight venous stasis but will follow did not feel AICD did discharge Physical Exam Physical Exam: pt is with mild CP, Acute ECG without changes cardiac exam is regular, JENNIFER lungs are clear left leg with some chronic skin changes and mild redness Results & Data Results & Data Vital Signs (Past 12 Hours) Vital Signs Pulse Pulse Resp BP BP Pulse Ox Pulse Ox 04/06/24 07:00 69 21 108/47 L 96 04/06/24 05:45 68 23 110/51 L 96 04/06/24 05:00 64 15 101/47 L 93 04/06/24 04:01 83/57 L 04/06/24 03:03 68 20 137/70 93 04/06/24 02:33 69 22 131/65 94 04/06/24 02:26 180/92 H 04/06/24 02:11 75 17 119/84 97 04/06/24 02:00 119/84 04/06/24 02:00 19 119/84 96 04/06/24 01:01 68 24 111/53 L 92 04/06/24 00:50 66 20 88 L 04/06/24 00:09 68 20 176/85 H 95 04/06/24 00:03 68 22 161/71 H 94 04/05/24 23:30 62 18 159/71 H 93 04/05/24 23:06 64 19 175/86 H 93 04/05/24 23:00 96 04/05/24 22:43 65 21 175/86 H 97 04/05/24 19:38 67 04/05/24 19:35 64 26 H 203/103 H 94 O2 Del Method O2 Del Method O2 Flow Rate 04/06/24 07:00 Nasal Cannula 4 04/06/24 05:45 Nasal Cannula 4 04/06/24 05:00 Nasal Cannula 4 04/06/24 04:01 04/06/24 03:03 Nasal Cannula 4 04/06/24 02:33 Nasal Cannula 4 04/06/24 02:26 04/06/24 02:11 Nasal Cannula 4 04/06/24 02:00 04/06/24 02:00 Nasal Cannula 4 04/06/24 01:01 Room Air 04/06/24 00:50 Room Air, Nasal Cannula 04/06/24 00:09 Room Air 04/06/24 00:03 Room Air 04/05/24 23:30 04/05/24 23:06 04/05/24 23:00 Room Air 04/05/24 22:43 Nasal Cannula 2 04/05/24 19:38 04/05/24 19:35 Room Air Laboratory Results review cbc review chemistry PG Care Time/CCT Total # of Minutes Spent Total Time Spent with Patient: Total time spent is greater than 50% in coordination of care (as documented) at patient's floor/unit and/or counseling patient: Coding Level of Care Code 03301 SUB INP/OBS CARE 3/50MIN Diagnoses Diabetes mellitus type 2 in obese E11.69; E66.9 Chest pain R07.9 Gait instability R26.81"
[2024-04-06 07:43] LABS: Estimated Average Glucose 240 mg/dl; Thyroid Stimulating Hormone 2.732 uIu/ml (0.300-4.500)
[2024-04-06] MEDS: CLOPIDOGREL BISULFATE 75 MG TAB PO SCH (07:49)
[2024-04-06] MEDS: ASPIRIN 81 MG ECTAB PO SCH (07:50)
[2024-04-06] MEDS: carvediloL 25 MG TAB PO SCH (07:50)
--- NOTE | 2024-04-06 08:01 | XRay Report ---
LEFT FOOT 3 VIEWS CLINICAL HISTORY: Left foot pain. FINDINGS: 3 views of the left foot are obtained. No prior studies are available for comparison at the time of dictation. The skeletal structures are osteopenic. No fracture is seen. A high arch is incid entally noted. There are dorsal and plantar heel spurs. Moderate osteoarthritic change is seen at the first metatarsophalangeal joint. Milder arthritic change is noted throughout the remainder of the fo ot. The overlying soft tissues are within normal limits. Atherosclerotic calcification is seen in the regional arteries. IMPRESSION: No acute bony abnormality is identified. Electronically signed by: Dexter Clarke M.D. 04/06/2024 8:00 AM
[2024-04-06] MEDS ORDERED: TAMSULOSIN HCL 0.4 MG CAP PO SCH (09:00)
[2024-04-06] MEDS: LANTUS PER UNIT CHARGE SC SCH ×2 (09:34→21:10)
[2024-04-06] MEDS: NITROGLYCERIN SL 0.4 MG/TAB TAB SL PRN (10:50)
--- NOTE | 2024-04-06 12:07 | Pharmacy Report ---
Pharmacy Glycemic Short Note 2 - Date of Service April 06, 2024 - Glycemic Short BSG Results (Last 24 hours): 04/05/24 04/05/24 04/05/24 18:20 21:48 23:26 Glucose 640 H* POC Glucose 379 H* 319 H* 04/06/24 04/06/24 04/06/24 02:17 03:45 06:40 Glucose 138 H POC Glucose 212 H 163 H 04/06/24 04/06/24 07:46 11:23 Glucose POC Glucose 137 H 298 H OUTPATIENT ANTIDIABETIC REGIMEN: * Metformin 500 mg BID * A1c 10.0% 04/06/24 ASSESSMENT: 04/06 * MC is here for leg pain and hyperglycemia. Random BSG yesterday at 640 and POC last night in 300s. Improved this AM until before lunch, will tighten CF and CR to stress of 3. Will also add on scaled lantus this PM. * No glycemic stressors noted. * T2DM diet ordered. PLAN FOR INPATIENT GLYCEMIC CONTROL: * Hold outpatient oral diabetes medications * Basal insulin * Lantus 20 units SQ AM * Lantus scale 10 -15-20 units HS * Bolus insulin * NovoLog per scale ACHS or Q6hrs while NPO * Goal Range: Low 110 mg/dL - High 140 mg/dL * Correction Factor: 20 mg/dL/unit * Nutritional / Prandial insulin per carb ratio of 1 unit per 6 grams CHO consumed
[2024-04-06] MEDS: ACETAMINOPHEN 325 MG TAB PO PRN (14:06)
--- NOTE | 2024-04-06 15:38 | XCELERA ---
[id number]
--- NOTE | 2024-04-06 15:40 | Cardiology Consultation ---
Date of Consultation April 06, 2024 Assessment & Plan (1) Ventricular tachycardia: (2) Chest pain: (3) CAD (coronary artery disease): (4) S/P CABG (coronary artery bypass graft): (5) S/P coronary artery stent placement: (6) Falls frequently: (7) Syncope and collapse: (8) Ischemic cardiomyopathy: (9) Cardiac defibrillator in place: Plan ASSESSMENT/PLAN: 1. Syncope: Seems to be having syncopal events. Has a history of ventricular tachycardia and ICD interrogation suspicious for VT but below detection limit settings. Electrophysiology, Dr. Gutierrez, to formally review tomorrow. 2. Ventricular tachycardia: Has a history of VT according to outside cardiology records. Concerning for VT more recently. Electrophysiology to formally evaluate tomorrow. Continue beta-fantasma for now. Will defer antiarrhythmic therapy to EP, if they deem appropriate. 3. CAD s/p CABG x 4 and 17 PCI: Extensive multivessel CAD. Chronic and stable chest pain syndrome which may or may not reflect chronic stable angina. Continue antiplatelet therapy. Continue beta-fantasma. Start isosorbide mononitrate to see if it improves chest pain episodes. Myocardial perfusion study ordered. Continue statin therapy. 4. Chest pain: He believes it to be different than prior angina but based on his description, may be consistent with chronic and stable angina. Myocardial perfusion study as above. Continue beta-fantasma. Start nitrate therapy. 5. Elevated troponin: Minimal elevation in with his significant CAD history, recommend myocardial perfusion study for his chronic and stable chest pain syndrome. No indication for urgent cardiac catheterization. 6. Ischemic cardiomyopathy: LV systolic function only mildly reduced with evidence of prior RCA infarct. He appears euvolemic. 7. ICD: Stokes. Interrogated on 04/06/2024. 8. Left leg pain: Defer to primary hospitalist service. 9. Disposition: Patient care communicated with Dr. Silverman, primary hospitalist. Electrophysiology to formally evaluate patient tomorrow. Appreciate Dr. Gutierrez's assistance. Recommend close follow-up with his primary sash installer, Dr. Urbano, upon discharge. Thank you for allowing me to participate in the care of your patient. Please call for any other questions or concerns. Sincerely, Tal Booth M.D. History of Present Illness Reason for Consultation: chest pain Requesting Physician: Buffy Durán DO Attending Physician: Edinson Silverman MD History of Present Illness Mr. Arredondo is a very pleasant 79-year-old gentleman with a history significant for multivessel CAD s/p CABG x 4 (1992) s/p PCI x 17, ischemic cardiomyopathy, ICD, multiple myocardial infarctions, syncope with negative EP study (1999), TIA, stroke with right hemiparesis (10/15/2004) s/p TPA, pulmonary embolism, prostate cancer status post radiation, sleep apnea, hypertension, and type 2 diabetes. He is followed by Dr. Urbano at [facility]. He reports that he underwent ICD generator change in July 2023. He has chronic substernal chest discomfort that occurs without trigger. It is different than prior angina. It can radiate to his left shoulder and is described as a dull discomfort. It lasts typically for 5 to 10 minutes and he takes nitroglycerin approximately once per month for these episodes. He had an episode in the emergency department here on 04/05/2024 and it resolved with Nitropaste. He presented to the hospital on 04/05/2024 due to ongoing left leg pain. He states that he has had issues with infection of his left leg and it was becoming more and more painful. He has fallen multiple times in the past. He recalls an episode of syncope while driving several years ago and thinks that he may have syncope with his more recent falls. He states that he will be walking and then the next thing he knows he is on the floor. He has had occasional lightheadedness when he stands up quickly but has not had lightheadedness prior to his falling. He has occasional shortness of breath that can occur even while sitting. He denies orthopnea. He has not had any recent edema. He has dyspnea on exertion with more strenuous walking which is chronic. He has not had an ICD shock for several years. He does not maintain a low- sodium diet. He has Lasix available at home on an as-needed basis. He has an IV dye allergy, resulting with hives in the past. He has had the following studies/procedures: 1. CABG times 10/02/1992: VILLAGOMEZ to LAD; SVG to D1; SVG to OM1; SVG to RCA. 2. Multiple PCI (1998 to 04/06/2004): Multiple PCI to SVG to D1 and SVG to OM. 3. Cardiac cath 10/26/2007: LAD 100%; circumflex 100%; RCA 100%; VILLAGOMEZ to LAD patent; SVG to RCA 50% with thrombus. EF 40%. Underwent PCI of SVG to RCA with 4.5 x 18 mm stent. 4. Peripheral angiography 01/03/2009: Normal per cardiology records. 5. Cardiac cath 03/12/2014: LM 40%; LAD 70 and 100%; ramus 20%; circumflex 100%; RCA 100%; VILLAGOMEZ to LAD patent; SVG to D1 100%; SVG to OM1 100%; SVG to RCA 100%. Underwent PCI of SVG to RCA with 5 x 18 mm stent proximally and 5 x 28 mm stent mid. EF 50%. Inferior hypokinesis. 6. Echo 06/24/2019 [facility]: EF 55%. Suboptimal image quality for wall motion assessment. No significant valvular abnormalities. 7. Nuclear stress 07/11/2020 [facility]: Prior inferior infarct. No significant ischemia. EF 46%. Inferior wall motion abnormality. Review of systems: As above. Family history: Family history positive for CAD. Social history: He quit smoking and alcohol consumption approximately 40 years ago. No drug abuse. . Had 3 sons but 1 at the age of 36 with colon cancer. He was unaccompanied. Allergies Allergy/AdvReac Type Severity Reaction Status Date / Time Iodinated Contrast Media Allergy Rash Verified 03/08/21 06:45 Home Medications Medication Instructions Recorded Confirmed Type aspirin 81 mg tablet,delayed 81 mg PO DAILY 07/10/20 04/05/24 History release (Dexter Low Dose Aspirin) bupropion HCl 200 mg tablet,12 hr 200 mg PO BID 07/10/20 04/05/24 History sustained-release clopidogrel 75 mg tablet (Plavix) 75 mg PO DAILY 07/10/20 04/05/24 History divalproex 250 mg tablet,delayed 250 mg PO TID 07/10/20 04/05/24 History release metformin 500 mg tablet 500 mg PO BID 07/10/20 04/05/24 History rosuvastatin 10 mg tablet 10 mg PO HS 07/10/20 04/05/24 History nitroglycerin 0.4 mg sublingual 0.4 mg sublingual UD PRN Chest Pain 01/08/21 04/05/24 History tablet (Nitrostat) cyanocobalamin (vitamin B-12) 500 1,000 mcg (2 x 500 mcg) PO QAM #30 03/21/21 04/05/24 Rx mcg tablet tabs apixaban 5 mg tablet (Eliquis) 5 mg PO BID 04/05/24 04/05/24 History carvedilol 25 mg tablet 25 mg PO BID 04/05/24 04/05/24 History furosemide 40 mg tablet 40 mg PO DAILY PRN SWELLING 04/05/24 04/05/24 History multivitamin 1 tab PO DAILY 04/05/24 04/05/24 History blood sugar diagnostic (OneTouch #100 ea 04/06/24 Rx Verio test strips) blood-glucose meter #1 ea 04/06/24 Rx lancets 33 gauge #100 ea 04/06/24 Rx Problem List (Updated 04/06/24 @ 21:52 by Alcides Booth MD) Elevated troponin Ventricular tachycardia Ischemic cardiomyopathy Syncope and collapse S/P coronary artery stent placement S/P CABG (coronary artery bypass graft) Left leg pain Hyperglycemia Gait instability (Acute) CHI (closed head injury) (Acute) Impacted cerumen of left ear Hyponatremia STEPHAN (acute kidney injury) Left-sided chest pain (Acute) Left rib fracture (Acute) Chest pain Cardiac defibrillator in place sifonr Diabetes mellitus type 2 in obese DVT prophylaxis Status post fall Hypertension CAD (coronary artery disease) (Chronic) Coronary artery bypass graft 1992: Villagomez to LAD, saphenous vein graft to 1st diagonal, saphenous vein graft to om 1, saphenous vein graft to the right coronary artery BPD (bronchopulmonary dysplasia) (Chronic) Hypothyroid (Chronic) Bipolar disorder (Chronic) Patient History Medical History Bipolar disorder BPD (bronchopulmonary dysplasia) CAD (coronary artery disease) Coronary artery bypass graft 1992: Villagomez to LAD, saphenous vein graft to 1st diagonal, saphenous vein graft to om 1, saphenous vein graft to the right coronary artery Diabetes mellitus type 2 in obese Hypertension Hypothyroid Surgical History Hx of inguinal herniorrhaphy Status post aorto-coronary artery bypass graft Family History Other Family history non-contributory Social History Smoking Status: Never smoker Tobacco Type: Cigarettes Second Hand Exposure: No; Do You Dip or Chew Tobacco: No; Hx Alcohol Use: No Hx Substance Use: No Preferred Language: Ivorian Communication Ability: Effective Diet Therapist Required: No Beliefs That Will Affect Care: None Current Living Situation: Alone Current Living Situation Comment: 1 pet dog Feels Safe at Home: Yes Safety Concerns: Feels Safe At This Time Assistive Devices: Walker Physical Exam Physical Exam: Gen.: No acute distress. Alert and oriented. HEENT: Anicteric sclera. Neck: No JVD. Normal carotid upstrokes bilaterally. Cardiac: Regular. Normal S1-S2. No murmurs, rubs, or gallops. Pulmonary: Clear to auscultation bilaterally without wheezes, rales, or rhonchi. Abdomen: Soft, nontender, nondistended, with normoactive bowel sounds. No bruits noted. Extremities: 2+ radial pulses bilaterally. 2+ posterior tibialis pulses bilaterally. No cyanosis. Mild erythema involving the left leg with trace left lower extremity edema. s/p left lower extremity SVG harvest. Results & Data Vital Signs (Past 12 Hours) Vital Signs Temp Pulse Pulse Resp BP BP Pulse Ox 04/06/24 15:23 36.5 C 88 20 131/74 99 04/06/24 09:48 36.3 C L 70 16 129/63 95 04/06/24 07:00 69 21 108/47 L 96 04/06/24 05:45 68 23 110/51 L 96 04/06/24 05:00 64 15 101/47 L 93 04/06/24 04:01 83/57 L O2 Del Method O2 Flow Rate 04/06/24 15:23 Room Air 04/06/24 09:48 Room Air 04/06/24 07:00 Nasal Cannula 4 04/06/24 05:45 Nasal Cannula 4 04/06/24 05:00 Nasal Cannula 4 04/06/24 04:01 Laboratory Results Laboratory Results - last 24 hr 04/05/24 04/05/24 04/05/24 21:58 23:12 23:26 WBC RBC Hgb Hct MCV MCH MCHC RDW Std Deviation RDW Coeff of De Plt Count MPV Immature Gran % (Auto) Neut % (Auto) Lymph % (Auto) [place] % (Auto) Eos % (Auto) Baso % (Auto) Neut # (Auto) Lymph # (Auto) [place] # (Auto) Eos # (Auto) Baso # (Auto) Immature Gran # (Auto) Sodium Potassium Chloride Carbon Dioxide Anion Gap BUN Creatinine Est Cr Clr Drug Dosing eGFR BUN/Creatinine Ratio Glucose POC Glucose 319 H* Estimat Average Glucose Hemoglobin A1c Osmolality 296 Uric Acid Calcium Troponin I High Sens 24.9 H TSH Urine Color Yellow Urine Appearance Clear Urine pH 7.0 Ur Specific [place] 1.033 H Urine Protein Negative Urine Glucose (UA) 3+ H Urine Ketones 1+ H Urine Blood Negative Urine Nitrite Negative Urine Bilirubin Negative Urine Urobilinogen Negative Ur Leukocyte Esterase Negative Urine Osmolality 602 04/06/24 04/06/24 04/06/24 02:17 03:45 06:40 WBC 9.35 RBC 4.40 L Hgb 12.6 L Hct 36.2 L MCV 82.3 MCH 28.6 MCHC 34.8 RDW Std Deviation 39.0 RDW Coeff of De 13.1 Plt Count 201 MPV 9.8 Immature Gran % (Auto) 0.6 Neut % (Auto) 44.1 Lymph % (Auto) 35.5 [place] % (Auto) 11.3 Eos % (Auto) 7.6 Baso % (Auto) 0.9 Neut # (Auto) 4.12 Lymph # (Auto) 3.32 [place] # (Auto) 1.06 H Eos # (Auto) 0.71 H Baso # (Auto) 0.08 Immature Gran # (Auto) 0.06 Sodium 139 D Potassium 3.5 Chloride 106 Carbon Dioxide 25 Anion Gap 8 BUN 14 Creatinine 1.12 D Est Cr Clr Drug Dosing 60.2 eGFR 67.66 BUN/Creatinine Ratio 12.5 Glucose 138 H POC Glucose 212 H 163 H Estimat Average Glucose 240 Hemoglobin A1c 10.0 H Osmolality Uric Acid 7.0 Calcium 8.4 L Troponin I High Sens 27.4 H TSH 2.732 Urine Color Urine Appearance Urine pH Ur Specific [place] Urine Protein Urine Glucose (UA) Urine Ketones Urine Blood Urine Nitrite Urine Bilirubin Urine Urobilinogen Ur Leukocyte Esterase Urine Osmolality 04/06/24 04/06/24 04/06/24 07:46 11:23 11:36 WBC RBC Hgb Hct MCV MCH MCHC RDW Std Deviation RDW Coeff of De Plt Count MPV Immature Gran % (Auto) Neut % (Auto) Lymph % (Auto) [place] % (Auto) Eos % (Auto) Baso % (Auto) Neut # (Auto) Lymph # (Auto) [place] # (Auto) Eos # (Auto) Baso # (Auto) Immature Gran # (Auto) Sodium Potassium Chloride Carbon Dioxide Anion Gap BUN Creatinine Est Cr Clr Drug Dosing eGFR BUN/Creatinine Ratio Glucose POC Glucose 137 H 298 H Estimat Average Glucose Hemoglobin A1c Osmolality Uric Acid Calcium Troponin I High Sens 20.9 H TSH Urine Color Urine Appearance Urine pH Ur Specific [place] Urine Protein Urine Glucose (UA) Urine Ketones Urine Blood Urine Nitrite Urine Bilirubin Urine Urobilinogen Ur Leukocyte Esterase Urine Osmolality 04/06/24 04/06/24 04/06/24 16:23 17:37 21:00 WBC RBC Hgb Hct MCV MCH MCHC RDW Std Deviation RDW Coeff of De Plt Count MPV Immature Gran % (Auto) Neut % (Auto) Lymph % (Auto) [place] % (Auto) Eos % (Auto) Baso % (Auto) Neut # (Auto) Lymph # (Auto) [place] # (Auto) Eos # (Auto) Baso # (Auto) Immature Gran # (Auto) Sodium Potassium Chloride Carbon Dioxide Anion Gap BUN Creatinine Est Cr Clr Drug Dosing eGFR BUN/Creatinine Ratio Glucose POC Glucose 170 H 166 H Estimat Average Glucose Hemoglobin A1c Osmolality Uric Acid Calcium Troponin I High Sens 18.7 TSH Urine Color Urine Appearance Urine pH Ur Specific [place] Urine Protein Urine Glucose (UA) Urine Ketones Urine Blood Urine Nitrite Urine Bilirubin Urine Urobilinogen Ur Leukocyte Esterase Urine Osmolality Diagnostic Findings ECHO 04/06/2024: 1. Normal left ventricular size with mildly reduced systolic function. Estimated EF 45%. Akinesis of the basal inferior and basal inferoseptal wall segments. Severe hypokinesis of the inferolateral wall. Moderate concentric left ventricular hypertrophy. 2. Mildly reduced right ventricular systolic function. 3. Mild biatrial dilation. 4. Trace aortic regurgitation. 5. Normal estimated right ventricular systolic pressure. 6. Technically difficult study, enhanced with IV Definity. 7. No prior study available for comparison. Telemetry personally reviewed: Atrial paced. Echo report reviewed as noted. Outside cardiology note reviewed from 08/04/2019. History and physical report reviewed. ECGs personally reviewed: ECG 04/05/2024 at 2145: Atrial paced with PACs 63 bpm. RBBB. Inferior infarct. ECG 04/05/2024 at 1948: Atrial paced with PVCs 67 bpm. RBBB. Inferior infarct. ECG 04/06/2024 10:51 AM: Atrial paced 62 bpm. RBBB. Inferior infarct. Labs reviewed and notable for mildly elevated high-sensitivity troponin, peaking at 27, stable renal function, normal potassium, elevated A1c, normal transaminase levels, normal TSH, mild anemia. Pacemaker interrogation report reviewed with electrophysiology: Possible ventricular tachycardia but may not be fully known as heart rate is lower than the detection limit. No ICD shock. CT head report from 04/05/2024: No evidence of acute intracranial pathology per radiology. Medications Administered Current Inpatient Medications Acetaminophen (Acetaminophen 325 Mg Tab) 650 mg PO Q4H PRN PRN Reason: Pain or Fever Stop: 05/05/24 22:41 Last Admin: 04/06/24 14:06 Dose: 650 mg Al Hydrox/Mg Hydrox/Simethicone (Aluminum/Magnesium Susp 30 Ml Udc) 15 ml PO Q4H PRN PRN Reason: Dyspepsia Stop: 05/05/24 22:41 Apixaban (Apixaban 5 Mg Tablet) 5 mg PO BID LINDA Stop: 05/05/24 22:41 Last Admin: 04/06/24 21:00 Dose: 5 mg Aspirin (Aspirin 81 Mg Ectab) 81 mg PO DAILY LINDA Stop: 05/06/24 08:59 Last Admin: 04/06/24 07:50 Dose: 81 mg Bupropion HCl (Bupropion Sr 100 Mg Tabcr) 200 mg PO BID LINDA Stop: 05/05/24 22:41 Last Admin: 04/06/24 21:00 Dose: 200 mg Carvedilol (Carvedilol 25 Mg Tab) 25 mg PO BID LINDA Stop: 05/06/24 08:59 Last Admin: 04/06/24 21:01 Dose: 25 mg Clopidogrel Bisulfate (Clopidogrel Bisulfate 75 Mg Tab) 75 mg PO DAILY [facility] Stop: 05/06/24 08:59 Last Admin: 04/06/24 07:49 Dose: 75 mg Dextrose (Dextrose 50% 50 Ml Syringe) 25 - 50 ml IV UD PRN; Protocol PRN Reason: Hypoglycemia Protocol Stop: 05/05/24 22:41 Divalproex Sodium (Divalproex Delay Release 250 Mg Tabec) 750 mg PO HS [facility] Stop: 05/05/24 22:41 Last Admin: 04/06/24 21:02 Dose: 750 mg Glucagon (Glucagon For Inj 1 Mg Vial) 1 mg SQ UD PRN; Protocol PRN Reason: Hypoglycemia Protocol Stop: 05/05/24 22:41 Glucose (Glucose 40% Gel 15 Gm Tube) 15 - 30 gm PO UD PRN; Protocol PRN Reason: Hypoglycemia Protocol Stop: 05/05/24 22:41 Glucose (Glucose 10 Tab/Tube) 4 - 8 tab PO UD PRN; Protocol PRN Reason: Hypoglycemia Protocol Stop: 05/05/24 22:41 Insulin Aspart (Insulin Aspart Per Unit Charge) 0 units SC ACHS [facility] Stop: 05/06/24 00:00 Last Admin: 04/06/24 21:09 Dose: 2 units Insulin Glargine (Lantus Per Unit Charge) 20 units SC DAILY [facility] Stop: 05/06/24 08:59 Last Admin: 04/06/24 09:34 Dose: 20 units Insulin Glargine (Lantus Per Unit Charge) 0 units SC HS [facility]; Protocol Stop: 05/06/24 20:59 Last Admin: 04/06/24 21:10 Dose: 15 units Isosorbide Mononitrate (Isosorbide [place] Extended Rel 30 Mg Tabcr) 30 mg PO QAM [facility] Stop: 05/07/24 08:59 Miscellaneous (Carbohydrates For Hypoglycemia ) 15 - 30 gm PO UD PRN PRN Reason: Hypoglycemia Protocol Stop: 05/05/24 22:41 Miscellaneous Information (Pharmacy Glycemic Mgmt Consult) 1 each N/A UD PRN PRN Reason: Consult Stop: 05/05/24 22:41 Morphine Sulfate (Morphine Sulfate 2 Mg/Ml Carp) 1 mg IV Q3H PRN PRN Reason: Pain (5, 6, 7) Stop: 04/20/24 00:27 Morphine Sulfate (Morphine Sulfate 2 Mg/Ml Carp) 2 mg IV Q3H PRN PRN Reason: Pain (8,9,10) Stop: 04/20/24 00:27 Nitroglycerin (Nitroglycerin Sl 0.4 Mg/Tab Tab) 0.4 mg SL Q5M PRN PRN Reason: Chest Pain Stop: 05/05/24 22:41 Last Admin: 04/06/24 10:50 Dose: 0.4 mg Ondansetron HCl (Ondansetron Inj 2 Mg/Ml 2 Ml Vial) 4 mg IV Q6H PRN PRN Reason: Nausea Stop: 05/05/24 22:41 Polyethylene Glycol (Polyethylene (Miralax) 17 Gm Pack) 17 gm PO DAILY PRN PRN Reason: Constipation Stop: 05/05/24 22:41 Rosuvastatin Calcium (Rosuvastatin Calcium 10 Mg Tab) 10 mg PO HS LINDA Stop: 05/06/24 20:59 Last Admin: 04/06/24 21:03 Dose: 10 mg PG Care Time/CCT Total # of Minutes Spent Total Time Spent with Patient: Total time spent is greater than 50% in coordination of care (as documented) at patient's floor/unit and/or counseling patient: Coding Level of Care Code 01716 INT INP/OBS CARE 3/75MIN Diagnoses Ventricular tachycardia I47.20 Chest pain R07.9 Coronary artery disease of autologous vein bypass graft with stable angina pectoris I25.718 Coronary Disease-Associated Artery/Lesion type: bypass graft, autologous vein Associated angina: with stable angina S/P CABG (coronary artery bypass graft) Z95.1 S/P coronary artery stent placement Z95.5 Falls frequently R29.6 Syncope and collapse R55 Ischemic cardiomyopathy I25.[address] Z95.810 (3) CAD (coronary artery disease) Coronary Disease-Associated Artery/Lesion type: bypass graft, autologous vein Associated angina: with stable angina Qualified Code(s): I25.718 - Atherosclerosis of autologous vein coronary artery bypass graft(s) with other forms of angina pectoris
--- NOTE | 2024-04-06 19:31 | Billing Data ---
Date of Service April 06, 2024 Coding Level of Care Code 40382 INT INP/OBS CARE
[2024-04-06] MEDS ORDERED: MIRTAZAPINE TAB 15 MG TAB PO SCH (21:00)
[2024-04-06] MEDS: ROSUVASTATIN CALCIUM 10 MG TAB PO SCH (21:03)
[2024-04-06] MEDS: MoRPHine SULFATE 2 MG/ML CARP IV PRN (23:09)
--- NOTE | 2024-04-06 23:11 | Electrocardiogram Report ---
Test Reason : Blood Pressure : */* mmHG Vent. Rate : 67 BPM Atrial Rate : 67 BPM P-R Int : 184 ms QRS Dur : 128 ms QT Int : 456 ms P-R-T Axes : 10 -42 108 degrees QTcB Int : 481 ms Atrial-paced rhythm with occasional Premature ventricular complexes Left axis deviation Right bundle branch block Inferior infarct (cited on or before 11-Dec-2005) Abnormal ECG When compared with ECG of 08-Mar-2021 09:53, Electronic atrial pacemaker has replaced Sinus rhythm Confirmed by Alcides Booth ([id number]) on 04/06/2024 11:11:06 PM Referred By: REFERRED SELF Confirmed By: Alcides Booth
--- NOTE | 2024-04-06 23:11 | Electrocardiogram Report ---
Test Reason : Blood Pressure : */* mmHG Vent. Rate : 63 BPM Atrial Rate : 60 BPM P-R Int : * ms QRS Dur : 128 ms QT Int : 458 ms P-R-T Axes : * -44 127 degrees QTcB Int : 468 ms Atrial-paced rhythm with Premature atrial complexes Left axis deviation Right bundle branch block Inferior infarct (cited on or before 11-Dec-2005) Abnormal ECG When compared with ECG of 05-Apr-2024 19:48, Premature ventricular complexes are no longer Present Premature atrial complexes are now Present Confirmed by Alcides Booth ([id number]) on 04/06/2024 11:11:20 PM Referred By: REFERRED SELF Confirmed By: Alcides Booth
--- NOTE | 2024-04-06 23:12 | Electrocardiogram Report ---
Test Reason : Blood Pressure : */* mmHG Vent. Rate : 62 BPM Atrial Rate : 62 BPM P-R Int : 200 ms QRS Dur : 130 ms QT Int : 482 ms P-R-T Axes : 29 -47 102 degrees QTcB Int : 489 ms Atrial-paced rhythm Left axis deviation Right bundle branch block Inferior infarct (cited on or before 11-Dec-2005) Abnormal ECG When compared with ECG of 06-Apr-2024 02:04, No significant change Confirmed by Alcides Booth ([id number] on 04/06/2024 11:12:06 PM Referred By: REFERRED SELF Confirmed By: Alcides Booth
[2024-04-07] MEDS: oxyCODONE HCL IR 5 MG TAB (IMMEDIATE RELEASE) PO STA (00:14)
--- NOTE | 2024-04-07 05:32 | Communication Note ---
Date of Service: April 07, 2024 I was notified by nursing shortly after 05:00 that Mr. Arredondo fell in the bathroom and hit his head, no changes in level of consciousness but noted at headache and chest pain. I went to bedside, patient was alert and oriented, no focal neuro defects appreciated. Patient states he was seated on the toilet and when he leaned forward to pull up his pants, he tipped forward and landed on his head. He denies feeling dizzy or lightheaded prior, he just lost his balance. Endorses 3/10 chest pain but was given nitro and states it feels a bit better. EKG ob tained, no significant changes compared to prior per my interpretation. CT head ordered (patient is on Eliquis) and XR left shoulder as patient also hit left shoulder in the fall. Resident Activity Tracking Resident Involvement: Resident Care Provided Care Provided: Adult Hospital Medicine
[2024-04-07 06:42] LABS: Basophils # (auto) 0.05 K/uL (0.00-0.20); Basophils % (auto) 0.6 %; Eosinophils # (auto) 0.78 K/uL (0.00-0.50); Eosinophils % (auto) 8.8 %; Hematocrit (blood only) 39.4 % (42.0-52.0); Hemoglobin 12.9 g/dl (14.0-18.0); Immature Granulocytes # (auto) 0.07 K/uL (0.01-0.20); Immature Granulocytes % (auto) 0.8 %; Lymphocytes # (auto) 2.76 K/uL (1.20-3.40); Lymphocytes % (auto) 31.2 %; Mean Corpuscular Hemoglobin 28.2 pg (25.0-34.0); Mean Corpuscular Hgb Conc 32.7 g/dL (32.0-36.0); Mean Corpuscular Volume 86.2 fL (80.0-100.0); Monocytes # (auto) 0.96 K/uL (0.11-0.59); Monocytes % (auto) 10.8 %; Neutrophils # (auto) 4.23 K/uL (1.40-6.50); Neutrophils % (auto) 47.8 %; Platelet Count 218 K/uL (130-400); RDW Coefficient of Variation 13.4 % (11.5-14.5); RDW Standard Deviation 41.3 fL (36.4-46.3); Red Blood Count 4.57 M/uL (4.70-6.10); White Blood Count 8.85 K/ul (4.8-10.8)
--- NOTE | 2024-04-07 06:53 | CT Scan Report ---
CT SCAN OF THE BRAIN WITHOUT IV CONTRAST CLINICAL HISTORY: Fall. Head injury. COMPARISON STUDY: CT of the brain dated 04/05/2024. TECHNIQUE: Unenhanced axial CT scan of the brain is performed from the vertex to the skull base. A do se lowering technique was utilized adhering to the principles of ALARA. CT DOSE: 1025.42 mGy.cm FINDINGS: Brain parenchyma: There is age-related involutional change noting mild to moderate subcortical and pe riventricular microangiopathic disease. There is no hemorrhage, mass effect, or evidence of acute ter ritorial ischemia by CT criteria. George-white matter differentiation is preserved. No extra-axial flui d collection is seen. Ventricles, sulci, cisterns: Prominent secondary to involutional change. Intracranial vasculature: There is atherosclerotic calcification of the cavernous carotid arteries. Calvarium: Unremarkable. Sinuses and mastoids: The visualized paranasal sinuses are clear. The mastoid air cells are well pneu matized. Cerumen is noted in the left external auditory canal. Orbits: The bony orbits are grossly intact. There are bilateral ocular lens implants. IMPRESSION: There is no hemorrhage, mass effect, or evidence of acute territorial ischemia by CT lalo shelton. ACT 112: Negative or not required by law. Electronically signed by: Dexter Clarke M.D. 04/07/2024 6:51 AM
[2024-04-07 07:19] LABS: BUN Creatinine Ratio 12.3 (10-20); Calcium 8.4 mg/dl (8.6-10.3); Creatinine Clr Calc Pharmacy 54.9 ml/min; Potassium 4.1 mmol/L (3.5-5.1)
--- NOTE | 2024-04-07 07:27 | XRay Report ---
LEFT SHOULDER 3 VIEWS CLINICAL HISTORY: Fall with left shoulder injury. FINDINGS: 3 views of the left shoulder are correlated with chest x-ray dated 03/08/2021. The skeletal structures are osteopenic. There is no radiographic evidence of acute fracture or dislocation. Mild a rthritic change is seen at the glenohumeral and acromioclavicular joints. There is chronic posttrauma tic deformity of the left clavicular shaft. The imaged left lung parenchyma appears clear. The heart is enlarged. A cardiac AICD is in place and there are midline sternotomy wires. IMPRESSION: No acute bony abnormality is identified. Electronically signed by: Dexter Clarke M.D. 04/07/2024 7:25 AM
--- NOTE | 2024-04-07 08:05 | Hospitalist Progress Note ---
"Date of Service April 07, 2024 Assessment & Plan (1) Diabetes mellitus type 2 in obese: Plan: Uncontrolled on presentation Hyperglycemia | Type 2 Diabetes Mellitus, -BSG initially in ED was 640,, did not meet criteria for DKA -Home diabetes medication is limited to Metformin 500mg BID, has been taking as prescribed. Held -Basal bolus insulin, pt states he has taken insulin at home in the past -Consult for glycemic management. pending A1C 10 diabetes educator did visit Hyponatremia on presentation was dilutional from hyperglycemia (2) Chest pain: Plan: Chest Pain | Coronary Artery Disease | S/P ICD placement -Received nitro paste in ED due to chest pain, symptoms resolved with nitro, no further paste -EKG obtained, no acute ST changes per my interpretation -Troponin slightly elevated at 21.9 -> 24.9->27 -Follows with cardiology in [place] -Continue Plavix, aspirin, Eliquis, Carvedilol, statin cardiology did start imdur, for nuclear lexiscan 04/08/24 (3) Gait instability: Plan: Endorses hitting his head during fall last week, now hit shoulder, patient taking Eliquis -interrogate aicd -consider Doppler lower extremity -PT/OT evaluations ordered. Suspect that patient may need rehab stay -Case management consulted Leg pain on presentation, x rays are negative for fracture Exam currently does not show evidence of cellulitis/infection, no elevated WBC Plan Hypothyroidism -Previously prescribed levothyroxine -Will check TSH with morning labs Bipolar disorder -Continue Bupropion -Continue Divalproex VTE Prophylaxis: Home Eliquis Code Status: Full Code Admission and Anticipated Discharge Date Admission Date: April 05, 2024 Subjective pt had mechanical fall in am, has contusion to left shoulder questioned about feet and neuropathy, pt states that he has no sensory loss and just plain fell today Physical Exam Physical Exam: pt is with mild CP, Acute ECG without changes cardiac exam is regular, JENNIFER lungs are clear left leg with some chronic skin changes and mild redness gross sensation intact, pulses are weakened Results & Data Results & Data Vital Signs (Past 12 Hours) Vital Signs Temp Pulse Pulse Resp BP Pulse Ox O2 Del Method 04/07/24 05:34 61 20 158/70 H 98 Nasal Cannula 04/07/24 05:21 65 20 120/71 95 Nasal Cannula 04/07/24 05:16 71 20 133/62 91 Room Air 04/07/24 05:15 63 20 154/70 H 95 Room Air 04/07/24 05:07 73 22 182/72 H 96 Room Air 04/07/24 05:06 66 22 175/57 H 96 Room Air 04/06/24 23:42 67 04/06/24 22:37 97.9 F 65 18 141/64 H 95 Room Air 04/06/24 20:17 97.7 F 64 18 131/61 93 Room Air O2 Flow Rate 04/07/24 05:34 2 04/07/24 05:21 2 04/07/24 05:16 04/07/24 05:15 04/07/24 05:07 04/07/24 05:06 04/06/24 23:42 04/06/24 22:37 04/06/24 20:17 Laboratory Results review cbc review chemistry PG Care Time/CCT Total # of Minutes Spent Total Time Spent with Patient: Total time spent is greater than 50% in coordination of care (as documented) at patient's floor/unit and/or counseling patient: Coding Level of Care Code 07211 SUB INP/OBS CARE 3/50MIN Diagnoses Diabetes mellitus type 2 in obese E11.69; E66.9 Chest pain R07.9 Gait instability R26.81"
[2024-04-07] MEDS: ISOSORBIDE MONO EXTENDED REL 30 MG TABCR PO SCH (09:04)
[2024-04-07] MEDS: LANTUS PER UNIT CHARGE SC SCH ×2 (09:09→20:55)
--- NOTE | 2024-04-07 09:39 | Pharmacy Report ---
Pharmacy Glycemic Short Note 2 - Date of Service April 07, 2024 - Glycemic Short BSG Results (Last 24 hours): 04/06/24 04/06/24 04/06/24 11:23 16:23 21:00 Glucose POC Glucose 298 H 170 H 166 H 04/07/24 04/07/24 05:36 07:34 Glucose 175 H POC Glucose 177 H OUTPATIENT ANTIDIABETIC REGIMEN: * Metformin 500 mg BID * A1c 10.0% 04/06/24 ASSESSMENT: 04/06 * Alejandro received 55 units of insulin yesterday (35 were basal) * Fasting BSG this AM acceptable, will slightly decrease basal given yesterday and give as one dose this morning. Will allow for additional insulin at bedtime if BSGs are elevated. * Novolog appears to be covering/correcting appropriately. No glycemic stressors noted at this time. 04/06 * MC is here for leg pain and hyperglycemia. Random BSG yesterday at 640 and POC last night in 300s. Improved this AM until before lunch, will tighten CF and CR to stress of 3. Will also add on scaled lantus this PM. * No glycemic stressors noted. * T2DM diet ordered. PLAN FOR INPATIENT GLYCEMIC CONTROL: * Hold outpatient oral diabetes medications * Basal insulin * Lantus 30 units SQ AM * Lantus scale 5-10 units SQ HS (see eMAR for additional details) * Bolus insulin * NovoLog per scale ACHS or Q6hrs while NPO * Goal Range: Low 110 mg/dL - High 140 mg/dL * Correction Factor: 20 mg/dL/unit * Nutritional / Prandial insulin per carb ratio of 1 unit per 6 grams CHO consumed
--- NOTE | 2024-04-07 18:37 | Ultrasound Report ---
US arterial duplex LE BI CLINICAL HISTORY: diabeitc eval pad, claudication TECHNIQUE: Real-time grayscale and color and spectral Doppler ultrasound imaging of the bilateral low er extremity arteries was performed. Measurements calculated based on NASCET criteria. COMPARISON: None available at the time of this dictation. FINDINGS: Elevated velocity is seen in the left superficial femoral artery, measuring up to 277 cm/s. Waveforms are primarily biphasic, monophasic waveforms are seen in the right peroneal artery. ANKLE/BRACHIAL INDEX (NEVIN): Brachial: Left: 131 mmHg. Ankle (dorsalis pedis): Right: 119 mmHg. Left: 181 mmHg. Ankle (posterior tibial): Right: 121 mmHg. Left: 186 mmHg. Ankle/brachial index: Right: 0.92, Left: 1.42. Reference ranges: Normal Ankle/Brachial Index (NEVIN) 1.0-1.4; 0.91-0.99 borderline; < or = 0.9 abnormal (0.7-0.89 mild, 0.51-0.69 moderate, < or = 0.5 severe peripheral arterial disease). Normal Toe/Brachial Index (TBI) > or = 0.6; < 0.6 abnormal (0.34-0.59 mild, 0.12-0.34 moderate, < or = 0.11 severe peripheral arterial disease). IMPRESSION: 1. Focal velocity in the left superficial femoral artery. Otherwise no elevated velocities are seen. 2. Borderline diminished ankle-brachial index on the right. ACT 112: Negative or not required by law. Electronically signed by: Chilo Anderson M.D. 04/07/2024 6:36 PM
--- NOTE | 2024-04-07 23:16 | Electrocardiogram Report ---
Test Reason : Blood Pressure : */* mmHG Vent. 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
--- NOTE | 2024-04-07 23:17 | Electrocardiogram Report ---
Test Reason : Blood Pressure : */* mmHG Vent. 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
--- NOTE | 2024-04-07 23:18 | Electrocardiogram Report ---
Test Reason : Blood Pressure : */* mmHG Vent. 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
[2024-04-08] MEDS ORDERED: Nursing to Pharmacy Communication SCH ×2 (00:15→21:00)
[2024-04-08] MEDS: INSULIN ASPART PER UNIT CHARGE SC SCH (01:03)
[2024-04-08 06:55] LABS: Basophils # (auto) 0.07 K/uL (0.00-0.20); Basophils % (auto) 0.7 %; Eosinophils # (auto) 0.76 K/uL (0.00-0.50); Eosinophils % (auto) 7.2 %; Hematocrit (blood only) 38.2 % (42.0-52.0); Immature Granulocytes # (auto) 0.07 K/uL (0.01-0.20); Immature Granulocytes % (auto) 0.7 %; Lymphocytes # (auto) 3.15 K/uL (1.20-3.40); Lymphocytes % (auto) 29.7 %; Mean Corpuscular Hemoglobin 28.7 pg (25.0-34.0); Mean Corpuscular Volume 84.3 fL (80.0-100.0); Mean Platelet Volume 9.9 fL (9.4-12.4); Monocytes # (auto) 1.08 K/uL (0.11-0.59); Monocytes % (auto) 10.2 %; Neutrophils # (auto) 5.49 K/uL (1.40-6.50); Neutrophils % (auto) 51.5 %; Platelet Count 221 K/uL (130-400); RDW Coefficient of Variation 13.3 % (11.5-14.5); RDW Standard Deviation 41.3 fL (36.4-46.3); Red Blood Count 4.53 M/uL (4.70-6.10); White Blood Count 10.62 K/ul (4.8-10.8)
[2024-04-08 06:57] LABS: BUN Creatinine Ratio 13.8 (10-20); Calcium 8.9 mg/dl (8.6-10.3); Creatinine Clr Calc Pharmacy 54.5 ml/min; Potassium 3.9 mmol/L (3.5-5.1)
[2024-04-08] MEDS: REGADENOSON 0.4 MG/5 ML SYR IV ONE (15:28)
--- NOTE | 2024-04-08 15:44 | Myocardial Perfusion Study ---
Date of Service April 08, 2024 Myocardial Perfusion Study [facility] Myocardial Perfusion Study Report Procedure: 1. Myocardial perfusion study performed in multiple views/images 2. Lexiscan pharmacologic stress ECG Indications: 1. Chest pain 2. Multivessel CAD Ordering provider: Leobardo Procedural details: For the stress portion of the study, Lexiscan 0.4 mg was intravenously administered followed by a saline flush. This was followed by 27.3 mCi of technetium 99m Cardiolite, injected at 1:30 PM on 04/08/2024. 30 minutes following the injection, imaging of the heart was performed in multiple projections. For the rest portion of the study, 9.5 mCi technetium 99m Cardiolite was injected intravenously at 11:10 AM on 04/08/2024. 1 hour following the injection, imaging of the heart was performed in the same projections. Lexiscan stress ECG: Resting ECG demonstrated: Sinus rhythm with frequent PACs and PVC at 64 bpm. RBBB. Maximum heart rate: 72 bpm Maximal, age-predicted heart rate: 50% Resting blood pressure: 144/64 mmHg Maximum blood pressure: 144/[address] changes: None Arrhythmia: None Symptoms: Shortness of breath and chest pain. Findings: Rotating raw imaging demonstrated no significant lung uptake. There is no significant motion artifact. Heart size appeared normal. Myocardial perfusion demonstrated a moderate-sized area of moderately reduced uptake involving the base to distal inferior wall, basal to mid inferolateral wall, and basal to mid lateral wall segments. These defects were fixed in post-stress and rest imaging with minimal reversibility involving the basal lateral wall. Gated images are difficult given heart rate variability. Could not calculate EF or evaluate wall motion. No significant transient ischemic dilation. Impression: 1. Abnormal myocardial perfusion study suggesting inferior, inferolateral, and lateral infarcts with mild robe-infarct ischemia. 2. Unable to evaluate wall motion or LV systolic function given heart rate variability. 3. Lexiscan induced shortness of breath and chest pain. 4. Nondiagnostic Lexiscan ECG. [facility] [place]ocardial perfusion code Procedure Code Procedure 1: Myocardial Perfusion Codes: 39313 Cardiovascular Stress Test, multiple Procedure 2: Myocardial Perfusion Codes: 61896 Cardiovascular Stress Test, supervision only Procedure 3: Myocardial Perfusion Codes: 10165 Cardiovascular Stress Test, interpretation and report
--- NOTE | 2024-04-08 16:55 | Hospitalist Progress Note ---
"Date of Service April 08, 2024 Assessment & Plan (1) Diabetes mellitus type 2 in obese: Plan: Uncontrolled on presentation Hyperglycemia | Type 2 Diabetes Mellitus, -BSG initially in ED was 640,, did not meet criteria for DKA -Home diabetes medication is limited to Metformin 500mg BID, has been taking as prescribed. Held -Basal bolus insulin, pt states he has taken insulin at home in the past -Consult for glycemic management. pending A1C 10 health promotion educator did visit Hyponatremia on presentation was dilutional from hyperglycemia (2) Chest pain: Plan: Chest Pain | Coronary Artery Disease | S/P ICD placement -Received nitro paste in ED due to chest pain, symptoms resolved with nitro, no further paste -EKG obtained, no acute ST changes per my interpretation -Troponin slightly elevated at 21.9 -> 24.9->27 -Follows with cardiology in [place] -Continue Plavix, aspirin, Eliquis, Carvedilol, statin cardiology did start imdur, increased to 60, nuclear lexiscan 04/08/24 fixed defect no significant reversible ischemia (3) Gait instability: Plan: Endorses hitting his head during fall last week, now hit shoulder, patient taking Eliquis -interrogate aicd Doppler lower extremity, focal velocity left SFA otherwise normal will recommend follow up no claudication symtoms gait instability maybe diabetic neuropathy, recommend podiatric follow up -PT/OT evaluations ordered. Suspect that patient may need rehab stay -Case management consulted, pt does not want to go to rehab Leg pain on presentation, x rays are negative for fracture Exam currently does not show evidence of cellulitis/infection, no elevated WBC Plan Hypothyroidism -Previously prescribed levothyroxine -Will check TSH with morning labs Bipolar disorder -Continue Bupropion -Continue Divalproex VTE Prophylaxis: Home Eliquis Code Status: Full Code Admission and Anticipated Discharge Date Admission Date: April 05, 2024 Subjective pt had mechanical fall in am, has contusion to left shoulder questioned about feet and neuropathy, pt states that he has no sensory loss PT recommends home PT, 6 click score not poorly Physical Exam Physical Exam: pt is with mild CP, Acute ECG without changes cardiac exam is regular, JENNIFER lungs are clear left leg with some chronic skin changes and mild redness gross sensation intact, pulses are weakened Results & Data Results & Data Vital Signs (Past 12 Hours) Vital Signs Temp Pulse Resp BP Pulse Ox O2 Del Method 04/08/24 15:22 97.3 F L 61 18 148/69 H 96 Room Air 04/08/24 11:07 97.5 F L 63 17 104/63 95 Room Air 04/08/24 07:19 97.9 F 64 18 153/68 H 97 Room Air Laboratory Results wesleyiscan is with fixed defect and mild area of reversibility- await cardiology input PG Care Time/CCT Total # of Minutes Spent Total Time Spent with Patient: Total time spent is greater than 50% in coordination of care (as documented) at patient's floor/unit and/or counseling patient: Coding Level of Care Code 32550 SUB INP/OBS CARE 3/50MIN Diagnoses Diabetes mellitus type 2 in obese E11.69; E66.9 Chest pain R07.9 Chest pain type: unspecified Gait instability R26.81 (2) Chest pain Chest pain type: unspecified Qualified Code(s): R07.9 - Chest pain, unspecified"
[2024-04-08] MEDS: THIAMINE HCL 200 MG in SODIUM CHLORIDE 0.9% 50 ML IV STA (18:41)
[2024-04-08] MEDS: LANTUS PER UNIT CHARGE SC ONE (21:28)
[2024-04-08] MEDS: INSULIN ASPART PER UNIT CHARGE SC ONE (21:29)
[2024-04-09] MEDS: INSULIN ASPART PER UNIT CHARGE SC SCH (08:18)
[2024-04-09] MEDS: ISOSORBIDE MONO EXTENDED REL 60 MG TABCR PO SCH (08:49)
[2024-04-09] MEDS: THIAMINE HCL 100 MG TAB PO SCH (08:50)
--- NOTE | 2024-04-09 09:32 | Cardiology Progress Note ---
Date of Service April 09, 2024 Assessment & Plan (1) Cardiac defibrillator in place: (2) Ventricular tachycardia: Plan 1. Dual-chamber ICD: The ICD was interrogated, lead characteristics, battery performance and pacing and sensing thresholds were evaluated. Stored data was downloaded and evaluated. Battery and lead performance is stable. He has had ventricular tachycardia below the rate detection of the device therefore was not treated and no shocks delivered. 2. Ventricular tachycardia: Although we can tell from other arrhythmia detections that he had ventricular tachycardia, the burden as well as the duration episodes cannot be determined. The episodes may correlate with his symptoms, it is difficult because he probably has more episodes than we are detecting. The device was reprogrammed to detect and treat the arrhythmia that was identified on the limited monitoring that we have, however if he has frequent episodes he may require frequent therapy. We therefore delayed identification of the arrhythmia so did not detect immediately, additionally added a number of antitachycardia pacing algorithms since he tolerates the arrhythmia fairly well. We also added a monitor zone to detect arrhythmias below the rate cut off that we currently set. I discussed follow-up with him and he would prefer to follow-up and [facility], therefore I am not going to make a follow-up appointment in our pacer clinic. Admission and Anticipated Discharge Date Admission Date: April 05, 2024 Subjective Events preceding admission and in the hospital reviewed with the patient, he was having periodic symptoms which are potentially compatible with arrhythmias. His initial device interrogation showed episodes of ventricular tachycardia which were a little less than 150 bpm and his device was set to detect ventricular tachycardia in excess of 185 bpm. This arrhythmia was therefore not detected, it was identified by the device as an automatic mode switching episode however that is probably not consistent and does not represent true identification of the arrhythmia. On telemetry we have not identified any significant arrhythmias since presentation and he has not had the symptoms. Physical Exam Physical Exam: Constitutional: Alert, cooperative and in no distress. HEENT: Unremarkable Neck: No jugular venous distention, carotid pulses are normal and equal bilaterally without bruits. Pulmonary: Clear to auscultation bilaterally. Cardiac: Regular rhythm with no murmur, gallop or rub. Abdomen: Soft, nontender with normal bowel sounds. Extremities: No edema. Distal pulses intact. Neurologic: No focal findings. Gait is steady. Skin: The device site is well-healed without erythema, swelling or tenderness. No rash, ecchymoses or petechiae. Results & Data Vital Signs (Past 12 Hours) Vital Signs Temp Pulse Pulse Resp BP Pulse Ox Pulse Ox 04/09/24 08:00 36.2 C L 65 18 153/67 H 94 04/09/24 07:00 68 04/09/24 02:35 36.3 C L 65 20 135/71 91 04/08/24 23:00 97 04/08/24 22:20 36.3 C L 78 18 129/74 97 04/08/24 21:50 73 O2 Del Method O2 Del Method 04/09/24 08:00 Room Air 04/09/24 07:00 04/09/24 02:35 Room Air 04/08/24 23:00 Room Air 04/08/24 22:20 Room Air 04/08/24 21:50 Laboratory Results Telemetry: No significant arrhythmia since admission PG Care Time/CCT Total # of Minutes Spent Total Time Spent with Patient: Total time spent is greater than 50% in coordination of care (as documented) at patient's floor/unit and/or counseling patient: Coding Level of Care Code 76525 SUB INP/OBS CARE 2/35MIN Diagnoses Cardiac defibrillator in place Z95.810 Ventricular tachycardia I47.20 CPT Codes Implantable Defib dual lead programming - 71782 ([id number])
--- NOTE | 2024-04-09 10:16 | Hospitalist Progress Note ---
"Date of Service April 09, 2024 Assessment & Plan (1) Gait instability: Plan: This has led to multiple falls over the past several weeks. Fell again last night 04/09 gait instability maybe due diabetic neuropathy Unable to obtain MRI due to aicd Endorses hitting his head during fall last week, now hit shoulder, patient taking Eliquis Will obtain head CT Doppler lower extremity, focal velocity left SFA otherwise normal will recommend follow up no claudication symtoms PT/OT evaluations ordered. Rehab is recommended , but patient says he wants to go home I dont feel he is a safe discharge home. he lives alone and has fallen multiple times (2) Diabetes mellitus type 2 in obese: Plan: Uncontrolled on presentation Hyperglycemia | Type 2 Diabetes Mellitus, BSG initially in ED was 640,, did not meet criteria for DKA Home diabetes medication is limited to Metformin 500mg BID, has been taking as prescribed. Held Basal bolus insulin, pt states he has taken insulin at home in the past Consult for glycemic management. pending A1C 10 software educator did visit Blood glucose is now under better control (3) Chest pain: Plan: Chest Pain | Coronary Artery Disease | S/P ICD placement -Received nitro paste in ED due to chest pain, symptoms resolved with nitro, no further paste -EKG obtained, no acute ST changes per my interpretation -Troponin slightly elevated at 21.9 -> 24.9->27 -Follows with cardiology in [place] -Continue Plavix, aspirin, Eliquis, Carvedilol, statin cardiology did start imdur, increased to 60, nuclear lexiscan 04/08/24 fixed defect no significant reversible ischemia Plan Hypothyroidism -Previously prescribed levothyroxine -Will check TSH with morning labs Bipolar disorder -Continue Bupropion -Continue Divalproex VTE Prophylaxis: Home Eliquis Code Status: Full Code Admission and Anticipated Discharge Date Admission Date: April 05, 2024 Subjective patient seen and examined,fell last night, but did not hit his head Review of Systems Review of Systems: All systems reviewed are negative, apart from the ones contained in the history. Physical Exam Physical Exam: The patient is awake, alert and oriented 3, well developed and well nourished, normocephalic and atraumatic, lying in bed and in no acute distress. HEENT--PERRL, EOMI, mucous membranes and oropharynx mildly dry Neck--supple. No JVD. No bruits. Thyroid normal, trachea midline, no adenopathy. Heart--normal S1 and S2. No murmurs, rubs or gallops. Lungs--clear bilaterally, no respiratory distress, no accessory muscle use. Abdomen--normal bowel sounds and soft. Extremities--no cyanosis or clubbing. No edema. Dermatologic--normal skin turgor, normal color, no abnormal lymph nodes, no rash. Neurologic--cranial nerves II through XII grossly intact. Rheumatologic--normal range of motion. Psychiatric--normal affect. Results & Data Results & Data Vital Signs (Past 12 Hours) Vital Signs Temp Pulse Pulse Resp BP Pulse Ox Pulse Ox 04/09/24 08:00 04/09/24 08:00 97.2 F L 65 18 153/67 H 94 04/09/24 07:00 68 04/09/24 02:35 97.3 F L 65 20 135/71 91 04/08/24 23:00 97 04/08/24 22:20 97.3 F L 78 18 129/74 97 O2 Del Method O2 Del Method 04/09/24 08:00 Room Air 04/09/24 08:00 Room Air 04/09/24 07:00 04/09/24 02:35 Room Air 04/08/24 23:00 Room Air 04/08/24 22:20 Room Air PG Care Time/CCT Total # of Minutes Spent Total Time Spent with Patient: Total time spent is greater than 50% in coordination of care (as documented) at patient's floor/unit and/or counseling patient: Coding Level of Care Code 43239 SUB INP/OBS CARE 2/35MIN Diagnoses Gait instability R26.81 Diabetes mellitus type 2 in obese E11.69; E66.9 Chest pain R07.9 Chest pain type: unspecified Time Spent (min) 35 (3) Chest pain Chest pain type: unspecified Qualified Code(s): R07.9 - Chest pain, unspecified"
[2024-04-09] MEDS: LANTUS PER UNIT CHARGE SC SCH ×2 (13:46→17:16)
--- NOTE | 2024-04-09 15:10 | Pharmacy Report ---
Pharmacy Glycemic Short Note 2 - Date of Service April 09, 2024 - Glycemic Short BSG Results (Last 24 hours): 04/08/24 04/08/24 04/09/24 15:59 20:19 07:11 POC Glucose 191 H 209 H 112 H 04/09/24 11:11 POC Glucose 240 H OUTPATIENT ANTIDIABETIC REGIMEN: * Metformin 500 mg BID * A1c 10.0% 04/06/24 ASSESSMENT: 04/09 * MC received 38 units of insulin yesterday * 25 units of glargine * 13 units of aspart * BSGs were within goal yesterday, increased after pt became PO after stress test completed. * Changed glargine to once daily, will target higher dosing now that pt is ordered diet. family educator met with pt and states pt prefers to take insulin HS. 04/06 * Alejandro received 55 units of insulin yesterday (35 were basal) * Fasting BSG this AM acceptable, will slightly decrease basal given yesterday and give as one dose this morning. Will allow for additional insulin at bedtime if BSGs are elevated. * Novolog appears to be covering/correcting appropriately. No glycemic stressors noted at this time. 04/06 * MC is here for leg pain and hyperglycemia. Random BSG yesterday at 640 and POC last night in 300s. Improved this AM until before lunch, will tighten CF and CR to stress of 3. Will also add on scaled lantus this PM. * No glycemic stressors noted. * T2DM diet ordered. PLAN FOR INPATIENT GLYCEMIC CONTROL: * Hold outpatient oral diabetes medications * Basal insulin * Lantus scale 35 units SQ HS * Bolus insulin * NovoLog per scale ACHS or Q6hrs while NPO * Goal Range: Low 110 mg/dL - High 140 mg/dL * Correction Factor: 20 mg/dL/unit * Nutritional / Prandial insulin per carb ratio of 1 unit per 8 grams CHO consumed
[2024-04-10 07:31] VITALS: RESP 18; TEMP 97.3
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
[2024-04-10] MEDS: TAMSULOSIN HCL 0.4 MG CAP PO SCH (11:07)
[2024-04-10 12:01] VITALS: BP 137/60; O2SAT 95
[2024-04-10 13:26] VITALS: PULSE 66
[2024-04-10] MEDS ORDERED: LANTUS PER UNIT CHARGE SC SCH ×2 (21:00)
== END 2024-04-10 14:09 | disposition home health service (06) | DRG 638 ==
LOC: ED 17:56 → EDINP 21:22 → SUATTDRO 21:22 → 2S 22:43

== ENCOUNTER 2024-05-29 12:20 | Inpatient (IN) ==
[2024-05-29 13:10] LABS: Basophils # (auto) 0.04 K/uL (0.00-0.20); Basophils % (auto) 0.5 %; Eosinophils # (auto) 0.52 K/uL (0.00-0.50); Eosinophils % (auto) 6.6 %; Hematocrit (blood only) 37.6 % (42.0-52.0); Hemoglobin 12.2 g/dl (14.0-18.0); Immature Granulocytes # (auto) 0.02 K/uL (0.01-0.20); Immature Granulocytes % (auto) 0.3 %; Lymphocytes # (auto) 1.77 K/uL (1.20-3.40); Lymphocytes % (auto) 22.4 %; Mean Corpuscular Hemoglobin 28.1 pg (25.0-34.0); Mean Corpuscular Hgb Conc 32.4 g/dL (32.0-36.0); Mean Corpuscular Volume 86.6 fL (80.0-100.0); Mean Platelet Volume 10.6 fL (9.4-12.4); Monocytes # (auto) 0.74 K/uL (0.11-0.59); Monocytes % (auto) 9.4 %; Neutrophils % (auto) 60.8 %; Platelet Count 207 K/uL (130-400); RDW Coefficient of Variation 13.2 % (11.5-14.5); RDW Standard Deviation 41.9 fL (36.4-46.3); Red Blood Count 4.34 M/uL (4.70-6.10); White Blood Count 7.89 K/ul (4.8-10.8)
[2024-05-29 13:14] LABS: Albumin Globulin Ratio 1.3 (0.9-2); Albumin Level 3.9 gm/dl (3.4-5.0); Bilirubin,Total 0.7 mg/dl (0.2-1.0); Calcium 9.6 mg/dl (8.6-10.3); Creatinine Clr Calc Pharmacy 60.4 ml/min; Globulin 2.9 gm/dl (2.5-4.0); Potassium 4.3 mmol/L (3.5-5.1); Total Protein 6.8 gm/dl (6.0-8.3)
[2024-05-29 13:20] LABS: Troponin I High Sensitivity 17.5 pg/ml (0-20)
--- NOTE | 2024-05-29 13:32 | Emergency Department Note ---
Impression & Plan Chest pain, Shortness of breath, Acute hyponatremia ED Provider Note NAME: ANTONIETTA Duff CASE AGE: 79 SEX: M : 1945 ARRIVES VIA: Ambulance INFORMANT: Patient ED PROVIDER(S): Gaurav Hardy DO CHIEF COMPLAINT: Chest pain HPI: Patient is a 79-year-old male with a past medical history of of V. tach, ischemic cardiomyopathy, CABG in 93 with 17 stents who presents to the ER for chest pain which has been coming going for the past several days. Notes its located in the middle of the left of his chest. It worsens with exertion and improves with rest. He does still intermittently get it at rest. Last time he got it was about 20 minutes ago. Denies any belly pain, nausea, vomiting, or diarrhea. Currently chest pain-free. No dysuria, urgency, or frequency. Patient did receive aspirin prior to arrival. He notes this feels like his previous heart attacks. ADDITIONAL HISTORY OBTAINED: Per HPI Chronic Medical/Social Conditions Affecting Care: Per HPI PAST MEDICAL HISTORY:See Below PAST SURGICAL HISTORY:See Below FAMILY HISTORY:See Below SOCIAL HISTORY:See Below HOME MEDICATIONS:See Below ALLERGIES:See Below VITALS:See Below PHYSICAL EXAMINATION: GENERAL: Sitting up in bed, alert, well appearing, well nourished, no distress, non-toxic EYE EXAM: normal conjunctiva. PERRL and EOM's grossly intact. OROPHARYNX: no exudate, no erythema, lips, buccal mucosa, and tongue normal and mucous membranes are moist NECK: supple, no nuchal rigidity, no adenopathy, non-tender LUNGS: Clear to auscultation. Normal chest wall mechanics HEART: no murmurs, S1 normal and S2 normal ABDOMEN: abdomen soft, non-tender, normo-active bowel sounds, no masses, no rebound or guarding. BACK: Back is symmetrical on inspection and there is no deformity, no midline tenderness, no CVA tenderness. SKIN: no rashes and no bruising UPPER EXTREMITIES: upper extremities are grossly normal. LOWER EXTREMITIES: No pitting edema. NEURO EXAM: Normal sensorium, cranial nerves II-XII grossly intact, normal speech, no gross weakness of arms, no gross weakness of legs. No drift. Finger to nose intact. Gross sensation intact. MEDICAL DECISION MAKING: Patient is a 79-year-old male who presents ER for the above-stated complaint. IV was established and blood work was obtained. Labs showed no significant leukocytosis or anemia. INR unremarkable. BMP with mild hyponatremia at 134. LFTs bilirubin was unremarkable. Troponin negative. Patient has extensive cardiac history. He was given aspirin nitro. Chest x-ray was clean. EKG nondiagnostic. He was discussed with the hospitalist for further evaluation management treatment. Consults/Care Managements Discussions: Per [facility] Triage Nursing notes reviewed. Limited review of prior medical records performed Vital Signs: reviewed and remarkable for no significant abnormalities Differential diagnosis: Cardiac ischemia, aortic dissection, pulmonary embolism, pneumothorax, pneumonia, pericarditis, myocarditis, esophageal rupture, GERD, cholecystitis, pancreatitis, musculoskeletal, as well as other pathologies. ER treatment provided: See below Diagnostics interpreted by me include EKG and cardiac monitoring as listed below: -Cardiac Monitoring: An order was placed for continuous cardiac monitoring. The monitor shows a rate of 70 with sinus rhythm. -ECG: Paced rate of 63 Left axis Right bundle branch block QTc 470 Paced rate of 64 Left axis Right bundle branch block QTc 478 -Laboratory studies:Interpreted by me as stated above in MDM and shown below. Imaging studies: Xrays: As interpreted by me: Portable AP upright 1 view of the chest showed no focal infiltrate CTs show: None Procedures: None Critical Care: None Past Med/Surg History Problem List (Updated 05/29/24 @ 18:25 by Gaurav Hardy DO) Acute hyponatremia (Acute) Shortness of breath (Acute) Chest pain (Acute) Acute foot pain (Acute) Pseudohyponatremia (Acute) Elevated troponin (Acute) Elevated troponin Ventricular tachycardia Ischemic cardiomyopathy Syncope and collapse S/P coronary artery stent placement S/P CABG (coronary artery bypass graft) Left leg pain Hyperglycemia (Acute) Gait instability (Acute) CHI (closed head injury) (Acute) Impacted cerumen of left ear Hyponatremia STEPHAN (acute kidney injury) Left-sided chest pain (Acute) Left rib fracture (Acute) Chest pain (Acute) Cardiac defibrillator in place [employer] Diabetes mellitus type 2 in obese DVT prophylaxis Status post fall Hypertension CAD (coronary artery disease) (Chronic) Coronary artery bypass graft 1992: [place] to LAD, saphenous vein graft to 1st diagonal, saphenous vein graft to om 1, saphenous vein graft to the right coronary artery BPD (bronchopulmonary dysplasia) (Chronic) Hypothyroid (Chronic) Bipolar disorder (Chronic) Medical History Falls frequently Surgical History Hx of inguinal herniorrhaphy Status post aorto-coronary artery bypass graft Family History Other Family history non-contributory Social History Smoking Status: Former smoker Tobacco Type: Cigarettes Second Hand Exposure: No; Do You Dip or Chew Tobacco: No; Hx Alcohol Use: No Hx Substance Use: No Preferred Language: Senegalese Communication Ability: Effective Garment Tag Stringer Required: No Beliefs That Will Affect Care: None Current Living Situation: Alone Current Living Situation Comment: 1 pet dog Feels Safe at Home: Yes Assistive Devices: Walker Allergies Allergies Allergy/AdvReac Type Severity Reaction Status Date / Time Milk Containing Products Allergy Unknown Unknown Unverified 05/29/24 15:54 (Dairy) Iodinated Contrast Media Allergy Rash Verified 05/29/24 15:54 warfarin AdvReac Severe Made my Unverified 05/29/24 15:54 blood extremely thin Home Meds Home Medications Medication Instructions Recorded Confirmed bupropion HCl 200 mg tablet,12 hr 200 mg PO BID 07/10/20 05/29/24 sustained-release clopidogrel 75 mg tablet (Plavix) 75 mg PO DAILY 07/10/20 05/29/24 divalproex 250 mg tablet,delayed 750 mg PO HS 07/10/20 05/29/24 release metformin 500 mg tablet 500 mg PO BID 07/10/20 05/29/24 rosuvastatin 10 mg tablet 10 mg PO QAM 07/10/20 05/29/24 nitroglycerin 0.4 mg sublingual 0.4 mg sublingual UD PRN Chest Pain 01/08/21 05/29/24 tablet (Nitrostat) apixaban 5 mg tablet (Eliquis) 5 mg PO BID 04/05/24 05/29/24 carvedilol 25 mg tablet 25 mg PO BID 04/05/24 05/29/24 furosemide 40 mg tablet 40 mg PO DAILY SWELLING 04/05/24 05/29/24 multivitamin 1 tab PO DAILY 04/05/24 05/29/24 duloxetine 60 mg capsule,delayed 60 mg PO DAILY 05/29/24 05/29/24 release melatonin 12 mg tablet 12 mg PO HS 05/29/24 05/29/24 ramipril 2.5 mg capsule 2.5 mg PO BID 05/29/24 05/29/24 tamsulosin 0.4 mg capsule 0.4 mg PO QAM 05/29/24 05/29/24 Previous Rx's Medication Instructions Recorded blood sugar diagnostic (OneTouch #100 ea 04/06/24 Verio test strips) blood-glucose meter #1 ea 04/06/24 lancets 33 gauge #100 ea 04/06/24 insulin glargine 100 unit/mL (3 35 unit (0.35 mL) subcut PM #15 mL 04/10/24 mL) subcutaneous pen (Lantus Solostar U-100 Insulin) pen needle,diabetic, disp unit 32 #100 ea 04/10/24 gauge x 5/32", remover and disposal unit Results & Data (ED) Vital Signs Vital Signs - 24 hr 05/29/24 12:29 05/29/24 12:31 05/29/24 12:40 Temperature 36.5 C Temperature Source Oral Pulse Rate 65 62 Pulse Rate [Left Finger] Respiratory Rate 23 Respiratory Effort / Characteristics Non-Labored Spontaneous Short of Breath Spontaneous Short of Breath Respiratory Depth Normal Respiratory Pattern Blood Pressure 156/80 H Blood Pressure [Left Arm] Blood Pressure Mean 105 Blood Pressure Mean [Left Arm] Pulse Oximetry 97 Oxygen Delivery Method Room Air Oxygen Flow Rate Sepsis Recent Fever Within 48 Hours No Sepsis New/Unexplained Change in Mental Status N/A Sepsis Action Taken by Nursing No Action Required 05/29/24 12:49 05/29/24 14:00 05/29/24 16:00 Temperature Temperature Source Pulse Rate Pulse Rate [Left Finger] 61 77 64 Respiratory Rate 20 20 22 Respiratory Effort / Characteristics Non-Labored Spontaneous Non-Labored Spontaneous Respiratory Depth Normal Normal Respiratory Pattern Regular Blood Pressure Blood Pressure [Left Arm] 170/72 H 119/83 150/70 H Blood Pressure Mean Blood Pressure Mean [Left Arm] 104 95 96 Pulse Oximetry 99 96 100 Oxygen Delivery Method Nasal Cannula Nasal Cannula Nasal Cannula Oxygen Flow Rate 2 2 2 Sepsis Recent Fever Within 48 Hours Sepsis New/Unexplained Change in Mental Status Sepsis Action Taken by Nursing Laboratory Data 05/29/24 12:30 05/29/24 12:30 Lab Results 05/29/24 Range/Units 12:30 WBC 7.89 (4.8-10.8) K/ul RBC 4.34 L (4.70-6.10) M/uL Hgb 12.2 L (14.0-18.0) g/dl Hct 37.6 L (42.0-52.0) % MCV 86.6 (80.0-100.0) fL MCH 28.1 (25.0-34.0) pg MCHC 32.4 (32.0-36.0) g/dL RDW Std Deviation 41.9 (36.4-46.3) fL RDW Coeff of De 13.2 (11.5-14.5) % Plt Count 207 (130-400) K/uL MPV 10.6 (9.4-12.4) fL Immature Gran % (Auto) 0.3 % Neut % (Auto) 60.8 % Lymph % (Auto) 22.4 % [place] % (Auto) 9.4 % Eos % (Auto) 6.6 % Baso % (Auto) 0.5 % Neut # (Auto) 4.80 (1.40-6.50) K/uL Lymph # (Auto) 1.77 (1.20-3.40) K/uL [place] # (Auto) 0.74 H (0.11-0.59) K/uL Eos # (Auto) 0.52 H (0.00-0.50) K/uL Baso # (Auto) 0.04 (0.00-0.20) K/uL Immature Gran # (Auto) 0.02 (0.01-0.20) K/uL PT 11.4 (9.0-12.0) Seconds INR 1.1 (0.9-1.1) APTT 30 (21-31) Seconds PTT Ratio 1.1 Sodium 134 L (136-145) mmol/L Potassium 4.3 (3.5-5.1) mmol/L Chloride 100 (98-107) mmol/L Carbon Dioxide 28 (21-32) mmol/L Anion Gap 6 (3-11) BUN 16 (6-23) mg/dl Creatinine 1.14 (0.6-1.4) mg/dl Est Cr Clr Drug Dosing 60.4 ml/min eGFR 66.24 BUN/Creatinine Ratio 14.0 (10-20) Glucose 252 H (70-99(Fasting)) mg/dl Calcium 9.6 (8.6-10.3) mg/dl Total Bilirubin 0.7 (0.2-1.0) mg/dl AST 26 (13-39) U/L ALT 31 (7-52) U/L Alkaline Phosphatase 75 (34-104) U/L Troponin I High Sens 17.5 (0-20) pg/ml Total Protein 6.8 (6.0-8.3) gm/dl Albumin 3.9 (3.4-5.0) gm/dl Globulin 2.9 (2.5-4.0) gm/dl Albumin/Globulin Ratio 1.3 (0.9-2) Administered Medications Discontinued Medications Ceftriaxone Sodium (Rocephin) 2,000 mg in 50 mls @ 100 mls/hr IV NOW STA Stop: 05/29/24 13:56 Last Infusion: 05/29/24 15:23 Dose: Infused Documented By: Admin: 05/29/24 13:38 Dose: 100 mls/hr Documented By: FRANCHESCA Nitroglycerin (Nitroglycerin Sl 0.4 Mg/Tab Tab) 0.4 mg SL NOW STA Stop: 05/29/24 14:10 Last Admin: 05/29/24 14:15 Dose: 0.4 mg Documented By: FRANCHESCA Imaging Data Radiologist's Impression: Chest X-Ray 05/29/24 12:29 XR chest 1V not portable CLINICAL HISTORY: Chest pain, nonspecific COMPARISON STUDY: Chest CT July 10, 2020. Chest radiograph March 08, 2021. FINDINGS: Left subclavian pacer/AICD is in place. There are mediastinal wires and mediastinal surgical clips. There is no pneumothorax or pleural effusion. Mild interstitial thickening is present. There is no consolidation to suggest pneumonia. IMPRESSION: Cardiomegaly. Interstitial thickening which favors mild pulmonary edema. ACT 112: Negative or not required by law. Electronically signed by: Ryan Mcgrath M.D. 05/29/2024 1:47 PM Discharge Plan Visit Data Chief Complaint: Chest Pain ED Provider: Gaurav Hardy Discharge Problem: Chest pain, Shortness of breath, Acute hyponatremia Patient Disposition: Admitted As Inpatient Discharge Instructions Interventions: ED Discharge Assessment Last Done: 05/29/24 17:26
[2024-05-29 13:35] LABS: INR 1.1 (0.9-1.1); Partial Thromboplastin Ratio 1.1; Partial Thromboplastin Time 30 Seconds (21-31); Prothrombin Time 11.4 Seconds (9.0-12.0)
[2024-05-29] MEDS: cefTRIAXone SODIUM 2,000 MG/50 ML BAG IV STA (13:38)
--- NOTE | 2024-05-29 13:49 | XRay Report ---
XR chest 1V not portable CLINICAL HISTORY: Chest pain, nonspecific COMPARISON STUDY: Chest CT July 10, 2020. Chest radiograph March 08, 2021. FINDINGS: Left subclavian pacer/AICD is in place. There are mediastinal wires and mediastinal surgica l clips. There is no pneumothorax or pleural effusion. Mild interstitial thickening is present. There is no consolidation to suggest pneumonia. IMPRESSION: Cardiomegaly. Interstitial thickening which favors mild pulmonary edema. ACT 112: Negative or not required by law. Electronically signed by: Ryan Mcgrath M.D. 05/29/2024 1:47 PM
[2024-05-29] MEDS: NITROGLYCERIN SL 0.4 MG/TAB TAB SL STA (14:15)
--- NOTE | 2024-05-29 15:30 | History & Physical Report ---
<Statement entered by Mala Wu MD - 05/29/24 17:16> I have reviewed vital signs, chart notes, labs and imaging. I have personally seen, evaluated and examined the patient. I have also discussed the management of the patient with the RUEL and I agree with the exam findings documented in the history and physical examination and the documented assessment and plan unless otherwise stated below. he was admitted about a month ago here and had workup for chest pain including an echocardiogram and myocardial perfusion scan which was notable for inferior, inferior lateral, and lateral wall infarcts with mild robe-infarct ischemia. His echo with EF of 45% basilar, inferoseptal akinesis and inferolateral hypokinesis mildly reduced RV function. plan per optomechanical technician at that time was to add a nitrate to his medications for antianginal however he is not on a nitrate at this time. He was also seen by EP regarding some syncopal events and VT, his AICD settings were adjusted. On exam Mr. Dowling is awake and alert oriented x 4 lungs are clear no rhonchi rales or wheezes, heart is regular no murmurs no JVD chest wall is nontender to palpation, abdomen soft nontender nondistended, lower extremities without edema. He has venous stasis dermatitis both ankles and some readiness of his lower shins/ankles without warmth or induration. There are a few small thin walled bulla medial left ankle. his feet are warm and well-perfused intermittent chest pain, sometimes exertional, extensive history of multivessel coronary artery disease. this pain is not suspicious for other serious causes of chest pain such as pulmonary embolism or aortic dissection. No chest pain currently, troponin was normal, EKG without acute ischemic changes chest pain could be anginal or noncardiac pain, I do not see evidence of an acute coronary syndrome - admit for observation, serial high-sensitivity troponin, telemetry monitoring - consult cardiology - consider medication adjustment for antianginals - Continue aspirin, Plavix, carvedilol, rosuvastatin chronic heart failure with midrange ejection fractionrecently dose diagnosed Thanksgi week. Currently well compensated and euvolemic - continue carvedilol, furosemide p.o., low-dose ramipril - not currently on SGLT2 which she may benefit from chronic hypoxic respiratory failure on 2 L home oxygen at baseline peripheral arterial disease with chronic left calf pain, lower arterial duplex this fall with a focal stenosis of left SFA, right peroneal artery was monophasic, NEVIN on right was 0.92 NEVIN on left was 1.42 - continue same medications as above, he states he has an appointment with a vascular surgeon in June he has bulla left medial ankle is seems like these are related to leg edema that has now improved, and is also possible he has venous stasis and or vascular ulcers. He has some erythema but these ankles do not appear to have cellulitis at this time bipolar disordercontinue valproic acid and bupropion diabetes type 2 recent A1c was 10 continue glargine, add as needed short acting insulin, hold metformin Date of Service May 29, 2024 Assessment & Plan (1) Chest pain: Plan: Chest pain starting at [id number], radiation left/central chest, no associated symptoms; h/o cardiac disease includes 5 myocardial infarction's, 17 cardiac stents, pacemaker placed, ischemic cardiomyopathy; follows w/ cardiology - Admit - Cardiac monitoring - EKG appearing normal sinus, rate around 65 bpm - EKG prn w/ chest pain - Troponin 17.5 - CBC RBC 4.34 H&H 12.2/37.6, CMP sodium 134 (corrected 138), glucose 252, TSH pending - CXR cardiomegaly, interstitial thickening favoring mild pulmonary edema - Echo 04/06-normal LV size currently 55%, EF 45%, akinesis of the basal inferior and basal inferoseptal wall segments, severe hypokinesis of the inferior lateral wall, mild concentric left ventricular hypertrophy; mildly reduced RV systolic function; mild biatrial dilation; trace AR; normal estimated RVSP - Lipid pending - ASA 81 mg daily - Continue - NTG SL prn for CP - Outpatient medications include aspirin, Plavix, Eliquis, carvedilol, statin - Given pt symptoms have become more frequent and significant history-> cardiology consulted Appreciate cardiology input + recs (2) Diabetes mellitus type 2 in obese: Plan: H/o DMT 2 - At home regimen metformin, glargine 35 units nightly - Most recent A1C 03/2024 at 10% - SSI with target BSG range 110-140mg/dL, CF 35, carb ratio 10 - T2DM diet - BSG ACHS if eating - Adjust regimen as needed - Pharm glycemic management consult placed (3) CAD (coronary artery disease): Plan: H/o CAD; Coronary artery bypass graft 1992: [place] to LAD, saphenous vein graft to 1st diagonal, saphenous vein graft to om 1, saphenous vein graft to the right coronary artery; Follows w/ cardiology - CP currently resolved; 2-3 episodes per week of exertional chest pain, resolved w/ rest - EKG NSR today - Troponin 17.5 (4) Falls frequently: Plan: H/o multiple falls; ongoing and recent fall today, struck head; believes he stood up too quickly from chair, fell to ground, no LOC - Pt refusing CT of head; no SANCHEZ, neuro deficits, VF deficits - PT/OT Plan HLD- rosuvastatin Bipolar disorder- divalproex, bupropion Lesion LLE- Ongoing since July; Defer antibiotics; no leukocytosis, F/C, or infectious symptoms on exam; pt agreeable Dispo: Admit Diet: Heart healthy, T2DM VTE Prophylaxis: On Eliquis Code: Full Admission and Anticipated Discharge Date Admission Date: 05/29/2024 History of Present Illness Chief Complaint: Chest pain Primary Care Provider: Marisol Love 79-year-old male presenting via EMS with reports of intermittent chest pain and shortness of breath; history of 5 MIs and 17 cardiac stents with pacemaker. ED course CBC RBC 4.34, H&H 12.2/37.6, monocytes 0.74, eosinophils 0.52; PT/INR WNL; CMP sodium 134 (corrected 138), glucose 252; troponin 17.5, pending repeat. CXR cardiomegaly, interstitial thickening which favors mild pulmonary edema; EKG undetermined rhythm, LAD, LBBB, rate around 65 bpm.; Provided with nitroglycerin and Rocephin in ED. 79-year-old male PMHx CAD (5 myocardial infarction's, 17 cardiac stents, pacemaker placed), ischemic cardiomyopathy, history of V. tach, T2DM, HTN, bronchopulmonary dysplasia, hypothyroidism, and bipolar disorder presenting for chest pain started today. States it began around [id number] this a.m., described it as a dull pain central chest that does not radiate. Had mild shortness of breath, but nothing out of his normal shortness of breath. Patient does require 2 L O2 at all times. Patient notes that he did have some palpitations earlier in the day as well, case is since resolved. States he is unsure what level his pain was may be a 5, but that the pain has since resolved since around noon. Has had multiple episodes of this happen before, and has a significant cardiac history. Patient typically gets chest pain around 2-3 times per week, that resolves with rest. Usual triggers exertion. Currently chest pain free. Did have fall when transferring from sitting to standing at home, struck head. No headaches or vision changes. Patient also reports that he has a blistering lesion on his left inner ankle that has been ongoing since July, has been on multiple courses of antibiotics and has not had relief in the symptoms. Denying fever or chills. Overall denying abdominal pain, N/V/D/C, numbness or tingling, LUTS, or headaches. Took all a.m. medications. Please see Dr. Wu's attestation for adjustments/additions to treatment plan. Allergies Allergy/AdvReac Type Severity Reaction Status Date / Time Iodinated Contrast Media Allergy Rash Verified 03/08/21 06:45 Home Medications Medication Instructions Recorded Confirmed Type aspirin 81 mg tablet,delayed 81 mg PO DAILY 07/10/20 04/05/24 History release (Dexter Low Dose Aspirin) bupropion HCl 200 mg tablet,12 hr 200 mg PO BID 07/10/20 04/05/24 History sustained-release clopidogrel 75 mg tablet (Plavix) 75 mg PO DAILY 07/10/20 04/05/24 History divalproex 250 mg tablet,delayed 250 mg PO TID 07/10/20 04/05/24 History release metformin 500 mg tablet 500 mg PO BID 07/10/20 04/05/24 History rosuvastatin 10 mg tablet 10 mg PO HS 07/10/20 04/05/24 History nitroglycerin 0.4 mg sublingual 0.4 mg sublingual UD PRN Chest Pain 01/08/21 04/05/24 History tablet (Nitrostat) cyanocobalamin (vitamin B-12) 500 1,000 mcg (2 x 500 mcg) PO QAM #30 03/21/21 04/05/24 Rx mcg tablet tabs apixaban 5 mg tablet (Eliquis) 5 mg PO BID 04/05/24 04/05/24 History carvedilol 25 mg tablet 25 mg PO BID 04/05/24 04/05/24 History furosemide 40 mg tablet 40 mg PO DAILY PRN SWELLING 04/05/24 04/05/24 History multivitamin 1 tab PO DAILY 04/05/24 04/05/24 History blood sugar diagnostic (OneTouch #100 ea 04/06/24 Rx Verio test strips) blood-glucose meter #1 ea 04/06/24 Rx lancets 33 gauge #100 ea 04/06/24 Rx insulin glargine 100 unit/mL (3 35 unit (0.35 mL) subcut PM #15 mL 04/10/24 Rx mL) subcutaneous pen (Lantus Solostar U-100 Insulin) pen needle,diabetic, disp unit 32 #100 ea 04/10/24 Rx gauge x ", remover and disposal unit Past Med/Surg History Problem List Acute foot pain (Acute) Pseudohyponatremia (Acute) Elevated troponin (Acute) Elevated troponin Ventricular tachycardia Ischemic cardiomyopathy Syncope and collapse S/P coronary artery stent placement S/P CABG (coronary artery bypass graft) Left leg pain Hyperglycemia (Acute) Gait instability (Acute) CHI (closed head injury) (Acute) Impacted cerumen of left ear Hyponatremia STEPHAN (acute kidney injury) Left-sided chest pain (Acute) Left rib fracture (Acute) Chest pain (Acute) Cardiac defibrillator in place Storify Diabetes mellitus type 2 in obese DVT prophylaxis Status post fall Hypertension CAD (coronary artery disease) (Chronic) Coronary artery bypass graft 1992: [place] to LAD, saphenous vein graft to 1st diagonal, saphenous vein graft to om 1, saphenous vein graft to the right coronary artery BPD (bronchopulmonary dysplasia) (Chronic) Hypothyroid (Chronic) Bipolar disorder (Chronic) Medical History Falls frequently Surgical History Hx of inguinal herniorrhaphy Status post aorto-coronary artery bypass graft Family History Other Family history non-contributory Social History Smoking Status: Former smoker Tobacco Type: Cigarettes Second Hand Exposure: No; Do You Dip or Chew Tobacco: No; Hx Alcohol Use: No Hx Substance Use: No Preferred Language: Namibian Communication Ability: Effective Chief 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 Head: Normocephalic, atraumatic Eyes: PERRL, conjunctivae clear, sclera non-icteric; EOM intact; wearing glasses ENT: External ear and ear canal without swelling; nose atraumatic; good dentition, tongue normal appearance Neck: Supple, no LAD; no JVD Cardio: RRR, no M/G/R, S1 and S2 normal; multiple telangiectasias over chest; cardiac equipment left chest Resp: No respiratory distress, Lungs CTA in all lobes bilaterally, no wheezes, rales, or rhonchi Abdomen: Soft, symmetric, nontender; no masses or hepatosplenomegaly; Bowel sounds normoactive MSK: No deformities, full ROM throughout; pulses palpable and equal; no edema. Neuro: Awake, alert; Muscle strength 5/5 bilaterally in UE/LE; Sensation intact bilaterally; CN intact Psych: Appropriate mood and affect; good judgement and insight. Results & Data Results & Data Vital Signs (Past 12 Hours) Vital Signs Temp Pulse Pulse Resp BP BP Pulse Ox 05/29/24 14:00 77 20 119/83 96 05/29/24 12:49 61 20 170/72 H 99 05/29/24 12:31 36.5 C 62 23 156/80 H 97 05/29/24 12:29 65 O2 Del Method O2 Flow Rate 05/29/24 14:00 Nasal Cannula 2 05/29/24 12:49 Nasal Cannula 2 05/29/24 12:31 Room Air 05/29/24 12:29 Laboratory Results 05/29/24 12:30 WBC 7.89 RBC 4.34 L Hgb 12.2 L Hct 37.6 L MCV 86.6 MCH 28.1 MCHC 32.4 RDW Std Deviation 41.9 RDW Coeff of De 13.2 Plt Count 207 MPV 10.6 Immature Gran % (Auto) 0.3 Neut % (Auto) 60.8 Lymph % (Auto) 22.4 [place] % (Auto) 9.4 Eos % (Auto) 6.6 Baso % (Auto) 0.5 Neut # (Auto) 4.80 Lymph # (Auto) 1.77 [place] # (Auto) 0.74 H Eos # (Auto) 0.52 H Baso # (Auto) 0.04 Immature Gran # (Auto) 0.02 PT 11.4 INR 1.1 APTT 30 PTT Ratio 1.1 Sodium 134 L Potassium 4.3 Chloride 100 Carbon Dioxide 28 Anion Gap 6 BUN 16 Creatinine 1.14 Est Cr Clr Drug Dosing 60.4 eGFR 66.24 BUN/Creatinine Ratio 14.0 Glucose 252 H Calcium 9.6 Total Bilirubin 0.7 AST 26 ALT 31 Alkaline Phosphatase 75 Troponin I High Sens 17.5 Total Protein 6.8 Albumin 3.9 Globulin 2.9 Albumin/Globulin Ratio 1.3 Diagnostic Findings Chest X-Ray 05/29/24 12:29 XR chest 1V not portable CLINICAL HISTORY: Chest pain, nonspecific COMPARISON STUDY: Chest CT July 10, 2020. Chest radiograph March 08, 2021. FINDINGS: Left subclavian pacer/AICD is in place. There are mediastinal wires and mediastinal surgical clips. There is no pneumothorax or pleural effusion. Mild interstitial thickening is present. There is no consolidation to suggest pneumonia. IMPRESSION: Cardiomegaly. Interstitial thickening which favors mild pulmonary edema. ACT 112: Negative or not required by law. Electronically signed by: Ryan Mcgrath M.D. 05/29/2024 1:47 PM Code Status & VTE Plan Code Status FUll PG Care Time/CCT Total # of Minutes Spent Total Time Spent with Patient: Total time spent is greater than 50% in coordination of care (as documented) at patient's floor/unit and/or counseling patient: Coding Level of Care Code 87943 INT INP/OBS CARE 3/75MIN Diagnoses Chest pain R07.9 Chest pain type: unspecified Diabetes mellitus type 2 in obese E11.69; E66.9 Coronary artery disease of autologous vein bypass graft with stable angina pectoris I25.718 Associated angina: with stable angina Coronary Disease-Associated Artery/Lesion type: bypass graft, autologous vein Falls frequently R29.6 (1) Chest pain Chest pain type: unspecified Qualified Code(s): R07.9 - Chest pain, unspecified (3) CAD (coronary artery disease) Associated angina: with stable angina Coronary Disease-Associated Artery/Lesion type: bypass graft, autologous vein Qualified Code(s): I25.718 - Atherosclerosis of autologous vein coronary artery bypass graft(s) with other forms of angina pectoris
[2024-05-29] MEDS ORDERED: POLYETHYLENE (MIRALAX) 17 GM PACK PO PRN (18:24)
[2024-05-29] MEDS ORDERED: GLUCOSE 40% GEL 15 GM TUBE PO PRN (18:24)
[2024-05-29] MEDS ORDERED: GLUCAGON FOR INJ 1 MG VIAL SQ PRN (18:24)
[2024-05-29] MEDS ORDERED: GLUCOSE 10 TAB/TUBE PO PRN (18:24)
[2024-05-29] MEDS ORDERED: CARBOHYDRATES FOR HYPOGLYCEMIA PO PRN (18:24)
[2024-05-29] MEDS ORDERED: ALUMINUM/MAGNESIUM SUSP 30 ML UDC PO PRN (18:24)
[2024-05-29] MEDS ORDERED: DEXTROSE 50% 50 ML SYRINGE IV PRN (18:24)
[2024-05-29] MEDS ORDERED: PHARMACY GLYCEMIC MGMT CONSULT PRN (18:24)
[2024-05-29] MEDS ORDERED: NITROGLYCERIN SL 0.4 MG/TAB TAB SL PRN (19:00)
[2024-05-29] MEDS: NITROGLYCERIN SL 0.4 MG/TAB TAB ONE (19:02)
[2024-05-29 19:29] LABS: BUN Creatinine Ratio 13.4 (10-20); Calcium 9.7 mg/dl (8.6-10.3); Potassium 4.2 mmol/L (3.5-5.1)
--- NOTE | 2024-05-29 19:30 | Communication Note ---
Date of Service: May 29, 2024 substernal chest pressure 5/10-->2/10 after SL nitro I am unable to view EKG from home Ordered HS-trop with 2h reflex Ordered Imdur 30 mg - this was started by electrical electronics engineer for angina last admission but was not ordered on discharge for unknown reason
[2024-05-29 19:54] LABS: Troponin I High Sensitivity 15.5 pg/ml (0-20)
[2024-05-29] MEDS: APIXABAN 5 MG TABLET PO SCH (21:50)
[2024-05-29] MEDS: buPROPion SR 100 MG TABCR PO SCH (21:50)
[2024-05-29] MEDS: ISOSORBIDE MONO EXTENDED REL 30 MG TABCR PO ONE (21:51)
[2024-05-29] MEDS: carvediloL 25 MG TAB PO SCH (21:51)
[2024-05-29] MEDS: DIVALPROEX DELAY RELEASE 250 MG TABEC PO SCH (21:51)
[2024-05-29] MEDS: ENALAPRIL MALEATE 5 MG TAB PO SCH (21:52)
[2024-05-29] MEDS: INSULIN ASPART PER UNIT CHARGE SC SCH (21:54)
[2024-05-29] MEDS: LANTUS PER UNIT CHARGE SC SCH (21:55)
[2024-05-29] MEDS: NITROGLYCERIN SL 0.4 MG/TAB TAB SL PRN (23:58)
[2024-05-30] MEDS: MoRPHine SULFATE 2 MG/ML CARP IV STA (00:39)
--- NOTE | 2024-05-30 06:46 | Electrocardiogram Report ---
Test Reason : Blood Pressure : */* mmHG Vent. Rate : 63 BPM Atrial Rate : 63 BPM P-R Int : * ms QRS Dur : 136 ms QT Int : 460 ms P-R-T Axes : 77 -38 67 degrees QTcB Int : 470 ms Atrial-paced rhythm Left axis deviation Right bundle branch block Inferior infarct (cited on or before 11-Dec-2005) Abnormal ECG When compared with ECG of 07-Apr-2024 05:22, Premature ventricular complexes are no longer Present Confirmed by Alcides Booth ([id number]) on 05/30/2024 6:45:59 AM Referred By: REFERRED SELF Confirmed By: Alcides Booth
--- NOTE | 2024-05-30 06:46 | Electrocardiogram Report ---
Test Reason : Blood Pressure : */* mmHG Vent. Rate : 62 BPM Atrial Rate : 62 BPM P-R Int : 240 ms QRS Dur : 132 ms QT Int : 470 ms P-R-T Axes : -9 -43 81 degrees QTcB Int : 477 ms Poor data quality, interpretation may be adversely affected Atrial-paced rhythm with prolonged AV conduction Left axis deviation Right bundle branch block Inferior infarct (cited on or before 11-Dec-2005) Abnormal ECG When compared with ECG of 29-May-2024 18:53, No significant change was found Confirmed by Alcides Booth ([id number] on 05/30/2024 6:46:19 AM Referred By: REFERRED SELF Confirmed By: Alcides Booth
[2024-05-30 07:33] LABS: BUN Creatinine Ratio 14.4 (10-20); Calcium 9.3 mg/dl (8.6-10.3); Chol HDL Ratio 2.9 (0-5); Creatinine Clr Calc Pharmacy 56.7 ml/min; Potassium 4.3 mmol/L (3.5-5.1)
[2024-05-30 07:39] LABS: Troponin I High Sensitivity 13.6 pg/ml (0-20)
[2024-05-30 07:49] LABS: Thyroid Stimulating Hormone 3.29 uIu/ml (0.300-4.500)
--- NOTE | 2024-05-30 08:23 | Hospitalist Progress Note ---
Date of Service May 30, 2024 Assessment & Plan (1) CAD (coronary artery disease): (2) Chest pain: (3) Diabetes mellitus type 2 in obese: (4) Falls frequently: Plan 79 y/o man with extensive history of multivessel CAD admitted with increase in intermittent chest pain multivessel CAD Coronary artery bypass graft 1992: [place] to LAD, saphenous vein graft to 1st diagonal, saphenous vein graft to om 1, saphenous vein graft to the right coronary artery; reports history of 17 stents, last 5+ years ago? intermittent SSCP, sometimes exertional, increased last few days EKGs unchanged, serial HS troponins are normal chest pain could be anginal or noncardiac pain, I do not see evidence of an acute coronary syndrome - consulted cardiology, discussed with Leobardo Kilgore - added Imdur for antianginal and titrate up to effect - continue aspirin, Plavix, carvedilol, rosuvastatin. LDL 39 on current dose of statin - he is also on apixaban - added bid PPI chronic heart failure with midrange ejection fractionrecently diagnosed Thanks week treated at [facility]. 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 No apparent injury - "stood up too quickly" - check orthostatic VS diabetes type 2 recent A1c was 10 continue glargine, add as needed short acting insulin, hold metformin -BG 93 - 269, increase premeal and decrease glargine DVT ppx - apixaban Admission and Anticipated Discharge Date Admission Date: May 29, 2024 Subjective had episodes of chest pain last night, middle of the night, and this AM during rounds responds partially to SL NTG SS chest pressure with some radiation to back this am no dyspnea or nausea Physical Exam 2 Physical Exam: PHYSICAL EXAMINATION Last 24h vital signs reviewed, see documentation in flowsheet General: comfortable appearing, no distress, sitting up in bed HEENT: Normocephalic, atraumatic, pupils round and equal, sclerae anicteric, no conjunctival injection, moist mucus membranes Lungs: Normal respiratory effort. Clear to auscultation bilaterally. No RRW Heart: Regular rate and rhythm, no murmurs. No JVD Abdomen: Soft, nontender, nondistended. Bowel sounds present. Extremities: Warm, dry, well-perfused. No extremity edema. Neuro: Alert and oriented x 4, face symmetric, moves 4 extremities well Psych: Normal affect and behavior Results & Data Results & Data Vital Signs (Past 12 Hours) Vital Signs Temp Pulse Pulse Resp BP BP Pulse Ox 05/30/24 08:01 98.1 F 64 18 124/58 L 95 05/30/24 07:30 64 05/30/24 03:07 98.4 F 64 18 106/54 L 94 05/30/24 01:19 05/30/24 00:40 62 118/57 L 05/30/24 00:28 62 112/84 94 05/29/24 23:01 97.3 F L 62 20 124/54 L 99 05/29/24 21:47 63 O2 Del Method O2 Flow Rate 05/30/24 08:01 Nasal Cannula 1 05/30/24 07:30 05/30/24 03:07 Room Air 05/30/24 01:19 Room Air 05/30/24 00:40 05/30/24 00:28 Room Air 05/29/24 23:01 Nasal Cannula 1 05/29/24 21:47 Laboratory Results 05/29/24 12:30 05/30/24 06:45 serial HS troponin has been normal PG Care Time/CCT Total # of Minutes Spent Total Time Spent with Patient: Total time spent is greater than 50% in coordination of care (as documented) at patient's floor/unit and/or counseling patient: Coding Level of Care Code 38820 SUB INP/OBS CARE 2/35MIN Diagnoses Coronary artery disease of autologous vein bypass graft with stable angina pectoris I25.718 Associated angina: with stable angina Coronary Disease-Associated Artery/Lesion type: bypass graft, autologous vein Chest pain R07.9 Chest pain type: unspecified Diabetes mellitus type 2 in obese E11.69; E66.9 Falls frequently R29.6 (1) CAD (coronary artery disease) Associated angina: with stable angina Coronary Disease-Associated Artery/Lesion type: bypass graft, autologous vein Qualified Code(s): I25.718 - Atherosclerosis of autologous vein coronary artery bypass graft(s) with other forms of angina pectoris (2) Chest pain Chest pain type: unspecified Qualified Code(s): R07.9 - Chest pain, unspecified
--- NOTE | 2024-05-30 09:38 | Cardiology Consultation ---
Date of Consultation May 30, 2024 Assessment & Plan (1) Chest pain: (2) Ischemic cardiomyopathy: (3) CAD (coronary artery disease): (4) S/P coronary artery stent placement: (5) S/P CABG (coronary artery bypass graft): (6) Ventricular tachycardia: (7) Cardiac defibrillator in place: (8) Heart failure with mildly reduced ejection fraction (HFmrEF, 41-49%): Plan ASSESSMENT/PLAN: 1. Chest pain: Has a long history of chronic chest discomfort that improves with nitroglycerin. Despite prolonged episodes here (several), high-sensitivity troponin has remained normal. He also had a reassuring myocardial perfusion study on 04/08/2024 with predominantly infarct with only periinfarct ischemia. Recommend isosorbide mononitrate 30 mg daily and can titrate upward as necessary to see if it improves quality of life. Without objective findings to suggest ischemia, would recommend medical therapy as he has extensive CAD with 17 reported PCI and CABG x 4. Do not feel that invasive measures at this point would offer much benefit in current situation without objective findings to suggest ACS, especially given that his symptoms are chronic. 2. CAD s/p CABG x 4 and PCI x 17: No definite angina but rather chronic chest pain. Prolonged episodes of chest discomfort continually, with negative high- sensitivity troponin levels. Continue antiplatelet therapy. Continue statin therapy and beta-fantasma. 3. Ventricular tachycardia: History of VT according to outside records per last visit. He was evaluated by electrophysiology with adjustments to his ICD during March 2024 hospitalization here. 4. Ischemic cardiomyopathy: Mildly reduced LV systolic function. He appears euvolemic. 5. Chronic heart failure with mildly reduced EF: Reportedly hospitalized at [facility] in the past month with heart failure. He appears compensated. Continue home dose of Lasix 40 mg daily. Continue CRESENCIO inhibitor. Consider SGLT2 inhibitor if no contraindication. Low-sodium diet, less than 2000 mg daily. Daily weights. 6. ICD: Stokes. Interrogated and adjusted in March 2024 by [facility] electrophysiology. 7. Disposition: Recommend close follow-up with his primary inclinometer tester, Dr. Urbano, in the outpatient setting. Patient care communicated with Dr. Wu of the primary hospitalist service. Please call with any further questions or concerns. Today's visit was 55 minutes in duration, which includes [id number] time, counseling patient, coronation care, reviewing records, and completing documentation. Thank you for allowing me to participate in the care of your patient. Please call for any other questions or concerns. Sincerely, Tal Booth M.D. History of Present Illness Reason for Consultation: Chest pain with history of CAD Requesting Physician: Lona Ray PA-C Attending Physician: Mala uW MD History of Present Illness Mr. Arredondo is a very pleasant 79-year-old gentleman with a history significant for multivessel CAD s/p CABG x 4 (1992) s/p PCI x 17, ischemic cardiomyopathy, ICD, multiple myocardial infarctions, syncope with negative EP study (1999), TIA, stroke with right hemiparesis (10/15/2004) s/p TPA, pulmonary embolism, prostate cancer status post radiation, sleep apnea, hypertension, and type 2 diabetes. He is followed by Dr. Urbano at [facility]. He underwent ICD generator change in July 2023. He has chronic substernal chest discomfort that occurs without trigger. He chronically has taken nitroglycerin for this dull substernal chest discomfort, which typically relieves the pain. He was hospitalized here He has an IV dye allergy, resulting with hives in the past. He has had the following studies/procedures: 1. CABG times 10/02/1992: VILLAGOMEZ to LAD; SVG to D1; SVG to OM1; SVG to RCA. 2. Multiple PCI (1998 to 04/06/2004): Multiple PCI to SVG to D1 and SVG to OM. 3. Cardiac cath 10/26/2007: LAD 100%; circumflex 100%; RCA 100%; VILLAGOMEZ to LAD patent; SVG to RCA 50% with thrombus. EF 40%. Underwent PCI of SVG to RCA with 4.5 x 18 mm stent. 4. Peripheral angiography 01/03/2009: Normal per cardiology records. 5. Cardiac cath 03/12/2014: LM 40%; LAD 70 and 100%; ramus 20%; circumflex 100%; RCA 100%; VILLAGOMEZ to LAD patent; SVG to D1 100%; SVG to OM1 100%; SVG to RCA 100%. Underwent PCI of SVG to RCA with 5 x 18 mm stent proximally and 5 x 28 mm stent mid. EF 50%. Inferior hypokinesis. 6. Echo 06/24/2019 [facility]: EF 55%. Suboptimal image quality for wall motion assessment. No significant valvular abnormalities. 7. Nuclear stress 07/11/2020 [facility]: Prior inferior infarct. No significant ischemia. EF 46%. Inferior wall motion abnormality. 8. Echo 04/06/2024 [facility]: Normal LV size. EF 45%. Akinesis of the basal inferior and basal inferoseptal wall segments. Severe hypokinesis of the inferolateral wall. Moderate LVH. Mildly reduced RV systolic function. Mild biatrial dilation. Trace AI. Normal RVSP. 9. Nuclear stress 04/08/2024 [facility]: Inferior, inferolateral, and lateral infarct with mild robe-infarct ischemia. in March 2024 for syncope. He underwent adjustment of his ICD by electrophysiology. He continued to have intermittent chest pain and it was recommended that nitrate therapy be initiated. Unfortunately, he was not discharged on nitrate therapy. He underwent myocardial perfusion study which demonstrated infarct with robe-infarct ischemia. Since his discharge here, he states that he was hospitalized at [facility] in [place] after another episode of syncope. He states he was hospitalized for 4 days and was treated for heart failure. He had significant edema leading up to that hospital stay which is significantly improved. He now takes Lasix 40 mg on a daily basis. He was discharged home on supplemental oxygen, 2 L via nasal cannula. He was hospitalized here on 05/29/2024 after presenting with chest pain. He describes the substernal chest pain as a dull pain that does not radiate. There is no associated diaphoresis or shortness of breath. It occurs at rest. His first episode was 45 minutes and resolved after EMS gave nitroglycerin x 2. He has had 3 episodes here, estimating 20 minutes for each episode, resolving with nitroglycerin. During the visit today late this morning, he admits that he still had chest pain from his most recent event and it had been ongoing for at least 35 minutes, although improved with nitroglycerin. He denies melena, hematochezia, hematuria, or other bleeding. He denies orthopnea, shortness of breath. He has palpitations intermittently and states that he palpitations occurred with each episode of chest pain here, although there has not been any significant arrhythmia to correlate with his symptoms on telemetry here. Review of systems: As above. Family history: Family history positive for CAD. Social history: He quit smoking and alcohol consumption approximately 40 years a go. No drug abuse. . Had 3 sons but 1 at the age of 36 with colon cancer. He was unaccompanied. Allergies Allergy/AdvReac Type Severity Reaction Status Date / Time Milk Containing Products Allergy Unknown Unknown Unverified 05/29/24 15:54 (Dairy) Iodinated Contrast Media Allergy Rash Verified 05/29/24 15:54 warfarin AdvReac Severe Made my Unverified 05/29/24 15:54 blood extremely thin Home Medications Medication Instructions Recorded Confirmed Type bupropion HCl 200 mg tablet,12 hr 200 mg PO BID 07/10/20 05/29/24 History sustained-release clopidogrel 75 mg tablet (Plavix) 75 mg PO DAILY 07/10/20 05/29/24 History divalproex 250 mg tablet,delayed 750 mg PO HS 07/10/20 05/29/24 History release metformin 500 mg tablet 500 mg PO BID 07/10/20 05/29/24 History rosuvastatin 10 mg tablet 10 mg PO QAM 07/10/20 05/29/24 History nitroglycerin 0.4 mg sublingual 0.4 mg sublingual UD PRN Chest Pain 01/08/21 05/29/24 History tablet (Nitrostat) apixaban 5 mg tablet (Eliquis) 5 mg PO BID 04/05/24 05/29/24 History carvedilol 25 mg tablet 25 mg PO BID 04/05/24 05/29/24 History furosemide 40 mg tablet 40 mg PO DAILY SWELLING 04/05/24 05/29/24 History multivitamin 1 tab PO DAILY 04/05/24 05/29/24 History blood sugar diagnostic (OneTouch #100 ea 04/06/24 Rx Verio test strips) blood-glucose meter #1 ea 04/06/24 Rx lancets 33 gauge #100 ea 04/06/24 Rx insulin glargine 100 unit/mL (3 35 unit (0.35 mL) subcut PM #15 mL 04/10/24 05/29/24 Rx mL) subcutaneous pen (Lantus Solostar U-100 Insulin) pen needle,diabetic, disp unit 32 #100 ea 04/10/24 Rx gauge x 5/32", remover and disposal unit duloxetine 60 mg capsule,delayed 60 mg PO DAILY 05/29/24 05/29/24 History release melatonin 12 mg tablet 12 mg PO HS 05/29/24 05/29/24 History ramipril 2.5 mg capsule 2.5 mg PO BID 05/29/24 05/29/24 History tamsulosin 0.4 mg capsule 0.4 mg PO QAM 05/29/24 05/29/24 History Problem List (Updated 05/30/24 @ 14:15 by Alcides Booth MD) Heart failure with mildly reduced ejection fraction (HFmrEF, 41-49%) Acute hyponatremia (Acute) Shortness of breath (Acute) Chest pain (Acute) Acute foot pain (Acute) Pseudohyponatremia (Acute) Elevated troponin (Acute) Elevated troponin Ventricular tachycardia Ischemic cardiomyopathy Syncope and collapse S/P coronary artery stent placement S/P CABG (coronary artery bypass graft) Left leg pain Hyperglycemia (Acute) Gait instability (Acute) CHI (closed head injury) (Acute) Impacted cerumen of left ear Hyponatremia STEPHAN (acute kidney injury) Left-sided chest pain (Acute) Left rib fracture (Acute) Chest pain (Acute) Cardiac defibrillator in place Axigen Messaging Diabetes mellitus type 2 in obese DVT prophylaxis Status post fall Hypertension CAD (coronary artery disease) (Chronic) Coronary artery bypass graft 1992: Villagomez to LAD, saphenous vein graft to 1st diagonal, saphenous vein graft to om 1, saphenous vein graft to the right coronary artery BPD (bronchopulmonary dysplasia) (Chronic) Hypothyroid (Chronic) Bipolar disorder (Chronic) Patient History Medical History Falls frequently Surgical History Hx of inguinal herniorrhaphy Status post aorto-coronary artery bypass graft Family History Other Family history non-contributory Social History Smoking Status: Former smoker Tobacco Type: Cigarettes Second Hand Exposure: No; Do You Dip or Chew Tobacco: No; Hx Alcohol Use: No Hx Substance Use: No Preferred Language: Citizen Of [place] Communication Ability: Effective Mottle Lay Up Operator Required: No Beliefs That Will Affect Care: None Current Living Situation: Alone Current Living Situation Comment: home alone Other Information That Helps Us Care for You: No Feels Safe at Home: Yes Safety Concerns: Feels Safe At This Time Assistive Devices: Denture - Upper, Denture - Lower, Glasses and Walker Physical Exam Physical Exam: Gen.: No acute distress. Alert. HEENT: Anicteric sclera. Neck: No JVD. Normal carotid upstrokes bilaterally. Cardiac: Regular. Normal S1-S2. No murmurs, rubs, or gallops. Pulmonary: Clear to auscultation bilaterally without wheezes, rales, or rhonchi. Abdomen: Soft, nontender, nondistended, with normoactive bowel sounds. No bruits noted. Extremities: 2+ radial pulses bilaterally. 2+ posterior tibialis pulses bilate rally. No cyanosis. No edema. s/p left lower extremity SVG harvest. Results & Data Vital Signs (Past 12 Hours) Vital Signs Temp Pulse Pulse Resp BP BP Pulse Ox 05/30/24 08:01 36.7 C 64 18 124/58 L 95 05/30/24 07:30 64 05/30/24 03:07 36.9 C 64 18 106/54 L 94 05/30/24 01:19 05/30/24 00:40 62 118/57 L 05/30/24 00:28 62 112/84 94 05/29/24 23:01 36.3 C L 62 20 124/54 L 99 05/29/24 21:47 63 O2 Del Method O2 Flow Rate 05/30/24 08:01 Nasal Cannula 1 05/30/24 07:30 05/30/24 03:07 Room Air 05/30/24 01:19 Room Air 05/30/24 00:40 05/30/24 00:28 Room Air 05/29/24 23:01 Nasal Cannula 1 05/29/24 21:47 Intake & Output 05/28/24 05/29/24 05/30/24 05/31/24 06:59 06:59 06:59 06:59 Intake Total 290 / 290 Output Total 500 / 500 Balance -210 / -210 Weight 187 lb 11.2 oz Laboratory Results Laboratory Results - last 24 hr 05/29/24 05/29/24 05/29/24 12:30 18:01 18:44 WBC 7.89 RBC 4.34 L Hgb 12.2 L Hct 37.6 L MCV 86.6 MCH 28.1 MCHC 32.4 RDW Std Deviation 41.9 RDW Coeff of De 13.2 Plt Count 207 MPV 10.6 Immature Gran % (Auto) 0.3 Neut % (Auto) 60.8 Lymph % (Auto) 22.4 [place] % (Auto) 9.4 Eos % (Auto) 6.6 Baso % (Auto) 0.5 Neut # (Auto) 4.80 Lymph # (Auto) 1.77 [place] # (Auto) 0.74 H Eos # (Auto) 0.52 H Baso # (Auto) 0.04 Immature Gran # (Auto) 0.02 PT 11.4 INR 1.1 APTT 30 PTT Ratio 1.1 Sodium 134 L 137 Potassium 4.3 4.2 Chloride 100 102 Carbon Dioxide 28 29 Anion Gap 6 6 BUN 16 13 Creatinine 1.14 0.97 Est Cr Clr Drug Dosing 60.4 71.0 eGFR 66.24 80.40 BUN/Creatinine Ratio 14.0 13.4 Glucose 252 H 149 H POC Glucose 137 H Calcium 9.6 9.7 Total Bilirubin 0.7 AST 26 ALT 31 Alkaline Phosphatase 75 Troponin I High Sens 17.5 15.5 Total Protein 6.8 Albumin 3.9 Globulin 2.9 Albumin/Globulin Ratio 1.3 Triglycerides Cholesterol LDL Cholesterol, Calc VLDL Cholesterol, Calc HDL Cholesterol Cholesterol/HDL Ratio TSH 05/29/24 05/29/24 05/30/24 21:51 23:59 00:32 WBC RBC Hgb Hct MCV MCH MCHC RDW Std Deviation RDW Coeff of De Plt Count MPV Immature Gran % (Auto) Neut % (Auto) Lymph % (Auto) [place] % (Auto) Eos % (Auto) Baso % (Auto) Neut # (Auto) Lymph # (Auto) [place] # (Auto) Eos # (Auto) Baso # (Auto) Immature Gran # (Auto) PT INR APTT PTT Ratio Sodium Potassium Chloride Carbon Dioxide Anion Gap BUN Creatinine Est Cr Clr Drug Dosing eGFR BUN/Creatinine Ratio Glucose POC Glucose 122 H 269 H Calcium Total Bilirubin AST ALT Alkaline Phosphatase Troponin I High Sens 14.6 Total Protein Albumin Globulin Albumin/Globulin Ratio Triglycerides Cholesterol LDL Cholesterol, Calc VLDL Cholesterol, Calc HDL Cholesterol Cholesterol/HDL Ratio TSH 05/30/24 05/30/24 06:40 06:45 WBC RBC Hgb Hct MCV MCH MCHC RDW Std Deviation RDW Coeff of De Plt Count MPV Immature Gran % (Auto) Neut % (Auto) Lymph % (Auto) [place] % (Auto) Eos % (Auto) Baso % (Auto) Neut # (Auto) Lymph # (Auto) [place] # (Auto) Eos # (Auto) Baso # (Auto) Immature Gran # (Auto) PT INR APTT PTT Ratio Sodium 139 Potassium 4.3 Chloride 104 Carbon Dioxide 27 Anion Gap 8 BUN 17 Creatinine 1.18 Est Cr Clr Drug Dosing 56.7 eGFR 63.55 BUN/Creatinine Ratio 14.4 Glucose 104 H POC Glucose 93 Calcium 9.3 Total Bilirubin AST ALT Alkaline Phosphatase Troponin I High Sens 13.6 Total Protein Albumin Globulin Albumin/Globulin Ratio Triglycerides 124 Cholesterol 98 LDL Cholesterol, Calc 39 VLDL Cholesterol, Calc 25 HDL Cholesterol 34 Cholesterol/HDL Ratio 2.9 TSH 3.290 Diagnostic Findings Labs reviewed and notable for normal high-sensitivity troponin x 4, normal potassium, stable renal function, normal transaminase levels, normal TSH, excellent LDL, mild anemia. ECGs personally reviewed: ECG 05/29/2024 at 1245: Atrial paced 63 bpm. RBBB. Inferior infarct. ECG 05/30/2024 at 0027: Atrial paced 62 bpm. RBBB. Inferior infarct. History and physical report reviewed. Chart reviewed. Chest x-ray 05/29/2024: Interstitial thickening per radiology. Chest x-ray image personally reviewed: Dual-chamber device noted. Sternotomy wires noted. No obvious infiltrate. Medications Administered Current Inpatient Medications Acetaminophen (Acetaminophen 325 Mg Tab) 650 mg PO Q4H PRN PRN Reason: Pain or Fever Stop: 06/28/24 18:51 Al Hydrox/Mg Hydrox/Simethicone (Aluminum/Magnesium Susp 30 Ml Udc) 30 ml PO Q6H PRN PRN Reason: Dyspepsia Stop: 06/28/24 18:23 Apixaban (Apixaban 5 Mg Tablet) 5 mg PO BID LINDA Stop: 06/28/24 20:59 Last Admin: 05/29/24 21:50 Dose: 5 mg Bupropion HCl (Bupropion Sr 100 Mg Tabcr) 200 mg PO BID LINDA Stop: 06/28/24 20:59 Last Admin: 05/29/24 21:50 Dose: 200 mg Carvedilol (Carvedilol 25 Mg Tab) 25 mg PO BID [facility] Stop: 06/28/24 20:59 Last Admin: 05/29/24 21:51 Dose: 25 mg Clopidogrel Bisulfate (Clopidogrel Bisulfate 75 Mg Tab) 75 mg PO DAILY [facility] Stop: 06/29/24 08:59 Dextrose (Dextrose 50% 50 Ml Syringe) 25 - 50 ml IV UD PRN; Protocol PRN Reason: Hypoglycemia Protocol Stop: 06/28/24 18:23 Divalproex Sodium (Divalproex Delay Release 250 Mg Tabec) 250 mg PO TID [facility] Stop: 06/28/24 20:59 Last Admin: 05/29/24 21:51 Dose: 250 mg Duloxetine HCl (Duloxetine Hcl 60 Mg Cap) 60 mg PO DAILY [facility] Stop: 06/29/24 08:59 Enalapril Maleate (Enalapril Maleate 5 Mg Tab) 5 mg PO BID [facility]; Protocol Stop: 06/28/24 20:59 Last Admin: 05/29/24 21:52 Dose: 5 mg Furosemide (Furosemide 40 Mg Tab) 40 mg PO DAILY [facility] Stop: 06/29/24 08:59 Glucagon (Glucagon For Inj 1 Mg Vial) 1 mg SQ UD PRN; Protocol PRN Reason: Hypoglycemia Protocol Stop: 06/28/24 18:23 Glucose (Glucose 40% Gel 15 Gm Tube) 15 - 30 gm PO UD PRN; Protocol PRN Reason: Hypoglycemia Protocol Stop: 06/28/24 18:23 Glucose (Glucose 10 Tab/Tube) 4 - 8 tab PO UD PRN; Protocol PRN Reason: Hypoglycemia Protocol Stop: 06/28/24 18:23 Insulin Aspart (Insulin Aspart Per Unit Charge) 0 units SC Q6 [facility] Stop: 06/28/24 20:59 Last Admin: 05/30/24 07:42 Dose: Not Given Insulin Glargine (Lantus Per Unit Charge) 25 units SC PM [facility] Stop: 06/28/24 20:59 Last Admin: 05/29/24 21:55 Dose: 25 units Melatonin (Melatonin 3 Mg Tab) 3 mg PO HS PRN PRN Reason: Insomnia Stop: 06/28/24 18:23 Miscellaneous (Carbohydrates For Hypoglycemia ) 15 - 30 gm PO UD PRN PRN Reason: Hypoglycemia Protocol Stop: 06/28/24 18:23 Miscellaneous Information (Pharmacy Glycemic Mgmt Consult) 1 each N/A UD PRN PRN Reason: Consult Stop: 06/28/24 18:23 Nitroglycerin (Nitroglycerin Sl 0.4 Mg/Tab Tab) 0.4 mg SL UD PRN PRN Reason: Chest Pain Stop: 06/28/24 18:23 Last Admin: 05/30/24 00:27 Dose: 0.4 mg Pantoprazole Sodium (Pantoprazole 40 Mg Tab) 40 mg PO BID [facility] Stop: 06/29/24 08:59 Polyethylene Glycol (Polyethylene (Miralax) 17 Gm Pack) 17 gm PO DAILY PRN PRN Reason: Constipation Stop: 06/28/24 18:23 Rosuvastatin Calcium (Rosuvastatin Calcium 10 Mg Tab) 10 mg PO QAM [facility] Stop: 06/29/24 08:59 Tamsulosin HCl (Tamsulosin Hcl 0.4 Mg Cap) 0.4 mg PO QAM [facility] Stop: 06/29/24 08:59 PG Care Time/CCT Total # of Minutes Spent Total Time Spent with Patient: Total time spent is greater than 50% in coordination of care (as documented) at patient's floor/unit and/or counseling patient: Coding Level of Care Code 49577 INT INP/OBS CARE 2/55MIN Diagnoses Chest pain R07.9 Ischemic cardiomyopathy I25.5 Coronary artery disease of autologous vein bypass graft with stable angina pectoris I25.718 Coronary Disease-Associated Artery/Lesion type: bypass graft, autologous vein Associated angina: with stable angina S/P coronary artery stent placement Z95.5 S/P CABG (coronary artery bypass graft) Z95.1 Ventricular tachycardia I47.[address] Z95.810 Heart failure with mildly reduced ejection fraction (HFmrEF, 41-49%) I50.20 Time Spent (min) 55 (3) CAD (coronary artery disease) Coronary Disease-Associated Artery/Lesion type: bypass graft, autologous vein Associated angina: with stable angina Qualified Code(s): I25.718 - Atherosclerosis of autologous vein coronary artery bypass graft(s) with other forms of angina pectoris
[2024-05-30] MEDS: ACETAMINOPHEN 325 MG TAB PO PRN (10:03)
[2024-05-30] MEDS: CLOPIDOGREL BISULFATE 75 MG TAB PO SCH (10:05)
[2024-05-30] MEDS: DULoxetine HCL 60 MG CAP PO SCH (10:06)
[2024-05-30] MEDS: ROSUVASTATIN CALCIUM 10 MG TAB PO SCH (10:07)
[2024-05-30] MEDS: TAMSULOSIN HCL 0.4 MG CAP PO SCH (10:07)
[2024-05-30] MEDS: PANTOprazole 40 MG TAB PO SCH (10:07)
[2024-05-30] MEDS: FUROSEMIDE 40 MG TAB PO SCH (10:07)
[2024-05-30] MEDS: ISOSORBIDE MONO EXTENDED REL 30 MG TABCR PO SCH (15:41)
[2024-05-30] MEDS ORDERED: Nursing to Pharmacy Communication SCH (15:45)
[2024-05-30] MEDS: INSULIN ASPART PER UNIT CHARGE SC SCH (17:48)
[2024-05-30] MEDS: MELATONIN 3 MG TAB PO PRN (21:23)
[2024-05-31] MEDS ORDERED: PNEUMOCOCCAL VACCINE (PCV20) 20-VAL CONJ-DIP CRM/PF 0.5 ML SYR IM ONE (07:10)
[2024-05-31] MEDS ORDERED: INFLUENZA VACC TS2024-25(65y+)/PF (IIV3) 0.5mL Syr IM ONE (07:10)
--- NOTE | 2024-05-31 11:35 | Pharmacy Report ---
Pharmacy Glycemic Short Note 2 - Date of Service May 31, 2024 - Glycemic Short BSG Results (Last 24 hours): 05/30/24 05/30/24 05/30/24 13:12 17:15 20:25 POC Glucose 150 H 161 H 72 05/31/24 08:18 POC Glucose 91 OUTPATIENT ANTIDIABETIC REGIMEN: * Lantus 35 units SC HS * Metformin 500mg PO BID * A1c 10% 04/06/24 ASSESSMENT: * 79 yo M admitted w/ CP, T2DM on Lantus and metformin at home. * Patient received 36 units of insulin yesterday, 25 units basal. BG dropped to 72mg/dL at bedtime last night, will loosen NovoLog parameters today to prevent hypoglycemia. * Fasting BG 91mg/dl - continue basal at this time. PLAN FOR INPATIENT GLYCEMIC CONTROL: * Hold outpatient oral diabetes medications * Basal insulin * Lantus 25 units SQ HS * Bolus insulin * NovoLog per scale ACHS or Q6hrs while NPO * Goal Range: Low 110 mg/dL - High 140 mg/dL * Correction Factor: 35 mg/dL/unit * Nutritional / Prandial insulin per carb ratio of 1 unit per 12 grams CHO consumed
--- NOTE | 2024-05-31 13:18 | Hospitalist Progress Note ---
Date of Service May 31, 2024 Assessment & Plan (1) Chest pain: Plan: 79 y/o man with extensive history of multivessel CAD admitted with increase in intermittent chest pain multivessel CAD - Coronary artery bypass graft 1992: [place] to LAD, saphenous vein graft to 1st diagonal, saphenous vein graft to om 1, saphenous vein graft to the right coronary artery; reports history of 17 stents, last 5+ years ago? intermittent SSCP, sometimes exertional, increased last few days * EKGs unchanged, serial HS troponins are normal * chest pain could be anginal or noncardiac pain, I do not see evidence of an acute coronary syndrome * Added BID PPI (currently has not changed symptoms, would not continue roasterman if no seen benefit) - consulted cardiology, discussed with Leobardo Kilgore - added Imdur for antianginal and titrate up to effect - continue aspirin, Plavix, carvedilol, rosuvastatin. LDL 39 on current dose of statin - he is also on apixaban chronic heart failure with midrange ejection fractionrecently diagnosed Thanks week treated at [facility]. Currently well compensated and euvolemic - continue carvedilol, furosemide p.o., low-dose ramipril - not currently on SGLT2 which he may benefit from but currently BP unable to tolerate. peripheral arterial disease with chronic left calf pain, lower arterial duplex this fall with a focal stenosis of left SFA, right peroneal artery was monophasic, NEVIN on right was 0.92 NEVIN on left was 1.42 - continue same medications as above, he states he has an appointment with a vascular surgeon in June Patient continues to have intermitent CP with + orthostatic VS - decreased carvedilol, hold lasix. 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 * bipolar disordercontinue valproic acid and bupropion DVT ppx - apixaban Dispo: continued inpatient stay, monitoring orthostatic vitals Admission and Anticipated Discharge Date Admission Date: May 31, 2024 Subjective patient seen sitting on the side of the bed this morning - did have some chest pain while walking with therapy but reports resolved spontaneously he has had some episodes of dizziness with position changes as well Tele - paced 60s Review of Systems Review of Systems: All systems reviewed & are unremarkable except as noted in Subjective Physical Exam Physical Exam: General: NAD, VS as above Resp: normal respiratory effort, lungs clear to auscultation on 2L NC (chronic) CV: RRR, no murmur, Abd: normal bowel sounds, non tender, no hepatosplenomegaly Extremities: Moves all extremities, slight non pitting edema to Left leg, leg apperance consistent with venous stasis. No erythema/warmth or signs of infection Neuro: A&O x3, Results & Data Results & Data Vital Signs (Past 12 Hours) Vital Signs Temp Pulse Pulse Resp BP BP Pulse Ox 05/31/24 11:45 97.5 F L 61 18 99/55 L 92 05/31/24 10:52 97.9 F 82 18 123/59 L 99 05/31/24 09:44 148/69 H 05/31/24 08:26 97.9 F 66 16 105/52 L 93 05/31/24 07:42 64 05/31/24 02:14 98.1 F 61 16 98/61 L 94 O2 Del Method O2 Flow Rate 05/31/24 11:45 Room Air 05/31/24 10:52 Nasal Cannula 1 05/31/24 09:44 05/31/24 08:26 Room Air 05/31/24 07:42 05/31/24 02:14 Nasal Cannula 1 PG Care Time/CCT Total # of Minutes Spent Total Time Spent with Patient: Total time spent is greater than 50% in coordination of care (as documented) at patient's floor/unit and/or counseling patient: Coding Level of Care Code 60859 SUB INP/OBS CARE 3/50MIN Diagnoses Chest pain R07.9 Chest pain type: unspecified Falls frequently R29.6 Diabetes mellitus type 2 in obese E11.69; E66.9 (1) Chest pain Chest pain type: unspecified Qualified Code(s): R07.9 - Chest pain, unspecified
[2024-05-31] MEDS: SODIUM CHLORIDE 0.9% 500 ML IV ONE (13:42)
[2024-05-31] MEDS: carvediloL 12.5 MG TAB PO SCH (16:37)
--- NOTE | 2024-05-31 18:50 | Cardiology Progress Note ---
Date of Service May 31, 2024 Assessment & Plan (1) Chest pain: (2) Ischemic cardiomyopathy: (3) CAD (coronary artery disease): (4) S/P coronary artery stent placement: (5) S/P CABG (coronary artery bypass graft): (6) Ventricular tachycardia: (7) Cardiac defibrillator in place: (8) Heart failure with mildly reduced ejection fraction (HFmrEF, 41-49%): Plan ASSESSMENT/PLAN: 1. Chest pain: Has a long history of chronic chest discomfort that improves with nitroglycerin. Despite prolonged episodes here (several), high-sensitivity troponin has remained normal. He also had a reassuring myocardial perfusion study on 04/08/2024 with predominantly infarct with only periinfarct ischemia. Doing much better on isosorbide mononitrate 30 mg daily. Will increase to 60 mg daily tomorrow to see if it offers even more benefit. Without objective findings to suggest ischemia, would recommend medical therapy as he has extensive CAD with 17 reported PCI and CABG x 4. Do not feel that invasive measures at this point would offer much benefit in current situation without objective findings to suggest ACS, especially given that his symptoms are chronic. 2. CAD s/p CABG x 4 and PCI x 17: No definite angina but rather chronic chest pain. Prolonged episodes of chest discomfort continually, with negative high- sensitivity troponin levels. Continue antiplatelet therapy. Continue statin therapy and beta-fantasma. 3. Ventricular tachycardia: History of VT according to outside records per last visit. He was evaluated by electrophysiology with adjustments to his ICD during March 2024 hospitalization here. 4. Ischemic cardiomyopathy: Mildly reduced LV systolic function. He appears euvolemic. 5. Chronic heart failure with mildly reduced EF: Reportedly hospitalized at [facility] in the past month with heart failure. He appears compensated. Continue home dose of Lasix 40 mg daily. Continue CRESENCIO inhibitor. Consider SGLT2 inhibitor if no contraindication. Low-sodium diet, less than 2000 mg daily. Daily weights. 6. ICD: Stokes. Interrogated and adjusted in March 2024 by [facility] electrophysiology. 7. Disposition: Cardiology will sign off at this time. Recommend close follow- up with his primary processing archivist, Dr. Urbano, in the outpatient setting. Patient care communicated with Dr. Wu of the primary hospitalist service. Please call with any further questions or concerns. Admission and Anticipated Discharge Date Admission Date: May 31, 2024 Subjective Patient seen earlier this evening. He had only 1 episode of chest pain since yesterday. He states it occurred at rest and spontaneously resolved, not requiring nitroglycerin. He worked with physical therapy but only walked a short distance. He had a brief episode of shortness of breath earlier today but it resolved quickly. He denies orthopnea, syncope, near syncope, palpitations, or edema. His biggest concern today was the wound on his leg. He states that wound clinic will be attending to him tomorrow. He was unaccompanied. Physical Exam Physical Exam: Gen.: No acute distress. Alert. HEENT: Anicteric sclera. Neck: No JVD. Cardiac: Regular. No ectopy. Normal S1-S2. No murmurs, rubs, or gallops. Pulmonary: Clear to auscultation bilaterally without wheezes, rales, or rhonchi. Abdomen: Soft, nontender, nondistended, with normoactive bowel sounds. No bruits noted. Extremities: 2+ radial pulses bilaterally. 2+ posterior tibialis pulses bilaterally. No cyanosis. Trace left lower extremity edema. s/p left lower extremity SVG harvest. Results & Data Vital Signs (Past 12 Hours) Vital Signs Temp Pulse Pulse Resp BP BP Pulse Ox 05/31/24 15:19 36.4 C L 66 18 107/59 L 94 05/31/24 14:33 62 05/31/24 11:45 36.4 C L 61 18 99/55 L 92 05/31/24 10:52 36.6 C 82 18 123/59 L 99 05/31/24 09:44 148/69 H 05/31/24 08:26 36.6 C 66 16 105/52 L 93 05/31/24 07:42 64 O2 Del Method O2 Flow Rate 05/31/24 15:19 Room Air 05/31/24 14:33 05/31/24 11:45 Room Air 05/31/24 10:52 Nasal Cannula 1 05/31/24 09:44 05/31/24 08:26 Room Air 05/31/24 07:42 Intake & Output 05/29/24 05/30/24 05/31/24 06/01/24 06:59 06:59 06:59 06:59 Intake Total 290 / 290 540 / 540 980 / 980 Output Total 500 / 500 800 / 800 200 / 200 Balance -210 / -210 -260 / -260 780 / 780 Weight 187 lb 11.2 oz 183 lb 13.848 oz Laboratory Results Laboratory Results - last 24 hr 05/30/24 05/31/24 05/31/24 20:25 08:18 12:14 POC Glucose 72 91 93 05/31/24 17:16 POC Glucose 105 H Diagnostic Findings Chart reviewed. ECG personally reviewed from 05/31/2024: Atrial paced 63 bpm. RBBB. Inferior infarct. Medications Administered Current Inpatient Medications Acetaminophen (Acetaminophen 325 Mg Tab) 650 mg PO Q4H PRN PRN Reason: Pain or Fever Stop: 06/28/24 18:51 Last Admin: 05/30/24 10:03 Dose: 650 mg Al Hydrox/Mg Hydrox/Simethicone (Aluminum/Magnesium Susp 30 Ml Udc) 30 ml PO Q6H PRN PRN Reason: Dyspepsia Stop: 06/28/24 18:23 Apixaban (Apixaban 5 Mg Tablet) 5 mg PO BID [facility] Stop: 06/28/24 20:59 Last Admin: 05/31/24 09:40 Dose: 5 mg Bupropion HCl (Bupropion Sr 100 Mg Tabcr) 200 mg PO BID [facility] Stop: 06/28/24 20:59 Last Admin: 05/31/24 09:42 Dose: 200 mg Carvedilol (Carvedilol 12.5 Mg Tab) 12.5 mg PO BIDM [facility] Stop: 06/30/24 16:59 Last Admin: 05/31/24 16:37 Dose: 12.5 mg Clopidogrel Bisulfate (Clopidogrel Bisulfate 75 Mg Tab) 75 mg PO DAILY [facility] Stop: 06/29/24 08:59 Last Admin: 05/31/24 09:42 Dose: 75 mg Dextrose (Dextrose 50% 50 Ml Syringe) 25 - 50 ml IV UD PRN; Protocol PRN Reason: Hypoglycemia Protocol Stop: 06/28/24 18:23 Divalproex Sodium (Divalproex Delay Release 250 Mg Tabec) 250 mg PO TID [facility] Stop: 06/28/24 20:59 Last Admin: 05/31/24 13:43 Dose: 250 mg Duloxetine HCl (Duloxetine Hcl 60 Mg Cap) 60 mg PO DAILY [facility] Stop: 06/29/24 08:59 Last Admin: 05/31/24 09:42 Dose: 60 mg Enalapril Maleate (Enalapril Maleate 5 Mg Tab) 5 mg PO BID [facility]; Protocol Stop: 06/28/24 20:59 Last Admin: 05/31/24 09:42 Dose: 5 mg Furosemide (Furosemide 40 Mg Tab) 40 mg PO DAILY [facility] Stop: 06/29/24 08:59 Last Admin: 05/31/24 09:42 Dose: 40 mg Glucagon (Glucagon For Inj 1 Mg Vial) 1 mg SQ UD PRN; Protocol PRN Reason: Hypoglycemia Protocol Stop: 06/28/24 18:23 Glucose (Glucose 40% Gel 15 Gm Tube) 15 - 30 gm PO UD PRN; Protocol PRN Reason: Hypoglycemia Protocol Stop: 06/28/24 18:23 Glucose (Glucose 10 Tab/Tube) 4 - 8 tab PO UD PRN; Protocol PRN Reason: Hypoglycemia Protocol Stop: 06/28/24 18:23 Insulin Aspart (Insulin Aspart Per Unit Charge) 0 units SC ACHS [facility] Stop: 06/29/24 16:29 Last Admin: 05/31/24 17:59 Dose: 1 units Insulin Glargine (Lantus Per Unit Charge) 20 units SC PM [facility] Stop: 06/30/24 20:59 Isosorbide Mononitrate (Isosorbide Jerauld Extended Rel 30 Mg Tabcr) 30 mg PO QAM [facility] Stop: 06/29/24 14:14 Last Admin: 05/31/24 09:42 Dose: 30 mg Melatonin (Melatonin 3 Mg Tab) 6 mg PO HS PRN PRN Reason: Insomnia Stop: 06/28/24 18:23 Miscellaneous (Carbohydrates For Hypoglycemia ) 15 - 30 gm PO UD PRN PRN Reason: Hypoglycemia Protocol Stop: 06/28/24 18:23 Miscellaneous Information (Pharmacy Glycemic Mgmt Consult) 1 each N/A UD PRN PRN Reason: Consult Stop: 06/28/24 18:23 Nitroglycerin (Nitroglycerin Sl 0.4 Mg/Tab Tab) 0.4 mg SL UD PRN PRN Reason: Chest Pain Stop: 06/28/24 18:23 Last Admin: 05/30/24 09:39 Dose: 0.4 mg Pantoprazole Sodium (Pantoprazole 40 Mg Tab) 40 mg PO BID [facility] Stop: 06/29/24 08:59 Last Admin: 05/31/24 09:50 Dose: 40 mg Polyethylene Glycol (Polyethylene (Miralax) 17 Gm Pack) 17 gm PO DAILY PRN PRN Reason: Constipation Stop: 06/28/24 18:23 Rosuvastatin Calcium (Rosuvastatin Calcium 10 Mg Tab) 10 mg PO QAM [facility] Stop: 06/29/24 08:59 Last Admin: 05/31/24 09:40 Dose: 10 mg Tamsulosin HCl (Tamsulosin Hcl 0.4 Mg Cap) [facility] [place] Stop: 06/29/24 08:59 Last Admin: 05/31/24 09:42 Dose: 0.4 mg PG Care Time/CCT Total # of Minutes Spent Total Time Spent with Patient: Total time spent is greater than 50% in coordination of care (as documented) at patient's floor/unit and/or counseling patient: Coding Level of Care Code 25840 SUB INP/OBS CARE 3/50MIN Diagnoses Chest pain R07.9 Ischemic cardiomyopathy I25.5 Coronary artery disease of autologous vein bypass graft with stable angina pectoris I25.718 Coronary Disease-Associated Artery/Lesion type: bypass graft, autologous vein Associated angina: with stable angina S/P coronary artery stent placement Z95.5 S/P CABG (coronary artery bypass graft) Z95.1 Ventricular tachycardia I47.[address] Z95.810 Heart failure with mildly reduced ejection fraction (HFmrEF, 41-49%) I50.20 (3) CAD (coronary artery disease) Coronary Disease-Associated Artery/Lesion type: bypass graft, autologous vein Associated angina: with stable angina Qualified Code(s): I25.718 - Atheroscle rosis of autologous vein coronary artery bypass graft(s) with other forms of angina pectoris
[2024-05-31] MEDS: MELATONIN 3 MG TAB PO PRN (21:12)
[2024-05-31] MEDS: LANTUS PER UNIT CHARGE SC SCH (21:12)
--- NOTE | 2024-06-01 05:50 | Electrocardiogram Report ---
Test Reason : Blood Pressure : */* mmHG Vent. Rate : 61 BPM Atrial Rate : 61 BPM P-R Int : 248 ms QRS Dur : 152 ms QT Int : 460 ms P-R-T Axes : 89 -37 46 degrees QTcB Int : 463 ms Atrial-paced rhythm with prolonged AV conduction Left axis deviation Right bundle branch block Inferior infarct (cited on or before 11-Dec-2005) Abnormal ECG When compared with ECG of 29-May-2024 12:45, No significant change Confirmed by Alcides Booth ([id number]) on 06/01/2024 5:50:05 AM Referred By: REFERRED SELF Confirmed By: Alcides Booth
--- NOTE | 2024-06-01 05:51 | Electrocardiogram Report ---
Test Reason : Blood Pressure : */* mmHG Vent. Rate : 63 BPM Atrial Rate : 63 BPM P-R Int : 232 ms QRS Dur : 140 ms QT Int : 474 ms P-R-T Axes : 52 -36 110 degrees QTcB Int : 485 ms Atrial-paced rhythm with prolonged AV conduction with occasional sinus complexes Left axis deviation Right bundle branch block Inferior infarct (cited on or before 11-Dec-2005) Abnormal ECG When compared with ECG of 30-May-2024 00:27, No significant change was found Confirmed by Alcides Booth ([id number] on 06/01/2024 5:50:40 AM Referred By: REFERRED SELF Confirmed By: Alcides Booth
[2024-06-01 08:07] LABS: Hematocrit (blood only) 35.3 % (42.0-52.0); Hemoglobin 11.6 g/dl (14.0-18.0); Mean Corpuscular Hemoglobin 28.4 pg (25.0-34.0); Mean Corpuscular Hgb Conc 32.9 g/dL (32.0-36.0); Mean Corpuscular Volume 86.3 fL (80.0-100.0); Mean Platelet Volume 10.3 fL (9.4-12.4); Platelet Count 212 K/uL (130-400); RDW Coefficient of Variation 13.5 % (11.5-14.5); RDW Standard Deviation 42.1 fL (36.4-46.3); Red Blood Count 4.09 M/uL (4.70-6.10); White Blood Count 8.33 K/ul (4.8-10.8)
[2024-06-01 08:28] VITALS: PULSE 61; O2SAT 95
[2024-06-01 08:30] LABS: BUN Creatinine Ratio 17.4 (10-20); Calcium 9.1 mg/dl (8.6-10.3); Creatinine Clr Calc Pharmacy 44.8 ml/min; Potassium 3.9 mmol/L (3.5-5.1)
[2024-06-01] MEDS: ISOSORBIDE MONO EXTENDED REL 60 MG TABCR PO SCH (08:43)
--- NOTE | 2024-06-01 11:01 | Discharge Summary ---
Discharge Summary Date of Service June 01, 2024 Principal Dx & Hospital Course #1 = Principal Diagnosis (1) Chest pain: 79 y/o man with extensive history of multivessel CAD admitted with increase in intermittent chest pain multivessel CAD - Coronary artery bypass graft 1992: [place] to LAD, saphenous vein graft to 1st diagonal, saphenous vein graft to om 1, saphenous vein graft to the right coronary artery; reports history of 17 stents, last 5+ years ago? intermittent SSCP, sometimes exertional, increased last few days * EKGs unchanged, serial HS troponins are normal * chest pain could be anginal or noncardiac pain, I do not see evidence of an acute coronary syndrome * Added BID PPI - without drastic change in symptoms. Decreased to qAM for discharge with PCP/cardiology f/u to see if needs to be continued assisted. - consulted cardiology - added Imdur, titrated up to 60mg. - Carvedilol decreased to 12.5mg BID for hypotension with addition of imdur. - continue aspirin, Plavix, rosuvastatin. LDL 39 on current dose of statin - he is also on apixaban chronic heart failure with midrange ejection fractionrecently diagnosed [facility] [place]. Currently well compensated and euvolemic - continue carvedilol, furosemide p.o., low-dose ramipril - decrease furosemide for one week to make sure not getting lightheaded and dizzy at home. - not currently on SGLT2 which he may benefit from but currently BP unable to tolerate. peripheral arterial disease with chronic left calf pain, lower arterial duplex this fall with a focal stenosis of left SFA, right peroneal artery was monophasic, NEVIN on right was 0.92 NEVIN on left was 1.42 - continue same medications as above, he states he has an appointment with a vascular surgeon in June - he should keep this. Orthostatic VS improved and pt symptoms improved - decreased carvedilol, reduced lasix. 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 decreased carvedilol dose to 12.5mg twice a day. start prontonix decrease lasix to 20mg for one week increased your metformin dose, you are currently taking 1 pill twice a day. For one week you are going to take 2 pills in the morning and 1 pill at night. If you tolerte this well and do not have any GI side effects (diarrhea, upset stomach, etc) you can continue to increase to 2 pills twice a day. Admission HPI Per Admitting Provider 79-year-old male presenting via EMS with reports of intermittent chest pain and shortness of breath; history of 5 MIs and 17 cardiac stents with pacemaker. ED course CBC RBC 4.34, H&H 12.2/37.6, monocytes 0.74, eosinophils 0.52; PT/INR WNL; CMP sodium 134 (corrected 138), glucose 252; troponin 17.5, pending repeat. CXR cardiomegaly, interstitial thickening which favors mild pulmonary edema; EKG undetermined rhythm, LAD, LBBB, rate around 65 bpm.; Provided with nitroglycerin and Rocephin in ED. 79-year-old male PMHx CAD (5 myocardial infarction's, 17 cardiac stents, pacema ker placed), ischemic cardiomyopathy, history of V. tach, T2DM, HTN, bronchopulmonary dysplasia, hypothyroidism, and bipolar disorder presenting for chest pain started today. States it began around [id number] this a.m., described it as a dull pain central chest that does not radiate. Had mild shortness of breath, but nothing out of his normal shortness of breath. Patient does require 2 L O2 at all times. Patient notes that he did have some palpitations earlier in the day as well, case is since resolved. States he is unsure what level his pain was may be a 5, but that the pain has since resolved since around noon. Has had multiple episodes of this happen before, and has a significant cardiac history. Patient typically gets chest pain around 2-3 times per week, that resolves with rest. Usual triggers exertion. Currently chest pain free. Did have fall when transferring from sitting to standing at home, struck head. No headaches or vision changes. Patient also reports that he has a blistering lesion on his left inner ankle that has been ongoing since July, has been on multiple courses of antibiotics and has not had relief in the symptoms. Denying fever or chills. Overall denying abdominal pain, N/V/D/C, numbness or tingling, LUTS, or headaches. Took all a.m. medications. Please see Dr. Wu's attestation for adjustments/additions to treatment plan. Discharge Exam General: NAD, VS as above Resp: normal respiratory effort, lungs clear to auscultation CV: RRR, no murmur, denies chest pain currently Abd: normal bowel sounds, non tender, no hepatosplenomegaly Extremities: Moves all extremities, trace edema to left LE Neuro: A&O x3, Discharge Plan Discharge Items Patient Disposition: Home - Home Health Services Reason For Visit: CHEST PAIN Discharge Diagnosis: Chronic chest pain Activity: Resume your previous activity Non-emergency contact: Primary Care Provider and Resource Manager Call non-emergency contact if: you have any medication questions Follow-up/Referrals: Marisol Urbano M.D. [Outside Practitioners] - 06/21/24 10:00 am (follow up 1-2 weeks ) Marisol Love PA-C [Primary Care Provider] - 06/17/24 11:00 am (PLEASE CALL YOUR PRIMARY CARE PROVIDER TO SCHEDULE A HOSPITAL DISCHARGE FOLLOW-UP APPOINTMENT WITHIN 7-10 DAYS) Diet: Carb Consistent or DM2 and Heart Healthy Addtl Attending Provider Instructions: Mr. Arredondo, You were hospitalized after having episodes of chest pain. Thankfully, all of the cardiac testing has come back negative and it is very unlikely that you are having a heart attack and the corporate legal secretary did not think there was any indication for invasive intervention. We added a new medication - Imdur, to help with the chest pain symptoms. This has a side effect of lowering your blood pressure so we had to adjust some of you other medications. Full recommendations below. You were also seen by the nursing educator because your HgbA1c (the average of your blood sugars over 90 days) has risen to 10. A goal would be to keep that under 8. She has recommended that your increase your metformin dose. Full instructions on that below. Recommendations: * Start taking Imdur every morning - this is to help chest pain. * We have decreased your carvedilol dose to 12.5mg twice a day. If you are able to cut your current pills in half you can do so, but I have sent a new prescription to the pharmacy. * Take only 20mg of lasix (1/2 pill) for one week - monitor your leg swelling/ weight and for any dizziness symptoms. If you are not getting lightheaded or dizzy after one week, you can go back to the 40mg dose. * Check you weight everyday wearing the same clothes, if you gain more than 3 pounds in a day or 5 pounds in a week you need to contact your corporate legal secretary * You have been started on protonix - this is a medication to help coat the lining of the stomach and prevent heartburn in case this was contributing to your chest pain. 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 * We have increased your metformin dose, you are currently taking 1 pill twice a day. For one week you are going to take 2 pills in the morning and 1 pill at night. If you tolerte this well and do not have any GI side effects (diarrhea, upset stomach, etc) you can continue to increase to 2 pills twice a day. * Follow up with your PCP in 7-10 days. * Follow up with Dr. Urbano within 2 weeks. Medications: Your medication list has been reviewed and reconciled upon discharge to ensure accuracy and continuity of care. An updated list of all your medications is included with your hospital discharge paperwork. Please review this list closely, and make note of any changes. Take your medications as instructed; do not skip a dose of your medicines. Make sure all of your doctors know every medicine you are taking (including rzsg-ecu-ykqxvht medicines, vitamins, and supplements). Call your primary care provider before taking any new medicines (including over- the-counter medicines, vitamins, and supplements), because some of these may interact with your current medications, or may make your symptoms worse. Tell your primary care provider if you cannot afford your medications. Activity: You can do normal everyday activities as your body allows. Take rest breaks if you feel tired. Do not overexert. Stop activity if you have pain, shortness of breath or feel dizzy. Follow-up appointments: Make an appointment with your primary care physician within one week of discharge. A copy of this summary will be sent to them. Every time you see your primary care physician, or any other doctor, bring your medication list, and a list of questions. CONTACT YOUR PRIMARY CARE PROVIDER if you experience any of the following: Shortness of breath or difficulty breathing Fevers or chills Feeling tired with normal activity or experiencing dizziness or fainting Difficulty following your treatment plan, or difficulty taking medications Contact your corporate legal secretary - weight gain of more than 3 pounds in a day or 5 pounds in a week - more episodes of self resolving chest pain CALL 911 OR GO TO THE EMERGENCY DEPARTMENT if you experience any of the following: Severe abdominal pain or nausea/vomiting Severe chest pain, or chest pain that radiates (moves) to your jaw or arm Sudden, severe shortness of breath or difficulty breathing Thank you for allowing us to participate in your care. Brenna Jenkins PA-C Pending Studies at Discharge: No Stand-Alone Forms: My [facility] [employer], Smoking Cessation Medications and DC Order Prescriptions: New carvedilol 12.5 mg Tablet 12.5 mg PO BIDM 30 Days Qty: 60 1RF isosorbide mononitrate 60 mg Tablet Extended Release 24 Hr 60 mg PO QAM 30 Days Qty: 30 1RF pantoprazole 40 mg Tablet,Delayed Release (Dr/Ec) 40 mg PO QAM 30 Days Qty: 30 0RF Continued divalproex 250 mg tablet,delayed release (DR/EC) 750 mg PO HS Rx Instructions: 3 tablet dose bupropion HCl 200 mg tablet sustained-release 12 hr 200 mg PO BID rosuvastatin 10 mg tablet 10 mg PO QAM clopidogrel [Plavix] 75 mg Tablet 75 mg PO DAILY nitroglycerin [Nitrostat] 0.4 mg tablet, sublingual 0.4 mg sublingual UD PRN (Reason: Chest Pain) Eliquis 5 mg tablet 5 mg PO BID multivitamin Tablet 1 tab PO DAILY (DME) lancets 33 gauge misc See Rx Instructions .Route Qty: 100 5RF Rx Instructions: qac hhs testing (DME) OneTouch Verio test strips Strip See Rx Instructions .Route Qty: 100 0RF Rx Instructions: qac qhs (DME) blood-glucose meter Misc See Rx Instructions .Route Qty: 1 0RF Rx Instructions: qac qhs insulin glargine [Lantus Solostar U-100 Insulin] 100 unit/mL (3 mL) insulin pen 35 unit subcut PM Qty: 15 0RF (DME) pen needle,diabetic, disp unit 32 gauge x 5/32" needle See Rx Instructions .Route Qty: 100 0RF Rx Instructions: Inject 1x daily tamsulosin 0.4 mg capsule 0.4 mg PO QAM ramipril 2.5 mg capsule 2.5 mg PO BID duloxetine 60 mg capsule,delayed release(DR/EC) 60 mg PO DAILY melatonin 12 mg Tablet 12 mg PO HS Changed furosemide 40 mg tablet 20 mg PO DAILY MDD 80mg/24hr Qty: 0 0RF Rx Instructions: Per pt he can take additional 40mg later in the day if needed metformin 500 mg tablet 1,000 mg PO BID 30 Days Qty: 120 1RF Rx Instructions: take 1000mg AM and 500mg PM x1 week, then increase to 1000mg AM and PM Discontinued carvedilol 25 mg tablet 25 mg PO BID Discharge Orders: Discharge Order (Routine); Ordered 06/01/24 Ordered By: Brenna Jenkins Admission Data Admit Date/Time: 05/31/24 13:07 Attending Provider: Jean Shen Admit Provider: Mala Wu Primary Care Provider: Marisol Love Other Providers: Alcides Booth Other Interventions: Discharge Summary Assessment (RN) Last Done: 06/01/24 13:07 Hospital Stay Data Consultations 05/29/24 13:57 ED Decision to Admit Stat 05/29/24 18:24 Consult Cardiology Routine Diagnostic Imagining Performed Chest X-Ray 05/29/24 12:29 XR chest 1V not portable CLINICAL HISTORY: Chest pain, nonspecific COMPARISON STUDY: Chest CT July 10, 2020. Chest radiograph March 08, 2021. FINDINGS: Left subclavian pacer/AICD is in place. There are mediastinal wires and mediastinal surgical clips. There is no pneumothorax or pleural effusion. Mild interstitial thickening is present. There is no consolidation to suggest pneumonia. IMPRESSION: Cardiomegaly. Interstitial thickening which favors mild pulmonary edema. ACT 112: Negative or not required by law. Electronically signed by: Ryan Mcgrath M.D. 05/29/2024 1:47 PM Pending Results Patient Have Any Pending Studies at Discharge: No Discharge Instructions Given to Patient (Per Discharging Provider) Mr. Arredondo, You were hospitalized after having episodes of chest pain. Thankfully, all of the cardiac testing has come back negative and it is very unlikely that you are having a heart attack and the corporate legal secretary did not think there was any indication for invasive intervention. We added a new medication - Imdur, to help with the chest pain symptoms. This has a side effect of lowering your blood pressure so we had to adjust some of you other medications. Full recommendations below. You were also seen by the nursing educator because your HgbA1c (the average of your blood sugars over 90 days) has risen to 10. A goal would be to keep that under 8. She has recommended that your increase your metformin dose. Full instructions on that below. Recommendations: * Start taking Imdur every morning - this is to help chest pain. * We have decreased your carvedilol dose to 12.5mg twice a day. If you are able to cut your current pills in half you can do so, but I have sent a new prescription to the pharmacy. * Take only 20mg of lasix (1/2 pill) for one week - monitor your leg swelling/weight and for any dizziness symptoms. If you are not getting lightheaded or dizzy after one week, you can go back to the 40mg dose. * Check you weight everyday wearing the same clothes, if you gain more than 3 pounds in a day or 5 pounds in a week you need to contact your corporate legal secretary * You have been started on protonix - this is a medication to help coat the lining of the stomach and prevent heartburn in case this was contributing to your chest pain. 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 * We have increased your metformin dose, you are currently taking 1 pill twice a day. For one week you are going to take 2 pills in the morning and 1 pill at night. If you tolerte this well and do not have any GI side effects (diarrhea, upset stomach, etc) you can continue to increase to 2 pills twice a day. * Follow up with your PCP in 7-10 days. * Follow up with Dr. Urbano within 2 weeks. Medications: Your medication list has been reviewed and reconciled upon discharge to ensure accuracy and continuity of care. An updated list of all your medications is included with your hospital discharge paperwork. Please review this list closely, and make note of any changes. Take your medications as instructed; do not skip a dose of your medicines. Make sure all of your doctors know every medicine you are taking (including wvjp-lmu-mbydrmg medicines, vitamins, and supplements). Call your primary care provider before taking any new medicines (including over- the-counter medicines, vitamins, and supplements), because some of these may interact with your current medications, or may make your symptoms worse. Tell your primary care provider if you cannot afford your medications. Activity: You can do normal everyday activities as your body allows. Take rest breaks if you feel tired. Do not overexert. Stop activity if you have pain, shortness of breath or feel dizzy. Follow-up appointments: Make an appointment with your primary care physician within one week of discharge. A copy of this summary will be sent to them. Every time you see your primary care physician, or any other doctor, bring your medication list, and a l ist of questions. CONTACT YOUR PRIMARY CARE PROVIDER if you experience any of the following: Shortness of breath or difficulty breathing Fevers or chills Feeling tired with normal activity or experiencing dizziness or fainting Difficulty following your treatment plan, or difficulty taking medications Contact your corporate legal secretary - weight gain of more than 3 pounds in a day or 5 pounds in a week - more episodes of self resolving chest pain CALL 911 OR GO TO THE EMERGENCY DEPARTMENT if you experience any of the following: Severe abdominal pain or nausea/vomiting Severe chest pain, or chest pain that radiates (moves) to your jaw or arm Sudden, severe shortness of breath or difficulty breathing Thank you for allowing us to participate in your care. Brenna Jenkins PA-C Supervising Physician Co-Signing Physician Notes Attending Attestation & Discharge Note: Pt seen/examined, chart reviewed, care plan d/w NORBERTO Jenkins. I agree w/ the griffin components of her discharge summary. 79yo male with extensive CAD history including prior CABG in the as well as numerous coronary stents (several in [place], some in [facility], etc), chronic hypoxic resp failure on home O2, chronic systolic CHF, DM, hypothyroidism, bipolar disorder, ICD/pacer. Presented with multiple episodes of chest pain. Despite the extensive CAD history his troponins were fully negative. EKG with paced rhythm. Telemetry stable while here. Echo not repeated - had one at [facility] in Mar 2024 with EF 40s and multiple wall motion abnormalities but had negative stress test in Mar 2024. Seen by cardiology - felt to be a very poor interventional candidate and thus his CAD was treated medically. Imdur started at 30mg/day, titrated to 60mg/day and was d/c home on such. Due to tendencies towards dizziness/orthostasis his lasix & coreg were decreased (20mg of lasix and 12.5mg BID, respectively). His primary corporate legal secretary is in [place], [place] and he has scheduled f/u with them in early June 2023 for recheck. At discharge he was experiencing no further chest discomfort. Discharge exam: gen - NAD, pleasant neck - no JVD mouth - MMM heart - RRR, s1 s2, no murmur lungs - CTA b/l abd - soft NT ND BS+ ext - pulses 2+ b/l feet, no edema Jean Shen MD Total Time Total Time Spent Total Time Spent (In Minutes): Time spent day of discharge 40 minutes including direct patient care, medication reconciliation, documentation, review of labs and images, and coordination of care. Coding Level of Care Code 71044 INP/OBS DISCH >30 MIN Diagnoses Chest pain R07.9 Chest pain type: unspecified Falls frequently R29.6 Diabetes mellitus type 2 in obese E11.69; E66.9
[2024-06-01 11:26] VITALS: RESP 18; TEMP 97.5
[2024-06-01 13:08] VITALS: BP 123/59
[2024-06-01] MEDS ORDERED: LANTUS PER UNIT CHARGE SC SCH (21:00)
== END 2024-06-01 17:51 | disposition home health service (06) | DRG 313 ==
LOC: ED 12:20 → 2N 12:20 → SUATTDRO 05-31 13:07
DX: I25.10 Atherosclerotic heart disease of native coronary artery without angina pectoris; Z79.02 Long term (current) use of antithrombotics/antiplatelets; Z79.899 Other long term (current) drug therapy; Z79.4 Long term (current) use of insulin; E03.9 Hypothyroidism, unspecified; I25.2 Old myocardial infarction; Z88.8 Allergy status to other drugs, medicaments and biological substances; R07.89 Other chest pain; E11.51 Type 2 diabetes mellitus with diabetic peripheral angiopathy without gangrene; F31.9 Bipolar disorder, unspecified; R29.6 Repeated falls; Z79.01 Long term (current) use of anticoagulants; Z95.5 Presence of coronary angioplasty implant and graft; S90.522A Blister (nonthermal), left ankle, initial encounter; Z79.82 Long term (current) use of aspirin; R07.2 Precordial pain; Z95.0 Presence of cardiac pacemaker; I50.22 Chronic systolic (congestive) heart failure; E66.9 Obesity, unspecified; I25.5 Ischemic cardiomyopathy; Z91.011 Allergy to milk products; Z95.1 Presence of aortocoronary bypass graft; I11.0 Hypertensive heart disease with heart failure; Z87.891 Personal history of nicotine dependence; J96.11 Chronic respiratory failure with hypoxia; W01.198A Fall on same level from slipping, tripping and stumbling with subsequent striking against other object, initial encounter; Z79.84 Long term (current) use of oral hypoglycemic drugs; Z68.27 Body mass index [BMI] 27.0-27.9, adult; Z91.041 Radiographic dye allergy status

== ENCOUNTER 2024-12-15 16:47 | Inpatient (IN) ==
--- NOTE | 2024-12-15 17:12 | Emergency Department Note ---
Impression & Plan STEPHAN (acute kidney injury) Admission ED Provider Note HPI: History obtained from patient. The patient is a 79-year-old gentleman with history of coronary artery disease, CHF status post ICD, presents the emergency department with chief complaint of lightheadedness when standing. Patient states he has had the symptoms for about the past 24 hours. Patient states that every time he gets up from his recliner or any other seated position he gets acutely lightheaded and also has some mild dyspnea and mild chest "pressure". On arrival here to the ED the patient states his symptoms are resolved when he is at rest. He saturating well on his baseline nasal cannula oxygen on my initial assessment otherwise appears to be in no acute distress. Patient denies any syncope, he states he did feel lightheaded to the point where he had a fall today. Patient states he fell on the front part of his body and he denies any head injury. ROS: - Per HPI Differential Diagnosis: Arrhythmia to include SVT, atrial fibrillation with RVR, ventricular tachycardia, vasovagal event, orthostatic hypotension, ACS, amongst other potential pathologies. *Outpatient medications and allergy history reviewed. PE: General: Alert, frail-appearing, no acute distress HEENT: Normocephalic, trachea midline Eyes: Extraocular eye movement is intact, no scleral erythema Pulmonary: Clear to auscultation bilaterally, no wheezing Cardio: Regular rate and rhythm GI: Abdomen is soft to palpation : No suprapubic tenderness MSK: No evidence of trauma or malformation of the extremities, no edema Skin: No evidence of rash Neuro: Alert, no focal deficits Psychiatric: Cooperative INDEPENDENT INTERPRETATIONS: residential monitor: (As interpreted by myself): - An order was placed for continuous cardiac monitoring - Patient was noted to be in paced rhythm with a rate of 60 EKG: (As interpreted by myself): Rate: 60 Rhythm: Paced rhythm Intervals: OK interval 248 ms, QRS 154 ms, QTc [address] changes: No ST elevation Time: 1654 Chest x-ray: (As interpreted by myself): Normal chest radiograph Interventions provided in ED: - IV fluid bolus Medical Decision Making: IV was established and lab work obtained, patient was placed on color television console monitor. Lab work shows no leukocytosis, hemoglobin stable at 12.9, platelet count is normal, CMP does not show any evidence of any critical findings aside from creatinine elevated at 3.63 which does appear to be new in comparison to patient's previous lab work from June. Troponin is mildly elevated at 24. BNP is 111. Chest x-ray per my interpretation does not show any evidence of any overt fluid overload or focal infiltrate. CT imaging of the head and cervical spine were obtained given the patient's reported fall, this does not show any evidence of any acute intracranial hemorrhage or cervical spine fracture. Patient was given a small IV fluid bolus given his acute kidney injury. He is lightheaded with certain positional changes and I suspect there is an element of STEPHAN on CKD to his symptoms. He denies any syncopal events, denies receiving any ICD shocks. I discussed the patient's presentation [facility] and the patient was placed for admission to the service of Dr. Cisneros. Consultants/Discussions held with other healthcare providers: - HospitalistDr. Cisneros Disposition discussion held by myself with: - Patient Diagnosis: 1. Intermittent lightheadedness, acute 2. Acute kidney injury 3. Elevated high-sensitivity troponin, acute, mild Disposition: Admission Gonzalez Frazier DO Emergency Medicine Past Med/Surg History Problem List (Updated 12/15/24 @ 23:28 by Gonzalez Frazier DO) STEPHAN (acute kidney injury) (Acute) Acute foot pain (Acute) Pseudohyponatremia (Acute) Elevated troponin (Acute) Elevated troponin Syncope and collapse Left leg pain Hyperglycemia (Acute) Gait instability (Acute) CHI (closed head injury) (Acute) Impacted cerumen of left ear Hyponatremia STEPHAN (acute kidney injury) Left-sided chest pain (Acute) Left rib fracture (Acute) DVT prophylaxis Status post fall Hypertension BPD (bronchopulmonary dysplasia) (Chronic) Hypothyroid (Chronic) Bipolar disorder (Chronic) Medical History Falls frequently Surgical History Hx of inguinal herniorrhaphy Status post aorto-coronary artery bypass graft Family History Other Family history non-contributory Social History Smoking Status: Former smoker Tobacco Type: Cigarettes Second Hand Exposure: No; Do You Dip or Chew Tobacco: No; Hx Alcohol Use: No Hx Substance Use: No Preferred Language: Ukrainian Communication Ability: Effective Cte Teacher Required: No Beliefs That Will Affect Care: None Current Living Situation: Alone Current Living Situation Comment: home alone Feels Safe at Home: Yes Assistive Devices: Oxygen - Continuous and Walker Allergies Allergies Allergy/AdvReac Type Severity Reaction Status Date / Time Milk Containing Products Allergy Unknown Unknown Unverified 05/29/24 15:54 (Dairy) Iodinated Contrast Media Allergy Rash Verified 05/29/24 15:54 warfarin AdvReac Severe Made my Unverified 05/29/24 15:54 blood extremely thin Home Meds Home Medications Medication Instructions Recorded Confirmed rosuvastatin 10 mg tablet 10 mg PO QAM 07/10/20 12/15/24 nitroglycerin 0.4 mg sublingual 0.4 mg sublingual UD PRN Chest Pain 01/08/21 12/15/24 tablet (Nitrostat) apixaban 5 mg tablet (Eliquis) 5 mg PO BID 04/05/24 12/15/24 multivitamin 1 tab PO DAILY 04/05/24 12/15/24 duloxetine 60 mg capsule,delayed 60 mg PO DAILY 05/29/24 12/15/24 release ramipril 2.5 mg capsule 2.5 mg PO BID 05/29/24 12/15/24 tamsulosin 0.4 mg capsule 0.4 mg PO QAM 05/29/24 12/15/24 amiodarone 400 mg tablet 400 mg PO DAILY 12/15/24 12/15/24 carvedilol 12.5 mg tablet 25 mg PO DAILY 12/15/24 12/15/24 empagliflozin 10 mg tablet 10 mg PO DAILY 12/15/24 12/15/24 (Jardiance) fluticasone furoate 100 1 inh inhalation DAILY 12/15/24 12/15/24 mcg-vilanterol 25 mcg/dose inhalation powder (Breo Ellipta) furosemide 40 mg tablet 20 mg PO DAILY PRN SWELLING 12/15/24 12/15/24 insulin glargine 100 unit/mL (3 25 unit subcut PM 12/15/24 12/15/24 mL) subcutaneous pen (Lantus Solostar U-100 Insulin) isosorbide mononitrate 60 mg 120 mg PO UD 12/15/24 12/15/24 tablet,extended release 24 hr metformin 500 mg tablet 500 mg PO BID 12/15/24 12/15/24 pantoprazole 40 mg tablet,delayed 40 mg PO DAILY 12/15/24 12/15/24 release tolterodine 4 mg capsule,extended 4 mg PO DAILY 12/15/24 12/15/24 release 24 hr Previous Rx's Medication Instructions Recorded blood sugar diagnostic (OneTouch #100 ea 04/06/24 Verio test strips) blood-glucose meter #1 ea 04/06/24 lancets 33 gauge #100 ea 04/06/24 pen needle,diabetic, disp unit 32 #100 ea 04/10/24 gauge x 5/32", remover and disposal unit Results & Data (ED) Vital Signs Vital Signs - 24 hr 12/15/24 16:48 12/15/24 16:55 12/15/24 17:06 Temperature 36.3 C L Temperature Source Oral Pulse Rate 61 60 Pulse Rate from SpO2 Sensor Respiratory Rate 12 Blood Pressure 122/55 L 122/55 L Blood Pressure Mean 77 81 Blood Pressure Position Semi-fowlers Pulse Oximetry 99 Oxygen Delivery Method Nasal Cannula Oxygen Flow Rate 4 Sepsis Recent Fever Within 48 Hours No Sepsis New/Unexplained Change in Mental Status No Sepsis Action Taken by Nursing No Action Required 12/15/24 17:06 12/15/24 17:09 12/15/24 17:22 Temperature Temperature Source Pulse Rate 61 Pulse Rate from SpO2 Sensor 61 Respiratory Rate 17 Blood Pressure 104/50 L Blood Pressure Mean 68 Blood Pressure Position Pulse Oximetry 99 Oxygen Delivery Method Nasal Cannula Nasal Cannula Nasal Cannula Oxygen Flow Rate 4 4 4 Sepsis Recent Fever Within 48 Hours Sepsis New/Unexplained Change in Mental Status Sepsis Action Taken by Nursing 12/15/24 17:54 12/15/24 18:01 12/15/24 18:30 Temperature Temperature Source Pulse Rate 60 60 Pulse Rate from SpO2 Sensor 60 60 Respiratory Rate 18 20 Blood Pressure 112/55 L 115/69 126/54 L Blood Pressure Mean 74 92 78 Blood Pressure Position Pulse Oximetry 100 100 Oxygen Delivery Method Nasal Cannula Nasal Cannula Oxygen Flow Rate 4 4 Sepsis Recent Fever Within 48 Hours Sepsis New/Unexplained Change in Mental Status Sepsis Action Taken by Nursing 12/15/24 19:30 12/15/24 20:00 12/15/24 20:30 Temperature Temperature Source Pulse Rate 62 60 69 Pulse Rate from SpO2 Sensor 60 60 Respiratory Rate 23 20 18 Blood Pressure 130/63 132/87 123/55 L Blood Pressure Mean 99 101 93 Blood Pressure Position Pulse Oximetry 98 99 100 Oxygen Delivery Method Nasal Cannula Nasal Cannula Nasal Cannula Oxygen Flow Rate 4 4 4 Sepsis Recent Fever Within 48 Hours Sepsis New/Unexplained Change in Mental Status Sepsis Action Taken by Nursing Laboratory Data 12/15/24 16:55 12/15/24 16:55 Lab Results 12/15/24 12/15/24 12/15/24 Range/Units 16:55 17:18 18:38 WBC 8.56 (4.8-10.8) K/ul RBC 5.05 (4.70-6.10) M/uL Hgb 12.9 L (14.0-18.0) g/dl Hct 40.5 L (42.0-52.0) % MCV 80.2 (80.0-100.0) fL MCH 25.5 (25.0-34.0) pg MCHC 31.9 L (32.0-36.0) g/dL RDW Std Deviation 44.7 (36.4-46.3) fL RDW Coeff of De 15.9 H (11.5-14.5) % Plt Count 204 (130-400) K/uL MPV 11.8 (9.4-12.4) fL Immature Gran % (Auto) 0.5 % Neut % (Auto) 78.9 % Lymph % (Auto) 8.6 % [place] % (Auto) 10.9 % Eos % (Auto) 0.7 % Baso % (Auto) 0.4 % Neut # (Auto) 6.76 H (1.40-6.50) K/uL Lymph # (Auto) 0.74 L (1.20-3.40) K/uL [place] # (Auto) 0.93 H (0.11-0.59) K/uL Eos # (Auto) 0.06 (0.00-0.50) K/uL Baso # (Auto) 0.03 (0.00-0.20) K/uL Immature Gran # (Auto) 0.04 (0.01-0.20) K/uL PT 12.2 H (9.0-12.0) Seconds INR 1.1 (0.9-1.1) Sodium 134 L (136-145) mmol/L Potassium 5.0 (3.5-5.1) mmol/L Chloride 98 (98-107) mmol/L Carbon Dioxide 26 (21-32) mmol/L Anion Gap 10 (3-11) BUN 46 H (6-23) mg/dl Creatinine 3.63 H (0.6-1.4) mg/dl Est Cr Clr Drug Dosing 17.0 ml/min eGFR 16.50 BUN/Creatinine Ratio 12.7 (10-20) Glucose 81 (70-99(Fasting)) mg/dl POC Glucose 82 (70-99) mg/dl Calcium 9.4 (8.6-10.3) mg/dl Total Bilirubin 0.7 (0.2-1.0) mg/dl AST 63 H (13-39) U/L ALT 77 H (7-52) U/L Alkaline Phosphatase 94 (34-104) U/L Troponin I High Sens 24.1 H 23.2 H (0-20) pg/ml B-Natriuretic Peptide 111 H (0-100) pg/ml Total Protein 7.2 (6.0-8.3) gm/dl Albumin 4.0 (3.4-5.0) gm/dl Globulin 3.2 (2.5-4.0) gm/dl Albumin/Globulin Ratio 1.3 (0.9-2) Lipase 28 (11-82) U/L 12/15/24 Range/Units 19:31 WBC (4.8-10.8) K/ul RBC (4.70-6.10) M/uL Hgb (14.0-18.0) g/dl Hct (42.0-52.0) % MCV (80.0-100.0) fL MCH (25.0-34.0) pg MCHC (32.0-36.0) g/dL RDW Std Deviation (36.4-46.3) fL RDW Coeff of De (11.5-14.5) % Plt Count (130-400) K/uL MPV (9.4-12.4) fL Immature Gran % (Auto) % Neut % (Auto) % Lymph % (Auto) % [place] % (Auto) % Eos % (Auto) % Baso % (Auto) % Neut # (Auto) (1.40-6.50) K/uL Lymph # (Auto) (1.20-3.40) K/uL [place] # (Auto) (0.11-0.59) K/uL Eos # (Auto) (0.00-0.50) K/uL Baso # (Auto) (0.00-0.20) K/uL Immature Gran # (Auto) (0.01-0.20) K/uL PT (9.0-12.0) Seconds INR (0.9-1.1) Sodium (136-145) mmol/L Potassium (3.5-5.1) mmol/L Chloride (98-107) mmol/L Carbon Dioxide (21-32) mmol/L Anion Gap (3-11) BUN (6-23) mg/dl Creatinine (0.6-1.4) mg/dl Est Cr Clr Drug Dosing ml/min eGFR BUN/Creatinine Ratio (10-20) Glucose (70-99(Fasting)) mg/dl POC Glucose 70 (70-99) mg/dl Calcium (8.6-10.3) mg/dl Total Bilirubin (0.2-1.0) mg/dl AST (13-39) U/L ALT (7-52) U/L Alkaline Phosphatase (34-104) U/L Troponin I High Sens (0-20) pg/ml B-Natriuretic Peptide (0-100) pg/ml Total Protein (6.0-8.3) gm/dl Albumin (3.4-5.0) gm/dl Globulin (2.5-4.0) gm/dl Albumin/Globulin Ratio (0.9-2) Lipase (11-82) U/L Administered Medications Discontinued Medications Sodium Chloride (Nss) 500 mls @ 999 mls/hr IV .Q31M ONE Stop: 12/15/24 18:01 Last Infusion: 12/15/24 18:45 Dose: Infused Documented By: Admin: 12/15/24 18:03 Dose: 999 mls/hr Documented By: CEF Imaging Data Radiologist's Impression: Chest X-Ray 12/15/24 16:59 Chest radiograph, one view History: Dizziness Comparison: 06/30/2024 Findings: Single AP view of the chest performed. No focal consolidation or pleural effusion. No pneumothorax. The cardiomediastinal silhouette is enlarged. Left chest wall dual-lead AICD. CABG changes. Median sternotomy wires. Normal pulmonary vascularity. No evidence for lymphadenopathy. No visualized bony or soft tissue abnormality. Impression: Normal chest radiograph Electronically signed by Dagoberto Shepard 12-15-2024 6:[address] 12/15/24 17:07 CT head without contrast History: Trauma Comparison: None Technique: Using multidetector thin collimation helical acquisition technique, axial, coronal and sagittal CT images from the skull base to the vertex were obtained without intravenous contrast. Dose reduction techniques were achieved by using automatic exposure control and/or adjustment of mA and/or kV according to patient size and/or use of iterative reconstruction technique. Findings: No intracranial hemorrhage, mass-effect, or midline shift. The ventricles are proportionate to the cerebral sulci. The huitron to white matter differentiation of the cerebral hemispheres is preserved. The basal cisterns are patent. The visualized paranasal sinuses are clear. Mastoid air cells are clear. Impression: No acute intracranial pathology. Electronically signed by Dagoberto Shepard 12-15-2024 5:[address] 12/15/24 17:24 Clinical history: Fall Technique: Axial computed tomography images were obtained of the cervical spine without intravenous contrast. Sagittal and coronal reconstructions were obtained Comparison is made to the prior CT dated 06/30/2024 Findings: No fracture is identified. No listhesis is seen. No focal osseous lesion is evident. 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 There is mild left lower foramen narrowing At C3-4, there is mild spinal stenosis due to a disc bulge and a central disc protrusion. There is mild right neural foramen narrowing At C4-5, there is a disc bulge without spinal stenosis. The neural foramen are patent At C5-6, there is a disc bulge without spinal stenosis. The neural foramen are patent At C6-7, there is a disc bulge without spinal stenosis. The neural foramen are patent At C7-T1, there is a disc bulge without spinal stenosis. The neural foramen are patent The lung apices appear clear. The visualized soft tissues of the neck appear unremarkable. No foreign body is seen Impression: 1. No definite cervical spine fracture 2. Mild spinal stenosis at C3-4 Electronically signed by Alden Gutierrez 12-15-2024 6:37 PM Discharge Plan Visit Data Chief Complaint: Shortness of Breath/Dyspnea Stated Complaint: Neck pain/dizzy ED Provider: Gonzalez Frazier Discharge Problem: STEPHAN (acute kidney injury) Patient Disposition: Admitted As Inpatient Condition: Fair Discharge Instructions Interventions: ED Discharge Assessment Last Done: 12/15/24 22:20
[2024-12-15 17:14] LABS: Hematocrit (blood only) 40.5 % (42.0-52.0); Hemoglobin 12.9 g/dl (14.0-18.0); Immature Granulocytes # (auto) 0.04 K/uL (0.01-0.20); Immature Granulocytes % (auto) 0.5 %; Mean Corpuscular Hemoglobin 25.5 pg (25.0-34.0); Mean Corpuscular Volume 80.2 fL (80.0-100.0); Platelet Count 204 K/uL (130-400); RDW Standard Deviation 44.7 fL (36.4-46.3); Red Blood Count 5.05 M/uL (4.70-6.10); White Blood Count 8.56 K/ul (4.8-10.8)
[2024-12-15 17:30] LABS: Alanine Aminotransferase 77.0 U/L (7-52); Albumin Globulin Ratio 1.3 (0.9-2); Alkaline Phosphatase 94.0 U/L (34-104); Anion Gap 10.0 (3-11); Bilirubin,Total 0.7 mg/dl (0.2-1.0); Blood Urea Nitrogen 46.0 mg/dl (6-23); Calcium 9.4 mg/dl (8.6-10.3); Carbon Dioxide 26.0 mmol/L (21-32); Chloride 98.0 mmol/L (98-107); Creatinine Clr Calc Pharmacy 17.0 ml/min; Globulin 3.2 gm/dl (2.5-4.0); Glucose 81.0 mg/dl (70-99(Fasting)); Lipase 28.0 U/L (11-82); Potassium 5.0 mmol/L (3.5-5.1); Sodium 134.0 mmol/L (136-145); Total Protein 7.2 gm/dl (6.0-8.3)
--- NOTE | 2024-12-15 17:51 | CT Scan Report ---
CT head without contrast History: Trauma Comparison: None Technique: Using multidetector thin collimation helical acquisition technique, axial, coronal and sagittal CT images from the skull base to the vertex were obtained without intravenous contrast. Dose reduction techniques were achieved by using automatic exposure control and/or adjustment of mA and/or kV according to patient size and/or use of iterative reconstruction technique. Findings: No intracranial hemorrhage, mass-effect, or midline shift. The ventricles are proportionate to the cerebral sulci. The huitron to white matter differentiation of the cerebral hemispheres is preserved. The basal cisterns are patent. The visualized paranasal sinuses are clear. Mastoid air cells are clear. Impression: No acute intracranial pathology. Electronically signed by Dagoberto Shepard 12-15-2024 5:51 PM
[2024-12-15 17:54] LABS: INR 1.1 (0.9-1.1); Prothrombin Time 12.2 Seconds (9.0-12.0)
[2024-12-15] MEDS: SODIUM CHLORIDE 0.9% 500 ML IV ONE (18:03)
--- NOTE | 2024-12-15 18:18 | XRay Report ---
Chest radiograph, one view History: Dizziness Comparison: 06/30/2024 Findings: Single AP view of the chest performed. No focal consolidation or pleural effusion. No pneumothorax. The cardiomediastinal silhouette is enlarged. Left chest wall dual-lead AICD. CABG changes. Median sternotomy wires. Normal pulmonary vascularity. No evidence for lymphadenopathy. No visualized bony or soft tissue abnormality. Impression: Normal chest radiograph Electronically signed by Dagoberto Shepard 12-15-2024 6:18 PM
--- NOTE | 2024-12-15 18:37 | CT Scan Report ---
Clinical history: Fall Technique: Axial computed tomography images were obtained of the cervical spine without intravenous contrast. Sagittal and coronal reconstructions were obtained Comparison is made to the prior CT dated 06/30/2024 Findings: No fracture is identified. No listhesis is seen. No focal osseous lesion is evident. 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 There is mild left lower foramen narrowing At C3-4, there is mild spinal stenosis due to a disc bulge and a central disc protrusion. There is mild right neural foramen narrowing At C4-5, there is a disc bulge without spinal stenosis. The neural foramen are patent At C5-6, there is a disc bulge without spinal stenosis. The neural foramen are patent At C6-7, there is a disc bulge without spinal stenosis. The neural foramen are patent At C7-T1, there is a disc bulge without spinal stenosis. The neural foramen are patent The lung apices appear clear. The visualized soft tissues of the neck appear unremarkable. No foreign body is seen Impression: 1. No definite cervical spine fracture 2. Mild spinal stenosis at C3-4 Electronically signed by Alden Gutierrez 12-15-2024 6:37 PM
--- NOTE | 2024-12-15 20:22 | History & Physical Report ---
Date of Service December 15, 2024 Assessment & Plan (1) STEPHAN (acute kidney injury): (2) Syncope and collapse: (3) Heart failure with mildly reduced ejection fraction (HFmrEF, 41-49%): Plan Case is [id number] gentleman with history of coronary artery disease, CHF status post ICD, DM2, CAD, PAD here due to orthostatic hypotension with dizziness. Patient had poor po intake for the past 2 days. Patient found with STEPHAN with Cr. of 3.63. Patient will be admitted for IVF STEPHAN | Dehydration |CKD - suspected Pre renal. 2/2 to nausea and vomiting for 2 days. Unable to keep food or water down. - Lightheadedness and dizziness with standing. - Labs remarkable for hyponatremia of 134. Cr. 3.64. AST 63, ALT 77 - CR baseline 1.10~ - S/p 1 L NSS at ED - Avoid nephrotoxic medications - Will continue gentle fluids due to history of CHF. - Renal US - LR 80 ml/hr - Encourage PO intake - Zofran for nausea Labs AM CHF mildly reduced |ICD EF - stable. euvolemic on exam - Echo 03/2024- EF 45%. Akinesis. Severe hypokineses of the inferolateral wall. - Gentle fluids as above - Furosemide 40 mg daily hold for now due to STEPHAN - CRESENCIO inhibitor hold tonight due to STEPHAN - I/Os, daily weights CAD s/p CABG x 4 and PCI x 17: - no chest pain - Troponin peaked at 24 - EKG w/o ST changes - Continue antiplatelet therapy. Continue statin therapy and beta-fantasma. - imdur - hold due to hypotension PAD - chronic left calf pain, lower arterial duplex this fall with a focal stenosis of left SFA, right peroneal artery was monophasic, NEVIN on right was 0.92 NEVIN on left was 1.42 DM Home meds: lantus and metformin - Novalog added - Lantus 25 pm Chronic hypoxic respiratory failure - 2L at home DVT prophylaxis : Eliquis History of Present Illness Primary Care Provider: Marisol Love Case is [id number] gentleman with history of coronary artery disease, CHF status post ICD, DM2, CAD, PAD here due to orthostatic hypotension with dizziness. Patient had poor po intake for the past 2 days. He states having nausea and vomiting., unable to keep food, drinks or pills. He hasn't seen his PCP for this. Denied any abdominal pain. Denied any diarrhea, constipation. No dark stool or blood on stools. Denied any fevers, chills. No sick contacts. Last hospitalization was a month ago on outside facility due to volume overload/ CHF. Denied any change of medication. Denied adding OTC medications. Denied any new use of NSAIDs. Denied any pain. He states his bilateral leg edema had improved since last hospital visit. Denied any worsening SOB. Patient found with STEPHAN with Cr. of 3.63. Allergies Allergy/AdvReac Type Severity Reaction Status Date / Time Milk Containing Products Allergy Unknown Unknown Unverified 05/29/24 15:54 (Dairy) Iodinated Contrast Media Allergy Rash Verified 05/29/24 15:54 warfarin AdvReac Severe Made my Unverified 05/29/24 15:54 blood extremely thin Home Medications Medication Instructions Recorded Confirmed Type rosuvastatin 10 mg tablet 10 mg PO QAM 07/10/20 12/15/24 History nitroglycerin 0.4 mg sublingual 0.4 mg sublingual UD PRN Chest Pain 01/08/21 12/15/24 History tablet (Nitrostat) apixaban 5 mg tablet (Eliquis) 5 mg PO BID 04/05/24 12/15/24 History multivitamin 1 tab PO DAILY 04/05/24 12/15/24 History blood sugar diagnostic (OneTouch #100 ea 04/06/24 06/30/24 Rx Verio test strips) blood-glucose meter #1 ea 04/06/24 06/30/24 Rx lancets 33 gauge #100 ea 04/06/24 06/30/24 Rx pen needle,diabetic, disp unit 32 #100 ea 04/10/24 06/30/24 Rx gauge x 5/32", remover and disposal unit duloxetine 60 mg capsule,delayed 60 mg PO DAILY 05/29/24 12/15/24 History release tamsulosin 0.4 mg capsule 0.4 mg PO QAM 05/29/24 12/15/24 History amiodarone 400 mg tablet 400 mg PO DAILY 12/15/24 12/15/24 History carvedilol 12.5 mg tablet 25 mg PO DAILY 12/15/24 12/15/24 History empagliflozin 10 mg tablet 10 mg PO DAILY 12/15/24 12/15/24 History (Jardiance) fluticasone furoate 100 1 inh inhalation DAILY 12/15/24 12/15/24 History mcg-vilanterol 25 mcg/dose inhalation powder (Breo Ellipta) insulin glargine 100 unit/mL (3 25 unit subcut PM 12/15/24 12/15/24 History mL) subcutaneous pen (Lantus Solostar U-100 Insulin) isosorbide mononitrate 60 mg 120 mg PO UD 12/15/24 12/15/24 History tablet,extended release 24 hr metformin 500 mg tablet 500 mg PO BID 12/15/24 12/15/24 History Past Med/Surg History Problem List (Updated 12/15/24 @ 23:28 by Gonzalez Frazier DO) STEPHAN (acute kidney injury) (Acute) Acute foot pain (Acute) Pseudohyponatremia (Acute) Elevated troponin (Acute) Elevated troponin Syncope and collapse Left leg pain Hyperglycemia (Acute) Gait instability (Acute) CHI (closed head injury) (Acute) Impacted cerumen of left ear Hyponatremia STEPHAN (acute kidney injury) Left-sided chest pain (Acute) Left rib fracture (Acute) DVT prophylaxis Status post fall Hypertension BPD (bronchopulmonary dysplasia) (Chronic) Hypothyroid (Chronic) Bipolar disorder (Chronic) Medical History Falls frequently Surgical History Hx of inguinal herniorrhaphy Status post aorto-coronary artery bypass graft Family History Other Family history non-contributory Social History Smoking Status: Never smoker Tobacco Type: Cigarettes Second Hand Exposure: No; Do You Dip or Chew Tobacco: No; Hx Alcohol Use: No Hx Substance Use: No Preferred Language: Mosotho Communication Ability: Effective Prior Authorization Nurse Required: No Beliefs That Will Affect Care: None Current Living Situation: Alone Current Living Situation Comment: home alone Feels Safe at Home: Yes Assistive Devices: Cane, Oxygen - Continuous and Walker Review of Systems Review of Systems: as per HPI Physical Exam Constitutional: WD/WN, vitals as above ENMT: external ear and nose normal, oropharynx normal Respiratory: normal respiratory effort, lungs clear to auscultation Cardiovascular: RRR, no murmur, no edema Gastrointestinal (Abdomen): normal bowel sounds, soft, nontender, no hepatosplenomegaly Musculoskeletal: no cyanosis or clubbing, extremities motor strength 5/5 Results & Data Results & Data Vital Signs (Past 12 Hours) Vital Signs Temp Pulse Resp BP Pulse Ox O2 Del Method O2 Flow Rate 12/15/24 18:30 60 20 126/54 L 100 Nasal Cannula 4 12/15/24 18:01 115/69 12/15/24 17:54 60 18 112/55 L 100 Nasal Cannula 4 12/15/24 17:22 Nasal Cannula 4 12/15/24 17:09 Nasal Cannula 4 12/15/24 17:06 61 17 104/50 L 99 Nasal Cannula 4 12/15/24 17:06 60 12/15/24 16:55 122/55 L 12/15/24 16:48 36.3 C L 61 12 122/55 L 99 Nasal Cannula 4 Supervising Physician Co-Signing Physician Notes During face to face encounter, I obtained a history and physical examination, discussed plan of care with patient and answered any questions. I discussed plan of care with Dr. Higuera. I reviewed above note and agree with it except for the following: Patient will be admitted with acute kidney injury. Will continue IVF, and will monitor renal response. Concern with history of CHF. will need to closely monitor to ensure patient does not fall into acute congestive heart failure Resident Activity Tracking Resident Involvement: Resident Care Provided Care Provided: Adult Hospital Medicine
[2024-12-15] MEDS ORDERED: GLUCOSE 40% GEL 15 GM TUBE PO PRN (22:43)
[2024-12-15] MEDS ORDERED: POLYETHYLENE (MIRALAX) 17 GM PACK PO PRN (22:43)
[2024-12-15] MEDS ORDERED: DEXTROSE 50% 50 ML SYRINGE IV PRN (22:43)
[2024-12-15] MEDS ORDERED: CARBOHYDRATES FOR HYPOGLYCEMIA PO PRN (22:43)
[2024-12-15] MEDS ORDERED: ACETAMINOPHEN 325 MG TAB PO PRN (22:43)
[2024-12-15] MEDS ORDERED: GLUCOSE 10 TAB/TUBE PO PRN (22:43)
[2024-12-15] MEDS ORDERED: GLUCAGON FOR INJ 1 MG VIAL SQ PRN (22:43)
[2024-12-15] MEDS ORDERED: MELATONIN 3 MG TAB PO PRN (22:43)
[2024-12-15] MEDS: LACTATED RINGER'S 1,000 ML IV SCH (23:25)
[2024-12-15] MEDS: INSULIN ASPART PER UNIT CHARGE SC SCH (23:42)
[2024-12-16] MEDS: ONDANSETRON INJ 2 MG/ML 2 ML VIAL IV PRN (01:46)
[2024-12-16] MEDS ORDERED: PHARMACY GLYCEMIC MGMT CONSULT PRN (03:42)
[2024-12-16] MEDS: D5W AND LACTATED RINGERS 1,000 ML IV SCH (03:52)
[2024-12-16 06:03] LABS: Hematocrit (blood only) 38.1 % (42.0-52.0); Hemoglobin 12.0 g/dl (14.0-18.0); Mean Corpuscular Hemoglobin 25.3 pg (25.0-34.0); Mean Corpuscular Volume 80.2 fL (80.0-100.0); Platelet Count 170 K/uL (130-400); RDW Standard Deviation 44.2 fL (36.4-46.3); Red Blood Count 4.75 M/uL (4.70-6.10); White Blood Count 7.72 K/ul (4.8-10.8)
[2024-12-16 06:22] LABS: Alanine Aminotransferase 77.0 U/L (7-52); Albumin Globulin Ratio 1.5 (0.9-2); Alkaline Phosphatase 80.0 U/L (34-104); Anion Gap 7.0 (3-11); Bilirubin,Total 0.5 mg/dl (0.2-1.0); Blood Urea Nitrogen 47.0 mg/dl (6-23); Calcium 9.0 mg/dl (8.6-10.3); Carbon Dioxide 26.0 mmol/L (21-32); Chloride 100.0 mmol/L (98-107); Creatinine Clr Calc Pharmacy 18.3 ml/min; Globulin 2.4 gm/dl (2.5-4.0); Glucose 134.0 mg/dl (70-99(Fasting)); Magnesium 1.7 mg/dl (1.7-2.4); Potassium 5.3 mmol/L (3.5-5.1); Sodium 133.0 mmol/L (136-145); Total Protein 6.1 gm/dl (6.0-8.3)
--- NOTE | 2024-12-16 07:21 | Pharmacy Report ---
Pharmacy Glycemic Short Note 2 - Date of Service December 16, 2024 - Glycemic Short BSG Results (Last 24 hours): 12/15/24 12/15/24 12/15/24 16:55 17:18 19:31 Glucose 81 POC Glucose 82 70 12/15/24 12/15/24 12/16/24 20:37 22:37 01:48 Glucose POC Glucose 79 108 H 61 L* 12/16/24 12/16/24 02:28 05:27 Glucose 134 H POC Glucose 94 OUTPATIENT ANTIDIABETIC REGIMEN: * Lantus 25 units qPM, empagliflozin 10 mg daily, metformin 500 mg bid ASSESSMENT: * 79 year old admitted with orthostatic hypotension/dizziness. Poor PO intake for past 2 days and having N/V. Found to have STEPHAN on admission. Blood sugars dropping to 61 mg/dL overnight despite with some PO intake last evening. Fluids with dextrose started. Pharmacy consulted for glycemic management. Fasting blood sugar 134 mg/dL - will consider reduced basal scale for HS time. Scr slightly improving from 3.6 to 3.3 so will be more conservative with insulin for today. PLAN FOR INPATIENT GLYCEMIC CONTROL: * Hold outpatient oral diabetes medications * Basal insulin * Lantus 0-12 units HS * Bolus insulin * NovoLog per scale ACHS or Q6hrs while NPO * Goal Range: Low 100 mg/dL - High 150 mg/dL * Correction Factor: 30 mg/dL/unit * Nutritional / Prandial insulin per carb ratio of 1 unit per 11 grams CHO consumed
[2024-12-16 08:01] LABS: Hemoglobin A1C 6.7 % (4.5-5.6)
[2024-12-16] MEDS: AMIODARONE 200 MG TAB PO SCH (09:31)
[2024-12-16] MEDS: ROSUVASTATIN CALCIUM 10 MG TAB PO SCH (09:31)
[2024-12-16] MEDS: MULTIVITAMIN TAB PO SCH (09:33)
--- NOTE | 2024-12-16 09:52 | Ultrasound Report ---
RENAL ULTRASOUND CLINICAL HISTORY: CVA tenderness, STEPHAN. COMPARISON STUDY: CT of the abdomen and pelvis July 18, 2017. TECHNIQUE: Sonography of the kidneys and the urinary bladder was performed. FINDINGS: The right kidney measures 11.4 cm in maximal dimension and the left measures 11.2 cm. There is no hydronephrosis. No renal calculi are identified. A 1.3 cm left renal cyst is noted. In additio n, there is a 2.6 cm hypoechoic lesion within the upper pole of the left kidney. This contains analytics intern al echoes. There is mild bilateral renal cortical thinning. Both ureteral jets were identified. IMPRESSION: 1. No hydronephrosis. 2. Round 2.6 cm left upper pole renal lesion which contains internal echoes, possibly artifactual. Th is could represent a complex cyst or solid renal lesion. Nonemergent renal protocol CT or MRI is celestine mmended for further evaluation. This could be obtained once acute kidney injury resolves. ACT 112: Negative or not required by law. Electronically signed by: Ryan Mcgrath M.D. 12/16/2024 9:51 AM
[2024-12-16 13:04] LABS: Appearance Urine Clear (Clear); Glucose Urine UA 3+ (Negative)
--- NOTE | 2024-12-16 14:19 | Electrocardiogram Report ---
Test Reason : Blood Pressure : */* mmHG Vent. 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
[2024-12-16] MEDS ORDERED: LANTUS PER UNIT CHARGE SQ SCH (21:00)
[2024-12-16] MEDS: LANTUS PER UNIT CHARGE SQ SCH (21:01)
--- NOTE | 2024-12-16 22:51 | Hospitalist Progress Note ---
Date of Service December 16, 2024 Assessment & Plan (1) STEPHAN (acute kidney injury): Plan: RESOLVING slowly with creatinine decreasing from 3.63 mg/dL (12/15/2024, 4:55pm) to 3.38 mg/dL (12/16/2024, 5:27am). cf., baseline creatinine range, 0.97 - 1.38 (07/18/2017 - 06/30/2024). Etiology of acute kidney injury is most likely due to home-scheduled ramipril 2.5mg PO bid. Hence, I have opted to hold off this medication to avoid further renal embarrassment. Of further note, patient reports that he does not take lasix at all at home. I will check repeat creatinine level in the 12/17/2024 am. In the interim, I have opted to rehydrate patient with 1 liter of 0.9% NS @ 73 mL/hr (12/16/2024, 10:56pm), based on a delivery rate of 1 mL of 0.9% NS per of body weight per hour, and a body weight of 73.4 kg. (2) Syncope and collapse: Plan: Asymptomatic. Observe. (3) Heart failure with mildly reduced ejection fraction (HFmrEF, 41-49%): Plan: Asymptomatic. Observe. Admission and Anticipated Discharge Date Admission Date: December 15, 2024 Subjective "I feel better. The IV fluids help. I want to go home tomorrow." Review of Systems Constitutional: Negative for antecedent/coincident fevers, chills, diaphoresis, cough, wheeze, sore throat, hemoptysis, chest pains, palpitations, pleurisy, nausea, vomiting, diarrhea, abdominal pain, pelvic pain, hematemesis, hematochezia, melena, hematuria, dysuria, frequency, urgency, headaches, dizziness, lightheadedness, visual changes, hearing changes, weakness, falls, syncope, trauma, travel history, sick contacts, or food/drug ingestions novel or new. All other review of systems are reported as negative by the patient on 12/16/2024. Physical Exam Constitutional: General: Run-down, worn-out, asthenic with mouth hanging wide open. Comfortable, cooperative, coherent. Wide awake and alert. Not confused, lethargic, or obtunded. Patient speaks in complete, fluent, and articulate sentences without pause, interruption, cough, or wheeze. HEENT: Normocephalic, atraumatic. Pupils equally round and reactive to light. No nystagmus, gaze paresis, anisocoria, miosis, mydriasis, hyphema, scleral injection, conjunctivitis, or pterygium. No otorrhea. No pharyngeal erythema, edema, or discharge. Neck: Supple, no stridor, bruit, goiter, or hepato-jugular reflux. Jugular venous pressure is estimated to be 3 cm above the sternal angle of Luiz, which in turn, is 5 cm above the level of the right atrium; with jugular venous pressure estimated to be 8 cm, then, there is no jugular venous distention on 12/16/2024. Lymphatics: No cervical (anterior/posterior), supraclavicular, infraclavicular, axillary, epitrochlear, or inguinal adenopathy. Chest: Symmetric rise and fall with respirations. Non-tender to palpation. Lungs: Clear to auscultation and percussion. No audible expiratory wheeze, egophony, pectoriloquy, increase in tactile fremitus, or flatness/dullness to percussion at the bases. Heart: RRR. S1 and S2 noted. No S3 or S4 summation gallop. No tripartite friction rub. Grade II/ early systolic murmur @ LLSB without radiation to the carotids, axilla, or back, and which remains invariant in regards to the respiratory cycle. Abdomen: Soft, non-tender, non-distended. No rebound, guarding, Mckeon's sign, or organomegaly. Bowel sounds auscultated in all 4 quadrants. Extremities: No clubbing, cyanosis, or edema in upper extremities or lower extremities bilaterally. 2+ pedal pulses bilaterally. Skin: No decubitus ulcer or enanthem. Genito-urinary: No urethral discharge. No marcial catheter. Neurology: Alert and oriented in regards to person, place, time, and situation. DTR+. 4/5 motor strength in all 4 extremities, both proximally and distally. No myoclonus, tremors, or tics. Psychiatry: No homicidal ideation. No suicidal ideation. No flat affect; smiles appropriately. Results & Data Results & Data Vital Signs (Past 12 Hours) Vital Signs Temp Pulse Pulse Resp BP Pulse Ox O2 Del Method 12/16/24 19:42 36.8 C 60 18 126/70 98 Nasal Cannula 12/16/24 16:05 36.3 C L 60 24 152/72 H 100 Nasal Cannula 12/16/24 15:11 60 12/16/24 11:59 36.3 C L 60 20 156/71 H 100 Nasal Cannula 12/16/24 11:32 60 Laboratory Results Abnormal lab results 12/16/24 12/16/24 12/16/24 Range/Units 01:48 05:27 12:00 Hgb 12.0 L (14.0-18.0) g/dl Hct 38.1 L (42.0-52.0) % MCHC 31.5 L (32.0-36.0) g/dL RDW Coeff of De 15.6 H (11.5-14.5) % Sodium 133 L (136-145) mmol/L Potassium 5.3 H (3.5-5.1) mmol/L BUN 47 H (6-23) mg/dl Creatinine 3.38 H (0.6-1.4) mg/dl Glucose 134 H (70-99(Fasting)) mg/dl POC Glucose 61 L* (70-99) mg/dl Hemoglobin A1c 6.7 H (4.5-5.6) % AST 69 H (13-39) U/L ALT 77 H (7-52) U/L Globulin 2.4 L (2.5-4.0) gm/dl Urine Glucose (UA) 3+ H (Negative) 12/16/24 Range/Units 17:04 Hgb (14.0-18.0) g/dl Hct (42.0-52.0) % MCHC (32.0-36.0) g/dL RDW Coeff of De (11.5-14.5) % Sodium (136-145) mmol/L Potassium (3.5-5.1) mmol/L BUN (6-23) mg/dl Creatinine (0.6-1.4) mg/dl Glucose (70-99(Fasting)) mg/dl POC Glucose 101 H (70-99) mg/dl Hemoglobin A1c (4.5-5.6) % AST (13-39) U/L ALT (7-52) U/L Globulin (2.5-4.0) gm/dl Urine Glucose (UA) (Negative) PG Care Time/CCT Total # of Minutes Spent Total Time Spent with Patient: Total time spent is greater than 50% in coordination of care (as documented) at patient's floor/unit and/or counseling patient: Coding Level of Care Code 15287 SUB INP/OBS CARE 2/35MIN Diagnoses STEPHAN (acute kidney injury) N17.9 Syncope and collapse R55 Heart failure with mildly reduced ejection fraction (HFmrEF, 41-49%) I50.20
[2024-12-17] MEDS: SODIUM CHLORIDE 0.9% 1,000 ML IV ONE (00:19)
[2024-12-17 06:22] LABS: Hematocrit (blood only) 38.3 % (42.0-52.0); Hemoglobin 12.3 g/dl (14.0-18.0); Immature Granulocytes # (auto) 0.04 K/uL (0.01-0.20); Immature Granulocytes % (auto) 0.6 %; Mean Corpuscular Hemoglobin 25.6 pg (25.0-34.0); Mean Corpuscular Volume 79.8 fL (80.0-100.0); Platelet Count 181 K/uL (130-400); RDW Standard Deviation 44.6 fL (36.4-46.3); Red Blood Count 4.80 M/uL (4.70-6.10); White Blood Count 6.71 K/ul (4.8-10.8)
[2024-12-17 07:34] LABS: Anion Gap 4.0 (3-11); Blood Urea Nitrogen 30.0 mg/dl (6-23); Calcium 9.0 mg/dl (8.6-10.3); Carbon Dioxide 29.0 mmol/L (21-32); Chloride 101.0 mmol/L (98-107); Creatinine Clr Calc Pharmacy 29.0 ml/min; Glucose 102.0 mg/dl (70-99(Fasting)); Potassium 5.2 mmol/L (3.5-5.1); Sodium 134.0 mmol/L (136-145)
[2024-12-17 07:43] VITALS: BP 112/53; PULSE 60; RESP 16; TEMP 98.4; O2SAT 100
--- NOTE | 2024-12-17 09:16 | Discharge Summary ---
Discharge Summary Date of Service December 17, 2024 Principal Dx & Hospital Course #1 = Principal Diagnosis (1) STEPHAN (acute kidney injury): RESOLVING well with creatinine decreasing from 3.63 mg/dL (12/15/2024, 4:55pm) to 3.38 mg/dL (12/16/2024, 5:27am) to 2.13 mg/dL (12/17/2024, 5:36am). cf., baseline creatinine range, 0.97 - 1.38 (07/18/2017 - 06/30/2024). Etiology of acute kidney injury is most likely due to home-scheduled ramipril 2.5mg PO bid. Hence, I opted to hold off this medication to avoid further renal embarrassment. Of further note, patient reports that he does not take lasix at all at home. Of final note, I rehydrated patient with 1 liter of 0.9% NS @ 73 mL/hr (12/16/2024, 10:56pm), based on a delivery rate of 1 mL of 0.9% NS per of body weight per hour, and a body weight of 73.4 kg, and acute kidney injury is RESOLVING well, as shown above. Subsequently, I advised the patient to see his PCP Ms. Marisol Love PA-C, within 5-7 days, for repeat creatinine level testing while continuing to hold OFF home-scheduled ramipril 2.5mg PO bid for the rest of his life. Patient reports that he will comply with this recommendation. . (2) Syncope and collapse: Asymptomatic while in [facility]. No recurrence of syncope/collapse while in [facility]. Of note, patient did NOT receive his home-scheduled protonix 40mg PO daily or his home-scheduled tolterodine 4mg PO daily while in [facility] as both medications are associated with an increased incidence of falls. Moreover, tolterodine is contraindicated in the elderly given its high anticholinergic properties (cf., ACS Be[place] Criteria for Potentially Inappropriate Medications in the Elderly, 2022 update). Subsequently I advised the patient to stop taking both medications immediately and permanently as of admission date 12/15/2024. Patient reports that he will comply with this recommendation. (3) Heart failure with mildly reduced ejection fraction (HFmrEF, 41-49%): Asymptomatic while in [facility]. No complaints of shortness of breath, dyspnea on exertion, cough, wheeze, paroxysmal nocturnal dyspnea, or weight gain while in [facility]. Patient received a 2 gram sodium diet and his home-scheduled carvedilol 12.5mg PO bid while in [facility]; patient will continue both 2 gram sodium diet and his home-scheduled carvedilol 12.5mg PO bid on hospital discharge home on 12/17/2024. In addition, patient will resume his home-scheduled isosorbide mononitrate 120mg PO daily and his home-scheduled Jardiance (empagliflozin) 10mg PO daily on hospital discharge home on 12/17/2024. Admission HPI Per Admitting Provider Case is [id number] gentleman with history of coronary artery disease, CHF status post ICD, DM2, CAD, PAD here due to orthostatic hypotension with dizziness. Patient had poor po intake for the past 2 days. He states having nausea and vomiting., unable to keep food, drinks or pills. He hasn't seen his PCP for this. Denied any abdominal pain. Denied any diarrhea, constipation. No dark stool or blood on stools. Denied any fevers, chills. No sick contacts. Last hospitalization was a month ago on outside facility due to volume overload/ CHF. Denied any change of medication. Denied adding OTC medications. Denied any new use of NSAIDs. Denied any pain. He states his bilateral leg edema had improved since last hospital visit. Denied any worsening SOB. Patient found with STEPHAN with Cr. of 3.63. Discharge Exam Constitutional General: Comfortable, cooperative, coherent. Wide awake and alert. Not confused, lethargic, or obtunded. Patient speaks in complete, fluent, and articulate sentences without pause, interruption, cough, or wheeze. HEENT: Normocephalic, atraumatic. Pupils equally round and reactive to light. No nystagmus, gaze paresis, anisocoria, miosis, mydriasis, hyphema, scleral injection, conjunctivitis, or pterygium. No otorrhea. No pharyngeal erythema, edema, or discharge. Neck: Supple, no stridor, bruit, goiter, or hepato-jugular reflux. Jugular venous pressure is estimated to be 3 cm above the sternal angle of Luiz, which in turn, is 5 cm above the level of the right atrium; with jugular venous pressure estimated to be 8 cm, then, there is no jugular venous distention on 12/17/2024. Lymphatics: No cervical (anterior/posterior), supraclavicular, inf raclavicular, axillary, epitrochlear, or inguinal adenopathy. Chest: Symmetric rise and fall with respirations. Non-tender to palpation. Lungs: Clear to auscultation and percussion. No audible expiratory wheeze, egophony, pectoriloquy, increase in tactile fremitus, or flatness/dullness to percussion at the bases. Heart: RRR. S1 and S2 noted. No S3 or S4 summation gallop. No tripartite friction rub. Grade II/ early systolic murmur @ LLSB without radiation to the carotids, axilla, or back, and which remains invariant in regards to the respiratory cycle. Abdomen: Soft, non-tender, non-distended. No rebound, guarding, Mckeon's sign, or organomegaly. Bowel sounds auscultated in all 4 quadrants. Extremities: No clubbing, cyanosis, or edema in upper extremities or lower extremities bilaterally. 2+ pedal pulses bilaterally. Skin: No decubitus ulcer or enanthem. Genito-urinary: No urethral discharge. No marcial catheter. Neurology: Alert and oriented in regards to person, place, time, and situation. DTR+. 5/5 motor strength in all 4 extremities, both proximally and distally. No myoclonus, tremors, or tics. Psychiatry: No homicidal ideation. No suicidal ideation. No flat affect; smiles appropriately. Discharge Plan Discharge Items Patient Disposition: Home - Self-Care Reason For Visit: STEPHAN Discharge Diagnosis: 1. STEPHAN resolving OFF home-scheduled ramipril 2.5mg PO bid with admission creatinine 3.63 mg/dL (12/15/2024, 4:55pm) decreasing to 3.38 mg/dL (12/16/2024, 5:27am) to 2.13 mg/dL (12/17/2024, 5:36am). Condition on Discharge: Fair Activity: Resume your previous activity Lifting: Gradually increase as tolerated Bathing: No limitations Sexual Activity: When tolerated Exercise/Sports: Gradually increase as tolerated Driving/Machine Use: No limitations Weightbearing: Full weightbearing Non-emergency contact: Primary Care Provider Call non-emergency contact if: you have any medication questions Follow-up/Referrals: Marisol Love PA-C [Primary Care Provider] - Diet: Heart Healthy Addtl Attending Provider Instructions: 1. See your PCP Ms. Marisol Love PA-C, within 5-7 days of hospital discharge for repeat creatinine level testing. 2. Stop ramipril 2.5mg PO bid given association with STEPHAN. 3. Stop protonix 40mg PO daily given association with falls. 4. Stop tolterodine 4mg PO daily given association with falls/syncope. Contraindicated in the elderly due to high anti-cholinergic activity. Pending Studies at Discharge: Yes Studies:: See your PCP Ms. Marisol Love PA-C, within 5-7 days of hospital discharge for repeat creatinine level testing Stand-Alone Forms: [facility] [facility], Smoking Cessation Medications and DC Order Prescriptions: Continued rosuvastatin 10 mg tablet 10 mg PO QAM nitroglycerin [Nitrostat] 0.4 mg tablet, sublingual 0.4 mg sublingual UD PRN (Reason: Chest Pain) Eliquis 5 mg tablet 5 mg PO BID multivitamin Tablet 1 tab PO DAILY (DME) lancets 33 gauge [facility] [place] See Rx Instructions .Route Qty: 100 5RF Rx Instructions: [facility] testing (DME) OneTouch Verio test strips Strip See Rx Instructions .Route Qty: 100 0RF Rx Instructions: [facility] ([facility] blood-glucose meter Mis See Rx Instructions .Route Qty: 1 0RF Rx Instructions: [facility] ([facility] [place]) pen needle,diabetic, disp unit 32 gauge x 5/32" needle See Rx Instructions .Route Qty: 100 0RF Rx Instructions: Inject 1x daily tamsulosin 0.4 mg capsule 0.4 mg PO QAM duloxetine 60 mg capsule,delayed release(DR/EC) 60 mg PO DAILY amiodarone 400 mg tablet 400 mg PO DAILY fluticasone furoate-vilanterol [Breo Ellipta] 100-25 mcg/dose blister with device 1 inh INHALATION DAILY Jardiance 10 mg tablet 10 mg PO DAILY metformin 500 mg tablet 500 mg PO BID carvedilol 12.5 mg tablet 25 mg PO DAILY isosorbide mononitrate 60 mg tablet extended release 24 hr 120 mg PO UD Rx Instructions: per pt, he isnt sure of this medication. last filled 11/15/24 90 day supply #90 insulin glargine [Lantus Solostar U-100 Insulin] 100 unit/mL (3 mL) insulin pen 25 unit subcut PM Discontinued ramipril 2.5 mg capsule 2.5 mg PO BID tolterodine 4 mg capsule,extended release 24hr 4 mg PO DAILY pantoprazole 40 mg tablet,delayed release (DR/EC) 40 mg PO DAILY furosemide 40 mg tablet 20 mg PO DAILY MDD 80mg/24hr PRN (Reason: SWELLING) Rx Instructions: Per pt he can take additional 40mg later in the day if needed Discharge Orders: Discharge Order (Routine); Ordered 12/17/24 Ordered By: Billy Wheatley/Other Patient Handouts: Managing Type 2 Diabetes Admission Data Admit Date/Time: 12/15/24 20:34 Attending Provider: Billy Ashton Admit Provider: Adithya Cisneros Primary Care Provider: Marisol Love Other Providers: Adithya Cisneros Hospital Stay Data Consultations 12/15/24 19:48 ED Decision to Admit Stat Diagnostic Imagining Performed 12/15/24 17:07 CT head/brain wo con Stat 12/15/24 17:24 CT cervical spine wo con Stat 12/16/24 22:43 US renal/blad retro comp Routine Pending Results Patient Have Any Pending Studies at Discharge: Yes Discharge Instructions Given to Patient (Per Discharging Provider) 1. See your PCP Ms. Marisol Love PA-C, within 5-7 days of hospital discharge for repeat creatinine level testing. 2. Stop ramipril 2.5mg PO bid given association with STEPHAN. 3. Stop protonix 40mg PO daily given association with falls. 4. Stop tolterodine 4mg PO daily given association with falls/syncope. Contraindicated in the elderly due to high anti-cholinergic activity. Total Time Total Time Spent Total Time Spent (In Minutes): 35 minutes. Of this time period, 19 minutes were spent in coordinating patient's discharge. Coding Level of Care Code 34701 INP/OBS DISCH >30 MIN Diagnoses STEPHAN (acute kidney injury) N17.9 Syncope and collapse R55 Heart failure with mildly reduced ejection fraction (HFmrEF, 41-49%) I50.20
--- NOTE | 2024-12-19 10:58 | Billing Data ---
Date of Service December 15, 2024 Coding Level of Care Code 83430 INT INP/OBS CARE
== END 2024-12-17 18:06 | disposition home health service (06) | DRG 683 ==
LOC: ED 16:47 → SUATTDRO 20:34 → 2N 20:34

== ENCOUNTER 2024-12-26 16:54 | Observation (INO) ==
--- NOTE | 2024-12-26 17:08 | Emergency Department Note ---
History of Present Illness General Chief Complaint: Abdominal Pain Stated Complaint: YANA SMALLAPATION Time Seen by Provider: 12/26/24 16:59 History of Present Illness Provider Complaint: abdominal pain Onset (ago): 3 day(s) Pain Consistency: constant Location: diffuse Severity: moderate Quality: + stabbing and + sharp Relieved By: + medication (Zofran by EMS) Exacerbated By: + nothing Context: no foreign travel, no possible food poisoning, no sick contacts, no recent antibiotic use, no recent surgery/procedure or no recent injury Associated Symptoms: + nausea, + vomiting, + constipation and + syncope (Patient states when he got up out of his chair he passed out twice today. Patient is on Eliquis but states he has not taken his Eliquis in the last 2 days. Patient denies any headache.); no diarrhea, no fever, no chills, no dysuria, no hematemesis, no hematochezia, no melena, no hematuria, no headache, no back pain and no chest pain Treatments prior to arrival: EMS provided (Zofran) Home Medications Medication Instructions Recorded Confirmed Type rosuvastatin 10 mg tablet 10 mg PO QAM 07/10/20 12/26/24 History nitroglycerin 0.4 mg sublingual 0.4 mg sublingual UD PRN Chest Pain 01/08/21 12/26/24 History tablet (Nitrostat) apixaban 5 mg tablet (Eliquis) 5 mg PO BID 04/05/24 12/26/24 History multivitamin 1 tab PO DAILY 04/05/24 12/26/24 History blood sugar diagnostic (OneTouch #100 ea 04/06/24 12/20/24 Rx Verio test strips) blood-glucose meter #1 ea 04/06/24 12/20/24 Rx lancets 33 gauge #100 ea 04/06/24 12/20/24 Rx pen needle,diabetic, disp unit 32 #100 ea 04/10/24 12/20/24 Rx gauge x 5/32", remover and disposal unit duloxetine 60 mg capsule,delayed 60 mg PO QAM 05/29/24 12/26/24 History release tamsulosin 0.4 mg capsule 0.4 mg PO QAM 05/29/24 12/26/24 History amiodarone 400 mg tablet 400 mg PO QAM 12/15/24 12/26/24 History empagliflozin 10 mg tablet 10 mg PO DAILY 12/15/24 12/26/24 History (Jardiance) fluticasone furoate 100 1 inh inhalation DAILY 12/15/24 12/26/24 History mcg-vilanterol 25 mcg/dose inhalation powder (Breo Ellipta) insulin glargine 100 unit/mL (3 25 unit subcut QAM 12/15/24 12/26/24 History mL) subcutaneous pen (Lantus Solostar U-100 Insulin) metformin 500 mg tablet 500 mg PO BID 12/15/24 12/26/24 History amoxicillin 875 mg-potassium 1 tab PO BID #10 tabs 12/22/24 12/26/24 Rx clavulanate 125 mg tablet carvedilol 12.5 mg tablet 12.5 mg PO BIDM #60 tabs 12/22/24 12/26/24 Rx isosorbide mononitrate 30 mg 30 mg PO DAILY #30 tabs 12/22/24 12/26/24 Rx tablet,extended release 24 hr Allergies Allergy/AdvReac Type Severity Reaction Status Date / Time Milk Containing Products Allergy Unknown Unknown Unverified 12/26/24 20:59 (Dairy) Iodinated Contrast Media Allergy Rash Verified 12/26/24 20:59 warfarin AdvReac Severe Made my Unverified 12/26/24 20:59 blood extremely thin Past Med/Surg History Problem List (Updated 12/26/24 @ 21:32 by Justice Simms MD) Syncope (Acute) Anemia Nausea & vomiting Syncope Ventricular tachycardia Valvular heart disease CAD (coronary artery disease) (Acute) Chest pain (Acute) Type 2 diabetes mellitus Renal insufficiency Transaminitis Cellulitis Nausea STEPHAN (acute kidney injury) (Acute) Acute foot pain (Acute) Pseudohyponatremia (Acute) Elevated troponin (Acute) Elevated troponin Syncope and collapse Left leg pain Hyperglycemia (Acute) Gait instability (Acute) CHI (closed head injury) (Acute) Impacted cerumen of left ear Hyponatremia STEPHAN (acute kidney injury) Left-sided chest pain (Acute) Left rib fracture (Acute) DVT prophylaxis Status post fall Hypertension BPD (bronchopulmonary dysplasia) (Chronic) Hypothyroid (Chronic) Bipolar disorder (Chronic) Medical History Heart failure with mildly reduced ejection fraction (HFmrEF, 41-49%) Chest pain Ischemic cardiomyopathy Cardiac defibrillator in place vMobo Diabetes mellitus type 2 in obese CAD (coronary artery disease) Coronary artery bypass graft 1992: [place] to LAD, saphenous vein graft to 1st diagonal, saphenous vein graft to om 1, saphenous vein graft to the right coronary artery Falls frequently Surgical History S/P coronary artery stent placement S/P CABG (coronary artery bypass graft) Hx of inguinal herniorrhaphy Status post aorto-coronary artery bypass graft Family History Other Family history non-contributory Social History Smoking Status: Never smoker Tobacco Type: Cigarettes Second Hand Exposure: No; Do You Dip or Chew Tobacco: No; Hx Alcohol Use: No Hx Substance Use: No Preferred Language: Spanish Communication Ability: Effective Library Assistant Required: No Beliefs That Will Affect Care: None Current Living Situation: Alone Current Living Situation Comment: home alone Feels Safe at Home: Yes Assistive Devices: Oxygen - Continuous and Walker Physical Exam 2 Vital Signs: Vital Signs - 24 hr 12/26/24 16:54 12/26/24 16:54 12/26/24 17:13 Temperature 36.7 C Temperature Source Oral Pulse Rate 60 60 Pulse Rate [Apical ] Pulse Rhythm [Apic al] Pulse Strength [Ap ical] Respiratory Rate 20 20 Respiratory Effort / Characteristics Non-Labored Sponta neous Respiratory Depth Normal Respiratory Patter n Regular Blood Pressure 136/70 Blood Pressure [Ri ght Arm] Blood Pressure Awa n 92 Blood Pressure Awa n [Right Arm] Blood Pressure Pos ition [Right Arm] Pulse Oximetry 99 100 100 Oxygen Delivery Me thod Nasal Cannula Nasal Cannula Nasal Cannula Oxygen Flow Rate 4 4 4 Sepsis Recent Feve r Within 48 Hours No Sepsis New/Unexpla ined Change in Men nahum Status N/A Sepsis Action Take n by Nursing No Action Required 12/26/24 17:13 12/26/24 19:04 12/26/24 20:58 Temperature Temperature Source Pulse Rate 60 61 Pulse Rate [Apical ] 60 Pulse Rhythm [Apic al] Regular Pulse Strength [Ap ical] Normal Respiratory Rate 20 Respiratory Effort / Characteristics Non-Labored Sponta neous Respiratory Depth Normal Respiratory Patter n Regular Blood Pressure Blood Pressure [Ri ght Arm] 143/60 H Blood Pressure Awa n Blood Pressure Awa n [Right Arm] 87 Blood Pressure Pos ition [Right Arm] Lying Pulse Oximetry 99 Oxygen Delivery Me thod Room Air Oxygen Flow Rate Sepsis Recent Feve r Within 48 Hours Sepsis New/Unexpla ined Change in Men nahum Status Sepsis Action Take n by Nursing Physical Exam: Physical Exam GENERAL: oriented to person, place, and time. appears well-developed and well- nourished. She does not appear distressed. HENT: Exam performed. -Head: Normocephalic and atraumatic. -Right Ear: External ear normal. No mastoid erythema -Left Ear: External ear normal. No mastoid erythema -Mouth/Throat: The oropharynx is clear and moist. No trismus in the jaw. No dental abscesses or uvula swelling. No oropharyngeal exudate or tonsillar abscesses. EYES: Conjunctivae and EOM are normal.Right eye exhibits no discharge. Left eye exhibits no discharge. No scleral icterus. NECK: Normal range of motion. Neck supple. No JVD present. No tracheal deviation and normal range of motion present. CV: Normal rate, regular rhythm, normal heart sounds and intact distal pulses. There is no peripheral edema. Palpable radial pulses bue. PULM/CHEST: Effort normal and breath sounds normal. No respiratory distress. No stridor. no wheezes.no rales. -Chest Wall: no tenderness to palpation ABD: The abdomen is soft. no distension. No mass is present. There is no tenderness. There is no rebound, no guarding, no Mckeon's sign and no tenderness at McBurney's point. Rovsig negative MUSC/SKEL: Normal range of motion. There is no peripheral edema, tenderness or deformity. NEURO: Motor and sensation grossly intact. SKIN: Skin is warm and dry. not diaphoretic. PSYCH: normal mood and affect. Behavior is normal. Judgment and thought content normal. Course Course 1658: The patient was evaluated in room C10. A complete history and physical exam was performed Cardiac monitoring: An order was placed for continuous cardiac monitoring. The monitor shows a rate of 60 with paced rhythm interpreted by 1930: Vital signs stable. Labs are at baseline. Creatinine at baseline. LFTs are at baseline. High-sensitivity troponin is chronically elevated. Patient not reporting any chest pain. Imaging shows no acute traumatic injury. Patient will be admitted given his recurrent syncopal episodes. Medical Decision Making Medical Records Attestation: I reviewed the patient's medical records. External medical records reviewed. Patient had an echocardiogram performed on December 21, 2024 which showed low normal left ventricular systolic function with a mildly dilated left ventricle and regional wall motion abnormalities. Laboratory Data Attestation: I reviewed the patient's lab results. 12/26/24 17:01 12/26/24 17:01 Lab Results 12/26/24 12/26/24 Range/Units 17:01 17:06 WBC 7.06 (4.8-10.8) K/ul RBC 4.65 L (4.70-6.10) M/uL Hgb 11.7 L (14.0-18.0) g/dl POC Hgb 12.2 L (14.0-18.0) g/dl Hct 36.7 L (42.0-52.0) % POC Hct 36 L (42-52) % MCV 78.9 L (80.0-100.0) fL MCH 25.2 (25.0-34.0) pg MCHC 31.9 L (32.0-36.0) g/dL RDW Std Deviation 45.0 (36.4-46.3) fL RDW Coeff of De 15.9 H (11.5-14.5) % Plt Count 194 (130-400) K/uL MPV 10.3 (9.4-12.4) fL Immature Gran % (Auto) 0.6 % Neut % (Auto) 76.5 % Lymph % (Auto) 12.0 % [place] % (Auto) 9.8 % Eos % (Auto) 0.8 % Baso % (Auto) 0.3 % Neut # (Auto) 5.40 (1.40-6.50) K/uL Lymph # (Auto) 0.85 L (1.20-3.40) K/uL [place] # (Auto) 0.69 H (0.11-0.59) K/uL Eos # (Auto) 0.06 (0.00-0.50) K/uL Baso # (Auto) 0.02 (0.00-0.20) K/uL Immature Gran # (Auto) 0.04 (0.01-0.20) K/uL PT 12.4 H (9.0-12.0) Seconds INR 1.2 H (0.9-1.1) APTT 32 H (21-31) Seconds PTT Ratio 1.2 POC Sodium 136 (135-144) mmol/L Sodium 134 L (136-145) mmol/L POC Potassium 4.5 (3.3-5.0) mmol/L Potassium 4.4 (3.5-5.1) mmol/L POC Chloride 101 (101-112) mmol/L Chloride 102 (98-107) mmol/L Carbon Dioxide 25 (21-32) mmol/L POC Total CO2 22 L (24-31) mmol/L Anion Gap 7 (3-11) POC Anion Gap 18.0 (16-25) mmol/L POC BUN 33 H (7-18) mg/dl BUN 36 H (6-23) mg/dl Creatinine 2.27 H (0.6-1.4) mg/dl POC Creatinine 2.5 H (0.6-1.3) mg/dl Est Cr Clr Drug Dosing 27.3 ml/min eGFR 28.98 BUN/Creatinine Ratio 15.9 (10-20) Glucose 78 (70-99(Fasting)) mg/dl POC Glucose (other) 76 (70-99) mg/dl Calcium 8.8 (8.6-10.3) mg/dl POC Ioniz Calcium Camilla 1.18 (1.12-1.32) mmol/l Total Bilirubin 0.7 (0.2-1.0) mg/dl Direct Bilirubin 0.2 (0-0.2) mg/dl AST 50 H (13-39) U/L ALT 71 H (7-52) U/L Alkaline Phosphatase 84 (34-104) U/L Troponin I High Sens 26.3 H (0-20) pg/ml Total Protein 6.6 (6.0-8.3) gm/dl Albumin 3.4 (3.4-5.0) gm/dl Lipase 17 (11-82) U/L Imaging Data Attestation: I personally reviewed and interpreted this imaging study as follows: My Impression: Chest x-ray: Chest x-ray negative. Airway clear. No pneumothorax. No consolidation. No cardiomegaly or cephalization.. No free air under the diaphragm. No fractures of the skeletal structures. Pacemaker in place. Radiologist's Impression: Abdomen/Pelvis CT 12/26/24 17:12 EXAMINATION: Abdomen and pelvis CT without CLINICAL HISTORY: Fall, abdominal pain PRIORS: 08/13/2017 CT AP TECHNIQUE: Contiguous axial images were obtained through the abdomen and pelvis without the use of intravenous contrast. Sagittal and coronal reformations are supplied. FINDINGS: Pulmonary fibrosis noted at the lung bases. Small hiatal hernia is present. Allowing for the absence of intravenous contrast, no solid organ laceration or subcapsular hematoma. Gallbladder contains sludge. No hemoperitoneum. A large amount of formed stool and contrast present throughout the colon. No bowel wall hematoma or dilatation. No extraluminal gas, ascites or adenopathy. The prostate not well-visualized. Urinary bladder under distended. Moderate atherosclerotic disease of the abdominal aorta. Surgical clips in the right lower quadrant. No retroperitoneal hemorrhage. Kidneys symmetric in size. In bone windows, moderate osseous demineralization noted with degenerative change of the facet joints. No acute displaced fracture or dislocation. IMPRESSION: 1. No CT evidence of an acute or traumatic abnormality in the abdomen or pelvis. 2. Nonacute findings are noted above. Electronically signed by Louann Mclean 12-26-2024 7:[address] 12/26/24 17:12 EXAM: CT cervical spine CLINICAL HISTORY: Fall TECHNIQUE: Contiguous axial images were obtained through the cervical spine without the use of intravenous contrast. Sagittal and coronal reformations are supplied. PRIORS: 12/15/2024 FINDINGS: Mild osseous demineralization noted. Lordotic straightening is noted. No acute cervical spine fracture or facet dislocation. Diffuse facet hypertrophic changes also noted. Multilevel anterior bridging osteophytes present throughout the cervical spine. Mild diffuse uncovertebral hypertrophic changes present. No prevertebral soft tissue swelling. Visualized trachea is patent. IMPRESSION: No CT evidence of an acute osseous abnormality. Electronically signed by Louann Mclean 12-26-2024 6:24 PM Chest X-Ray 12/26/24 17:12 EXAM: X-ray chest one-view portable CLINICAL HISTORY: Fall PRIORS: 12/20/2024 TECHNIQUE: Frontal view chest FINDINGS: Left-sided cardiac device noted with leads terminating in the heart. Median sternotomy wires noted in postsurgical change of the mediastinum noted. The chest is well-expanded. No airspace consolidation, effusion or congestive changes. Heart size is normal. No pneumothorax. Trachea is patent. Osseous structures demonstrate no acute abnormality. No radiopaque foreign body. IMPRESSION: No plain film evidence of an acute cardiopulmonary process. Electronically signed by Louann Mclean 12-26-2024 8:[address] 12/26/24 17:12 EXAMINATION: Head CT without CLINICAL HISTORY: Fall PRIORS: 12/15/2024, 04/07/2024 TECHNIQUE: Contiguous axial images were obtained through the head without the use of intravenous contrast. Sagittal and coronal reformations are supplied. FINDINGS: mild to moderate diffuse parenchymal volume loss noted with mild small vessel occlusive disease. George-white differentiation is preserved. No edema or midline shift. No intra-axial or extra-axial hemorrhage. Ventricles are normal in size and configuration. Brainstem and cerebellum have a normal appearance. Calvarium unremarkable. Paranasal sinuses and mastoid air cells are well-pneumatized. Globes are intact. No retrobulbar abnormality. IMPRESSION: No CT evidence of an acute intracranial abnormality. Electronically signed by Louann Mclean 12-26-2024 6:22 PM ECG Data Attestation: I personally reviewed and interpreted this ECG as follows: Additional Comments: Paced rhythm with a rate of 60. VA 242 QRS 142 QTc 4 4. No ectopy. [facility] Narrative 1659: The patient was evaluated in room C10. A complete history and physical exam was performed Cardiac monitoring: An order was placed for continuous cardiac monitoring. The monitor shows a rate of 60 with paced rhythm interpreted by me 1930: Vital signs stable. Labs are at baseline. Creatinine at baseline. LFTs are at baseline. High-sensitivity troponin is chronically elevated. Patient not reporting any chest pain. Imaging shows no acute traumatic injury. Patient will be admitted given his recurrent syncopal episodes. Impression & Plan Syncope Discharge Plan Visit Data Chief Complaint: Abdominal Pain Stated Complaint: CAT[facility] SMALL ED Provider: Justice Simms Discharge Problem: Syncope Patient Disposition: Admitted As Inpatient Condition: Fair Forms Stand Alone Forms: My [facility] [place] Prescriptions Prescriptions: No Action rosuvastatin 10 mg tablet 10 mg PO QAM nitroglycerin [Nitrostat] 0.4 mg tablet, sublingual 0.4 mg sublingual UD PRN (Reason: Chest Pain) Eliquis 5 mg tablet 5 mg PO BID multivitamin Tablet 1 tab PO DAILY (DME) lancets 33 gauge misc See Rx Instructions .Route Qty: 100 5RF Rx Instructions: [facility] testing (DME) OneTouch Verio test strips Strip See Rx Instructions .Route Qty: 100 0RF Rx Instructions: [facility] (DME) blood-glucose meter Misc See Rx Instructions .Route Qty: 1 0RF Rx Instructions: [facility] (DME) pen needle,diabetic, disp unit 32 gauge x 5/32" needle See Rx Instructions .Route Qty: 100 0RF Rx Instructions: Inject 1x daily carvedilol 12.5 mg Tablet 12.5 mg PO BIDM Qty: 60 2RF isosorbide mononitrate 30 mg tablet extended release 24 hr 30 mg PO DAILY Qty: 30 3RF amoxicillin-pot clavulanate 875-125 mg tablet 1 tab PO BID Qty: 10 0RF tamsulosin 0.4 mg capsule 0.4 mg PO QAM duloxetine 60 mg capsule,delayed release(DR/EC) 60 mg PO QAM amiodarone 400 mg tablet 400 mg PO QAM fluticasone furoate-vilanterol [Breo Ellipta] 100-25 mcg/dose blister with device 1 inh INHALATION DAILY Jardiance 10 mg tablet 10 mg PO DAILY metformin 500 mg tablet 500 mg PO BID insulin glargine [Lantus Solostar U-100 Insulin] 100 unit/mL (3 mL) insulin pen 25 unit subcut QAM Referrals Referrals: Marisol Love PA-C [Primary Care Provider] - Discharge Problem: Syncope Qualifiers: Syncope type: unspecified Qualified Code(s): R55 - Syncope and collapse
[2024-12-26 17:14] LABS: Hematocrit (blood only) 36.7 % (42.0-52.0); Hemoglobin 11.7 g/dl (14.0-18.0); Immature Granulocytes # (auto) 0.04 K/uL (0.01-0.20); Immature Granulocytes % (auto) 0.6 %; Mean Corpuscular Hemoglobin 25.2 pg (25.0-34.0); Mean Corpuscular Volume 78.9 fL (80.0-100.0); Platelet Count 194 K/uL (130-400); RDW Standard Deviation 45.0 fL (36.4-46.3); Red Blood Count 4.65 M/uL (4.70-6.10); White Blood Count 7.06 K/ul (4.8-10.8)
[2024-12-26 17:32] LABS: Alanine Aminotransferase 71.0 U/L (7-52); Alkaline Phosphatase 84.0 U/L (34-104); Anion Gap 7.0 (3-11); Bilirubin,Total 0.7 mg/dl (0.2-1.0); Blood Urea Nitrogen 36.0 mg/dl (6-23); Calcium 8.8 mg/dl (8.6-10.3); Carbon Dioxide 25.0 mmol/L (21-32); Chloride 102.0 mmol/L (98-107); Creatinine Clr Calc Pharmacy 27.3 ml/min; Glucose 78.0 mg/dl (70-99(Fasting)); Lipase 17.0 U/L (11-82); Potassium 4.4 mmol/L (3.5-5.1); Sodium 134.0 mmol/L (136-145); Total Protein 6.6 gm/dl (6.0-8.3)
[2024-12-26 17:50] LABS: INR 1.2 (0.9-1.1); Partial Thromboplastin Time 32 Seconds (21-31); Prothrombin Time 12.4 Seconds (9.0-12.0)
--- NOTE | 2024-12-26 18:22 | CT Scan Report ---
EXAMINATION: Head CT without CLINICAL HISTORY: Fall PRIORS: 12/15/2024, 04/07/2024 TECHNIQUE: Contiguous axial images were obtained through the head without the use of intravenous contrast. Sagittal and coronal reformations are supplied. FINDINGS: mild to moderate diffuse parenchymal volume loss noted with mild small vessel occlusive disease. George-white differentiation is preserved. No edema or midline shift. No intra-axial or extra-axial hemorrhage. Ventricles are normal in size and configuration. Brainstem and cerebellum have a normal appearance. Calvarium unremarkable. Paranasal sinuses and mastoid air cells are well-pneumatized. Globes are intact. No retrobulbar abnormality. IMPRESSION: No CT evidence of an acute intracranial abnormality. Electronically signed by Louann Mclean 12-26-2024 6:22 PM
--- NOTE | 2024-12-26 18:25 | CT Scan Report ---
EXAM: CT cervical spine CLINICAL HISTORY: Fall TECHNIQUE: Contiguous axial images were obtained through the cervical spine without the use of intravenous contrast. Sagittal and coronal reformations are supplied. PRIORS: 12/15/2024 FINDINGS: Mild osseous demineralization noted. Lordotic straightening is noted. No acute cervical spine fracture or facet dislocation. Diffuse facet hypertrophic changes also noted. Multilevel anterior bridging osteophytes present throughout the cervical spine. Mild diffuse uncovertebral hypertrophic changes present. No prevertebral soft tissue swelling. Visualized trachea is patent. IMPRESSION: No CT evidence of an acute osseous abnormality. Electronically signed by Louann Mclean 12-26-2024 6:24 PM
--- NOTE | 2024-12-26 19:14 | CT Scan Report ---
EXAMINATION: Abdomen and pelvis CT without CLINICAL HISTORY: Fall, abdominal pain PRIORS: 08/13/2017 CT AP TECHNIQUE: Contiguous axial images were obtained through the abdomen and pelvis without the use of intravenous contrast. Sagittal and coronal reformations are supplied. FINDINGS: Pulmonary fibrosis noted at the lung bases. Small hiatal hernia is present. Allowing for the absence of intravenous contrast, no solid organ laceration or subcapsular hematoma. Gallbladder contains sludge. No hemoperitoneum. A large amount of formed stool and contrast present throughout the colon. No bowel wall hematoma or dilatation. No extraluminal gas, ascites or adenopathy. The prostate not well-visualized. Urinary bladder under distended. Moderate atherosclerotic disease of the abdominal aorta. Surgical clips in the right lower quadrant. No retroperitoneal hemorrhage. Kidneys symmetric in size. In bone windows, moderate osseous demineralization noted with degenerative change of the facet joints. No acute displaced fracture or dislocation. IMPRESSION: 1. No CT evidence of an acute or traumatic abnormality in the abdomen or pelvis. 2. Nonacute findings are noted above. Electronically signed by Louann Mclean 12-26-2024 7:14 PM
--- NOTE | 2024-12-26 20:04 | XRay Report ---
EXAM: X-ray chest one-view portable CLINICAL HISTORY: Fall PRIORS: 12/20/2024 TECHNIQUE: Frontal view chest FINDINGS: Left-sided cardiac device noted with leads terminating in the heart. Median sternotomy wires noted in postsurgical change of the mediastinum noted. The chest is well-expanded. No airspace consolidation, effusion or congestive changes. Heart size is normal. No pneumothorax. Trachea is patent. Osseous structures demonstrate no acute abnormality. No radiopaque foreign body. IMPRESSION: No plain film evidence of an acute cardiopulmonary process. Electronically signed by Louann Mclean 12-26-2024 8:04 PM
--- NOTE | 2024-12-26 20:13 | History & Physical Report ---
Date of Service December 26, 2024 Assessment & Plan (1) Syncope: (2) Nausea & vomiting: (3) Hyponatremia: (4) STEPHAN (acute kidney injury): (5) Elevated troponin: (6) Anemia: (7) Type 2 diabetes mellitus: Plan 79-year-old male PMHx CAD s/p multiple stents and MIs (PCI x 17, CABG x 4), CHF s/p ICD, T2DM, PAD, orthostatic hypotension, and is currently on 4L O2 who is presenting for abdominal pain and vomiting as well as syncopal event x 2 days arrival. Most recent hospital admission 12/20/2024 to 12/22/2024 for chest pain as well as nausea and vomiting.ED evaluation reveals CBC without leukocytosis, H&H 11.7/36.7; PT/INR 12.4/1.2, APTT 32; CMP sodium 134, BUN 36, creatinine 2.27; T 50, ALT 71; troponin 26.3, pending repeat; CTAP no acute findings, but does reveal formed stool and contrast present; cervical spine CT without acute findings; head CT without acute findings; CXR pending official read; EKG atrial paced rhythm with prolonged AV conduction, LAD, RBBB at 60 bpm. #Syncope/Elevated troponin H/o of syncopal event x 2 day of arrival; Has been having N/V ongoing for ~ 2-3 weeks per the patient's report. Did hit head, on eliquis. No pain anywhere at present. - CBC without leukocytosis, H/H 11.7/36.7; CMP Na 134, Cr 2.27, BUN 36 - CBC, B MP am - Troponin 26.3, pending repeat; EKG atrial pacced, no ischemic changes -- likely demand related - CXR pending official read - CTAP without acute findings, does reveal large amounts of stool in colon - Cervical spine CT WNL - Head CT WNL - Echo 12/21/2024 LV mildly dilated, RVSP reduced, LA moderately dilated, mild AR, mild MR, EF 50-55% - IVF LR @ 125 mL/hr - Orthostatic vitals pending #Nausea and vomiting/Constipation Ongoing nausea x > 2 weeks, no abdominal pain, but does have some constipation "x 16 days". Does become symptomatic with dizziness with standing, 2 episodes of syncope the day of arrival. History of GERD. Gastroparesis was considered at time of last admission, do suspect that this is still possible and in the setting of constipation. - CBC without leukocytosis - CBC am - CTAP large amounts of stool in colon - Reglan 10mg IV luis - Bowel regimen -- MiraLAX x 3 doses, Dulcolax OH at admission - Advance diet as able #Hyponatremia Likely secondary to ongoing poor oral intake. - Na 134, glucose WNL - BMP am - Serum osmol, Urine Na, Urine Osmol pending - IVF LR @ 125 mL/hr #STEPHAN Likely secondary to renal hypoperfusion, ongoing vomiting and poor oral intake. - Cr 2.27, BUN 36- BMP am - IVF LR @ 125 mL/hr - Bladder scan prn - Avoid nephrotoxic agents - Continue to promote oral hydration as able to tolerate #Anemia No bleeding, per patient. - H/H 11.7/36.7 - Iron panel pending, vitamin B12 and folate pending - CTAP WNL #T2DM H/o DMT2; On Glargine 25 U, Jardiance and metformin. - Most recent A1C 12/2024 @ 6.7% - Hold po metformin, continue Jardiance (HF) - SSI with target BSG range 110-150mg/dL, CF 30, carb ratio 11 - Lantus 12U - BSG ACHS - Adjust regimen as needed #Transaminitis- As per last admission as well, appears to actually be downtrending. Ongoing N/V; AST 50, ALT 71, CTAP no acute findings, no comment on liver, GB with sludge - trend as appropriate #Cellulitis, LLE, resolving- Augmentin - complete course (started 12/22, complete for total of 7 days) #HTN- Carvedilol, isosorbide, Jardiance - Hold pm carvedilol on the night of arrival, continue all meds am as BP allows #HLD- Rosuvastatin - continue #Afib- Amiodarone, Eliquis - continue #HFmrEF s/p ICD- Stable, previously on Lasix; Echo 12/21/2024 w/ EF 50-55% #Chronic hypoxic resp failure- Breo Ellipta, 4L O2 via NC at all times - continue inhalers + O2 #BPH- Tamsulosin - continue #Psych- Duloxetine - continue Dispo: Obs, med/tele VTE Prophylaxis: On Eliquis - continue This document was dictated utilizing Gogetit. Please excuse any grammatical errors that may be secondary to use of this software. Admission and Anticipated Discharge Date Admission Date: 12/26/2024 History of Present Illness Chief Complaint: Syncope Primary Care Provider: Marisol Love 79-year-old male PMHx CAD s/p multiple stents and MIs (PCI x 17, CABG x 4), CHF s/p ICD, T2DM, PAD, orthostatic hypotension, and is currently on 4L O2 who is presenting for abdominal pain and vomiting as well as syncopal event x 2 days arrival. Most recent hospital admission 12/20/2024 to 12/22/2024 for chest pain as well as nausea and vomiting. For the past 3 days since his most recent discharge, the patient states that he will go from a sitting to standing position and get very lightheaded, sometimes finding it difficult to breathe and have to sit back down on his recliner. On the day of arrival, he got up from his recliner quickly, felt lightheaded, and fell to the ground on 2 separate occasions. He states that he lightly hit his head off of the recliner at one point during the fall, but declining pain. At present, patient is not having any lightheadedness or dizziness in bed. He does state that his bilateral extremities, specifically in his feet, have [id number] feeling in them. He does occasionally have some arm heaviness, none at present. He has had ongoing nausea and vomiting which has worsened per his report. Sometimes does have dry heaving instead of any actual emesis produced. No hematemesis. Still unable to keep anything down because he feels nauseous, reports that her sugars have been running lower. Denying chest pain, SOB, palpitations, abdominal pain, diarrhea, fever/chills, LUTS, URI symptoms, or weakness. ED evaluation reveals CBC without leukocytosis, H&H 11.7/36.7; PT/INR 12.4/1.2, APTT 32; CMP sodium 134, BUN 36, creatinine 2.27; AST 50, ALT 71; troponin 26.3, pending repeat; CTAP nonacute, but does reveal formed stool and contrast present; cervical spine CT without acute findings; head CT without acute findings; CXR pending official read; EKG atrial paced rhythm with prolonged AV conduction, LAD, RBBB at [address] Kee's attestation for adjustments/additions to treatment plan. Allergies Allergy/AdvReac Type Severity Reaction Status Date / Time Milk Containing Products Allergy Unknown Unknown Unverified 12/26/24 20:59 (Dairy) Iodinated Contrast Media Allergy Rash Verified 12/26/24 20:59 warfarin AdvReac Severe Made my Unverified 12/26/24 20:59 blood extremely thin Home Medications Medication Instructions Recorded Confirmed Type rosuvastatin 10 mg tablet 10 mg PO QAM 07/10/20 12/26/24 History nitroglycerin 0.4 mg sublingual 0.4 mg sublingual UD PRN Chest Pain 01/08/21 12/26/24 History tablet (Nitrostat) apixaban 5 mg tablet (Eliquis) 5 mg PO BID 04/05/24 12/26/24 History multivitamin 1 tab PO DAILY 04/05/24 12/26/24 History blood sugar diagnostic (OneTouch #100 ea 04/06/24 12/20/24 Rx Verio test strips) blood-glucose meter #1 ea 04/06/24 12/20/24 Rx lancets 33 gauge #100 ea 04/06/24 12/20/24 Rx pen needle,diabetic, disp unit 32 #100 ea 04/10/24 12/20/24 Rx gauge x 5/32", remover and disposal unit duloxetine 60 mg capsule,delayed 60 mg PO QAM 05/29/24 12/26/24 History release tamsulosin 0.4 mg capsule 0.4 mg PO QAM 05/29/24 12/26/24 History amiodarone 400 mg tablet 400 mg PO QAM 12/15/24 12/26/24 History empagliflozin 10 mg tablet 10 mg PO DAILY 12/15/24 12/26/24 History (Jardiance) fluticasone furoate 100 1 inh inhalation DAILY 12/15/24 12/26/24 History mcg-vilanterol 25 mcg/dose inhalation powder (Breo Ellipta) insulin glargine 100 unit/mL (3 25 unit subcut QAM 12/15/24 12/26/24 History mL) subcutaneous pen (Lantus Solostar U-100 Insulin) metformin 500 mg tablet 500 mg PO BID 12/15/24 12/26/24 History amoxicillin 875 mg-potassium 1 tab PO BID #10 tabs 12/22/24 12/26/24 Rx clavulanate 125 mg tablet carvedilol 12.5 mg tablet 12.5 mg PO BIDM #60 tabs 12/22/24 12/26/24 Rx isosorbide mononitrate 30 mg 30 mg PO DAILY #30 tabs 12/22/24 12/26/24 Rx tablet,extended release 24 hr Past Med/Surg History Problem List (Updated 12/26/24 @ 21:32 by Justice Simms MD) Syncope (Acute) Anemia Nausea & vomiting Syncope Ventricular tachycardia Valvular heart disease CAD (coronary artery disease) (Acute) Chest pain (Acute) Type 2 diabetes mellitus Renal insufficiency Transaminitis Cellulitis Nausea STEPHAN (acute kidney injury) (Acute) Acute foot pain (Acute) Pseudohyponatremia (Acute) Elevated troponin (Acute) Elevated troponin Syncope and collapse Left leg pain Hyperglycemia (Acute) Gait instability (Acute) CHI (closed head injury) (Acute) Impacted cerumen of left ear Hyponatremia STEPHAN (acute kidney injury) Left-sided chest pain (Acute) Left rib fracture (Acute) DVT prophylaxis Status post fall Hypertension BPD (bronchopulmonary dysplasia) (Chronic) Hypothyroid (Chronic) Bipolar disorder (Chronic) Medical History Heart failure with mildly reduced ejection fraction (HFmrEF, 41-49%) Chest pain Ischemic cardiomyopathy Cardiac defibrillator in place [place] Diabetes mellitus type 2 in obese CAD (coronary artery disease) Coronary artery bypass graft 1992: [place] to LAD, saphenous vein graft to 1st diagonal, saphenous vein graft to om 1, saphenous vein graft to the right coronary artery Falls frequently Surgical History S/P coronary artery stent placement S/P CABG (coronary artery bypass graft) Hx of inguinal herniorrhaphy Status post aorto-coronary artery bypass graft Family History Other Family history non-contributory Social History Smoking Status: Never smoker Tobacco Type: Cigarettes Second Hand Exposure: No; Do You Dip or Chew Tobacco: No; Hx Alcohol Use: No Hx Substance Use: No Preferred Language: Telugu Communication Ability: Effective Handyman Required: No Beliefs That Will Affect Care: None Current Living Situation: Alone Current Living Situation Comment: home alone Feels Safe at Home: Yes Assistive Devices: Denture - Upper, Denture - Lower, Glasses, Oxygen - Continu ous and Walker Review of Systems Review of Systems: All systems reviewed & are unremarkable except as noted in Subjective Physical Exam Physical Exam: General: No acute distress Skin: Warm and dry; LLE with resolved cellulitis Head: Normocephalic, atraumatic Eyes: PERRL, conjunctivae clear, sclera non-icteric; wearing glasses ENT: External ear and ear canal without swelling; nose atraumatic; good dentition, tongue normal appearance, pharynx normal Neck: Supple, no LAD Cardio: RRR, no M/G/R, S1 and S2 normal Resp: O2 via NC (4L at baseline); no respiratory distress, Lungs CTA in all lobes bilaterally, no wheezes, rales, or rhonchi Abdomen: Soft, symmetric, nontender; No masses or hepatosplenomegaly; Bowel sounds normoactive MSK: No deformities; pulses palpable and equal; no edema. Neuro: Awake, alert; Sensation intact bilaterally; CN grossly intact Psych: Appropriate mood and affect; good judgement and insight. Results & Data Results & Data Vital Signs (Past 12 Hours) Vital Signs Temp Pulse Pulse Resp BP BP Pulse Ox 12/26/24 19:04 60 20 143/60 H 99 12/26/24 17:13 60 12/26/24 17:13 60 20 100 12/26/24 16:54 100 12/26/24 16:54 36.7 C 60 20 136/70 99 O2 Del Method O2 Flow Rate 12/26/24 19:04 Room Air 12/26/24 17:13 12/26/24 17:13 Nasal Cannula 4 12/26/24 16:54 Nasal Cannula 4 12/26/24 16:54 Nasal Cannula 4 Laboratory Results 12/26/24 12/26/24 17:06 17:01 WBC 7.06 RBC 4.65 L Hgb 11.7 L POC Hgb 12.2 L Hct 36.7 L POC Hct 36 L MCV 78.9 L MCH 25.2 MCHC 31.9 L RDW Std Deviation 45.0 RDW Coeff of De 15.9 H Plt Count 194 MPV 10.3 Immature Gran % (Auto) 0.6 Neut % (Auto) 76.5 Lymph % (Auto) 12.0 Hardeman % (Auto) 9.8 Eos % (Auto) 0.8 Baso % (Auto) 0.3 Neut # (Auto) 5.40 Lymph # (Auto) 0.85 L Hardeman # (Auto) 0.69 H Eos # (Auto) 0.06 Baso # (Auto) 0.02 Immature Gran # (Auto) 0.04 PT 12.4 H INR 1.2 H APTT 32 H PTT Ratio 1.2 POC Sodium 136 Sodium 134 L POC Potassium 4.5 Potassium 4.4 POC Chloride 101 Chloride 102 Carbon Dioxide 25 POC Total CO2 22 L Anion Gap 7 POC Anion Gap 18.0 POC BUN 33 H BUN 36 H Creatinine 2.27 H POC Creatinine 2.5 H Est Cr Clr Drug Dosing 27.3 eGFR 28.98 BUN/Creatinine Ratio 15.9 Glucose 78 POC Glucose (other) 76 Calcium 8.8 POC Ioniz Calcium Camilla 1.18 Total Bilirubin 0.7 Direct Bilirubin 0.2 AST 50 H ALT 71 H Alkaline Phosphatase 84 Troponin I High Sens 26.3 H Total Protein 6.6 Albumin 3.4 Lipase 17 Diagnostic Findings Abdomen/Pelvis CT 12/26/24 17:12 EXAMINATION: Abdomen and pelvis CT without CLINICAL HISTORY: Fall, abdominal pain PRIORS: 08/13/2017 CT AP TECHNIQUE: Contiguous axial images were obtained through the abdomen and pelvis without the use of intravenous contrast. Sagittal and coronal reformations are supplied. FINDINGS: Pulmonary fibrosis noted at the lung bases. Small hiatal hernia is present. Allowing for the absence of intravenous contrast, no solid organ laceration or subcapsular hematoma. Gallbladder contains sludge. No hemoperitoneum. A large amount of formed stool and contrast present throughout the colon. No bowel wall hematoma or dilatation. No extraluminal gas, ascites or adenopathy. The prostate not well-visualized. Urinary bladder under distended. Moderate atherosclerotic disease of the abdominal aorta. Surgical clips in the right lower quadrant. No retroperitoneal hemorrhage. Kidneys symmetric in size. In bone windows, moderate osseous demineralization noted with degenerative change of the facet joints. No acute displaced fracture or dislocation. IMPRESSION: 1. No CT evidence of an acute or traumatic abnormality in the abdomen or pelvis. 2. Nonacute findings are noted above. Electronically signed by Louann Mclean 12-26-2024 7:[address] 12/26/24 17:12 EXAM: CT cervical spine CLINICAL HISTORY: Fall TECHNIQUE: Contiguous axial images were obtained through the cervical spine without the use of intravenous contrast. Sagittal and coronal reformations are supplied. PRIORS: 12/15/2024 FINDINGS: Mild osseous demineralization noted. Lordotic straightening is noted. No acute cervical spine fracture or facet dislocation. Diffuse facet hypertrophic changes also noted. Multilevel anterior bridging osteophytes present throughout the cervical spine. Mild diffuse uncovertebral hypertrophic changes present. No prevertebral soft tissue swelling. Visualized trachea is patent. IMPRESSION: No CT evidence of an acute osseous abnormality. Electronically signed by Louann Mclean 12-26-2024 6:24 PM Chest X-Ray 12/26/24 17:12 EXAM: X-ray chest one-view portable CLINICAL HISTORY: Fall PRIORS: 12/20/2024 TECHNIQUE: Frontal view chest FINDINGS: Left-sided cardiac device noted with leads terminating in the heart. Median sternotomy wires noted in postsurgical change of the mediastinum noted. The chest is well-expanded. No airspace consolidation, effusion or congestive changes. Heart size is normal. No pneumothorax. Trachea is patent. Osseous structures demonstrate no acute abnormality. No radiopaque foreign body. IMPRESSION: No plain film evidence of an acute cardiopulmonary process. Electronically signed by Louann Mclean 12-26-2024 8:[address] 12/26/24 17:12 EXAMINATION: Head CT without CLINICAL HISTORY: Fall PRIORS: 12/15/2024, 04/07/2024 TECHNIQUE: Contiguous axial images were obtained through the head without the use of intravenous contrast. Sagittal and coronal reformations are supplied. FINDINGS: mild to moderate diffuse parenchymal volume loss noted with mild small vessel occlusive disease. George-white differentiation is preserved. No edema or midline shift. No intra-axial or extra-axial hemorrhage. Ventricles are normal in size and configuration. Brainstem and cerebellum have a normal appearance. Calvarium unremarkable. Paranasal sinuses and mastoid air cells are well-pneumatized. Globes are intact. No retrobulbar abnormality. IMPRESSION: No CT evidence of an acute intracranial abnormality. Electronically signed by Louann Mclean 12-26-2024 6:22 PM ECG Additional Comments: Atrial paced rhythm with prolonged AV conduction, LAD, RBBB 60 bpm, OH 242, QRS 142, QT/QTc 44/44, PRT -1/-45/138 Code Status & VTE Plan Code Status Full Supervising Physician Co-Signing Physician Notes Patient seen and examined, chart reviewed, case discussed with KETAN Ray and I agree with the assessment and plan as above. Patient recently admitted with chest pain - non-cardiac in nature. Ongoing nausea with significant constipation at present. Two episodes of syncope On exam patient is resting in C10 - ongoing nausea although improved +S1/S2 Lungs CTA anteriorly Abd soft, NT/ND, bowel sounds present but mildly diminished Labs and images reviewed Trop=26.3 CT with large amounts of stool in the colon Assessment/Plan -Bowel regimen - Dulcolax PRN, escalating Miralax dosing, IVF and electrolyte repletion, encourage ambulation as tolerated with assistance as needed -Remainder as above PG Care Time/CCT Total # of Minutes Spent Total Time Spent with Patient: Total time spent is greater than 50% in coordination of care (as documented) at patient's floor/unit and/or counseling patient: Coding Level of Care Code 39707 INT INP/OBS CARE 3/75MIN Diagnoses Syncope R55 Nausea & vomiting R11.2 Hyponatremia E87.1 STEPHAN (acute kidney injury) N17.9 Elevated troponin R79.89 Anemia D64.9 Type 2 diabetes mellitus E11.9
[2024-12-26] MEDS ORDERED: GLUCOSE 10 TAB/TUBE PO PRN (20:51)
[2024-12-26] MEDS ORDERED: GLUCAGON FOR INJ 1 MG VIAL SQ PRN (20:51)
[2024-12-26] MEDS ORDERED: GLUCOSE 40% GEL 15 GM TUBE PO PRN (20:51)
[2024-12-26] MEDS ORDERED: CARBOHYDRATES FOR HYPOGLYCEMIA PO PRN (20:51)
[2024-12-26] MEDS: METOCLOPRAMIDE HCL INJ 5 MG/ML 2 ML VIAL IV SCH (21:33)
[2024-12-26] MEDS: LACTATED RINGER'S 1,000 ML IV SCH (21:33)
[2024-12-26] MEDS ORDERED: ACETAMINOPHEN 325 MG TAB PO PRN (22:03)
[2024-12-26] MEDS ORDERED: MELATONIN 3 MG TAB PO PRN (22:03)
[2024-12-26] MEDS: DEXTROSE 50% 50 ML SYRINGE IV PRN (22:04)
[2024-12-26 22:07] VITALS: TEMP 97.7
[2024-12-26] MEDS: INSULIN ASPART PER UNIT CHARGE SC SCH (22:08)
[2024-12-27 02:52] VITALS: PULSE 60
[2024-12-27 06:18] LABS: Hematocrit (blood only) 38.2 % (42.0-52.0); Hemoglobin 12.5 g/dl (14.0-18.0); Mean Corpuscular Hemoglobin 26.0 pg (25.0-34.0); Mean Corpuscular Volume 79.4 fL (80.0-100.0); Platelet Count 219 K/uL (130-400); RDW Standard Deviation 45.2 fL (36.4-46.3); Red Blood Count 4.81 M/uL (4.70-6.10); White Blood Count 8.72 K/ul (4.8-10.8)
[2024-12-27 06:43] LABS: Anion Gap 8.0 (3-11); Blood Urea Nitrogen 36.0 mg/dl (6-23); Calcium 9.5 mg/dl (8.6-10.3); Carbon Dioxide 27.0 mmol/L (21-32); Chloride 103.0 mmol/L (98-107); Creatinine Clr Calc Pharmacy 26.4 ml/min; Glucose 75.0 mg/dl (70-99(Fasting)); Iron 56.0 mcg/dl (35-175); Potassium 4.9 mmol/L (3.5-5.1); Sodium 138.0 mmol/L (136-145); Total Iron Binding Cap Calc 325.0 mcg/dl (250-450); Transferrin 232.0 mg/dl (200-360); Transferrin (FE) Percent Satur 17.0 % (20-50)
[2024-12-27 06:56] LABS: Folate (Folic Acid),Ser orPlas > 22.30 ng/ml (>5.38)
[2024-12-27 06:57] LABS: Vitamin B12 453 pg/ml (180-914)
[2024-12-27 08:13] VITALS: RESP 19
[2024-12-27] MEDS: AMIODARONE 200 MG TAB PO SCH (08:48)
[2024-12-27] MEDS: TAMSULOSIN HCL 0.4 MG CAP PO SCH (08:48)
[2024-12-27] MEDS: ROSUVASTATIN CALCIUM 10 MG TAB PO SCH (08:48)
[2024-12-27] MEDS: EMPAGLIFLOZIN 10 MG TAB PO SCH (08:48)
[2024-12-27] MEDS: ISOSORBIDE MONO EXTENDED REL 30 MG TABCR PO SCH (08:48)
[2024-12-27] MEDS: AMOXICILLIN/CLAVULANATE 875 MG TAB PO SCH (08:48)
[2024-12-27] MEDS: APIXABAN 5 MG TABLET PO SCH (08:48)
[2024-12-27] MEDS: FLUTICASONE/VILANTEROL 100/25MCG 14 PUFFS/INHALER INH SCH (08:49)
[2024-12-27] MEDS: LANTUS PER UNIT CHARGE SQ SCH (08:55)
[2024-12-27] MEDS: POLYETHYLENE (MIRALAX) 17 GM PACK PO SCH (09:12)
[2024-12-27] MEDS: MAGNESIUM CITRATE 296 ML/BTL PO STA (10:01)
--- NOTE | 2024-12-27 11:11 | Electrocardiogram Report ---
Test Reason : Blood Pressure : */* mmHG Vent. 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
[2024-12-27 11:54] VITALS: BP 96/49; O2SAT 99
[2024-12-27] MEDS ORDERED: MAGNESIUM CITRATE 296 ML/BTL PO STA (13:05)
[2024-12-27 13:39] LABS: Appearance Urine Clear (Clear); Bacteria Urine Automated None Seen (None Seen); Epithelial Cell Urine Auto 0-2 /hpf (0-2); Glucose Urine UA 3+ (Negative); RBC Urine Automated >20 /hpf (0-2); WBC Urine Automated 0-5 /hpf (0-5)
[2024-12-27 13:47] LABS: Magnesium 1.8 mg/dl (1.7-2.4)
[2024-12-27] MEDS: MAGNESIUM CITRATE 296 ML/BTL ONE (14:18)
--- NOTE | 2024-12-27 16:27 | Discharge Summary ---
Discharge Summary Date of Service December 27, 2024 Principal Dx & Hospital Course #1 = Principal Diagnosis (1) Syncope: 1. Syncope, most probably due to acute dehydration, due to N/V for the past 2-3 weeks. In turn, N/V for the past 2-3 weeks, non-bilious, no hematemesis, no abdominal/pelvic pain, of unclear etiology, with contributions from: a. Home-scheduled metformin 500mg PO bid. b. Home-scheduled rosuvastatin 10mg PO qam. c. Home-scheduled empagliflozin 10mg PO daily. d. Home-scheduled augmentin 875mg/125mg PO bid (start date 12/22/2024; to treat hlafr-ys-naaaloh LLE cellulitis). e. CKD III with baseline creatinine range, 1.22-1.37 mg/dL (07/18/2017 - 06/30/2024) with recent acute kidney injury with creatinine 3.63 mg/dL (12/15/2024, 4:55pm) decreasing to 2.05 mg/dL (12/21/2024, 5:16am). Subsequently, patient was held OFF his: a. Home-scheduled metformin 500mg PO bid. b. Home-scheduled rosuvastatin 10mg PO qam. c. Home-scheduled empagliflozin 10mg PO daily. d. Home-scheduled augmentin 875mg/125mg PO bid (start date 12/22/2024; to treat cvrtd-dk-xtljoxm LLE cellulitis). In addition, patient received 2 liters of lactated Ringers @ 125 mL/hr (12/26/2024, 9:33pm; 12/27/2024, 6:14am). Subsequently, patient reported that N/V RESOLVED on hospital discharge date 12/27/2024. Subsequently, patient was discharged home on 12/27/2024 and was advised to STOP taking immediately and permanently: a. Home-scheduled metformin 500mg PO bid. b. Home-scheduled rosuvastatin 10mg PO qam. c. Home-scheduled empagliflozin 10mg PO daily. d. Home-scheduled augmentin 875mg/125mg PO bid (start date 12/22/2024; to treat ynvlk-ip-bapuysv LLE cellulitis). Patient reports that he will comply with the recommendations above. (2) Nausea & vomiting: See bullet #1 above for details. (3) Hyponatremia: cf., acute hypovolemic hyponatremia with admission Na 134 mmol/L (12/26/2024, 5:01pm). cf., recent acute hypovolemic hyponatremia with Na range, 133-135 mmol/L (12/15/2024 - 12/20/2024). cf., normal baseline Na range, 136-140 mmol/L (04/06/2024 - 06/30/2024). Etiology of acute hypovolemic hyponatremia is probably due to acute dehydration, which in turn, is due to N/V, which is described in bullet #1 above. Subsequently, patient received 2 liters of lactated Ringers @ 125 mL/hr (12/26/2024, 9:33pm; 12/27/2024, 6:14am). Subsequently, acute hypovolemic hyponatremia RESOLVED with post-hydration Na 138 mmol/L (12/27/2024, 5:36am). Subsequently, patient was discharged back to his home on 12/27/2024, with recom mendation to drink at least 8 ounces of water while awake, in order to stay hydrated. Patient was also advised to STOP taking immediately and permanently: a. Home-scheduled metformin 500mg PO bid. b. Home-scheduled rosuvastatin 10mg PO qam. c. Home-scheduled empagliflozin 10mg PO daily. d. Home-scheduled augmentin 875mg/125mg PO bid (start date 12/22/2024; to treat gzppk-lv-ofkrqry LLE cellulitis). Patient reports that he will comply with all of the recommendations above. (4) STEPHAN (acute kidney injury): Acute kidney injury with admission creatinine 2.27 mg/dL (12/26/2024, 5:01pm), most probably due to (1) acute dehydration, due to N/V for the past 2-3 weeks, and (2) augmentin 875/125mg PO bid (start date 12/22/2024; to treat axdzj-zx-kwonkiy LLE cellulitis). cf., CKD III with baseline creatinine range, 1.22-1.37 mg/dL (07/18/2017 - 06/30/2024) with recent acute kidney injury with creatinine 3.63 mg/dL (12/15/2024, 4:55pm) decreasing to 2.05 mg/dL (12/21/2024, 5:16am). Subsequently, patient received 2 liters of lactated Ringers @ 125 mL/hr (12/26/2024, 9:33pm; 12/27/2024, 6:14am). Subsequently, acute kidney injury persists with post-hydration creatinine 2.34 mg/dL (12/27/2024, 5:36am). Subsequently, patient was discharged back to his home on 12/27/2024, with recommendation to drink at least 8 ounces of water while awake, in order to stay hydrated. Patient was also advised to STOP taking immediately and permanently: a. Home-scheduled metformin 500mg PO bid. b. Home-scheduled rosuvastatin 10mg PO qam. c. Home-scheduled empagliflozin 10mg PO daily. d. Home-scheduled augmentin 875mg/125mg PO bid (start date 12/22/2024; to treat tghhc-ps-vfqfchc LLE cellulitis). Patient was also advised to follow up with his PCP Ms. Marisol Love PA-C, within 5-7 days of hospital discharge, to undergo repeat creatinine level testing. Patient reports that he will comply with all of the recommendations above. (5) Elevated troponin: Acute type II NSTEMI with nominal troponin-I elevation with: troponin-I #1 26.3 pg/mL (12/26/2024, 5:01pm). troponin-I #2 30.6 pg/mL (12/26/2024, 10:56pm). troponin-I #3 32.3 pg/mL (12/27/2024, 5:36am). troponin-I #4 22.2 pg/mL (12/27/2024, 1:12pm). 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 Dagoberto Siddiqui) (b) acute kidney injury with admission creatinine 2.27 mg/dL (12/26/2024, 5:01pm), superimposed on CKD III with baseline creatinine range, 1.22-1.37 mg/dL (07/18/2017 - 06/30/2024) with recent acute kidney injury with creatinine 3.63 mg/dL (12/15/2024, 4:55pm) decreasing to 2.05 mg/dL (12/21/2024, 5:16am) (c) chronic hypoxic respiratory failure due to end-stage COPD, due to former tobacco abuse, now on 4 liters/minute O2 via nasal cannula sckrmq-ccu-exppf at home on a daily basis, 365 days a year. (d) chronic ykcagoeduw-mbj-uesblwriyx, normochromic anemia with baseline Hb range, 11.2 - 13.0 g/dL (04/06/2024 - 12/21/2024). cf., EKG (12/26/2024, 5:10pm): Atrial-paced @ 60, TX 242, QTC 484, RBBB, Q in II, III, aVF, TWI in I, aVL, V2-V5, no acute ST depressions/elevations (by my review). cf., EKG (12/20/2024, 7:24pm): NSR @ 64, TX 180, qTC 517, RBBB, Q in II, III, aVF, TWI in I, aVL, V2-V6, no acute ST depressions/elevations (by my review). Given the low index of suspicion for ACS/acute type I NSTEMI, I opted to observe the nominal troponin-I elevation without further evaluation while patient remained in [facility]. (6) Anemia: cf., admission Hb 11.7 g/dL, MCV 78.9, MCHC 31.9 (12/26/2024, 5:01pm). cf., discharge Hb 12.5 g/dL, MCV 79.4, MCHC 32.7 (12/27/2024, 5:36am). cf., chronic qccrupsble-jzt-zwtjfbsrha, normochromic anemia with baseline Hb range, 11.2 - 13.0 g/dL (04/06/2024 - 12/21/2024). cf., normal Fe 56 ug/dL, normal TIBC 325 ug/dL (12/27/2024, 5:36am). Patient reports no mucosal bleeding. Patient remains hemodynamically stable; patient is not orthostatic. Etiology of chronic pjhrybihqq-fld-mwxlgfjrgg, normochromic anemia with baseline Hb range, 11.2 - 13.0 g/dL (04/06/2024 - 12/21/2024) is most probably due to anemia of chronic disease (e.g., CKD III with baseline creatinine range, 1.22- 1.37 mg/dL (07/18/2017 - 06/30/2024)). Of note, patient did not require or receive any packed RBC transfusion(s) while in [facility]. Of final note, patient was advised to follow up with his PCP Ms. Marisol Love PA-C, within 5-7 days of hospital discharge to arrange for outpatient screening colonoscopy to R/O colon carcinoma as an alternative cause for his chronic tynxffovfc-cet-aiwtajysoa, normochromic anemia with baseline Hb range, 11.2 - 13.0 g/dL (04/06/2024 - 12/21/2024). Patient reports that he will comply with this recommendation. (7) Type 2 diabetes mellitus: cf., admission glucose 66 mg/dL (12/26/2024, 9:59pm). cf., repeat glucose 111 mg/dL (12/26/2024, 10:30pm). cf., repeat glucose 69 mg/dL (12/27/2024, 1:55am). cf., repeat glucose 138 mg/dL (12/27/2024, 2:18am). cf., repeat glucose 79 mg/dL (12/27/2024, 8:10am). cf., discharge glucose 89 mg/dL (12/27/2024, 11:55am). Etiology of hypoglycemia is due to a combination of: a) not eating or drinking for the past 3 days, due to N/V for the past 2-3 weeks, as described in bullet #1 above. b) home-scheduled lantus 25 units SQ qam, even though patient is not eating or drinking for the past 3 days, due to N/V for the past 2-3 weeks, as described in bullet #1 above. c) home-scheduled metformin 500mg PO bid, even though patient is not eating or drinking for the past 3 days, due to N/V for the past 2-3 weeks, as described in bullet #1 above. d) home-scheduled empagliflozin 10mg PO daily, even though patient is not eating or drinking for the past 3 days, due to N/V for the past 2-3 weeks, as described in bullet #1 above. Patient surprisingly received his home-scheduled empaglifozin 10mg PO daily x 1 dose (12/27/2024, 8:48am) while in [facility]. Patient subsequently was advised to stop taking his: a. Home-scheduled lantus 25 units SQ qam. b. Home-scheduled metformin 500mg PO bid. c. Home-scheduled empagliflozin 10mg PO daily. Patient reports that he will comply with all of the recommendations above. Patient also states that he will continue to utilizing his continuous glucose monitor at home, and record his glucose levels in a notebook and bring this data to his PCP Ms. Marisol Love PA-C, within 5-7 days of hospital discharge. Of final note, while patient has a HbA1c 6.7% (12/16/2024, 5:27am), which might suggest at first glance that patient's long-term glycemic control is modest, patient's HbA1c level is not an accurate biomarker for long-term glycemic con trol. The reason is that in the setting of chronic anemia, and this patient suffers from chronic vpjxzfquub-dla-kgrfdptvop, normochromic anemia with baseline Hb range, 11.2 - 13.0 g/dL (04/06/2024 - 12/21/2024), increased RBC turnover leads to concomitant reductions in both Hb and HbA1c levels, thereby rendering HbA1c levels meaningless in the interpretation of long-term glycemic control in diabetic patients who are also anemic. (8) Transaminitis: RESOLVING acute transaminitis with admission AST 50 U/L, ALT 71 U/L (12/26/2024, 5:01pm), of unclear etiology, but probably due to home-scheduled rosuvastatin 10mg PO qam. cf., AST 63 U/L (12/15/2024, 4:55pm). cf., AST 59 U/L (12/16/2024, 5:27am). cf., AST 93 U/L (12/20/2024, 7:30pm). cf., AST 85 U/L (12/21/2024, 5:16am). cf., baseline AST range, 15-26 U/L (07/18/2017 - 06/30/2024). cf., ALT 77 U/L (12/15/2024, 4:55pm). cf., ALT 77 U/L (12/16/2024, 5:27am). cf., ALT 131 U/L (12/20/2024, 7:30pm). cf., ALT 122 U/L (12/21/2024, 5:16am). cf., baseline ALT range, 18-46 U/L (07/18/2017 - 06/30/2024). Patient subsequently was advised to stop taking his: a. Home-scheduled rosuvastatin 10mg PO qam. Patient reports that he will comply with this recommendation. (9) Constipation: Chronic constipation (as noted by "large amount of formed stool and contrast present throughout the colon" on 12/26/2024, 5:12pm CT abd/pelvis without IV contrast). I surmise that patient's chronic constipation noted above may have/be contributing to his N/V for the past 2-3 weeks at home. Patient subsequently received magnesium citrate 296 mL PO x 1 dose (12/27/2024, 10:01am) and had not passed bowel as of hospital discharge date/time, 12/27/2024, 12:55pm. Patient subsequently reported no N/V/D, abdominal pain, pelvic pain, or flank pain and stated that he would still go home as of hospital discharge date/time, 12/27/2024, 12:55pm. Plan 79-year-old male PMHx CAD s/p multiple stents and MIs (PCI x 17, CABG x 4), CHF s/p ICD, T2DM, PAD, orthostatic hypotension, and is currently on 4L O2 who is presenting for abdominal pain and vomiting as well as syncopal event x 2 days arrival. Most recent hospital admission 12/20/2024 to 12/22/2024 for chest pain as well as nausea and vomiting.ED evaluation reveals CBC without leukocytosis, H&H 11.7/36.7; PT/INR 12.4/1.2, APTT 32; CMP sodium 134, BUN 36, creatinine 2.27; AST 50, ALT 71; troponin 26.3, pending repeat; CTAP no acute findings, but does reveal formed stool and contrast present; cervical spine CT without acute findings; head CT without acute findings; CXR pending official read; EKG atrial paced rhythm with prolonged AV conduction, LAD, RBBB at 60 bpm. Initial Plan in [facility] on 12/26/2024: #Syncope/Elevated troponin H/o of syncopal event x 2 day of arrival; Has been having N/V ongoing for ~ 2-3 weeks per the patient's report. Did hit head, on eliquis. No pain anywhere at present. - CBC without leukocytosis, H/H 11.7/36.7; CMP Na 134, Cr 2.27, BUN 36 - CBC, BMP am - Troponin 26.3, pending repeat; EKG atrial pacced, no ischemic changes -- likely demand related - CXR pending official read - CTAP without acute findings, does reveal large amounts of stool in colon - Cervical spine CT WNL - Head CT WNL - Echo 12/21/2024 LV mildly dilated, RVSP reduced, LA moderately dilated, mild AR, mild MR, EF 50-55% - IVF LR @ 125 mL/hr - Orthostatic vitals pending #Nausea and vomiting/Constipation Ongoing nausea x > 2 weeks, no abdominal pain, but does have some constipation "x 16 days". Does become symptomatic with dizziness with standing, 2 episodes of syncope the day of arrival. History of GERD. Gastroparesis was considered at time of last admission, do suspect that this is still possible and in the setting of constipation. - CBC without leukocytosis - CBC am - CTAP large amounts of stool in colon - Reglan 10mg IV luis - Bowel regimen -- MiraLAX x 3 doses, Dulcolax TX at admission - Advance diet as able #Hyponatremia Likely secondary to ongoing poor oral intake. - Na 134, glucose WNL - BMP am - Serum osmol, Urine Na, Urine Osmol pending - IVF LR @ 125 mL/hr #STEPHAN Likely secondary to renal hypoperfusion, ongoing vomiting and poor oral intake. - Cr 2.27, BUN 36- BMP am - IVF LR @ 125 mL/hr - Bladder scan prn - Avoid nephrotoxic agents - Continue to promote oral hydration as able to tolerate #Anemia No bleeding, per patient. - H/H 11.7/36.7 - Iron panel pending, vitamin B12 and folate pending - CTAP WNL #T2DM H/o DMT2; On Glargine 25 U, Jardiance and metformin. - Most recent A1C 12/2024 @ 6.7% - Hold po metformin, continue Jardiance (HF) - SSI with target BSG range 110-150mg/dL, CF 30, carb ratio 11 - Lantus 12U - BSG ACHS - Adjust regimen as needed #Transaminitis- As per last admission as well, appears to actually be downtrending. Ongoing N/V; AST 50, ALT 71, CTAP no acute findings, no comment on liver, GB with sludge - trend as appropriate #Cellulitis, LLE, resolving- Augmentin - complete course (started 12/22, complete for total of 7 days) #HTN- Carvedilol, isosorbide, Jardiance - Hold pm carvedilol on the night of arrival, continue all meds am as BP allows #HLD- Rosuvastatin - continue #Afib- Amiodarone, Eliquis - continue #HFmrEF s/p ICD- Stable, previously on Lasix; Echo 12/21/2024 w/ EF 50-55% #Chronic hypoxic resp failure- Breo Ellipta, 4L O2 via NC at all times - continue inhalers + O2 #BPH- Tamsulosin - continue #Psych- Duloxetine - continue Dispo: Obs, med/tele VTE Prophylaxis: On Eliquis - continue This document was dictated utilizing [employer]. Please excuse any grammatical errors that may be secondary to use of this software. Admission HPI Per Admitting Provider 79-year-old male PMHx CAD s/p multiple stents and MIs (PCI x 17, CABG x 4), CHF s/p ICD, T2DM, PAD, orthostatic hypotension, and is currently on 4L O2 who is presenting for abdominal pain and vomiting as well as syncopal event x 2 days arrival. Most recent hospital admission 12/20/2024 to 12/22/2024 for chest pain as well as nausea and vomiting. For the past 3 days since his most recent discharge, the patient states that he will go from a sitting to standing position and get very lightheaded, sometimes finding it difficult to breathe and have to sit back down on his recliner. On the day of arrival, he got up from his recliner quickly, felt lightheaded, and fell to the ground on 2 separate occasions. He states that he lightly hit his head off of the recliner at one point during the fall, but declining pain. At present, patient is not having any lightheadedness or dizziness in bed. He does state that his bilateral extremities, specifically in his feet, have trtx-zle-tirduvm feeling in them. He does occasionally have some arm heaviness, none at present. He has had ongoing nausea and vomiting which has worsened per his report. Sometimes does have dry heaving instead of any actual emesis produced. No hematemesis. Still unable to keep anything down because he feels nauseous, reports that her sugars have been running lower. Denying chest pain, SOB, palpitations, abdominal pain, diarrhea, fever/chills, LUTS, URI symptoms, or weakness. ED evaluation reveals CBC without leukocytosis, H&H 11.7/36.7; PT/INR 12.4/1.2, APTT 32; CMP sodium 134, BUN 36, creatinine 2.27; AST 50, ALT 71; troponin 26.3, pending repeat; CTAP nonacute, but does reveal formed stool and contrast present; cervical spine CT without acute findings; head CT without acute findings; CXR pending official read; EKG atrial paced rhythm with prolonged AV conduction, LAD, RBBB at [address] Kee's attestation for adjustments/additions to treatment plan. Discharge Exam Constitutional General: Comfortable, cooperative, coherent. Patient speaks in complete, fluent, and articulate sentences without pause, interruption, cough, or wheeze. HEENT: Normocephalic, atraumatic. Pupils equally round and reactive to light. Extra-ocular muscles intact. No nystagmus, gaze paresis, anisocoria, miosis, mydriasis, hyphema, scleral injection, conjunctivitis, or pterygium. No rhinorrhea. No otorrhea. No pharyngeal erythema, edema, or discharge. Neck: Supple, no stridor, bruit, or hepato-jugular reflux. No lid lag. No exophthalmos/proptosis. Jugular venous pressure is estimated to be 3 cm above the sternal angle of Luiz, which in turn, is 5 cm above the level of the right atrium; with jugular venous pressure estimated to be 8 cm, then, there is no jugular venous distention on 12/27/2024. Lymphatics: Negative for anterior/posterior cervical, supraclavicular, infraclavicular, axillary, epitrochlear, or inguinal adenopathy. Chest: Symmetric rise and fall with respirations. Non-tender to palpation. Lungs: Clear to auscultation and percussion. No audible expiratory wheeze, egophony, pectoriloquy, increase in tactile fremitus, or flatness/dullness to percussion at the bases. Heart: Regular rate. Regular rhythm. S1 and S2 noted. No S3 or S4 summation gallop. No tripartite friction rub. Grade III/ early systolic murmur @ LLSB without radiation to the carotids, axilla, or back, and which remains invariant in regards to the respiratory cycle. Abdomen: Soft, non-tender, non-distended. No rebound, guarding, Mckeon's sign, or organomegaly. Bowel sounds auscultated in all 4 quadrants. Extremities: No clubbing, cyanosis, or edema in upper extremities or lower extremities bilaterally. 2+ pedal pulses bilaterally. Skin: No decubitus ulcer, exanthem, or enanthem. Dry skin with skin tenting, no delay in capillary refill time > 2 seconds. Genito-urinary: No urethral discharge. No marcial catheter. Neurology: No myoclonus, tremors, or tics. Psychiatry: No homicidal ideation. No suicidal ideation. No flat affect; smiles appropriately. Discharge Plan Discharge Items Patient Disposition: Home - Self-Care Reason For Visit: SYNCOPE, N/V, STEPHAN Discharge Diagnosis: 1. Syncope, most probably due to acute dehydration, due to N/V for the past 2-3 weeks. 2. Acute kidney injury with admission creatinine 2.27 mg/dL (12/26/2024, 5:01pm), most probably due to (1) acute dehydration, due to N/V for the past 2-3 weeks, and (2) augmentin 875/125mg PO bid (start date 12/22/2024; to treat ckakk-go-eirryks LLE cellulitis). 3. CKD III with baseline creatinine range, 1.22-1.37 mg/dL (07/18/2017 - 06/30/2024) with recent acute kidney injury with creatinine 3.63 mg/dL (12/15/2024, 4:55pm) decreasing to 2.05 mg/dL (12/21/2024, 5:16am). 4. N/V for the past 2-3 weeks, non-bilious, no hematemesis, no abdominal/pelvic pain, of unclear etiology, with contributions from: a. Home-scheduled metformin 500mg PO bid. b. Home-scheduled rosuvastatin 10mg PO qam. c. Home-scheduled empagliflozin 10mg PO daily. d. Home-scheduled augmentin 875mg/125mg PO bid (start date 12/22/2024; to treat tmfss-yd-svyuctm LLE cellulitis). e. CKD III with baseline creatinine range, 1.22-1.37 mg/dL (07/18/2017 - 06/30/2024) with recent acute kidney injury with creatinine 3.63 mg/dL (12/15/2024, 4:55pm) decreasing to 2.05 mg/dL (12/21/2024, 5:16am). 5. RESOLVING acute transaminitis with admission AST 50 U/L, ALT 71 U/L (12/26/2024, 5:01pm), of unclear etiology, but probably due to home-scheduled rosuvastatin 10mg PO qam. 6. Acute type II NSTEMI with nominal troponin-I elevation with: troponin-I #1 26.3 pg/mL (12/26/2024, 5:01pm). troponin-I #2 30.6 pg/mL (12/26/2024, 10:56pm). troponin-I #3 32.3 pg/mL (12/27/2024, 5:36am). troponin-I #4 22.2 pg/mL (12/27/2024, 1:12pm). Nominal troponin-I elevation is due to demand ischemia, which in turn, is due to (a) chronic biventricular systolic CHF with reduced LVEF 50-55% and reduced RV systolic function (as noted on 12/21/2024, 6:18am TTE, CARDS Dr. Dagoberto Siddiqui), (b) acute kidney injury with admission creatinine 2.27 mg/dL (12/26/2024, 5:01pm), superimposed on CKD III with baseline creatinine range, 1.22-1.37 mg/dL (07/18/2017 - 06/30/2024) with recent acute kidney injury with creatinine 3.63 mg/dL (12/15/2024, 4:55pm) decreasing to 2.05 mg/dL (12/21/2024, 5:16am), and (c) chronic hypoxic respiratory failure due to end-stage COPD, due to former tobacco abuse, now on 4 liters/minute O2 via nasal cannula arou zn-qge-paznj at home on a daily basis, 365 days a year. 7. Acute hypovolemic hyponatremia with admission Na 134 mmol/L (12/26/2024, 5:01pm). cf., recent acute hypovolemic hyponatremia with Na range, 133-135 mmol/L (12/15/2024 - 12/20/2024). cf., normal baseline Na range, 136-140 mmol/L (04/06/2024 - 06/30/2024). 8. Acute hypoglycemia with admission glucose 66 mg/dL (12/26/2024, 9:59pm). 9. Chronic constipation (as noted by "large amount of formed stool and contrast present throughout the colon" on 12/26/2024, 5:12pm CT abd/pelvis without IV contrast). Condition on Discharge: Fair Activity: Resume your previous activity Lifting: Gradually increase as tolerated Bathing: No limitations Exercise/Sports: Gradually increase as tolerated Weightbearing: Full weightbearing Non-emergency contact: Primary Care Provider Call non-emergency contact if: you have any medication questions Follow-up/Referrals: Marisol Love PA-C [Primary Care Provider] - 01/04/25 10:30 am (Hospital follow up scheduled January 04 at 10:30) Diet: Carb Consistent or DM2 and Heart Healthy Addtl Attending Provider Instructions: 1. See your PCP Ms. Marisol Kate, PA-C, within 5-7 days of hospital discharge, for repeat creatinine, AST, ALT level testing. 2. See your CARDS Dr. Marisol Urbano @ [facility], within 5-7 days of hospital discharge, for optimization of chronic biventricular systolic CHF management, given progressive decline in renal function, now at CKD stage IV with admission creatinine 2.27 mg/dL (12/26/2024, 5:01pm). Pending Studies at Discharge: Yes Studies:: Repeat creatinine, AST, ALT levels within 5-7 days of hospital discharge. Stand-Alone Forms: My [facility] IMS, Smoking Cessation Medications and DC Order Prescriptions: Continued nitroglycerin [Nitrostat] 0.4 mg tablet, sublingual 0.4 mg sublingual UD PRN (Reason: Chest Pain) Eliquis 5 mg tablet 5 mg PO BID (DME) lancets [facility] See Rx Instructions .Route Qty: 100 5RF Rx Instructions: qa hhs testing ([facility] [place]) OneTouch Verio test strips Strip See Rx Instructions .Route Qty: 100 0RF Rx Instructions: [facility]hs ([facility] [place]) blood-glucose meter [facility] [place] See Rx Instructions .Route Qty: 1 0RF Rx Instructions: [facility] qhs (DME) pen needle,diabetic, disp unit 32 gauge x 5/32" needle See Rx Instructions .Route Qty: 100 0RF Rx Instructions: Inject 1x daily carvedilol 12.5 mg Tablet 12.5 mg PO BIDM Qty: 60 2RF isosorbide mononitrate 30 mg tablet extended release 24 hr 30 mg PO DAILY Qty: 30 3RF tamsulosin 0.4 mg capsule 0.4 mg PO QAM duloxetine 60 mg capsule,delayed release(DR/EC) 60 mg PO QAM amiodarone 400 mg tablet 400 mg PO QAM fluticasone furoate-vilanterol [Breo Ellipta] 100-25 mcg/dose blister with device 1 inh INHALATION DAILY Held rosuvastatin 10 mg tablet 10 mg PO QAM Hold Instructions: Resume on 01/03/25. Jardiance 10 mg tablet 10 mg PO DAILY Hold Instructions: Resume on 01/03/25. metformin 500 mg tablet 500 mg PO BID Hold Instructions: Resume on 01/03/25. insulin glargine [Lantus Solostar U-100 Insulin] 100 unit/mL (3 mL) insulin pen 25 unit subcut QAM Hold Instructions: Resume on 01/03/25. Discontinued multivitamin Tablet 1 tab PO DAILY amoxicillin-pot clavulanate 875-125 mg tablet 1 tab PO BID Qty: 10 0RF Discharge Orders: Discharge Order (Routine); Ordered 12/27/24 Ordered By: Billy Ashton Discharge Order- CHF (Routine); Ordered 12/27/24 Ordered By: Billy Ashton Admission Data Admit Date/Time: 12/26/24 20:15 Attending Provider: Billy Ashton Admit Provider: Yris Kee Primary Care Provider: Marisol Love Other Providers: Yris Kee Hospital Stay Data Consultations 12/26/24 19:27 ED Decision to Admit Stat Diagnostic Imagining Performed 12/26/24 17:12 CT abd pelvis wo con Stat CT cervical spine wo con Stat CT head/brain wo con Stat Pending Results Patient Have Any Pending Studies at Discharge: Yes Discharge Instructions Given to Patient (Per Discharging Provider) 1. See your PCP Ms. Marisol Love PA-C, within 5-7 days of hospital discharge, for repeat creatinine, AST, ALT level testing. 2. See your CARDS Dr. Marisol Urbano @ [facility], within 5-7 days of hospital discharge, for optimization of chronic biventricular systolic CHF management, given progressive decline in renal function, now at CKD stage IV with admission creatinine 2.27 mg/dL (12/26/2024, 5:01pm). Total Time Total Time Spent Total Time Spent (In Minutes): 35 minutes. Of this time period, 19 minutes were spent in coordinating patient's discharge. Coding Level of Care Code 73756 INP/OBS DISCH >30 MIN Diagnoses Syncope R55 Nausea & vomiting R11.2 Hyponatremia E87.1 STEPHAN (acute kidney injury) N17.9 Elevated troponin R79.89 Anemia D64.9 Type 2 diabetes mellitus E11.9 Transaminitis R74.01 Constipation K59.00
== END 2024-12-27 16:30 | disposition home or self-care (01) ==
LOC: 4W 16:54 → ED 16:54 → SUATTDRO 20:15 → 4W 22:00

== ENCOUNTER 2025-01-12 09:35 | Observation (INO) ==
--- NOTE | 2025-01-12 10:49 | XRay Report ---
XR chest 1V portable CLINICAL HISTORY: leg swelling, hx chf COMPARISON STUDY: 12/26/2024 FINDINGS: Stable CABG and pacemaker. Stable moderate cardiomegaly without pulmonary vascular congesti on. Stable interstitial opacities in the lung bases. No lobar consolidation or pleural effusion seen. No pneumothorax. IMPRESSION: Stable exam. ACT 112: Negative or not required by law. Electronically signed by: Choco Whyte M.D. 01/12/2025 10:48 AM
[2025-01-12 11:20] LABS: Hematocrit (blood only) 33.8 % (42.0-52.0); Hemoglobin 10.4 g/dl (14.0-18.0); Immature Granulocytes # (auto) 0.03 K/uL (0.01-0.20); Immature Granulocytes % (auto) 0.5 %; Mean Corpuscular Hemoglobin 25.4 pg (25.0-34.0); Mean Corpuscular Volume 82.6 fL (80.0-100.0); Platelet Count 182 K/uL (130-400); RDW Standard Deviation 55.8 fL (36.4-46.3); Red Blood Count 4.09 M/uL (4.70-6.10); White Blood Count 6.34 K/ul (4.8-10.8)
[2025-01-12 11:35] LABS: Alanine Aminotransferase 129.0 U/L (7-52); Albumin Globulin Ratio 1.1 (0.9-2); Alkaline Phosphatase 102.0 U/L (34-104); Anion Gap 5.0 (3-11); Bilirubin,Total 0.5 mg/dl (0.2-1.0); Blood Urea Nitrogen 18.0 mg/dl (6-23); Calcium 8.5 mg/dl (8.6-10.3); Carbon Dioxide 25.0 mmol/L (21-32); Chloride 107.0 mmol/L (98-107); Creatinine Clr Calc Pharmacy 42.7 ml/min; Globulin 2.7 gm/dl (2.5-4.0); Glucose 141.0 mg/dl (70-99(Fasting)); Magnesium 1.9 mg/dl (1.7-2.4); Potassium 5.2 mmol/L (3.5-5.1); Sodium 137.0 mmol/L (136-145); Total Protein 5.8 gm/dl (6.0-8.3)
[2025-01-12 11:37] LABS: Appearance Urine Clear (Clear); Glucose Urine UA Trace (Negative)
[2025-01-12 11:51] LABS: Thyroid Stimulating Hormone 3.759 uIu/ml (0.300-4.500)
[2025-01-12] MEDS: FUROSEMIDE INJ 20 MG/2 ML VIAL IV ONE (13:07)
[2025-01-12] MEDS: cefTRIAXone SODIUM 2,000 MG/50 ML BAG IV SCH (13:07)
[2025-01-12] MEDS: MoRPHine SULFATE 2 MG/ML CARP IV STA (13:42)
--- NOTE | 2025-01-12 14:20 | History & Physical Report ---
Date of Service January 12, 2025 Assessment & Plan (1) Cellulitis: (2) Heart failure with mildly reduced ejection fraction (HFmrEF, 41-49%): (3) CKD (chronic kidney disease), stage III: (4) Anemia: Plan 79-year-old man with past medical history of CAD s/p multiple stents and MIs (PCI x 17, CABG x 4), CHF s/p ICD, T2DM, PAD, orthostatic hypotension, and 4L supplemental O2. He presented from home with increased redness and swelling of his legs bilaterally L>R with open weeping sores on LLE that began 01/10. He was admitted for IV antibiotics and pain control. #Cellulitis | HFmrEF s/p ICD - lower extremity edema with superimposed cellulitis infection. Likely from open blistering wounds due to fluid retention. Weight is up 8 kg per our scale since last discharge about 2 weeks ago. - BNP elevated at 663 but appears euvolemic. CXR without pulmonary vascular congestion. Echo 12/21/2024 with EF 50-55% - Received 20 mg IV Lasix in ED - will defer further diuretics at this time and monitor volume status daily - Will start cefazolin IV Q8h. Can transition to Keflex on discharge - Pain regimen: Scheduled Tylenol 1000 mg TID, morphine 2 mg IV PRN mildmoderate pain, morphine 4 mg IV PRN moderatesevere pain - Provide local wound care to lower extremities. Wound care nurse consulted on admission - Venous Doppler ordered by ED, pending but low suspicion for DVT given compliance with Eliquis #CKD stage III - baseline Cr 1.2-1.3. Was previously on Lasix but this was discontinued due to recurrent AKIs - Renal function at baseline on admission - Monitor renal function with ongoing diuretic use - Avoid nephrotoxic agents when possible. Promote oral hydration #Anemia chronic anemia with Hgb typically ranging from 1112 - Hgb on admission 10.4. Patient denies any recent blood loss - Previous iron panel, B12, folate WNL - Monitor with a.m. CBC #Transaminitis has been elevated on past few admissions, suspected to be due to ongoing nausea and vomiting. Prior CT A/P unremarkable. No abdominal pain. Continue to trend. #T2DM on glargine 25U, Jardiance, metformin at home. Recent A1c 6.7% - Hold p.o. metformin, continue Jardiance (HFrEF) - Lantus 12U. SSI with target BSG range 110-150mg/dL, CF 30, carb ratio 11 #HTN- Carvedilol, isosorbide, Jardiance, carvedilol #HLD- Rosuvastatin - continue #Afib- Amiodarone, Eliquis - continue #Chronic hypoxic resp failure- Breo Ellipta, 4L O2 via NC at all times - continue inhalers + O2 #BPH- Tamsulosin - continue #Psych- Duloxetine - continue DVT PPx: Eliquis Dispo: med/surg History of Present Illness Chief Complaint: Lower extremity swelling/redness/wounds Primary Care Provider: Marisol Allen is a pleasant 79-year-old man with past medical history of CAD s/p multiple stents and MIs (PCI x 17, CABG x 4), CHF s/p ICD, T2DM, PAD, orthostatic hypotension, and 4L supplemental O2. He presented from home with increased redness and swelling of his legs bilaterally L>R with open weeping sores on LLE since Wednesday 01/10. At the time of my exam, the patient was lying in bed in no acute distress. He states he started noticing some redness in his left lower extremity on Friday. This morning, he had steady pain in his left lower leg with intermittent sharp stabbing pain. He called the [facility] nurse line and described his symptoms and appearance of his leg and was subsequently recommended to come to the ED. He was hoping to go home from the ED, but was ultimately agreeable for admission because of his degree of pain. He denies any shortness of breath or difficulty breathing. Denies any chest pain or palpitations. Denies abdominal pain, nausea, vomiting. He reports he used to take torsemide for fluid retention but was recently discontinued due to worsening renal function. He does use supplemental oxygen at baseline at 4 L NC. Vitals on admission significant for hypertension with BP 145/100; vitals otherwise stable. Labs on admission are significant for anemia with Hgb 10.4 (about a 2 g drop since his last admission approximately 2 weeks ago), slightly elevated potassium at 5.2, elevated BNP at 663, and baseline renal function with creatinine 1.45. CXR on admission reveals stable moderate cardiomegaly without pulmonary vascular congestion, no lobar consolidation, no pleural effusion. We discussed code status, patient wishes to be a full code. Allergies Allergy/AdvReac Type Severity Reaction Status Date / Time Milk Containing Products Allergy Unknown Unknown Unverified 12/26/24 20:59 (Dairy) Iodinated Contrast Media Allergy Rash Verified 12/26/24 20:59 warfarin AdvReac Severe Made my Unverified 12/26/24 20:59 blood extremely thin Home Medications Medication Instructions Recorded Confirmed Type rosuvastatin 10 mg tablet 10 mg PO QAM 07/10/20 01/12/25 History nitroglycerin 0.4 mg sublingual 0.4 mg sublingual UD PRN Chest Pain 01/08/21 01/12/25 History tablet (Nitrostat) apixaban 5 mg tablet (Eliquis) 5 mg PO BID 04/05/24 01/12/25 History blood sugar diagnostic (OneTouch #100 ea 04/06/24 12/20/24 Rx Verio test strips) blood-glucose meter #1 ea 04/06/24 12/20/24 Rx lancets 33 gauge #100 ea 04/06/24 12/20/24 Rx pen needle,diabetic, disp unit 32 #100 ea 04/10/24 12/20/24 Rx gauge x 5/32", remover and disposal unit duloxetine 60 mg capsule,delayed 60 mg PO QAM 05/29/24 01/12/25 History release tamsulosin 0.4 mg capsule 0.4 mg PO QAM 05/29/24 01/12/25 History amiodarone 400 mg tablet 400 mg PO QAM 12/15/24 01/12/25 History empagliflozin 10 mg tablet 10 mg PO DAILY 12/15/24 01/12/25 History (Jardiance) fluticasone furoate 100 1 inh inhalation DAILY 12/15/24 01/12/25 History mcg-vilanterol 25 mcg/dose inhalation powder (Breo Ellipta) insulin glargine 100 unit/mL (3 25 unit subcut QAM 12/15/24 01/12/25 History mL) subcutaneous pen (Lantus Solostar U-100 Insulin) metformin 500 mg tablet 500 mg PO BID 12/15/24 01/12/25 History carvedilol 12.5 mg tablet 12.5 mg PO BIDM #60 tabs 12/22/24 01/12/25 Rx isosorbide mononitrate 30 mg 30 mg PO DAILY #30 tabs 12/22/24 01/12/25 Rx tablet,extended release 24 hr Past Med/Surg History Problem List (Updated 01/12/25 @ 15:31 by Jerod Sandoval MD) CHF (congestive heart failure) (Acute) Lower extremity cellulitis (Acute) CKD (chronic kidney disease), stage III Constipation Transaminitis Syncope (Acute) Anemia Nausea & vomiting Syncope Ventricular tachycardia Valvular heart disease CAD (coronary artery disease) (Acute) Chest pain (Acute) Type 2 diabetes mellitus Renal insufficiency Transaminitis Cellulitis Nausea STEPHAN (acute kidney injury) (Acute) Acute foot pain (Acute) Pseudohyponatremia (Acute) Elevated troponin (Acute) Elevated troponin Syncope and collapse Left leg pain Hyperglycemia (Acute) Gait instability (Acute) CHI (closed head injury) (Acute) Impacted cerumen of left ear Hyponatremia STEPHAN (acute kidney injury) Left-sided chest pain (Acute) Left rib fracture (Acute) DVT prophylaxis Status post fall Hypertension BPD (bronchopulmonary dysplasia) (Chronic) Hypothyroid (Chronic) Bipolar disorder (Chronic) Medical History Heart failure with mildly reduced ejection fraction (HFmrEF, 41-49%) Chest pain Ischemic cardiomyopathy Cardiac defibrillator in place [employer] Diabetes mellitus type 2 in obese CAD (coronary artery disease) Coronary artery bypass graft 1992: [place] to LAD, saphenous vein graft to 1st diagonal, saphenous vein graft to om 1, saphenous vein graft to the right coronary artery Falls frequently Surgical History S/P coronary artery stent placement S/P CABG (coronary artery bypass graft) Hx of inguinal herniorrhaphy Status post aorto-coronary artery bypass graft Family History Other Family history non-contributory Social History Smoking Status: Former smoker Tobacco Type: Cigarettes Second Hand Exposure: No; Do You Dip or Chew Tobacco: No; Hx Alcohol Use: No Hx Substance Use: No Preferred Language: Maori Communication Ability: Effective Driver Trainer Required: No Beliefs That Will Affect Care: None Current Living Situation: Alone Current Living Situation Comment: home alone Other Information That Helps Us Care for You: No Feels Safe at Home: Yes Safety Concerns: Feels Safe At This Time Assistive Devices: Denture - Upper, Denture - Lower, Glasses and Walker Review of Systems 2 Review of Systems: All systems reviewed & are unremarkable except as noted in HPI & below Physical Exam 2 Physical Exam: General: No acute distress, nondiaphoretic, well-developed, well-nourished. Skin: Warm, dry. Mild pedal edema bilaterally. Cardiac: Regular rate and rhythm without murmurs gallops or rubs. Pulm: Clear to auscultation bilaterally without wheezes, rales or rhonchi. Normal respiratory effort. 96% on 4 L NC (baseline). Abdominal: Soft, nontender, nondistended. Bowel sounds present. Neuro: A&O x3. No focal neurological deficits. Extremities: Left lower extremity with circumferential beefy erythema with superficial weeping ulcerations. Right lower extremity with small area of erythema above ankle; no wounds noted. Results & Data Results & Data Vital Signs (Past 12 Hours) Vital Signs Temp Pulse Pulse Resp BP BP Pulse Ox 01/12/25 12:00 60 20 145/100 H 94 01/12/25 10:02 60 01/12/25 09:47 97.7 F 60 22 149/85 H 100 O2 Del Method O2 Flow Rate 01/12/25 12:00 Nasal Cannula 4 01/12/25 10:02 01/12/25 09:47 Nasal Cannula 4 Laboratory Results Reviewed CBC with differential Reviewed CMP, chemistries Reviewed UA Diagnostic Findings Reviewed CXR Reviewed EKG Supervising Physician Co-Signing Physician Notes I personally examined the patient and verified all griffin points of history and exam, discussed case, and agree with decision making with S Gross PAC leg redness swelling pain vitals noted nad heent nc at mmm breathing unlabored no accessory mucsles good effort nursing had just dressed wound when i entered the room but wound pictures reviewed and d/w PAVilmaC and RN cellulitis - no sepsis. MSSA coverage should suffice. pain control. hopefully home soon. PG Care Time/CCT Total # of Minutes Spent Total Time Spent with Patient: Total time spent is greater than 50% in coordination of care (as documented) at patient's floor/unit and/or counseling patient: Coding Level of Care Code 93364 INT INP/OBS CARE MIN Diagnoses Cellulitis L03.90 Heart failure with mildly reduced ejection fraction (HFmrEF, 41-49%) I50.20 CKD (chronic kidney disease), stage III N18.30 Anemia D64.9
--- NOTE | 2025-01-12 15:31 | Emergency Department Note ---
Impression & Plan Lower extremity cellulitis, CHF (congestive heart failure) ED Provider Note NAME: ANTONIETTA Duff CASE AGE: 79 SEX: Male INFORMANT: Patient ED PROVIDER(S): Jerod Sandoval MD CHIEF COMPLAINT: Lower extremity swelling PLAN: Disposition: Admitted Outpatient prescription management: none Referral: None MEDICAL DECISION MAKING: Patient presented because of lower extremity swelling. He had workup initiated. His urinalysis was unremarkable. His CBC showed a mild anemia. Slight elevation of his LFT and his BNP is elevated. ECG showed a paced rhythm. Patient had cultures obtained and was treated with IV Rocephin. Patient also received a low dose of IV Lasix 20 mg and did request analgesia. He was treated with morphine. Consultation was made with Dr. Wu of the [facility] service. Patient was evaluated in the ER for further management. Care/management discussed with: technical sales manager Level of care consideration(s): After review of the information above and other included data, I feel the patient requires escalation of care to admission Triage Nursing notes: reviewed and agree them. Vital Signs: reviewed and remarkable for mild hypertension Additional History obtained from: none Chronic Medical/Social Conditions affecting care: CHF, CAD Prior/ Outside/ External records reviewed: DC summary from 12/27 reviewed. Patient was admitted for syncope and dehydration. Differential Diagnosis: Cellulitis, CHF, DVT, musculoskeletal, infection, joint effusion, trauma, lymphedema, idiopathic, as well as other pathologies. Diagnostics, independently interpreted by me: ECG: Twelve-lead ECG reveals atrial paced rhythm at 60 bpm. Right bundle branch block and inferior Q waves. Lateral T wave inversion. Cardiac Monitoring: Cardiac monitoring ordered by me: The patient was placed on continuous cardiac monitoring and observed. It revealed a paced rhythm at 69 bpm. Medical decision rules: none Imaging studies: Chest x-ray. Findings: A chest x-ray was performed and revealed no pneumothorax, effusion, infiltrate, pulmonary edema, free air under the diaphragm, or wide mediastinum. Impression: No acute disease. HPI: 79 year old Male arrives for evaluation of leg swelling. This started a few days ago and is worsening. The patient also notes the following associated symptoms, redness and blistering of the skin. Denies trauma. Does have a history of lower extremity cellulitis as well as CHF patient also noted some chest discomfort. That occurred this morning and is currently resolved. Patient does note history of multiple cardiac stents and CHF. States he was recently taken off his diuretic due to decreased kidney function. The patient has taken no medication for relieving factors. Current pain is rated as 5/10. Pt denies LOC, headache, fevers, chills, diaphoresis, visual changes, neck pain,nausea, vomiting, abdominal pain, back pain, melena, hematochezia, urinary symptoms, numbness, weakness, or other complaints. PAST MEDICAL HISTORY: See Below, CHF, RI PAST SURGICAL HISTORY: See Below, CABG, coronary stents SOCIAL HISTORY: See Below, former smoker HOME MEDICATIONS: See Below ALLERGIES: See Below VITALS: See Below PHYSICAL EXAMINATION: GENERAL: Awake, alert, [id number], in no distress HENT: Normocephalic, atraumatic. Oropharynx unremarkable. EYES: Normal conjunctiva. Sclera non-icteric. NECK: Inspection normal. Non-tender. Supple. No nuchal rigidity. FROM. No masses. RESPIRATORY: Clear to auscultation. No wheezes. No rales. Normal respiratory effort. CARDIAC: Normal rate. Normal rhythm. No murmurs. No rubs. Extremities warm and well perfused. Pulses equal. No JVD. GI: Soft, non-distended. No tenderness to palpation. No rebound or guarding. No masses. RECTAL: Deferred. MUSCULOSKELETAL: Atraumatic. Chest examination reveals no tenderness. The back is symmetrical on inspection without obvious abnormality. There is no CVA tenderness to palpation. No joint edema. LOWER EXTREMITIES: Calves are equal size bilaterally and non-tender. 2+ denise. Significant erythematous discoloration of the left lower extremity and mild of the right. There is some blistering/sloughing of the skin on the left. NEURO: Normal sensorium. No sensory or motor deficits noted. SKIN: No rash or jaundice noted. PROCEDURES: none CRITICAL CARE: none OBSERVATION NOTE: none Past Med/Surg History Problem List (Updated 01/12/25 @ 15:31 by Jerod Sandoval MD) CHF (congestive heart failure) (Acute) Lower extremity cellulitis (Acute) CKD (chronic kidney disease), stage III Constipation Transaminitis Syncope (Acute) Anemia Nausea & vomiting Syncope Ventricular tachycardia Valvular heart disease CAD (coronary artery disease) (Acute) Chest pain (Acute) Type 2 diabetes mellitus Renal insufficiency Transaminitis Cellulitis Nausea STEPHAN (acute kidney injury) (Acute) Acute foot pain (Acute) Pseudohyponatremia (Acute) Elevated troponin (Acute) Elevated troponin Syncope and collapse Left leg pain Hyperglycemia (Acute) Gait instability (Acute) CHI (closed head injury) (Acute) Impacted cerumen of left ear Hyponatremia STEPHAN (acute kidney injury) Left-sided chest pain (Acute) Left rib fracture (Acute) DVT prophylaxis Status post fall Hypertension BPD (bronchopulmonary dysplasia) (Chronic) Hypothyroid (Chronic) Bipolar disorder (Chronic) Medical History Heart failure with mildly reduced ejection fraction (HFmrEF, 41-49%) Chest pain Ischemic cardiomyopathy Cardiac defibrillator in place [facility] Diabetes mellitus type 2 in obese CAD (coronary artery disease) Coronary artery bypass graft 1992: [place] to LAD, saphenous vein graft to 1st diagonal, saphenous vein graft to om 1, saphenous vein graft to the right coronary artery Falls frequently Surgical History S/P coronary artery stent placement S/P CABG (coronary artery bypass graft) Hx of inguinal herniorrhaphy Status post aorto-coronary artery bypass graft Family History Other Family history non-contributory Social History Smoking Status: Former smoker Tobacco Type: Cigarettes Second Hand Exposure: No; Do You Dip or Chew Tobacco: No; Hx Alcohol Use: No Hx Substance Use: No Preferred Language: [place] Communication Ability: Effective [employer] Trader Required: No Beliefs That Will Affect Care: None Current Living Situation: Alone Current Living Situation Comment: home alone Feels Safe at Home: Yes Assistive Devices: Oxygen - Continuous and Walker Allergies Allergies Allergy/AdvReac Type Severity Reaction Status Date / Time Milk Containing Products Allergy Unknown Unknown Unverified 12/26/24 20:59 (Dairy) Iodinated Contrast Media Allergy Rash Verified 12/26/24 20:59 warfarin AdvReac Severe Made my Unverified 12/26/24 20:59 blood extremely thin Home Meds Home Medications Medication Instructions Recorded Confirmed rosuvastatin 10 mg tablet 10 mg PO QAM 07/10/20 01/12/25 nitroglycerin 0.4 mg sublingual 0.4 mg sublingual UD PRN Chest Pain 01/08/21 01/12/25 tablet (Nitrostat) apixaban 5 mg tablet (Eliquis) 5 mg PO BID 04/05/24 01/12/25 duloxetine 60 mg capsule,delayed 60 mg PO QAM 05/29/24 01/12/25 release tamsulosin 0.4 mg capsule 0.4 mg PO QAM 05/29/24 01/12/25 amiodarone 400 mg tablet 400 mg PO QAM 12/15/24 01/12/25 empagliflozin 10 mg tablet 10 mg PO DAILY 12/15/24 01/12/25 (Jardiance) fluticasone furoate 100 1 inh inhalation DAILY 12/15/24 01/12/25 mcg-vilanterol 25 mcg/dose inhalation powder (Breo Ellipta) insulin glargine 100 unit/mL (3 25 unit subcut QAM 12/15/24 01/12/25 mL) subcutaneous pen (Lantus Solostar U-100 Insulin) metformin 500 mg tablet 500 mg PO BID 12/15/24 01/12/25 Previous Rx's Medication Instructions Recorded blood sugar diagnostic (OneTouch #100 ea 04/06/24 Verio test strips) blood-glucose meter #1 ea 04/06/24 lancets 33 gauge #100 ea 04/06/24 pen needle,diabetic, disp unit 32 #100 ea 04/10/24 gauge x 5/32", remover and disposal unit carvedilol 12.5 mg tablet 12.5 mg PO BIDM #60 tabs 12/22/24 isosorbide mononitrate 30 mg 30 mg PO DAILY #30 tabs 12/22/24 tablet,extended release 24 hr Results & Data (ED) Vital Signs Vital Signs - 24 hr 01/12/25 09:47 01/12/25 10:02 01/12/25 12:00 Temperature 36.5 C Temperature Source Oral Pulse Rate 60 60 Pulse Rate [Finger] 60 Respiratory Rate 22 20 Blood Pressure 149/85 H Blood Pressure [Right Arm] 145/100 H Blood Pressure Mean 106 Blood Pressure Mean [Right Arm] 115 Pulse Oximetry 100 94 Oxygen Delivery Method Nasal Cannula Nasal Cannula Oxygen Flow Rate 4 4 Sepsis Recent Fever Within 48 Hours No Sepsis New/Unexplained Change in Mental Status No Sepsis Action Taken by Nursing No Action Required 01/12/25 14:00 01/12/25 14:41 Temperature Temperature Source Pulse Rate 69 Pulse Rate [Finger] 73 Respiratory Rate 18 Blood Pressure Blood Pressure [Right Arm] 141/85 H Blood Pressure Mean Blood Pressure Mean [Right Arm] 103 Pulse Oximetry 96 Oxygen Delivery Method Room Air Oxygen Flow Rate Sepsis Recent Fever Within 48 Hours Sepsis New/Unexplained Change in Mental Status Sepsis Action Taken by Nursing Laboratory Data 01/12/25 09:45 01/12/25 09:45 Lab Results 01/12/25 01/12/25 01/12/25 Range/Units 09:45 10:31 11:20 WBC 6.34 (4.8-10.8) K/ul RBC 4.09 L (4.70-6.10) M/uL Hgb 10.4 L (14.0-18.0) g/dl Hct 33.8 L (42.0-52.0) % MCV 82.6 (80.0-100.0) fL MCH 25.4 (25.0-34.0) pg MCHC 30.8 L (32.0-36.0) g/dL RDW Std Deviation 55.8 H (36.4-46.3) fL RDW Coeff of De 19.0 H (11.5-14.5) % Plt Count 182 (130-400) K/uL MPV 10.2 (9.4-12.4) fL Immature Gran % (Auto) 0.5 % Neut % (Auto) 62.2 % Lymph % (Auto) 20.7 % [place] % (Auto) 10.9 % Eos % (Auto) 4.9 % Baso % (Auto) 0.8 % Neut # (Auto) 3.95 (1.40-6.50) K/uL Lymph # (Auto) 1.31 (1.20-3.40) K/uL [place] # (Auto) 0.69 H (0.11-0.59) K/uL Eos # (Auto) 0.31 (0.00-0.50) K/uL Baso # (Auto) 0.05 (0.00-0.20) K/uL Immature Gran # (Auto) 0.03 (0.01-0.20) K/uL Sodium 137 (136-145) mmol/L Potassium 5.2 H (3.5-5.1) mmol/L Chloride 107 (98-107) mmol/L Carbon Dioxide 25 (21-32) mmol/L Anion Gap 5 (3-11) BUN 18 (6-23) mg/dl Creatinine 1.45 H (0.6-1.4) mg/dl Est Cr Clr Drug Dosing 42.7 ml/min eGFR 49.63 BUN/Creatinine Ratio 12.4 (10-20) Glucose 141 H (70-99(Fasting)) mg/dl Calcium 8.5 L (8.6-10.3) mg/dl Magnesium 1.9 (1.7-2.4) mg/dl Total Bilirubin 0.5 (0.2-1.0) mg/dl AST 110 H (13-39) U/L ALT 129 H (7-52) U/L Alkaline Phosphatase 102 (34-104) U/L Troponin I High Sens 15.5 (0-20) pg/ml B-Natriuretic Peptide 663 H (0-100) pg/ml Total Protein 5.8 L (6.0-8.3) gm/dl Albumin 3.1 L (3.4-5.0) gm/dl Globulin 2.7 (2.5-4.0) gm/dl Albumin/Globulin Ratio 1.1 (0.9-2) TSH 3.759 (0.300-4.500) uIu/ml Urine Color Yellow Urine Appearance Clear (Clear) Urine pH >= 9.0 H (4.5-7.5) Ur Specific [place] 1.010 (1.000-1.030) Urine Protein Negative (Negative) Urine Glucose (UA) Trace H (Negative) Urine Ketones Negative (Negative) Urine Blood Negative (Negative) Urine Nitrite Negative (Negative) Urine Bilirubin Negative (Negative) Urine Urobilinogen Negative (Negative) Ur Leukocyte Esterase Negative (Negative) Urine Comment Administered Medications Ceftriaxone Sodium (Rocephin) 2,000 mg in 50 mls @ 100 mls/hr IV Q24H LINDA Stop: 01/14/25 12:59 Last Infusion: 01/12/25 13:39 Dose: Infused Documented By: Admin: 01/12/25 13:07 Dose: 100 mls/hr Documented By: RAISA Discontinued Medications Furosemide (Furosemide Inj 20 Mg/2 Ml Vial) 20 mg IV ONE ONE Stop: 01/12/25 12:56 Last Admin: 01/12/25 13:07 Dose: 20 mg Documented By: RAISA Morphine Sulfate (Morphine Sulfate 2 Mg/Ml Carp) 2 mg IV NOW STA Stop: 01/12/25 13:32 Last Admin: 01/12/25 13:42 Dose: 2 mg Documented By: RAISA Imaging Data Radiologist's Impression: Chest X-Ray 01/12/25 10:21 XR chest 1V portable CLINICAL HISTORY: leg swelling, hx chf COMPARISON STUDY: 12/26/2024 FINDINGS: Stable CABG and pacemaker. Stable moderate cardiomegaly without pulmonary vascular congestion. Stable interstitial opacities in the lung bases. No lobar consolidation or pleural effusion seen. No pneumothorax. IMPRESSION: Stable exam. ACT 112: Negative or not required by law. Electronically signed by: Choco Whyte M.D. 01/12/2025 10:48 AM Discharge Plan Visit Data Chief Complaint: Swelling/Edema to Extremity Stated Complaint: chest tightness ED Provider: Jerod Sandoval Discharge Problem: Lower extremity cellulitis, CHF (congestive heart failure) Patient Disposition: Home - Self-Care Condition: Fair Forms Stand Alone Forms: [facility], Important Visit Information Prescriptions Prescriptions: No Action rosuvastatin 10 mg tablet 10 mg PO QAM Hold Instructions: Resume on 01/03/25. nitroglycerin [Nitrostat] 0.4 mg tablet, sublingual 0.4 mg sublingual UD PRN (Reason: Chest Pain) Eliquis 5 mg tablet 5 mg PO BID (DME) lancets 33 gauge [facility] [place] Rx Instructions .Route Qty: 100 5RF Rx Instructions: [facility] testing (DME) OneTouch Verio test strips Strip See Rx Instructions .Route Qty: 100 0RF Rx Instructions: [facility] (DME) blood-glucose meter Mis See Rx Instructions .Route Qty: 1 0RF Rx Instructions: [facility] (DME) pen needle,diabetic, disp unit 32 gauge x 5/32" needle See Rx Instructions .Route Qty: 100 0RF Rx Instructions: Inject 1x daily carvedilol 12.5 mg Tablet 12.5 mg PO BIDM Qty: 60 2RF isosorbide mononitrate 30 mg tablet extended release 24 hr 30 mg PO DAILY Qty: 30 3RF tamsulosin 0.4 mg capsule 0.4 mg PO QAM duloxetine 60 mg capsule,delayed release(DR/EC) 60 mg PO QAM amiodarone 400 mg tablet 400 mg PO QAM fluticasone furoate-vilanterol [Breo Ellipta] 100-25 mcg/dose blister with device 1 inh INHALATION DAILY Jardiance 10 mg tablet 10 mg PO DAILY Hold Instructions: Resume on 01/03/25. metformin 500 mg tablet 500 mg PO BID Hold Instructions: Resume on 01/03/25. insulin glargine [Lantus Solostar U-100 Insulin] 100 unit/mL (3 mL) insulin pen 25 unit subcut QAM Hold Instructions: Resume on 01/03/25. Referrals Referrals: Marisol Love PA-C [Primary Care Provider] -
[2025-01-12] MEDS ORDERED: MoRPHine SULFATE 4 MG/ML 1 ML CARP\\VIAL IV PRN (16:12)
[2025-01-12] MEDS: ACETAMINOPHEN 500 MG TAB PO SCH (16:40)
[2025-01-12] MEDS: MoRPHine SULFATE 2 MG/ML CARP IV PRN (16:40)
[2025-01-12] MEDS ORDERED: GLUCAGON FOR INJ 1 MG VIAL SQ PRN (18:08)
[2025-01-12] MEDS ORDERED: CARBOHYDRATES FOR HYPOGLYCEMIA PO PRN (18:08)
[2025-01-12] MEDS ORDERED: GLUCOSE 40% GEL 15 GM TUBE PO PRN (18:08)
[2025-01-12] MEDS ORDERED: POLYETHYLENE (MIRALAX) 17 GM PACK PO PRN (18:08)
[2025-01-12] MEDS ORDERED: GLUCOSE 10 TAB/TUBE PO PRN (18:08)
[2025-01-12] MEDS ORDERED: DEXTROSE 50% 50 ML SYRINGE IV PRN (18:08)
--- NOTE | 2025-01-12 18:43 | Ultrasound Report ---
EXAM: US venous doppler LE LT CLINICAL HISTORY: swelling TECHNIQUE: Ultrasound examination of left lower extremity veins was performed in real time and duplex. One or more of the following were performed- spectral analysis, resistive index, waveform analysis, and pulsed Doppler. COMPARISON: None. FINDINGS: There is a normal phasic, non-pulsatile and spontaneous flow in left common femoral, superficial femoral, popliteal, posterior and anterior tibial, and peroneal veins as well as saphenofemoral junction. The visualized veins of left lower extremity demonstrate normal compressibility. No sonographic evidence of acute deep vein thrombosis (DVT) is detected in the visualized veins of the left lower extremity. Compression and Augmentation: All evaluated veins compress fully with applied transducer pressure. Augmentation of venous flow is noted with distal compression. Additional Findings: No evidence of intraluminal thrombus. IMPRESSION: No sonographic evidence of acute DVT detected at the time of examination. Disclaimer: DVT could be missed early in the disease when clot burden is minimal. For patients with moderate and high pretest probability of DVT and negative ultrasound, the [employer] clinical guidelines recommend testing with a D-dimer assay or repeat ultrasound in 5-7 days. If symptoms worsen, the Society of radiologists in ultrasound recommends repeating ultrasound even earlier. Electronically signed by Ramírez Ortiz 01-12-2025 6:43 PM
[2025-01-12] MEDS ORDERED: MoRPHine SULFATE 2 MG/ML CARP IV PRN (19:35)
[2025-01-12] MEDS: APIXABAN 5 MG TABLET PO SCH (20:31)
[2025-01-12] MEDS: LANTUS PER UNIT CHARGE SQ SCH (20:31)
[2025-01-12] MEDS: INSULIN ASPART PER UNIT CHARGE SC SCH (20:31)
[2025-01-12] MEDS: MoRPHine SULFATE 4 MG/ML 1 ML CARP\\VIAL IV STA (20:31)
[2025-01-13] MEDS: MoRPHine SULFATE 4 MG/ML 1 ML CARP\\VIAL IV PRN (06:03)
[2025-01-13 07:07] LABS: Hematocrit (blood only) 37.6 % (42.0-52.0); Hemoglobin 11.8 g/dl (14.0-18.0); Mean Corpuscular Hemoglobin 25.9 pg (25.0-34.0); Mean Corpuscular Volume 82.6 fL (80.0-100.0); Platelet Count 203 K/uL (130-400); RDW Standard Deviation 55.8 fL (36.4-46.3); Red Blood Count 4.55 M/uL (4.70-6.10); White Blood Count 6.65 K/ul (4.8-10.8)
[2025-01-13 07:32] LABS: Alanine Aminotransferase 106.0 U/L (7-52); Albumin Globulin Ratio 1.3 (0.9-2); Alkaline Phosphatase 109.0 U/L (34-104); Anion Gap 5.0 (3-11); Bilirubin,Total 0.5 mg/dl (0.2-1.0); Blood Urea Nitrogen 17.0 mg/dl (6-23); Calcium 9.4 mg/dl (8.6-10.3); Carbon Dioxide 29.0 mmol/L (21-32); Chloride 104.0 mmol/L (98-107); Creatinine Clr Calc Pharmacy 43.9 ml/min; Globulin 2.8 gm/dl (2.5-4.0); Glucose 109.0 mg/dl (70-99(Fasting)); Potassium 4.8 mmol/L (3.5-5.1); Sodium 138.0 mmol/L (136-145); Total Protein 6.3 gm/dl (6.0-8.3)
[2025-01-13] MEDS: FLUTICASONE/VILANTEROL 100/25MCG 14 PUFFS/INHALER INH SCH (08:18)
[2025-01-13] MEDS: AMIODARONE 200 MG TAB PO SCH (08:18)
[2025-01-13] MEDS: ISOSORBIDE MONO EXTENDED REL 30 MG TABCR PO SCH (08:18)
[2025-01-13] MEDS: TAMSULOSIN HCL 0.4 MG CAP PO SCH (08:19)
[2025-01-13] MEDS: EMPAGLIFLOZIN 10 MG TAB PO SCH (08:19)
[2025-01-13] MEDS: ROSUVASTATIN CALCIUM 10 MG TAB PO SCH (08:19)
[2025-01-13 08:28] VITALS: RESP 16; O2SAT 99
[2025-01-13] MEDS: ONDANSETRON INJ 2 MG/ML 2 ML VIAL IV PRN (10:40)
[2025-01-13] MEDS: SODIUM CHLORIDE 0.9% 500 ML IV SCH ×2 (11:03→13:19)
--- NOTE | 2025-01-13 15:41 | Discharge Summary ---
Discharge Summary Date of Service January 13, 2025 Principal Dx & Hospital Course #1 = Principal Diagnosis (1) Cellulitis: (2) Heart failure with mildly reduced ejection fraction (HFmrEF, 41-49%): (3) CKD (chronic kidney disease), stage III: (4) Anemia: Plan 79-year-old man with past medical history of CAD s/p multiple stents and MIs (PCI x 17, CABG x 4), CHF s/p ICD, T2DM, PAD, orthostatic hypotension, and 4L supplemental O2. He presented from home with increased redness and swelling of his legs bilaterally L>R with open weeping sores on LLE that began 01/10. Venous Doppler negative for DVT. He was admitted for IV antibiotics and pain control. #Cellulitis | HFmrEF s/p ICD - mild lower extremity edema with superimposed cellulitis infection, most prominent in LLE. Open weeping blistering wounds, possibly due from fluid retention but overall appears euvolemic. Weight is up 8 kg since last discharge about 2 weeks ago, though the scales here can be somewhat unreliable. - BNP elevated at 663 but appears euvolemic. CXR without pulmonary vascular congestion. Echo 12/21/2024 with EF 50-55% - Received 20 mg IV Lasix in ED - no further diuretics needed - Treated with cefazolin IV Q8h while admitted. Transitioned to Keflex on discharge for total of 7 day antibiotic course - Pain regimen: Tylenol first line. Oxycodone 5 mg Q6H PRN severe pain - Provide local wound care to lower extremities #HTN | Acute hypotension - hypotensive morning of discharge after receiving a.m. meds. Symptomatic with lightheadedness and nausea. Suspect iatrogenic hypotension from hypovolemia due to dose of diuretics in the ED despite being euvolemic on exam and further exacerbated by antihypertensive medications. Was given 500 cc NSS bolus x 2 with some improvement in BP and total resolution of symptoms - Held isosorbide mononitrate on discharge until PCP follow-up appointment scheduled for Thursday 01/18 - Continue carvedilol, Jardiance, amiodarone #CKD stage III - baseline Cr 1.2-1.3. Was previously on Lasix but this was discontinued due to recurrent AKIs - Renal function remained near baseline at 1.4 #Anemia chronic anemia with Hgb typically ranging from 1112 - Previous iron panel, B12, folate WNL #Transaminitis has been elevated on past few admissions, suspected to be due to nausea and vomiting. Prior CT A/P unremarkable. No abdominal pain. Trended down #T2DM on glargine 25U, Jardiance, metformin at home. Recent A1c 6.7% - Hold p.o. metformin, continue Jardiance (HFrEF) - Lantus 12U. SSI with target BSG range 110-150mg/dL, CF 30, carb ratio 11 #HLD- Rosuvastatin - continue #Afib- Amiodarone, Eliquis - continue. Telemetry reviewedpaced in 60s 01/13 #Chronic hypoxic resp failure- Breo Ellipta, 4L O2 via NC at all times - continue inhalers + O2 #BPH- Tamsulosin - continue #Psych- Duloxetine - continue DVT PPx: Eliquis Dispo: Discharged home 01/13 Notes For Next Care Provider Monitor BP and resume Imdur when appropriate Consider referral to wound care clinic if wounds on left lower extremity persist Medication Changes From Visit Keflex 500 mg twice daily through 01/18 Oxycodone 5 mg every 6 hours as needed for severe pain Held Imdur Admission HPI Per Admitting Provider Alejandro is a pleasant 79-year-old man with past medical history of CAD s/p multiple stents and MIs (PCI x 17, CABG x 4), CHF s/p ICD, T2DM, PAD, orthostatic hypotension, and 4L supplemental O2. He presented from home with increased redness and swelling of his legs bilaterally L>R with open weeping sores on LLE since Wednesday 01/10. At the time of my exam, the patient was lying in bed in no acute distress. He states he started noticing some redness in his left lower extremity on Friday. This morning, he had steady pain in his left lower leg with intermittent sharp stabbing pain. He called the [facility] nurse line and described his symptoms and appearance of his leg and was subsequently recommended to come to the ED. He was hoping to go home from the ED, but was ultimately agreeable for admission because of his degree of pain. He denies any shortness of breath or difficulty breathing. Denies any chest pain or palpitations. Denies abdominal pain, nausea, vomiting. He reports he used to take torsemide for fluid retention but was recently discontinued due to worsening renal function. He does use supplemental oxygen at baseline at 4 L NC. Vitals on admission significant for hypertension with BP 145/100; vitals otherwise stable. Labs on admission are significant for anemia with Hgb 10.4 (about a 2 g drop since his last admission approximately 2 weeks ago), slightly elevated potassium at 5.2, elevated BNP at 663, and baseline renal function with creatinine 1.45. CXR on admission reveals stable moderate cardiomegaly without pulmonary vascular congestion, no lobar consolidation, no pleural effusion. We discussed code status, patient wishes to be a full code. Discharge Exam General: No acute distress, nondiaphoretic, well-developed, well-nourished. Skin: Warm, dry. Mild pedal edema bilaterally. Cardiac: Regular rate and rhythm without murmurs gallops or rubs. Pulm: Clear to auscultation bilaterally without wheezes, rales or rhonchi. Normal respiratory effort. 96% on 4 L NC (baseline). Abdominal: Soft, nontender, nondistended. Bowel sounds present. Neuro: A&O x3. No focal neurological deficits. Extremities: Left lower extremity with significantly improved erythema. Superficial ulcerations on medial left lower extremity. Right lower extremity with small area of erythema above ankle; no wounds noted. Pictures from admission included in H&P physical exam. Discharge Plan Discharge Items Patient Disposition: Home - Self-Care Reason For Visit: LE CELLULITIS, SWELLING Discharge Diagnosis: Left lower extremity cellulitis Condition on Discharge: Fair Activity: Resume your previous activity Non-emergency contact: Primary Care Provider Call non-emergency contact if: you have any medication questions and your symptoms worsen Follow-up/Referrals: Marisol Love PA-C [Primary Care Provider] - 01/18/25 10:30 am () Diet: Carb Consistent or DM2 and Heart Healthy Addtl Attending Provider Instructions: Mr. Arredondo, You were admitted to the hospital due to a cellulitis infection. Cellulitis is an infection of the skin/soft tissues caused by bacteria. Bacteria can enter the body through broken skin; this can happen with a cut, scratch, or insect bite. You have been treated in the hospital with IV antibiotics, and will be discharged with oral antibiotics to continue taking at home. Keep your skin clean and dry to allow the wounds on your legs to heal. Your blood pressure was low on day of discharge. This was likely a result of receiving IV Lasix in the ER yesterday and your blood pressure medications this morning. Your blood pressure has improved with IV fluids. If you feel lightheaded/dizzy, drink plenty of water, call your PCP, or return to the ED. Upon discharge from the hospital: * Hold your Imdur (isosorbide mononitrate) until you see your PCP. You can continue to take your Coreg (carvedilol) and amiodarone. * Take Keflex (oral antibiotic) twice daily through 01/18/25. Take this antibiotic as directed until it is gone. Take it even if you feel better. It treats the infection and prevents it from returning. Not taking all of the medicine can make future infections harder to treat. * Take Tylenol as needed for mildmoderate pain. * Take oxycodone every 6 hours as needed for severe pain. Do not drive or operate heavy machinery while taking oxycodone as it is a narcotic pain medication. * Continue your home medications as prescribed. There have been no changes to your usual home medications. * Please follow-up with your PCP in 1-2 weeks. Please return to the hospital if you experience any of the following: Fever of 100.5 F or higher, trouble or pain with moving the joints above or below the infected area, discharge or pus draining from the infected area, pain that gets worse in or around the infected area, redness that gets worse and around the infected area, shaking chills, worsened swelling of the infected area, persistent vomiting, lightheadedness, dizziness, passing out, shortness of breath, difficulty breathing, or chest pain. It was a pleasure taking care of you while you were in the hospital! Pending Studies at Discharge: No Stand-Alone Forms: [facility] [employer], Smoking Cessation Medications and DC Order Prescriptions: New cephalexin 500 mg capsule 500 mg PO BID Qty: 11 0RF oxycodone 5 mg tablet 5 mg PO Q6H PRN (Reason: pain) Qty: 12 0RF Continued rosuvastatin 10 mg tablet 10 mg PO QAM Hold Instructions: Resume on 01/03/25. nitroglycerin [Nitrostat] 0.4 mg tablet, sublingual 0.4 mg sublingual UD PRN (Reason: Chest Pain) Eliquis 5 mg tablet 5 mg PO BID (DME) lancets 33 gauge misc See Rx Instructions .Route Qty: 100 5RF Rx Instructions: qac hhs testing (DME) OneTouch Verio test strips Strip See Rx Instructions .Route Qty: 100 0RF Rx Instructions: qac qhs (DME) blood-glucose meter Misc See Rx Instructions .Route Qty: 1 0RF Rx Instructions: qac qhs (DME) pen needle,diabetic, disp unit 32 gauge x 5/32" needle See Rx Instructions .Route Qty: 100 0RF Rx Instructions: Inject 1x daily carvedilol 12.5 mg Tablet 12.5 mg PO BIDM Qty: 60 2RF tamsulosin 0.4 mg capsule 0.4 mg PO QAM duloxetine 60 mg capsule,delayed release(DR/EC) 60 mg PO QAM amiodarone 400 mg tablet 400 mg PO QAM fluticasone furoate-vilanterol [Breo Ellipta] 100-25 mcg/dose blister with device 1 inh INHALATION DAILY Jardiance 10 mg tablet 10 mg PO DAILY Hold Instructions: Resume on 01/03/25. metformin 500 mg tablet 500 mg PO BID Hold Instructions: Resume on 01/03/25. insulin glargine [Lantus Solostar U-100 Insulin] 100 unit/mL (3 mL) insulin pen 25 unit subcut QAM Hold Instructions: Resume on 01/03/25. Held isosorbide mononitrate 30 mg tablet extended release 24 hr 30 mg PO DAILY Qty: 30 3RF Hold Instructions: Provider's Order Discharge Orders: Discharge Order (Routine); Ordered 01/13/25 Ordered By: Mala Wheatley/Other Patient Handouts: Oxycodone Oral Tablet, Cephalexin Oral Capsule Admission Data Admit Date/Time: 01/12/25 13:55 Attending Provider: Gaurav Najera Admit Provider: Gaurav Najera Primary Care Provider: Marisol Love Other Providers: Mala Wu Other Interventions: Discharge Summary Assessment (RN) Last Done: 01/13/25 15:46 Hospital Stay Data Consultations 01/12/25 14:01 ED Decision to Admit Stat Diagnostic Imagining Performed Chest X-Ray 01/12/25 10:21 XR chest 1V portable CLINICAL HISTORY: leg swelling, hx chf COMPARISON STUDY: 12/26/2024 FINDINGS: Stable CABG and pacemaker. Stable moderate cardiomegaly without pulmonary vascular congestion. Stable interstitial opacities in the lung bases. No lobar consolidation or pleural effusion seen. No pneumothorax. IMPRESSION: Stable exam. ACT 112: Negative or not required by law. Electronically signed by: Choco Whyte M.D. 01/12/2025 10:48 AM Venous Doppler Study 01/12/25 13:46 EXAM: US venous doppler LE LT CLINICAL HISTORY: swelling TECHNIQUE: Ultrasound examination of left lower extremity veins was performed in real time and duplex. One or more of the following were performed- spectral analysis, resistive index, waveform analysis, and pulsed Doppler. COMPARISON: None. FINDINGS: There is a normal phasic, non-pulsatile and spontaneous flow in left common femoral, superficial femoral, popliteal, posterior and anterior tibial, and peroneal veins as well as saphenofemoral junction. The visualized veins of left lower extremity demonstrate normal compressibility. No sonographic evidence of acute deep vein thrombosis (DVT) is detected in the visualized veins of the left lower extremity. Compression and Augmentation: All evaluated veins compress fully with applied transducer pressure. Augmentation of venous flow is noted with distal compression. Additional Findings: No evidence of intraluminal thrombus. IMPRESSION: No sonographic evidence of acute DVT detected at the time of examination. Disclaimer: DVT could be missed early in the disease when clot burden is minimal. For patients with moderate and high pretest probability of DVT and negative ultrasound, the [employer] clinical guidelines recommend testing with a D-dimer assay or repeat ultrasound in 5-7 days. If symptoms worsen, the Society of radiologists in ultrasound recommends repeating ultrasound even earlier. Electronically signed by Ramírez Ortiz 01-12-2025 6:43 PM Pending Results Patient Have Any Pending Studies at Discharge: No Discharge Instructions Given to Patient (Per Discharging Provider) Mr. Arredondo, You were admitted to the hospital due to a cellulitis infection. Cellulitis is an infection of the skin/soft tissues caused by bacteria. Bacteria can enter the body through broken skin; this can happen with a cut, scratch, or insect bite. You have been treated in the hospital with IV antibiotics, and will be discharged with oral antibiotics to continue taking at home. Keep your skin clean and dry to allow the wounds on your legs to heal. Your blood pressure was low on day of discharge. This was likely a result of receiving IV Lasix in the ER yesterday and your blood pressure medications this morning. Your blood pressure has improved with IV fluids. If you feel lightheaded/dizzy, drink plenty of water, call your PCP, or return to the ED. Upon discharge from the hospital: * Hold your Imdur (isosorbide mononitrate) until you see your PCP. You can continue to take your Coreg (carvedilol) and amiodarone. * Take Keflex (oral antibiotic) twice daily through 01/18/25. Take this antibiotic as directed until it is gone. Take it even if you feel better. It treats the infection and prevents it from returning. Not taking all of the medicine can make future infections harder to treat. * Take Tylenol as needed for mildmoderate pain. * Take oxycodone every 6 hours as needed for severe pain. Do not drive or operate heavy machinery while taking oxycodone as it is a narcotic pain medication. * Continue your home medications as prescribed. There have been no changes to your usual home medications. * Please follow-up with your PCP in 1-2 weeks. Please return to the hospital if you experience any of the following: Fever of 100.5 F or higher, trouble or pain with moving the joints above or below the infected area, discharge or pus draining from the infected area, pain that gets worse in or around the infected area, redness that gets worse and around the infected area, shaking chills, worsened swelling of the infected area, persistent vomiting, lightheadedness, dizziness, passing out, shortness of breath, difficulty breathing, or chest pain. It was a pleasure taking care of you while you were in the hospital! Supervising Physician Co-Signing Physician Notes chart reviewed, case d/w S Gross PAC - was a little hypotensive and dizzy - improved with fluid, quite insistent on wanting to go home. given that the BP was likley mostly low from diuresis given in ER, BP responded to fluids, nothing about his situation fits with septic shock (not even SIRS), nothing fitting with cardiogenic --> safe/stable for home according to his wishes. would have him hold off on imdur till PCP f/u since it would be less true benefit (more anti- anginal than true "DMARD") and much more likely to cause orthostasis -> fall -> harm. anticipate being able to resume it next week, however. otherwise home as above Total Time Total Time Spent Total Time Spent (In Minutes): Greater than 30 minutes spent completing this discharge process including direct patient care, medication reconciliation, documentation, review of labs and images, and coordination of care. Coding Level of Care Code 90530 INP/OBS DISCH >30 MIN Diagnoses Cellulitis L03.90 Heart failure with mildly reduced ejection fraction (HFmrEF, 41-49%) I50.20 CKD (chronic kidney disease), stage III N18.30 Anemia D64.9
[2025-01-13 16:02] VITALS: PULSE 62; TEMP 97.3
[2025-01-13 16:26] VITALS: BP 95/54
--- NOTE | 2025-01-15 05:28 | Electrocardiogram Report ---
Test Reason : Blood Pressure : */* mmHG Vent. 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
--- NOTE | 2025-01-15 05:29 | Electrocardiogram Report ---
Test Reason : Blood Pressure : */* mmHG Vent. Rate : 60 BPM Atrial Rate : 60 BPM P-R Int : 258 ms QRS Dur : 150 ms QT Int : 488 ms P-R-T Axes : 21 -31 180 degrees QTcB Int : 488 ms Atrial-paced rhythm with prolonged AV conduction Left axis deviation Right bundle branch block T wave abnormality, consider lateral ischemia Abnormal ECG When compared with ECG of 12-Jan-2025 09:41, No significant change was found Confirmed by Alcides Booth ([id number]) on 01/15/2025 5:28:27 AM Referred By: REFERRED SELF Confirmed By: Alcides Booth
== END 2025-01-13 18:19 | disposition home or self-care (01) ==
LOC: ED 09:35 → 2N 13:55 → INTOOBSV 13:55 → 2N 17:18

== ENCOUNTER 2025-01-22 09:07 | Inpatient (IN) ==
--- NOTE | 2025-01-22 09:19 | Emergency Department Note ---
Impression & Plan Acute hypoxemic respiratory failure, Acute exacerbation of CHF (congestive heart failure), Pulmonary edema ED Provider Note NAME: ANTONIETTA Duff CASE AGE: 79 SEX: M : 1945 ARRIVES VIA: Ambulance INFORMANT: Patient, ED PROVIDER(S): Gasper Joe MD CHIEF COMPLAINT: Chest pain, shortness of breath MEDICAL DECISION MAKING: Patient presents with the above. Patient currently asymptomatic but was requiring some increased oxygen. Decreased bibasilar breath sounds and associated crackles. IV was established and blood work was obtained along with an EKG. EKG shows paced rhythm. Patient's blood work shows a normal white count hemoglobin 10.1 with normal platelet count. The patient's kidney function is unremarkable. Mild transaminitis which could be from congestion secondary to pulmonary edema. The patient's troponin negative a BNP of 1212. Patient's weight is up about 2.9 kg compared to more recent. The patient's chest x-ray does show pulmonary edema. Patient was ordered IV Lasix 40 mg. I did inform the patient the findings. The patient did have an increase in his oxygen requirement to 6 L at this time but was not tachypneic to where he requires BiPAP. I did speak with the on-call hospital service Dr. Sanches and the patient was admitted to the medicine service. Critical Care: I have personally spent 36 minutes of critical care time in direct management of this patient. This includes bedside care, interpretation of diagnostic studies, and testing, discussion with consultants, patient, and family members, and other require inpatient management activities. This 36 minutes is in excess of all separately billable procedures. Discussion w/ other healthcare providers: Dr. Sanches inpatient medicine service Prior /Outside records reviewed: Did review a prior echocardiogram report showed that the patient has LV systolic function low normal with regional wall motion abnormalities mild aortic regurg mild mitral regurg and left atrium is moderately dilated. LVEF of 50 to 55% with mild basal hypokinesis. Echo from December 21, 2024. Differential diagnosis: Reactive airway disease, pneumonia, pneumothorax, COPD, CHF, ACS, pulmonary embolism, musculoskeletal, GERD as well as other pathologies were considered. Diagnostics, as interpreted by me: ECG: A sensed V paced rhythm, rate of 73 prolonged MO wide QRS level branch block no obvious Sgarbossa criteria. Cardiac monitoring: An order was placed for continuous cardiac monitoring. The monitor shows a rate of 79 with paced rhythm. Patient was placed on pulse oximetry Medical decision rules: Heart score Imaging studies: I informally interpreted the patient's chest x-ray shows pulmonary edema with formal report to follow. HPI: Patient presents due to concern for shortness of breath. The patient states that this seemed to be acute in the middle of the night. He states that he was struggling to breathe and did have diffuse chest pressure. Prior history of cardiac stents x [address] Chao with [facility]. Patient states that he only intermittently takes any torsemide which she believes is 20 mg as he does have chronic kidney disease. The patient states that he last took this 3 days ago. Reportedly did notice a 4 pound weight gain in the last 24 hours. He denies any increase in salt or processed food in the diet. Patient said dry nonproductive cough no smoking history. He is on 4 L at baseline. He did receive 2 nitro as well as full dose aspirin and his symptoms have since resolved. Patient reportedly was noted to be 81% on his typical 4 L by EMS. Patient reportedly is receiving antibiotics for left lower extremity cellulitis. PAST MEDICAL HISTORY: See Below PAST SURGICAL HISTORY: See Below SOCIAL HISTORY: See Below HOME MEDICATIONS: See Below ALLERGIES: See Below VITALS: See Below PHYSICAL EXAMINATION: GENERAL: NAD, non-toxic. EYE EXAM: Normal conjunctiva. PERRL, no anisocoria and EOM's grossly intact w/o pain. OROPHARYNX: Moist mucus membranes, grossly normal dentition. NECK: Trachea midline, no stridor. Supple, no nuchal rigidity, no adenopathy, non-tender. No signs of meningismus. FROM of the neck with good chin to chest and neck extension. LUNGS: Diminished breath sounds bibasilar crackles. Normal chest wall mechanics. HEART: NSR, no MRG. ABDOMEN: Abdomen soft, non-tender, no masses, no rebound or guarding. BACK: No CVA TTP. SKIN: No rashes and no bruising. UPPER EXTREMITIES: Upper extremities are grossly normal. LOWER EXTREMITIES: Grossly normal, left greater than right lower extremity swelling with slight erythema to the left distal leg. Compartments are soft and without crepitus. NEURO EXAM: Awake and alert, follows commands, no obvious facial asymmetry, normal speech, moves all 4 extremities. Past Med/Surg History Problem List Acute on chronic heart failure with preserved ejection fraction (HFpEF) Lower extremity cellulitis (Acute) CKD (chronic kidney disease), stage III Constipation Transaminitis Anemia Ventricular tachycardia Valvular heart disease CAD (coronary artery disease) (Acute) Type 2 diabetes mellitus Renal insufficiency Transaminitis Pseudohyponatremia (Acute) Gait instability (Acute) CHI (closed head injury) (Acute) Impacted cerumen of left ear Left rib fracture (Acute) Status post fall Hypertension BPD (bronchopulmonary dysplasia) (Chronic) Hypothyroid (Chronic) Bipolar disorder (Chronic) Medical History STEPHAN (acute kidney injury) Syncope and collapse Heart failure with mildly reduced ejection fraction (HFmrEF, 41-49%) Chest pain Ischemic cardiomyopathy Cardiac defibrillator in place DA [employer] Diabetes mellitus type 2 in obese CAD (coronary artery disease) Coronary artery bypass graft 1993: [place] to LAD, saphenous vein graft to 1st diagonal, saphenous vein graft to om 1, saphenous vein graft to the right coronary artery Falls frequently Surgical History S/P coronary artery stent placement S/P CABG (coronary artery bypass graft) Hx of inguinal herniorrhaphy Status post aorto-coronary artery bypass graft Family History Other Family history non-contributory Social History Smoking Status: Never smoker Tobacco Type: Cigarettes Second Hand Exposure: No; Do You Dip or Chew Tobacco: No; Hx Alcohol Use: No Hx Substance Use: No Preferred Language: Indian Communication Ability: Effective Supervisor Dyer Required: No Beliefs That Will Affect Care: None Current Living Situation: Alone Current Living Situation Comment: home alone Feels Safe at Home: Yes Assistive Devices: Oxygen - Continuous Allergies Allergies Allergy/AdvReac Type Severity Reaction Status Date / Time Iodinated Contrast Media Allergy Rash Verified 01/22/25 10:28 warfarin AdvReac Severe Made my Unverified 01/22/25 10:28 blood extremely thin Home Meds Home Medications Medication Instructions Recorded Confirmed rosuvastatin 10 mg tablet 10 mg PO QAM 07/10/20 01/22/25 nitroglycerin 0.4 mg sublingual 0.4 mg sublingual UD PRN Chest Pain 01/08/21 01/22/25 tablet (Nitrostat) apixaban 5 mg tablet (Eliquis) 5 mg PO BID 04/05/24 01/22/25 duloxetine 60 mg capsule,delayed 60 mg PO QAM 05/29/24 01/22/25 release tamsulosin 0.4 mg capsule 0.4 mg PO QAM 05/29/24 01/22/25 amiodarone 400 mg tablet 400 mg PO QAM 12/15/24 01/22/25 fluticasone furoate 100 1 inh inhalation DAILY 12/15/24 01/22/25 mcg-vilanterol 25 mcg/dose inhalation powder (Breo Ellipta) insulin glargine 100 unit/mL (3 35 unit subcut QAM 12/15/24 01/22/25 mL) subcutaneous pen (Lantus Solostar U-100 Insulin) doxycycline hyclate 100 mg capsule 100 mg PO BID 01/22/25 01/22/25 pantoprazole 40 mg tablet,delayed 40 mg PO DAILY 01/22/25 01/22/25 release ramipril 2.5 mg capsule 2.5 mg PO BID 01/22/25 01/22/25 tolterodine 4 mg capsule,extended 4 mg PO DAILY 01/22/25 01/22/25 release 24 hr torsemide 20 mg tablet 20 mg PO DAILY PRN Swelling/Weight 01/22/25 01/22/25 Gain Previous Rx's Medication Instructions Recorded blood sugar diagnostic (OneTouch #100 ea 04/06/24 Verio test strips) blood-glucose meter #1 ea 04/06/24 lancets 33 gauge #100 ea 04/06/24 pen needle,diabetic, disp unit 32 #100 ea 04/10/24 gauge x 5/32", remover and disposal unit carvedilol 12.5 mg tablet 12.5 mg PO BIDM #60 tabs 12/22/24 isosorbide mononitrate 30 mg 30 mg PO DAILY #30 tabs 12/22/24 tablet,extended release 24 hr Results & Data (ED) Vital Signs Vital Signs - 24 hr 01/22/25 09:15 01/22/25 09:15 01/22/25 09:15 Temperature 36.6 C Temperature Source Oral Pulse Rate 73 Pulse Rate from SpO2 Sensor Respiratory Rate 18 Respiratory Effort / Characteristics Non-Labored Spontaneous Non-Labored Spontaneous Respiratory Depth Normal Respiratory Pattern Regular Blood Pressure 143/69 H Blood Pressure Mean 93 Blood Pressure Position Sitting Pulse Oximetry 96 96 Oxygen Delivery Method Nasal Cannula Nasal Cannula Oxygen Flow Rate 4 Sepsis Recent Fever Within 48 Hours No Sepsis New/Unexplained Change in Mental Status N/A Sepsis Action Taken by Nursing No Action Required Oxygen Flow Rate - Titration 4 Pulse Oximetry Post Tiitration 01/22/25 09:15 01/22/25 09:39 01/22/25 09:41 Temperature Temperature Source Pulse Rate 73 73 Pulse Rate from SpO2 Sensor Respiratory Rate 25 H Respiratory Effort / Characteristics Respiratory Depth Respiratory Pattern Blood Pressure Blood Pressure Mean Blood Pressure Position Pulse Oximetry 96 90 Oxygen Delivery Method Nasal Cannula Nasal Cannula Oxygen Flow Rate 4 4 Sepsis Recent Fever Within 48 Hours Sepsis New/Unexplained Change in Mental Status Sepsis Action Taken by Nursing Oxygen Flow Rate - Titration Pulse Oximetry Post Tiitration 01/22/25 09:54 01/22/25 10:00 01/22/25 10:20 Temperature Temperature Source Pulse Rate 71 60 Pulse Rate from SpO2 Sensor 73 75 Respiratory Rate 20 22 Respiratory Effort / Characteristics Respiratory Depth Respiratory Pattern Blood Pressure 149/90 H 149/97 H Blood Pressure Mean 109 130 Blood Pressure Position Pulse Oximetry 88 L 94 92 Oxygen Delivery Method Nasal Cannula Nasal Cannula Nasal Cannula Oxygen Flow Rate 4 6 6 Sepsis Recent Fever Within 48 Hours Sepsis New/Unexplained Change in Mental Status Sepsis Action Taken by Nursing Oxygen Flow Rate - Titration 6 Pulse Oximetry Post Tiitration 91 01/22/25 10:30 Temperature Temperature Source Pulse Rate 61 Pulse Rate from SpO2 Sensor 60 Respiratory Rate 23 Respiratory Effort / Characteristics Respiratory Depth Respiratory Pattern Blood Pressure 165/123 H Blood Pressure Mean 137 Blood Pressure Position Pulse Oximetry 91 Oxygen Delivery Method Nasal Cannula Oxygen Flow Rate 6 Sepsis Recent Fever Within 48 Hours Sepsis New/Unexplained Change in Mental Status Sepsis Action Taken by Nursing Oxygen Flow Rate - Titration Pulse Oximetry Post Tiitration Home Medications Current Medication List: was personally reviewed by me Laboratory Data Attestation: I reviewed the patient's lab results. 01/22/25 09:14 01/22/25 09:14 Lab Results 01/22/25 Range/Units 09:14 WBC 7.74 (4.8-10.8) K/ul RBC 3.91 L (4.70-6.10) M/uL Hgb 10.1 L (14.0-18.0) g/dl Hct 33.0 L (42.0-52.0) % MCV 84.4 (80.0-100.0) fL MCH 25.8 (25.0-34.0) pg MCHC 30.6 L (32.0-36.0) g/dL RDW Std Deviation 61.6 H (36.4-46.3) fL RDW Coeff of De 20.1 H (11.5-14.5) % Plt Count 241 (130-400) K/uL MPV 10.1 (9.4-12.4) fL Immature Gran % (Auto) 0.4 % Neut % (Auto) 72.3 % Lymph % (Auto) 12.7 % Sanders % (Auto) 11.5 % Eos % (Auto) 2.6 % Baso % (Auto) 0.5 % Neut # (Auto) 5.60 (1.40-6.50) K/uL Lymph # (Auto) 0.98 L (1.20-3.40) K/uL Sanders # (Auto) 0.89 H (0.11-0.59) K/uL Eos # (Auto) 0.20 (0.00-0.50) K/uL Baso # (Auto) 0.04 (0.00-0.20) K/uL Immature Gran # (Auto) 0.03 (0.01-0.20) K/uL Polychromasia 1+ Anisocytosis Present PT 11.5 (9.0-12.0) Seconds INR 1.1 (0.9-1.1) APTT 29 (21-31) Seconds PTT Ratio 1.1 Sodium 139 (136-145) mmol/L Potassium 4.2 (3.5-5.1) mmol/L Chloride 110 H (98-107) mmol/L Carbon Dioxide 24 (21-32) mmol/L Anion Gap 5 (3-11) BUN 21 (6-23) mg/dl Creatinine 1.08 (0.6-1.4) mg/dl Est Cr Clr Drug Dosing 57.3 ml/min eGFR 70.68 BUN/Creatinine Ratio 19.4 (10-20) Glucose 150 H (70-99(Fasting)) mg/dl Calcium 8.3 L (8.6-10.3) mg/dl Total Bilirubin 0.7 (0.2-1.0) mg/dl AST 75 H (13-39) U/L ALT 89 H (7-52) U/L Alkaline Phosphatase 114 H (34-104) U/L Troponin I High Sens 16.1 (0-20) pg/ml B-Natriuretic Peptide 1212 H (0-100) pg/ml Total Protein 5.9 L (6.0-8.3) gm/dl Albumin 3.1 L (3.4-5.0) gm/dl Globulin 2.8 (2.5-4.0) gm/dl Albumin/Globulin Ratio 1.1 (0.9-2) Lipase 12 (11-82) U/L Administered Medications Discontinued Medications Furosemide (Furosemide 40 Mg/4 Ml Vial) 40 mg IV ONE ONE Stop: 01/22/25 10:06 Last Admin: 01/22/25 10:19 Dose: 40 mg Documented By: EPHRAIM Imaging Data Radiologist's Impression: Chest X-Ray 01/22/25 09:15 XR chest 1V portable HISTORY: 79 years-old Male Chest pain, nonspecific acute chest pain COMPARISON: Chest radiograph 01/12/2025, chest CT 06/30/2024. TECHNIQUE: AP view the chest FINDINGS: Cardiac silhouette is enlarged. Left subclavian pacer/ICD. Median sternotomy. Pulmonary vascular congestion with interstitial coarsening. No pneumothorax. Small layering pleural effusions, left greater than right with left basilar and upper lung opacities which are new from prior. Degenerative changes of the shoulders and spine. IMPRESSION: 1. Cardiomegaly with suggestion of mild interstitial pulmonary edema. 2. Small pleural effusions with left basilar and upper lung opacities. Differential considerations include asymmetric alveolar pulmonary edema versus pneumonia. 3. Chronic interstitial lung disease. 4. Small pleural effusions. ACT 112: Negative or not required by law. The above report was generated using voice recognition software. It may contain grammatical, syntax or spelling errors. Electronically signed by: Jose F Montemayor M.D. 01/22/2025 10:17 AM Discharge Plan Visit Data Chief Complaint: Chest Pain ED Provider: Gasper Joe Discharge Problem: Acute hypoxemic respiratory failure, Acute exacerbation of CHF (congestive heart failure), Pulmonary edema Patient Disposition: Admitted As Inpatient Condition: Good Discharge Problem: Acute exacerbation of CHF (congestive heart failure) Qualifiers: Heart failure type: unspecified Qualified Code(s): I50.9 - Heart failure, unspecified Pulmonary edema Qualifiers: Chronicity: acute Qualified Code(s): J81.0 - Acute pulmonary edema
[2025-01-22 09:34] LABS: Hematocrit (blood only) 33.0 % (42.0-52.0); Hemoglobin 10.1 g/dl (14.0-18.0); Immature Granulocytes # (auto) 0.03 K/uL (0.01-0.20); Immature Granulocytes % (auto) 0.4 %; Mean Corpuscular Hemoglobin 25.8 pg (25.0-34.0); Mean Corpuscular Volume 84.4 fL (80.0-100.0); Platelet Count 241 K/uL (130-400); RDW Standard Deviation 61.6 fL (36.4-46.3); Red Blood Count 3.91 M/uL (4.70-6.10); White Blood Count 7.74 K/ul (4.8-10.8)
[2025-01-22 09:56] LABS: Anisocytosis Present; Polychromasia 1+
[2025-01-22 09:58] LABS: Alanine Aminotransferase 89.0 U/L (7-52); Albumin Globulin Ratio 1.1 (0.9-2); Alkaline Phosphatase 114.0 U/L (34-104); Anion Gap 5.0 (3-11); Bilirubin,Total 0.7 mg/dl (0.2-1.0); Blood Urea Nitrogen 21.0 mg/dl (6-23); Calcium 8.3 mg/dl (8.6-10.3); Carbon Dioxide 24.0 mmol/L (21-32); Chloride 110.0 mmol/L (98-107); Creatinine Clr Calc Pharmacy 57.3 ml/min; Globulin 2.8 gm/dl (2.5-4.0); Glucose 150.0 mg/dl (70-99(Fasting)); Lipase 12.0 U/L (11-82); Potassium 4.2 mmol/L (3.5-5.1); Sodium 139.0 mmol/L (136-145); Total Protein 5.9 gm/dl (6.0-8.3)
[2025-01-22 10:03] LABS: INR 1.1 (0.9-1.1); Partial Thromboplastin Time 29 Seconds (21-31); Prothrombin Time 11.5 Seconds (9.0-12.0)
--- NOTE | 2025-01-22 10:18 | XRay Report ---
XR chest 1V portable HISTORY: 79 years-old Male Chest pain, nonspecific acute chest pain COMPARISON: Chest radiograph 01/12/2025, chest CT 06/30/2024. TECHNIQUE: AP view the chest FINDINGS: Cardiac silhouette is enlarged. Left subclavian pacer/ICD. Median sternotomy. Pulmonary vascular miky estion with interstitial coarsening. No pneumothorax. Small layering pleural effusions, left greater than right with left basilar and upper lung opacities which are new from prior. Degenerative changes of the shoulders and spine. IMPRESSION: 1. Cardiomegaly with suggestion of mild interstitial pulmonary edema. 2. Small pleural effusions with left basilar and upper lung opacities. Differential considerations in clude asymmetric alveolar pulmonary edema versus pneumonia. 3. Chronic interstitial lung disease. 4. Small pleural effusions. ACT 112: Negative or not required by law. The above report was generated using voice recognition software. It may contain grammatical, syntax o r spelling errors. Electronically signed by: Jose F Montmeayor M.D. 01/22/2025 10:17 AM
[2025-01-22] MEDS: FUROSEMIDE 40 MG/4 ML VIAL IV ONE (10:19)
--- NOTE | 2025-01-22 11:04 | History & Physical Report ---
Date of Service January 22, 2025 Assessment & Plan (1) Acute on chronic heart failure with preserved ejection fraction (HFpEF): Plan 79 year old with HFimpEF and multiple admissions in December for acute on chronic exacerbation presents to the ER with worsening shortness of breath overnight. #Acute on chronic HFimpEF - previous LVEF 45%, more recently 50-55% No pericardial effusion on POCUS, with B lines throughout including anterior/superiorly Continue carvedilol and ramipril Lasix 40mg IV daily, urine sodium in 2 hours post diuretics, if < 70 will give additional Lasix Daiy standing weight Strict I&Os Continue his usual GDMT with ramipril and carvedilol, unclear why he is not on SGLT2 inhibitor #CKD stage III - At baseline - Renal function at baseline on admission - Monitor renal function with ongoing diuretic use - Avoid nephrotoxic agents when possible. Promote oral hydration #Anemia chronic anemia with Hgb typically ranging from 1112 - Hgb on admission 10.1, at baseline #T2DM on glargine 35U, Jardiance, metformin at home. Recent A1c 6.7% - Lantus 12U. SSI with target BSG range 110-150mg/dL, CF 25, carb ratio 8 #HTN- Carvedilol, ramipril - continue #HLD- Rosuvastatin - continue #Afib- currently EKG has p waves, Amiodarone, Eliquis - continue #Chronic hypoxic resp failure- Breo Ellipta, 4L O2 via NC at all times - continue inhalers + O2 #BPH- Tamsulosin - continue #Psych- Duloxetine - continue VTE Prophylaxis - Eliquis 5mg BID Disposition - admit to med/tele Admission and Anticipated Discharge Date Admission Date: January 22, 2025 History of Present Illness Chief Complaint: Shortness of breath Primary Care Provider: Marisol Kate Allen Case is a 79 year old male with congestive heart failure who presents to the ER with shortness of breath. he reports feeling well up until last night when he became increasingly short of breath especially throughout the night with significant orthopnea. No change in diet or medications. He uses torsemide just as needed and has not taken it with this illness. He reports 4lb weight gain in the last 24 hours with associated worsening of his bilateral leg swelling. His left leg is normally worse than the right leg. Recently on doxycycline for concern of infection of his right leg but he reports that the weeping areas have healed nicely. He is on chronic 4LPM O2 but per EMS O2 sats 81% on his normal O2 requirement. Allergies Allergy/AdvReac Type Severity Reaction Status Date / Time Iodinated Contrast Media Allergy Rash Verified 01/22/25 10:28 warfarin AdvReac Severe Made my Unverified 01/22/25 10:28 blood extremely thin Home Medications Medication Instructions Recorded Confirmed Type rosuvastatin 10 mg tablet 10 mg PO QAM 07/10/20 01/22/25 History nitroglycerin 0.4 mg sublingual 0.4 mg sublingual UD PRN Chest Pain 01/08/21 01/22/25 History tablet (Nitrostat) apixaban 5 mg tablet (Eliquis) 5 mg PO BID 04/05/24 01/22/25 History blood sugar diagnostic (OneTouch #100 ea 04/06/24 12/20/24 Rx Verio test strips) blood-glucose meter #1 ea 04/06/24 12/20/24 Rx lancets 33 gauge #100 ea 04/06/24 12/20/24 Rx pen needle,diabetic, disp unit 32 #100 ea 04/10/24 12/20/24 Rx gauge x 5/32", remover and disposal unit duloxetine 60 mg capsule,delayed 60 mg PO QAM 05/29/24 01/22/25 History release tamsulosin 0.4 mg capsule 0.4 mg PO QAM 05/29/24 01/22/25 History amiodarone 400 mg tablet 400 mg PO QAM 12/15/24 01/22/25 History fluticasone furoate 100 1 inh inhalation DAILY 12/15/24 01/22/25 History mcg-vilanterol 25 mcg/dose inhalation powder (Breo Ellipta) insulin glargine 100 unit/mL (3 35 unit subcut QAM 12/15/24 01/22/25 History mL) subcutaneous pen (Lantus Solostar U-100 Insulin) carvedilol 12.5 mg tablet 12.5 mg PO BIDM #60 tabs 12/22/24 01/22/25 Rx isosorbide mononitrate 30 mg 30 mg PO DAILY #30 tabs 12/22/24 01/22/25 Rx tablet,extended release 24 hr doxycycline hyclate 100 mg capsule 100 mg PO BID 01/22/25 01/22/25 History pantoprazole 40 mg tablet,delayed 40 mg PO DAILY 01/22/25 01/22/25 History release ramipril 2.5 mg capsule 2.5 mg PO BID 01/22/25 01/22/25 History tolterodine 4 mg capsule,extended 4 mg PO DAILY 01/22/25 01/22/25 History release 24 hr torsemide 20 mg tablet 20 mg PO DAILY PRN Swelling/Weight 01/22/25 01/22/25 History Gain Past Med/Surg History Problem List Acute on chronic heart failure with preserved ejection fraction (HFpEF) Lower extremity cellulitis (Acute) CKD (chronic kidney disease), stage III Constipation Transaminitis Anemia Ventricular tachycardia Valvular heart disease CAD (coronary artery disease) (Acute) Type 2 diabetes mellitus Renal insufficiency Transaminitis Pseudohyponatremia (Acute) Gait instability (Acute) CHI (closed head injury) (Acute) Impacted cerumen of left ear Left rib fracture (Acute) Status post fall Hypertension BPD (bronchopulmonary dysplasia) (Chronic) Hypothyroid (Chronic) Bipolar disorder (Chronic) Medical History STEPHAN (acute kidney injury) Syncope and collapse Heart failure with mildly reduced ejection fraction (HFmrEF, 41-49%) Chest pain Ischemic cardiomyopathy Cardiac defibrillator in place [employer] Diabetes mellitus type 2 in obese CAD (coronary artery disease) Coronary artery bypass graft 1992: [place] to LAD, saphenous vein graft to 1st diagonal, saphenous vein graft to om 1, saphenous vein graft to the right coronary artery Falls frequently Surgical History S/P coronary artery stent placement S/P CABG (coronary artery bypass graft) Hx of inguinal herniorrhaphy Status post aorto-coronary artery bypass graft Family History Other Family history non-contributory Social History Smoking Status: Former smoker Tobacco Type: Cigarettes Second Hand Exposure: No; Do You Dip or Chew Tobacco: No; Hx Alcohol Use: No Hx Substance Use: No Preferred Language: Angolan Communication Ability: Effective Roving Hand Required: No Beliefs That Will Affect Care: None Current Living Situation: Alone Current Living Situation Comment: home alone Other Information That Helps Us Care for You: No Feels Safe at Home: Yes Safety Concerns: Feels Safe At This Time Assistive Devices: Cane, Denture - Upper, Denture - Lower, Glasses, Oxygen - Continuous and Walker Review of Systems Review of Systems: All systems reviewed & are unremarkable except as noted in HPI & below Physical Exam Constitutional: WD/WN, vitals as above ENMT: external ear and nose normal, oropharynx normal Respiratory: normal respiratory effort; no respiratory distress Auscultation: + crackles (bibasal); no diminished lung sounds, no rales, no rhonchi and no wheezes Cardiovascular: Rate/Rhythm: regular rate and regular rhythm Heart Sounds: no murmur Extremities: + pedal edema (1+ L > R) Gastrointestinal (Abdomen): normal bowel sounds, soft, nontender, no hepatosplenomegaly Skin: few crusted areas on LLE medial side but no overt cellulitic changes, venous dermatitis changes of b/l LE below knee to ankle Psychiatric: A+Ox3, euthymic affect Results & Data Results & Data Vital Signs (Past 12 Hours) Vital Signs Temp Pulse Resp BP Pulse Ox O2 Del Method O2 Flow Rate 01/22/25 10:30 61 23 165/123 H 91 Nasal Cannula 6 01/22/25 10:20 60 22 149/97 H 92 Nasal Cannula 6 01/22/25 10:00 71 20 149/90 H 94 Nasal Cannula 6 01/22/25 09:54 88 L Nasal Cannula 4 01/22/25 09:41 73 01/22/25 09:39 73 25 H 90 Nasal Cannula 4 01/22/25 09:15 96 Nasal Cannula 4 01/22/25 09:15 96 Nasal Cannula 01/22/25 09:15 36.6 C 73 18 143/69 H 96 Nasal Cannula 4 Laboratory Results Abnormal lab results 01/22/25 Range/Units 09:14 RBC 3.91 L (4.70-6.10) M/uL Hgb 10.1 L (14.0-18.0) g/dl Hct 33.0 L (42.0-52.0) % MCHC 30.6 L (32.0-36.0) g/dL RDW Std Deviation 61.6 H (36.4-46.3) fL RDW Coeff of De 20.1 H (11.5-14.5) % Lymph # (Auto) 0.98 L (1.20-3.40) K/uL Tate # (Auto) 0.89 H (0.11-0.59) K/uL Chloride 110 H (98-107) mmol/L Glucose 150 H (70-99(Fasting)) mg/dl Calcium 8.3 L (8.6-10.3) mg/dl AST 75 H (13-39) U/L ALT 89 H (7-52) U/L Alkaline Phosphatase 114 H (34-104) U/L B-Natriuretic Peptide 1212 H (0-100) pg/ml Total Protein 5.9 L (6.0-8.3) gm/dl Albumin 3.1 L (3.4-5.0) gm/dl Diagnostic Findings XR chest 1V portable HISTORY: 79 years-old Male Chest pain, nonspecific acute chest pain COMPARISON: Chest radiograph 01/12/2025, chest CT 06/30/2024. TECHNIQUE: AP view the chest FINDINGS: Cardiac silhouette is enlarged. Left subclavian pacer/ICD. Median sternotomy. Pulmonary vascular congestion with interstitial coarsening. No pneumothorax. Small layering pleural effusions, left greater than right with left basilar and upper lung opacities which are new from prior. Degenerative changes of the shoulders and spine. IMPRESSION: 1. Cardiomegaly with suggestion of mild interstitial pulmonary edema. 2. Small pleural effusions with left basilar and upper lung opacities. Differential considerations include asymmetric alveolar pulmonary edema versus pneumonia. 3. Chronic interstitial lung disease. 4. Small pleural effusions. Medications Administered ER Medications Given: Furosemide 40mg IV ECG Rate (beats per minute): 73 Rhythm: other (atrial sensed ventricular paced rhythm with prolonged AV conduction) Findings: no acute ischemic change Comparison ECG Date: from (January 12, 2025) Change: the following changes noted (electronic ventricular pacemaker replaced atrial pacemaker) Code Status & VTE Plan Code Status Full VTE Prophylaxis Plan VTE Prophylaxis will be ordered: Yes PG Care Time/CCT Total # of Minutes Spent Total Time Spent with Patient: Total time spent is greater than 50% in coordination of care (as documented) at patient's floor/unit and/or counseling patient: Coding Level of Care Code 46490 INT INP/OBS CARE MIN Diagnoses Acute on chronic heart failure with preserved ejection fraction (HFpEF) I50.33
[2025-01-22] MEDS ORDERED: GLUCOSE 40% GEL 15 GM TUBE PO PRN (14:56)
[2025-01-22] MEDS ORDERED: DEXTROSE 50% 50 ML SYRINGE IV PRN (14:56)
[2025-01-22] MEDS ORDERED: GLUCAGON FOR INJ 1 MG VIAL SQ PRN (14:56)
[2025-01-22] MEDS ORDERED: GLUCOSE 10 TAB/TUBE PO PRN (14:56)
[2025-01-22] MEDS: INSULIN ASPART PER UNIT CHARGE SC SCH (18:04)
[2025-01-22] MEDS ORDERED: ENOXAPARIN INJ 40 MG/0.4 ML SYR SQ SCH (21:00)
[2025-01-22] MEDS: ENALAPRIL MALEATE 5 MG TAB PO SCH (22:42)
[2025-01-22] MEDS: DOXYCYCLINE HYCLATE 100 MG CAP PO SCH (22:42)
[2025-01-22] MEDS: APIXABAN 5 MG TABLET PO SCH (22:44)
[2025-01-23] MEDS: ACETAMINOPHEN 500 MG TAB PO ONE (04:33)
--- NOTE | 2025-01-23 08:17 | Hospitalist Progress Note ---
Date of Service January 23, 2025 Assessment & Plan (1) Acute on chronic heart failure with preserved ejection fraction (HFpEF): Plan 79 year old with HFimpEF and multiple admissions in December for acute on chronic exacerbation presents to the ER with worsening shortness of breath overnight. #Acute on chronic HFimpEF - previous LVEF 45%, more recently 50-55% No pericardial effusion on POCUS, with B lines throughout including anterior/superiorly Continue carvedilol and ramipril Significant direusis with Lasix 40mg IV daily, will switch to torsemide 10mg PO daily tomorrow Daiy standing weight Strict I&Os Continue his usual GDMT with carvedilol (reduce to 3.125mg PO BID due to hypotension, also a problem on prior hospitalization ?does not take this at home), Jardiance (stopped after N&V hospitalization but no reason this cannot be restarted), unlikely to be able to tolerate MRA, Acei stopped after recent hospitalization for EKI therefore willl also hold off starting this, he does not think he is taking his previously prescribed ramipril at home #CKD stage III - At baseline - Renal function at baseline on admission - Monitor renal function with ongoing diuretic use - Avoid nephrotoxic agents when possible. Promote oral hydration #Anemia chronic anemia with Hgb typically ranging from 1112 - Hgb on admission 10.1, at baseline, ferritin in Fe % with AM labs - iron transufsions have been shown to help reduce readmissions in HF with ferritin < 100 #T2DM on glargine 35U, Jardiance, metformin at home. Recent A1c 6.7% - Lantus 12U. SSI with target BSG range 110-150mg/dL, CF 25, carb ratio 8 #HTN- Carvedilol - continue #HLD- Rosuvastatin - continue #Afib- currently EKG has p waves, Amiodarone, Eliquis - continue #Chronic hypoxic resp failure- Breo Ellipta, 4L O2 via NC at all times - continue inhalers + O2 #BPH- Tamsulosin - continue #Psych- Duloxetine - continue VTE Prophylaxis - Eliquis 5mg BID Disposition - continue admit to med/tele until HF optimized due to risk of readmission with multiple re-admissions in December Admission and Anticipated Discharge Date Admission Date: January 22, 2025 Subjective Feels much improved today. Leg swelling down. Less orthopnea. Physical Exam Respiratory: normal respiratory effort; no respiratory distress Auscultation: + crackles (bibasal); no diminished lung sounds, no rales, no rhonchi and no wheezes Cardiovascular: Rate/Rhythm: regular rate and regular rhythm Heart Sounds: no murmur Extremities: + pedal edema (1+ L > R) Results & Data Results & Data Vital Signs (Past 12 Hours) Vital Signs Temp Pulse Pulse Resp BP BP Pulse Ox 01/23/25 08:04 36.6 C 73 18 139/63 93 01/23/25 04:00 36.8 C 60 18 117/60 92 01/23/25 02:35 70 18 140/74 98 01/22/25 23:30 36.6 C 71 18 126/66 95 01/22/25 22:13 01/22/25 22:13 36.4 C L 75 18 140/78 99 O2 Del Method O2 Flow Rate 01/23/25 08:04 Nasal Cannula 4 01/23/25 04:00 Nasal Cannula 4 01/23/25 02:35 Nasal Cannula 01/22/25 23:30 Nasal Cannula 4 01/22/25 22:13 Nasal Cannula 6 01/22/25 22:13 Nasal Cannula 6 PG Care Time/CCT Total # of Minutes Spent Total Time Spent with Patient: Total time spent is greater than 50% in coordination of care (as documented) at patient's floor/unit and/or counseling patient: Coding Level of Care Code 84593 SUB INP/OBS CARE 2/35MIN Diagnoses Acute on chronic heart failure with preserved ejection fraction (HFpEF) I50.33
[2025-01-23 08:22] LABS: Hematocrit (blood only) 33.9 % (42.0-52.0); Hemoglobin 11.0 g/dl (14.0-18.0); Mean Corpuscular Hemoglobin 26.5 pg (25.0-34.0); Mean Corpuscular Volume 81.7 fL (80.0-100.0); Platelet Count 246 K/uL (130-400); RDW Standard Deviation 58.4 fL (36.4-46.3); Red Blood Count 4.15 M/uL (4.70-6.10); White Blood Count 9.01 K/ul (4.8-10.8)
[2025-01-23 08:49] LABS: Alanine Aminotransferase 69.0 U/L (7-52); Albumin Globulin Ratio 1.1 (0.9-2); Alkaline Phosphatase 112.0 U/L (34-104); Anion Gap 4.0 (3-11); Bilirubin,Total 1.0 mg/dl (0.2-1.0); Blood Urea Nitrogen 24.0 mg/dl (6-23); Calcium 8.8 mg/dl (8.6-10.3); Carbon Dioxide 27.0 mmol/L (21-32); Chloride 106.0 mmol/L (98-107); Creatinine Clr Calc Pharmacy 49.1 ml/min; Globulin 2.8 gm/dl (2.5-4.0); Glucose 107.0 mg/dl (70-99(Fasting)); Magnesium 1.8 mg/dl (1.7-2.4); Potassium 4.3 mmol/L (3.5-5.1); Sodium 137.0 mmol/L (136-145); Total Protein 6.0 gm/dl (6.0-8.3)
--- NOTE | 2025-01-23 10:11 | Electrocardiogram Report ---
Test Reason : Blood Pressure : */* mmHG Vent. Rate : 73 BPM Atrial Rate : 73 BPM P-R Int : 264 ms QRS Dur : 180 ms QT Int : 480 ms P-R-T Axes : 60 189 48 degrees QTcB Int : 528 ms Atrial-sensed ventricular-paced rhythm with prolonged AV conduction Abnormal ECG When compared with ECG of 12-Jan-2025 16:29, Electronic ventricular pacemaker has replaced Electronic atrial pacemaker Confirmed by Felipa Leung ([place]) on 01/23/2025 10:11:16 AM Referred By: REFERRED SELF Confirmed By: Felipa Leung
[2025-01-23] MEDS: AMIODARONE 200 MG TAB PO SCH (10:54)
[2025-01-23] MEDS: FLUTICASONE/VILANTEROL 100/25MCG 14 PUFFS/INHALER INH SCH (10:54)
[2025-01-23] MEDS: OXYBUTYNIN CHLORIDE XL 5 MG TABCR PO SCH (10:55)
[2025-01-23] MEDS: FUROSEMIDE 40 MG/4 ML VIAL IV SCH (10:55)
[2025-01-23] MEDS: EMPAGLIFLOZIN 10 MG TAB PO SCH (10:55)
[2025-01-23] MEDS: TAMSULOSIN HCL 0.4 MG CAP PO SCH (10:55)
[2025-01-23] MEDS: ROSUVASTATIN CALCIUM 10 MG TAB PO SCH (10:55)
[2025-01-23] MEDS: LANTUS PER UNIT CHARGE SQ SCH (11:05)
[2025-01-23] MEDS: ONDANSETRON INJ 2 MG/ML 2 ML VIAL IV PRN (12:06)
[2025-01-24] MEDS: ACETAMINOPHEN 325 MG TAB PO ONE (01:11)
[2025-01-24 07:22] LABS: Hematocrit (blood only) 32.4 % (42.0-52.0); Hemoglobin 10.2 g/dl (14.0-18.0); Mean Corpuscular Hemoglobin 26.0 pg (25.0-34.0); Mean Corpuscular Volume 82.7 fL (80.0-100.0); Platelet Count 239 K/uL (130-400); RDW Standard Deviation 58.8 fL (36.4-46.3); Red Blood Count 3.92 M/uL (4.70-6.10); White Blood Count 9.25 K/ul (4.8-10.8)
[2025-01-24 07:43] LABS: Alanine Aminotransferase 54.0 U/L (7-52); Albumin Globulin Ratio 1.1 (0.9-2); Alkaline Phosphatase 100.0 U/L (34-104); Anion Gap 6.0 (3-11); Bilirubin,Total 0.9 mg/dl (0.2-1.0); Blood Urea Nitrogen 27.0 mg/dl (6-23); Calcium 8.7 mg/dl (8.6-10.3); Carbon Dioxide 28.0 mmol/L (21-32); Chloride 101.0 mmol/L (98-107); Creatinine Clr Calc Pharmacy 40.4 ml/min; Globulin 2.7 gm/dl (2.5-4.0); Glucose 111.0 mg/dl (70-99(Fasting)); Iron 25.0 mcg/dl (35-175); Potassium 4.3 mmol/L (3.5-5.1); Sodium 135.0 mmol/L (136-145); Total Iron Binding Cap Calc 280.0 mcg/dl (250-450); Total Protein 5.7 gm/dl (6.0-8.3); Transferrin 200.0 mg/dl (200-360); Transferrin (FE) Percent Satur 9.0 % (20-50)
[2025-01-24 08:02] LABS: Ferritin 70.1 ng/ml (8-388)
[2025-01-24] MEDS ORDERED: TORSEMIDE 10 MG TAB PO SCH (09:00)
--- NOTE | 2025-01-24 15:42 | Ultrasound Report ---
US arterial duplex LE LT CLINICAL HISTORY: ?pad, non healing wounds COMPARISON STUDY: 04/07/2024 FINDINGS: There are normal velocities and waveforms at the arteries of the left lower extremity. No s ignificant arterial narrowing or occlusion seen. IMPRESSION: No significant arterial narrowing or occlusion seen at the left lower extremity. ACT 112: Negative or not required by law. Electronically signed by: Choco Whyte M.D. 01/24/2025 3:41 PM
[2025-01-24] MEDS: CARBOHYDRATES FOR HYPOGLYCEMIA PO PRN (16:30)
--- NOTE | 2025-01-24 19:16 | Hospitalist Progress Note ---
Date of Service January 24, 2025 Assessment & Plan (1) Acute on chronic heart failure with preserved ejection fraction (HFpEF): Plan 79 year old with HFimpEF and multiple admissions in December for acute on chronic exacerbation presents to the ER with worsening shortness of breath overnight. #Acute on chronic HFimpEF - previous LVEF 45%, more recently 50-55% No pericardial effusion on POCUS, with B lines throughout including anterior/superiorly on admission, will reassess POCUS tomorrow Daiy standing weight Strict I&Os Continue his usual GDMT with carvedilol (reduce to 3.125mg PO BID due to hypotension, also a problem on prior hospitalization ?does not take this at home), Jardiance (stopped after N&V hospitalization but no reason this cannot be restarted), unlikely to be able to tolerate MRA, Acei stopped after recent hospitalization for EKI therefore willl also hold off starting this, he does not think he is taking his previously prescribed ramipril at home Rising Cr ?due to diuresis > rate of plasma redistribution rate, will hold off further diuresis today, likely to just need Jardiance on discharge Should follow up with HF clinic on discharge with daily weights #CKD stage III - At baseline slowly trending back up, will hold off diuresis today and if stable can likely be discharged home tomorrow #Anemia chronic anemia with Hgb typically ranging from 1112 - Hgb on admission 10.1, at baseline, ferritin in Fe % with AM labs - iron transfusions have been shown to help reduce readmissions in HF with ferritin < 100 - ferritin < 100, therefore will give 200mg Venofer per FAIR-HF and FERRIC-HF trials; should get this weekly for 5 weeks #T2DM on glargine 35U, Jardiance, metformin at home. Recent A1c 6.7% - hypoglycemic today, reduce Lantus to 6U. SSI with target BSG range 110- 150mg/dL, CF 45, carb ratio 15 #HTN- Carvedilol - continue #HLD- Rosuvastatin - continue #Afib- currently EKG has p waves, Amiodarone, Eliquis - continue #Chronic hypoxic resp failure- Breo Ellipta, 4L O2 via NC at all times - continue inhalers + O2 #BPH- Tamsulosin - continue #Psych- Duloxetine - continue VTE Prophylaxis - Eliquis 5mg BID Disposition - continue admit to med/tele until HF optimized due to risk of ramo dmission with multiple re-admissions in December Admission and Anticipated Discharge Date Admission Date: January 22, 2025 Subjective Leg swelling and shortness of breath continue to improve, currently on 5LPM O2 (4LPM O2 at baseline). Discussed Cr slowly rising with the patient. Physical Exam Respiratory: normal respiratory effort; no respiratory distress Auscultation: + crackles (bibasal); no diminished lung sounds, no rales, no rhonchi and no wheezes Cardiovascular: Rate/Rhythm: regular rate and regular rhythm Heart Sounds: no murmur Extremities: + pedal edema (1+ L > R) Results & Data Results & Data Vital Signs (Past 12 Hours) Vital Signs Temp Pulse Pulse Resp BP Pulse Ox O2 Del Method 01/24/25 18:29 69 01/24/25 14:53 36.5 C 59 L 17 109/64 95 Nasal Cannula 01/24/25 11:53 36.4 C L 78 19 111/56 L 99 Nasal Cannula 01/24/25 08:50 Nasal Cannula 01/24/25 08:41 71 18 108/65 99 Nasal Cannula 01/24/25 07:37 71 O2 Flow Rate 01/24/25 18:29 01/24/25 14:53 5 01/24/25 11:53 5 01/24/25 08:50 4 01/24/25 08:41 5 01/24/25 07:37 PG Care Time/CCT Total # of Minutes Spent Total Time Spent with Patient: Total time spent is greater than 50% in coordination of care (as documented) at patient's floor/unit and/or counseling patient: Coding Level of Care Code 58109 SUB INP/OBS CARE 2/35MIN Diagnoses Acute on chronic heart failure with preserved ejection fraction (HFpEF) I50.33
[2025-01-24] MEDS ORDERED: IRON SUCROSE 300 MG in SODIUM CHLORIDE 0.9% 250 ML IV ONE (19:30)
[2025-01-24] MEDS: IRON SUCROSE 200 MG in SODIUM CHLORIDE 0.9% 100 ML IV ONE (20:43)
[2025-01-25] MEDS: LANTUS PER UNIT CHARGE SQ SCH (09:16)
[2025-01-25 09:47] LABS: Anion Gap 4.0 (3-11); Blood Urea Nitrogen 25.0 mg/dl (6-23); Calcium 9.0 mg/dl (8.6-10.3); Carbon Dioxide 29.0 mmol/L (21-32); Chloride 99.0 mmol/L (98-107); Creatinine Clr Calc Pharmacy 41.8 ml/min; Glucose 179.0 mg/dl (70-99(Fasting)); Potassium 4.9 mmol/L (3.5-5.1); Sodium 132.0 mmol/L (136-145)
--- NOTE | 2025-01-25 11:23 | Discharge Summary ---
Discharge Summary Date of Service January 25, 2025 Principal Dx & Hospital Course #1 = Principal Diagnosis (1) Acute on chronic heart failure with preserved ejection fraction (HFpEF): Alondra Allen Case is a 79 year old male admitted to [facility] from January 22 to 2024 due to acute on chronic heart failure with improved ejection fraction. He was treated with intravenous Lasix 40mg IV daily which initially caused overdiuresis but then renal function improved holding this for 1 day. He really only required one dose of Lasix 40mg to get back to his baseline. His shortness of breath and leg swelling improved with diuretics. Suspect that this exacerbation was caused by holding his Jardiance on recent admission for nausea and vomiting and we have restarted this. Given significant diuresis with Lasix 40mg IV recommend cutting his PRN dose of torsemide to 10mg as needed for worsening leg swelling, shortness of breath or weight gain in collaboration with the heart failure clinic. He was given Venofer 200mg IV due to ferritin < 100 in setting of heart failure. Recommend he continues to receive 200mg weekly for another 4 weeks per FAIR-HF and FERRIC-HF trials. Even with reducing his Lantus to 12 units from his outpatient 25 units this still caused one hypoglycemic episode and control was too tight. He also admits to having multiple hypoglycemic episodes as an outpatient therefore his Lantus was reduced from 25 units to 15 units as an outpatient (I suspect he eats more carbs as an outpatient than inpatient). I advised him to cut the Lantus further if still having hypoglycemic episodes. Ramipril was previously discontinued due to acute renal failure. Carvedilol was reduced due to hypotension which was likely the cause of his prior acute kidney injury. He completed your doxycycline antibiotic course during his inpatient admission therefore this was discontinued. Notes For Next Care Provider Need to check he is taking the right medications as lots of changes recently and patient not able to accurately remember medications, recommend he brings in his medications for a check at follow up visit Monitor for worsening heart failure - may need adjustments of his torsemide (currently just PRN) Make sure he follows up with cardiology and heart failure clinic Recommend Venofer 200mg IV weekly for 4 further weeks (initial dose given as inpatient 01/24/2025) Medication Changes From Visit Carvedilol decreased to 3.125mg PO BID due to hypotension on higher doses of this Jardiance restarted - recently stopped due to nausea and vomiting but suspect discontinuation of this is what led to his admission Lantus reduced to 15 units QAM - he actually had hypoglycemia to 12 units of Lantus as inpatient so this may have to be reduced further Doxycycline course completed during his inpatient admission therefore discontinued Ramipril discontinued - he should not have been taken this since the start of December when he was first diagnosed with STEPHAN ISMN discontinued - again unclear whether he was taking this at home as it was discontinued last admission due to hypotension Admission HPI Per Admitting Provider Alejandro Arredondo is a 79 year old male with congestive heart failure who presents to the ER with shortness of breath. he reports feeling well up until last night when he became increasingly short of breath especially throughout the night with significant orthopnea. No change in diet or medications. He uses torsemide just as needed and has not taken it with this illness. He reports 4lb weight gain in the last 24 hours with associated worsening of his bilateral leg swelling. His left leg is normally worse than the right leg. Recently on doxycycline for concern of infection of his right leg but he reports that the weeping areas have healed nicely. He is on chronic 4LPM O2 but per EMS O2 sats 81% on his normal O2 requirement. Discharge Exam Respiratory normal respiratory effort, lungs clear to auscultation Cardiovascular Rate/Rhythm: regular rate and regular rhythm Extremities: + pedal edema (trace b/l equal) Discharge Plan Discharge Items Patient Disposition: Home - Self-Care Reason For Visit: ACUTE ON CHRONIC HFimpef Discharge Diagnosis: Acute on chronic HFimpEF Condition on Discharge: Good Non-emergency contact: Primary Care Provider Call non-emergency contact if: you have any medication questions and your symptoms worsen Follow-up/Referrals: Marisol Love PA-C [Primary Care Provider] - (PLEASE CALL YOUR PRIMARY CARE PROVIDER TO SCHEDULE A HOSPITAL FOLLOW-UP APPOINTMENT WITHIN 7-10 DAYS ) Diet: Heart Healthy and Low Sodium (2gm) Addtl Attending Provider Instructions: You were admitted to [facility] from January 22 to 2024 due to acute on chronic heart failure with improved ejection fraction. You were treated with intravenous Lasix which initially caused overdiuresis but then improved holding this for 1 day. Your shortness of breath and leg swelling improved with diuretics. Suspect that this was caused by holding your Jardiance. Recommend continuing on this. Please check your medications at home are the same as what is prescribed on discharge. Please follow-up with the heart failure clinic for ongoing management. Use torsemide 10 mg (half a pill) as needed for worsening leg swelling, shortness of breath or weight gain in collaboration with the heart failure clinic. Due to low glucose levels as an inpatient and outpatient recommend reducing your Lantus to 15 units daily. If you continue to have low blood sugars less than 70 recommend reducing this further. Please follow-up with your primary care physician for ongoing management. Ramipril was previously discontinued due to acute renal failure. Please make sure you are not taking this at home. Carvedilol was reduced due to hypotension which was likely the cause of your previous acute kidney injury. You completed your doxycycline antibiotic course during her inpatient admission therefore this can be discontinued. Pending Studies at Discharge: No Stand-Alone Forms: My [facility] [employer], Smoking Cessation Medications and DC Order Prescriptions: New carvedilol 3.125 mg Tablet 3.125 mg PO BIDM Qty: 60 0RF Jardiance 10 mg tablet 10 mg PO DAILY Qty: 30 0RF Continued rosuvastatin 10 mg tablet 10 mg PO QAM Hold Instructions: Resume on 01/03/25. Eliquis 5 mg tablet 5 mg PO BID (DME) lancets 33 gauge misc See Rx Instructions .Route Qty: 100 5RF Rx Instructions: [facility] testing (DME) OneTouch Verio test strips Strip See Rx Instructions .Route Qty: 100 0RF Rx Instructions: [facility] (DME) blood-glucose meter Mis See Rx Instructions .Route Qty: 1 0RF Rx Instructions: [facility] (DME) pen needle,diabetic, disp unit 32 gauge x 5/32" needle See Rx Instructions .Route Qty: 100 0RF Rx Instructions: Inject 1x daily tamsulosin 0.4 mg capsule 0.4 mg PO QAM duloxetine 60 mg capsule,delayed release(DR/EC) 60 mg PO QAM amiodarone 400 mg tablet 400 mg PO QAM fluticasone furoate-vilanterol [Breo Ellipta] 100-25 mcg/dose blister with device 1 inh INHALATION DAILY tolterodine 4 mg capsule,extended release 24hr 4 mg PO DAILY pantoprazole 40 mg tablet,delayed release (DR/EC) 40 mg PO DAILY Changed torsemide 20 mg tablet 10 mg PO DAILY PRN (Reason: Swelling/Weight Gain) Qty: 0 0RF insulin glargine [Lantus Solostar U-100 Insulin] 100 unit/mL (3 mL) insulin pen 15 unit subcut QAM Qty: 0 0RF Discontinued nitroglycerin [Nitrostat] 0.4 mg tablet, sublingual 0.4 mg sublingual UD PRN (Reason: Chest Pain) carvedilol 12.5 mg Tablet 12.5 mg PO BIDM Qty: 60 2RF isosorbide mononitrate 30 mg tablet extended release 24 hr 30 mg PO DAILY Qty: 30 3RF Hold Instructions: Provider's Order doxycycline hyclate 100 mg capsule 100 mg PO BID Rx Instructions: Start Date 01/18/25 x 10 days supply ramipril 2.5 mg capsule 2.5 mg PO BID Discharge Orders: Discharge Order- CHF (Routine); Ordered 01/25/25 Ordered By: Jean Sanches Admission Data Admit Date/Time: 01/22/25 10:56 Attending Provider: Jean Sanches Admit Provider: Jean Sanches Primary Care Provider: Marisol Love Other Providers: Jean Sanches; Rocio Box Other Interventions: Discharge Summary Assessment (RN) Last Done: 01/25/25 11:31 Hospital Stay Data Consultations 01/22/25 10:22 ED Decision to Admit Stat Diagnostic Imagining Performed 01/24/25 10:49 US arterial duplex LE LT Urgent Pending Results Patient Have Any Pending Studies at Discharge: No Discharge Instructions Given to Patient (Per Discharging Provider) You were admitted to [facility] from January 22 to 2024 due to acute on chronic heart failure with improved ejection fraction. You were treated with intravenous Lasix which initially caused overdiuresis but then improved holding this for 1 day. Your shortness of breath and leg swelling impro ji with diuretics. Suspect that this was caused by holding your Jardiance. Recommend continuing on this. Please check your medications at home are the same as what is prescribed on discharge. Please follow-up with the heart failure clinic for ongoing management. Use torsemide 10 mg (half a pill) as needed for worsening leg swelling, shortness of breath or weight gain in collaboration with the heart failure clinic. Due to low glucose levels as an inpatient and outpatient recommend reducing your Lantus to 15 units daily. If you continue to have low blood sugars less than 70 recommend reducing this further. Please follow-up with your primary care physician for ongoing management. Ramipril was previously discontinued due to acute renal failure. Please make sure you are not taking this at home. Carvedilol was reduced due to hypotension which was likely the cause of your previous acute kidney injury. You completed your doxycycline antibiotic course during her inpatient admission therefore this can be discontinued. Total Time Total Time Spent Total Time Spent (In Minutes): 55 Coding Level of Care Code 27079 INP/OBS DISCH >30 MIN Diagnoses Acute on chronic heart failure with preserved ejection fraction (HFpEF) I50.33
[2025-01-25 11:54] VITALS: BP 113/56; PULSE 67; RESP 18; TEMP 97.2; O2SAT 96
== END 2025-01-25 15:15 | disposition home or self-care (01) | DRG 291 ==
LOC: ED 09:07 → EDINP 10:56 → 2N 21:45